=== PATIENT | female | born 1940 | race Caucasian/White ===

== ENCOUNTER 2016-11-21 11:43 | Observation (INO) | payer OTHER ==
[~2016-11-21] VITALS: Ht 157.5 cm; Wt 68.0 kg
[~2016-11-21 11:43] MED LIST: AMITRIPTYLINE H25 M2 PO; AMITRIPTYLINE100 M1 PO; AMITRIPTYLINE75 MG PO; AMLODIPINE BESYL5 M1 PO; AMLODIPINE5 MG PO; ASPIR 8181 MG PO; AUGMENTIN 875875 MG PO; BACLOFEN20 MG PO; CIPRO 500MG TA500 MG PO; COUMADIN5 M2 PO; COUMADIN7.5 M1 PO; DAILY VALUE1 EACH PO; FERROUS SULFAT325 M3 PO; LEVOTHYROXINE100 MC1 PO; LIORESAL 10MG T10 MG PO; LISINOPRIL10 M1 PO; LISINOPRIL10 MG PO; MACROBID100 MG PO; PRAVACHOL80 M1 PO; PRINIVIL10 MG PO; Senokot S PO; Theragran Vitamins PO; VITAMIN B1100 MG PO; VITAMIN C1000 M4 PO; WARFARIN SODIU7.5 MG PO
--- NOTE | 2016-11-21 11:58 | NUR ---
PT TO ED C/O "MY HEAD FEELS FUNNY" X A FEW DAYS. PT HAS VISITING NURSES WHO ADVISED PT TO COME TO ED FOR LETHARGY, ? UTI AND DEHYRDATION.
--- NOTE | 2016-11-21 12:02 | ED AMS/SEIZURE/WEAK/DIZZY ---
History of Present Illness General Chief Complaint: General Adult Stated Complaint: WEAKNESS Source: patient, old records Exam Limitations: no limitations Vital Signs & Intake/Output Vital Signs & Intake/Output Vital Signs Date Time Temp Pulse Resp B/P Pulse O2 O2 Flow FiO2 Ox Delivery Rate 11/21 1700 97.6 11/21 1648 95.1 88 18 154/78 96 Room Air 11/21 1642 96.0 75 20 158/74 11/21 1539 96.0 75 20 158/74 94 Room Air 11/21 1345 96.0 69 18 164/73 96 Room Air 11/21 1156 97.0 74 20 147/79 92 Room Air Allergies Coded Allergies: Sulfa (Sulfonamide Antibiotics) (INCOHERENT 11/21/16) oxycodone (SENSITIVITY TO IT 11/21/16) Reconcile Medications Amitriptyline HCl 25 MG TABLET 1 TAB PO QPM DEPRESSION (Reported) Amlodipine Besylate 5 MG TABLET 1 TAB PO DAILY BP (Reported) Ascorbic Acid (Vitamin C) 1,000 MG TABLET 1 TAB PO DAILY SUPPLEMENT (Reported ) Baclofen 20 MG TABLET 1 TAB PO 4 TIMES/DAY MUSCLE SPASMS (Reported) Calcium (Elemental-Fr Calcarb) (Calcium) 600 MG CALCIUM (1,500 MG) TABLET 2, 400 MG PO DAILY SUPPLEMENT (Reported) Cranberry Extract (Cranberry) (Unknown Strength) CAPSULE (Unknown Dose) PO DAILY SUPPLEMENT (Reported) Cyanocobalamin (Vitamin B-12) (Unknown Strength) TABLET (Unknown Dose) PO DAILY SUPPLEMENT (Reported) Ferrous Sulfate 325 MG (65 MG IRON) TABLET 1 TAB PO DAILY SUPPLEMENT ( Reported) Levothyroxine Sodium 100 MCG TABLET 1 TAB PO DAILY AC THYROID (Reported) Lisinopril 10 MG TABLET 1 TAB PO DAILY BP (Reported) Multivitamin (Daily Value) 1 EACH TABLET 1 TAB PO DAILY SUPPLEMENT (Reported) Pravastatin Sodium (Pravachol) 80 MG TABLET 1 TAB PO DAILY CHOLESTEROL ( Reported) Warfarin Sodium (Coumadin) 5 MG TABLET 1 TAB PO Q48 BLOOD THINNER (Reported) Warfarin Sodium (Coumadin) 7.5 MG TABLET 1 TAB PO Q48 BLOOD THINNER (Reported ) Triage Note: PT TO ED C/O "MY HEAD FEELS FUNNY" X A FEW DAYS. PT HAS VISITING NURSES WHO ADVISED PT TO COME TO ED FOR LETHARGY, ? UTI AND DEHYRDATION. Triage Nurses Notes Reviewed? yes Onset: Gradual Duration: day(s): (2-3), constant Timing: recent history Injury Environment: home Severity: moderate Severity Numbers: 6 No Modifying Factors: none Associated Symptoms: denies HPI: 76-year-old female with history of MS, chronic indwelling Warner which she's had for the past 3 weeks presents to the ER today complaining a "fuzziness"and lethargy which she's had for the past 2-3 days. Her was at bedside states she had similar symptoms 5 years ago which time she was diagnosed with a urine infection. The patient denies chest pain headache vision changes fevers chills no shortness of breath cough rhinorrhea congestion. She denies any abdominal pain. They deny noting any change in her urine output in the Warner catheter. per her pt has been at times confused, neurologist is dr trevino. sx worse at night (DAGO CHÁVEZ) Past History Travel History Traveled to [place] past 21 day No Medical History Any Pertinent Medical History? 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 No (DAGO CHÁVEZ) Review of Systems Review of Systems Constitutional: Reports: see HPI. All Other Systems: Reviewed and Negative Comments Review of systems: See HPI, All other systems negative. Constitutional, no chills no fever, no malaise no weight loss HEENT: No visual changes no sore throat no congestion, no ear pain Cardiovascular: No chest pain , no palpitation Skin, no jaundice no rashes, no change in skin Respiratory: No dyspnea no cough no sputum GI: No nausea no vomiting, no diarrhea, no bloating/constipation : No dysuria No hematuria, no frequency, no discharge Muscle skeletal: No joint pain, no joint swelling, no back pain, no neck pain, Neurologic: No numbness no confusion, no headache Psych: No stress Heme/endocrine: No bruising no bleeding Immunology: No lymphadenopathy (DAGO CHÁVEZ) Physical Exam Physical Exam General Appearance: well developed/nourished, no apparent distress, alert, awake Comments: Well-developed well-nourished person in no acute distress HEENT: Normal EENT exam; PERRL, EOMI, no nystagmus. HEAD is atraumatic. moist mucous membranes. Neck: Supple, no lymphadenopathy, normal range of motion Back: Nontender, Full range of motion Cardiovascular: Regular rate and rhythms no murmurs rubs Respiratory: Chest nontender.There were no bony deformities, no asymmetry. No respiratory distress. Patient speaking in full complete sentences. Breath sounds clear to auscultation bilaterally: NO W/R/R Abdomen: Soft, nontender nondistended, no appreciable organomegaly. Normal bowel sounds. No rebound/guarding Extremity: No edema, full range of motion of extremities, normal and equal pulses bilaterally, 5 out of 5 strength noted to bilateral upper and lower extremities Neuro: Alert oriented x3, motor sensory normal, cranial nerves II through XII grossly intact. There were no obvious focal neurologic abnormalities. Skin: No appreciable rash on exposed skin, skin is warm and dry. Psych: Mood and affect is normal, memory and judgment is normal. Core Measures ACS in differential dx? Yes CVA/TIA Diagnosis: No Severe Sepsis Present: No Septic Shock Present: No (DAGO CHÁVEZ) Progress Differential Diagnosis: arrythmia, anemia, benign positional vertigo, CVA/stroke , dehydration, electrolyte imbalance, GI bleed, hypoglycemia, hypoxia, multiple sclerosis, sepsis, subarachnoid Hem., UTI/pyelo, vertebrobasilar insuff Plan of Care: Orders Procedure Date/time Status Heart Healthy Diet 11/22 B Active PROTHROMBIN TIME 11/22 599 Active CBC WITHOUT DIFFERENTIAL 11/22 599 Active BASIC ELECTROLYTES PLUS BUN&CR 11/22 599 Active Regular Diet 11/21 D Complete Teach/Educate 11/22 1851 Active Pain Treatment and Response 11/22 1851 Active Nutritional Intake, Monitor 11/22 1851 Active Isolation 11/22 1851 Active Patient Care Conference 11/22 1851 Active Activity/Ambulation 11/22 1851 Active PT Evaluate & Treat 11/21 1609 Active Pathway - chart 11/21 1609 Active House Staff 11/21 1609 Active Patient Data 11/21 1609 Active Code Status 11/21 1609 Active Patient Data 11/[address] in observation 11/21 1510 Active ED Holding Orders 11/21 1510 Active Vital Signs 11/21 1510 Active Code Status 11/21 1510 Complete Intake & Output 11/21 1308 Active THYROID STIMULATING HORMONE 11/21 1300 Active VITAMIN B12 11/21 1300 Active PROTHROMBIN TIME 11/21 1235 Complete EKG 11/21 1234 Active CULTURE,URINE 11/21 1225 Active URINALYSIS 11/21 1225 Complete TROPONIN LEVEL 11/21 1225 Active COMPREHENSIVE METABOLIC PANEL 11/21 1225 Active CBC WITHOUT DIFFERENTIAL 11/21 1225 Complete Lab Add-on Test 11/21 UNK Active Occupational Tx Eval & Treat 11/21 UNK Active VTE Mechanical Prophylaxis 11/21 UNK Active Current Medications Sig/Laura Start time Last Medication Dose Stop Time Status Admin Pravastatin Sodium 80 MG 1700 11/22 1700 AC (Pravachol) Ascorbic Acid 1,000 MG DAILY 11/22 1000 AC (Vitamin C) Ferrous Sulfate 325 MG DAILY 11/22 1000 AC (Feosol) Multivitamins 1 TAB DAILY 11/22 1000 AC Therapeutic (Theragran-M Vitamins Tabs) Levothyroxine Sodium 0.1 MG DAILY AC 11/22 0700 AC (Synthroid) Amitriptyline HCl 25 MG QPM 11/21 2200 AC (Elavil 25 Mg. Tablet) Baclofen 20 MG Q6 11/21 1800 AC (Lioresal 10MG Tablet) Laboratory Tests 11/21/16 1300: Anion Gap 7, Estimated GFR 48 L, BUN/Creatinine Ratio 30.9 H, Glucose 107 H, Calcium 10.3 H, Total Bilirubin 0.4, AST 21, ALT 40, Alkaline Phosphatase 212 H, Troponin I < 0.01, Total Protein 7.4, Albumin 3.7, Globulin 3.7, Albumin/ Globulin Ratio 1.0 L, Vitamin B12 Pending, TSH Pending, PT 47.9 *H, INR 4.63 *H , CBC w Diff NO MAN DIFF REQ, RBC 4.58, MCV 84.2, MCH 27.8, RDW 16.4 H, MPV 8.5 , Gran % 56.7, Lymphocytes % 31.6, Monocytes % 7.7, Eosinophils % 3.4, Basophils % 0.6, Absolute Granulocytes 3.5, Absolute Lymphocytes 2.0, Absolute Monocytes 0.5, Absolute Eosinophils 0.2, Absolute Basophils 0, PUBS MCHC 33.0 11/21/16 1250: Urinalysis HEAVY H, Urine Color YEL, Urine Clarity CLDY H, Urine pH 8.0, Ur Specific [place] 1.015, Urine Protein 30 H, Urine Ketones NEG, Urine Nitrite NEG, Urine Bilirubin NEG, Urine Urobilinogen 0.2, Ur Leukocyte Esterase LARGE H , Ur Microscopic SEDIMENT EXAMINED, Urine RBC 25-50 H, Urine WBC 1-3 H, Ur Epithelial Cells RARE, Urine Crystals 3+ TRIP PHOS H, Urine Bacteria MANY H, Urine Hemoglobin LARGE H, Urine Glucose NEG Microbiology 11/21 1250 URINE ROUT: Urine Culture - RECD labs and ct ordered, pt appears in nad at this time case d/w cecil who agrees wtih plan Discussed the patient and her all of her lab results CT findings given change in mental status increased lethargy she is a fall risk premature discharge he be medically harmful they're in agreement with this plan patient medicated with Cipro 500 mg by mouth after reviewing urine culture results in the past E coli. Case was discussed with case management will place in the patient in observation (EVAN PARK,DAGO) Diagnostic Imaging: Viewed by Me: CT Scan. Discussed w/RAD: CT Scan. Radiology Impression: PATIENT: AL NUNEZ PRESENT AGE: 76 PATIENT ACCOUNT NO: [id number] : 40 LOCATION: [facility] ORDERING PHYSICIAN: DAGO PARK SERVICE DATE: 11/21/16 EXAM TYPE: CAT - CT HEAD WO IV CONTRAST EXAMINATION: CT HEAD WITHOUT CONTRAST CLINICAL INFORMATION: History of multiple sclerosis, headache and lethargy. COMPARISON: CT scan of the head 11/21. TECHNIQUE: Contiguous axial imaging was performed from the skull base to vertex without intravenous administration of contrast. DLP: 529.16 mGy-cm FINDINGS: There is no evidence of acute intracranial hemorrhage or territorial infarction. No abnormal mass effect or midline shift is seen. Garcia to white matter differentiation is well preserved. No extra-axial fluid collections are identified. There is mild commensurate prominence of the ventricles and sulci, consistent with diffuse volume loss which is similar compared to the prior study. The study redemonstrates low attenuation in the periventricular and subcortical white matter, most prominently in the left posterior centrum semiovale. Low-attenuation in the basal ganglia is consistent with lacunar infarcts. There are degenerative changes in the temporomandibular joints. There is soft tissue fullness of the left pterygopalatine fossa and cavernous sinus, stable compared to prior imaging. The soft tissues are unremarkable. The visualized mastoid air cells and paranasal sinuses are well-aerated. IMPRESSION: 1. There are no acute bleeds or infarcts. 2. 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 3. There is stable soft tissue fullness of the left pterygopalatine fossa and cavernous sinus. DICTATED BY: HAN TONY MD DATE/TIME DICTATED:11/21/161323 DIRECTOR CASE:ELTON DATE/TIME TRANSCRIBED:11/21/161323 CONFIDENTIAL, DO NOT COPY WITHOUT APPROPRIATE AUTHORIZATION. <Electronically signed in Other Vendor System> SIGNED BY: HAN TONY MD 11/21/16 1335 Initial ED EKG: normal intervals, normal p-waves, normal QRS complex, normal sinus rhythm, nsr at 70 Prior EKG: unchanged (07/2015) (DAGO CHÁVEZ) Departure Departure Time of Disposition: 1501 Disposition: STILL A PATIENT Condition: Stable Clinical Impression Primary Impression: UTI (urinary tract infection) Secondary Impressions: Altered mental status Referrals: NICKY DOMINIQUE MD (PCP/Family) Departure Forms: Customer Survey General Discharge Information Observation Note Spoke With: KATHY PICKETT MD Physician Advisor Notified: ILA FLORES DO Place Patient In: Non-ED OBS Care Area Rationale for Observation: My rational for observation is as follows premature discharge may be medically harmful trend labs antibiotics possible PT consult for possible rehabilitation she is a fall risk (DAGO CHÁVEZ) PA/ROUNDSMAN Co-Sign Statement Statement: ED Attending supervision documentation- [x] I saw and evaluated the patient. I have also reviewed all the pertinent lab results and diagnostic results. I agree with the findings and the plan of care as documented in the PA's/ROUNDSMAN's documentation. [] I have reviewed the ED Record and agree with the PA's/ROUNDSMAN's documentation. [] Additions or exceptions (if any) to the PAs/ROUNDSMAN's note and plan are summarized below: [] (ILA FLORES DO)
--- NOTE | 2016-11-21 12:10 | NUR ---
PT TO ROOM 9, SEEN BY PA STUDENT IMMEDIATLY UPON ARRIVAL TO ROOM.
--- NOTE | 2016-11-21 12:27 | NUR ---
PT CHANGED INTO GOWN, POSITIONED FOR COMFORT ON STRETCHER. PT DENIES ANY OPEN AREAS, REFUSING TO BE TURNED FOR SKIN CHECK AT THIS TIME. XAVIER GORDON AT BEDSIDE FOR EVAL.
[2016-11-21] MEDS ORDERED: BACLOFEN20 M1 PO (12:29)
[2016-11-21] MEDS ORDERED: CALCIUM600 M3 PO (12:35)
[2016-11-21] MEDS ORDERED: VITAMIN B-121000 MC3 PO (12:36)
[2016-11-21] MEDS ORDERED: CRANBERRY200 MG PO (12:36)
--- NOTE | 2016-11-21 12:56 | NUR ---
URINE DRAWN FROM CHRONIC WARNER WITH SYRINGE TO SEND TRIO. EKG AND BLOOD IN PROGRESS.
--- NOTE | 2016-11-21 13:05 | NUR ---
BLOOD DRAWN AND SENT TO THE LAB ([facility])
--- NOTE | 2016-11-21 13:08 | NUR ---
PT TO CT ON STRETCHER
[2016-11-21 13:10] LABS: ABSOLUTE BASOPHIL COUNT 0 /CUMM (0.0-0.2); ABSOLUTE EOSINOPHIL COUNT 0.2 /CUMM (0.0-0.7); ABSOLUTE GRANULOCYTE CT 3.5 /CUMM (1.4-6.5); ABSOLUTE MONOCYTE COUNT 0.5 /CUMM (0.10-0.60); BASOPHIL % 0.6 % (0.0-2.0); EOSINOPHIL % 3.4 % (0-5); GRANULOCYTE % 56.7 % (42.2-75.2); HEMATOCRIT 38.5 % (37-47); MEAN CORPUSCULAR HGB 27.8 PG (27.0-31.0); MEAN CORPUSCULAR VOLUME 84.2 FL (81.0-99.0); MEAN PLATELET VOLUME 8.5 FL (7.4-10.4); PLATELET COUNT 391 /CUMM (130-400); RBC DISTRIBUTION WIDTH 16.4 % (11.5-14.5); RED BLOOD CELL CT 4.58 /CUMM (4.20-5.40); WHITE BLOOD CELL COUNT 6.2 /CUMM (4.8-10.8)
[2016-11-21 13:21] LABS: PT 47.9 SEC (9.4-12.5)
--- NOTE | 2016-11-21 13:23 | NUR ---
CRITICAL TEST RESULTS [id number] AL NUNEZ F TESTS AND RESULTS: PT 47.9, INR 4.63 Results received and read back by: SADIE ADAM Results received date and time: 11/21/16 1323 The following provider was notified of the results, and read the results back: XAVIER GORDON Notified date and time: 11/21/16 at 1323
--- NOTE | 2016-11-21 13:35 | CT SCAN REPORT ---
EXAMINATION: CT HEAD WITHOUT CONTRAST CLINICAL INFORMATION: History of multiple sclerosis, headache and lethargy. COMPARISON: CT scan of the head 11/21/2014. TECHNIQUE: Contiguous axial imaging was performed from the skull base to vertex without intravenous administration of contrast. DLP: 529.16 mGy-cm FINDINGS: There is no evidence of acute intracranial hemorrhage or territorial infarction. No abnormal mass effect or midline shift is seen. Garcia to white matter differentiation is well preserved. No extra-axial fluid collections are identified. There is mild commensurate prominence of the ventricles and sulci, consistent with diffuse volume loss which is similar compared to the prior study. The study redemonstrates low attenuation in the periventricular and subcortical white matter, most prominently in the left posterior centrum semiovale. Low-attenuation in the basal ganglia is consistent with lacunar infarcts. There are degenerative changes in the temporomandibular joints. There is soft tissue fullness of the left pterygopalatine fossa and cavernous sinus, stable compared to prior imaging. The soft tissues are unremarkable. The visualized mastoid air cells and paranasal sinuses are well-aerated. IMPRESSION: 1. There are no acute bleeds or infarcts. 2. 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 3. There is stable soft tissue fullness of the left pterygopalatine fossa and cavernous sinus.
--- NOTE | 2016-11-21 13:49 | NUR ---
BACK FROM CT, AWAITING RESULTS/PLAN
--- NOTE | 2016-11-21 14:38 | NUR ---
SEEN BY PA TO DISCUSS RESULTS/PLAN, AWAITING DISPO
--- NOTE | 2016-11-21 15:40 | NUR ---
PT REPOSITIONED, DIAPER FROM HOME REMOVED, SKIN INTACT, LEG BAG CHANGED TO BEDSIDE BAG. LUNCH ORDERED. CIPRO GIVEN. HOUSE STAFF AT BEDSIDE.
--- NOTE | 2016-11-21 16:05 | History & Physical ---
MARI DANIELS,[facility] 11/21/16 1605: General Information and HPI MD Statement: I have seen and personally examined AL NUNEZ and documented this H&P. The patient is a 76 year old F who presented with a patient stated chief complaint of generalized weakness. Exam Limitations: no limitations History of Present Illness: This is a 76-year-old pleasant lady with a past medical history of multiple sclerosis with lower extremity weakness and wheelchair bound, chronic indwelling Warner catheter (changed 13 days ago) secondary to neurogenic bladder, previous history of recurrent UTIS, hyperlipidemia, PVD status post right leg stent placement, hypothyroidism, DVT and on Coumadin therapy, presents for evaluation of recent increased weakness and altered mental status. She was accompanied by her who contributes most of the history. Patient 's spouse reports that for the past 3-4 days patient has been noted to have progressively worsening weakness and altered mental status. Spouse also reports that the past few days he has noticed that the urine is more hazy than normal with some odor. Patient does deny any hematuria, increased frequency, fevers, chills, nausea /vomiting or abdominal/flank pain. Patient spouse reports that within a year ago patient had similar symptoms of generalized weakness and altered mental status and was found to have a UTI. Patient does deny any shortness of breath, chest pain, dizziness, vision changes or focal neurological deficits. Of note, patient is wheelchair-bound and is chronic indwelling Warner is changed by VNA service with the last reported change to be about 13 days ago. She has previously had UTI infections with different microorganism isolated including Escherichia coli, Pseudomonas, Citrobacter, enterococcus, Klebsiella, Morganella. Allergies/Medications Allergies: Coded Allergies: Sulfa (Sulfonamide Antibiotics) (INCOHERENT 11/21/16) oxycodone (SENSITIVITY TO IT 11/21/16) Home Med list Amitriptyline HCl 25 MG TABLET 1 TAB PO QPM DEPRESSION (Reported) Amlodipine Besylate 5 MG TABLET 1 TAB PO DAILY BP (Reported) Ascorbic Acid (Vitamin C) 1,000 MG TABLET 1 TAB PO DAILY SUPPLEMENT (Reported ) Baclofen 20 MG TABLET 1 TAB PO 4 TIMES/DAY MUSCLE SPASMS (Reported) Calcium (Elemental-Fr Calcarb) (Calcium) 600 MG CALCIUM (1,500 MG) TABLET 2, 400 MG PO DAILY SUPPLEMENT (Reported) Cranberry Extract (Cranberry) (Unknown Strength) CAPSULE (Unknown Dose) PO DAILY SUPPLEMENT (Reported) Cyanocobalamin (Vitamin B-12) (Unknown Strength) TABLET (Unknown Dose) PO DAILY SUPPLEMENT (Reported) Ferrous Sulfate 325 MG (65 MG IRON) TABLET 1 TAB PO DAILY SUPPLEMENT ( Reported) Levothyroxine Sodium 100 MCG TABLET 1 TAB PO DAILY AC THYROID (Reported) Lisinopril 10 MG TABLET 1 TAB PO DAILY BP (Reported) Multivitamin (Daily Value) 1 EACH TABLET 1 TAB PO DAILY SUPPLEMENT (Reported) Pravastatin Sodium (Pravachol) 80 MG TABLET 1 TAB PO DAILY CHOLESTEROL ( Reported) Warfarin Sodium (Coumadin) 5 MG TABLET 1 TAB PO Q48 BLOOD THINNER (Reported) Warfarin Sodium (Coumadin) 7.5 MG TABLET 1 TAB PO Q48 BLOOD THINNER (Reported ) Past History Travel History Traveled to [place] past 21 day No Medical History Neurological: 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 Cardiovascular: hypertension, hyperlipidemia, PVD (stent to R leg) Renal: 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 Exam & Diagnostic Data Last 24 Hrs of Vital Signs/I&O Vital Signs Date Time Temp Pulse Resp B/P Pulse O2 O2 Flow FiO2 Ox Delivery Rate 11/21 2151 97.7 64 20 158/70 94 11/21 1800 97.0 82 18 140/78 99 Room Air 11/21 1700 97.6 11/21 1648 95.1 88 18 154/78 96 Room Air 11/21 1642 96.0 75 20 158/74 11/21 1539 96.0 75 20 158/74 94 Room Air 11/21 1345 96.0 69 18 164/73 96 Room Air 11/21 1156 97.0 74 20 147/79 92 Room Air Intake & Output 11/22 0800 11/22 0000 11/21 1600 Intake Total 400 Output Total 100 60 Balance 300 -60 Intake, IV 300 Intake, Oral 100 Output, Urine 100 60 Patient 68.039 kg 68.039 kg Weight Physical Exam General Appearance Alert, Oriented X3, Cooperative Skin No Significant Lesion HEENT Atraumatic, Mucous Membr. moist/pink Neck Supple Lymphatic Cervical nl Cardiovascular Regular Rate, Normal S1, Normal S2 Lungs Clear to Auscultation, Normal Air Movement Abdomen Normal Bowel Sounds, Soft, No Tenderness Neurological Normal Speech, Sensation Intact, significant weakness with very minimal strength noted in lower extremities Extremities No Cyanosis, No Edema Assessment/Plan Assessment: This is a 76-year-old very pleasant lady with a chronic history of indwelling Warner catheter secondary to neurogenic bladder from multiple sclerosis and is wheelchair bound presents with parents of generalized weakness and altered mental status. #Generalized weakness Patient is reporting a 2 or 3 day onset of progressively worsening generalized weakness with altered mental status. In the setting of a chronic indwelling catheter and a prior history of repeated UTIs, in a patient that is presenting with also reported altered mental status, UTI as well as a concern. However, patient's UA obtained at the ED is not convincing a UTI, she is also afebrile with no leukocytosis. Patient is presumptively treated for UTI. Plan Will continue ceftriaxone for now and consider stopping if patient remains afebrile, with no leukocytosis and urine culture is unremarkable. #Elevated INR Patient has a history of DVT that warranted Coumadin therapy with INR goal 2-3. Patient INR today is 4.63 patient reporting taking her Coumadin dose as directed by her physician. Plan We'll hold off today's Coumadin dose Will trend INR PT tomorrow morning and those appropriately #History of MS Patient is not reporting any acute exacerbation. CT of head was obtained at the ED which did not show any new finding. Plan Continue to monitor for any neurological changes Will obtain neurology consult As Ranked By This Provider Problem List: 1. UTI (lower urinary tract infection) Core Measures/Miscellaneous Acute Coronary Syndrome ACS Diagnosis: No Cerebrovascular Accident CVA/TIA Diagnosis: No Congestive Heart Failure CHF Diagnosis: No Venous Thromboembolism VTE Risk Factors: Age > 40 [facility] d/t: No contraindications No VTE Pharm Prophylaxis d/t: No contraindications VTE Diagnosis: No VTE Type: NONE VTE Confirmed by (Test): NONE Severe Sepsis Severe Sepsis Present: No Septic Shock Septic Shock Present: No Miscellaneous Documentation Attending Case Discussed With: MD [facility] Primary Care Physician: TRIP [facility] Patient sees these Specialists NONE Level of Patient Care: General Medicine KATHY PICKETT MD 11/21/16 1658: Attending MD Review Statement Attending Statement Attending MD Statement: examined this patient, discuss w/resident/PA/CRIME SCENE ANALYST, agreed w/resident/PA/CRIME SCENE ANALYST, reviewed EMR data (avail) Attending Assessment/Plan: 76F PMH multiple sclerosis, wheelchair-bound with 2 days of generalized weakness and altered mental status, more confused than usual. Similar presentation a year ago and found to have UTI. Has chronic indwelling Warner catheter but no evidence of UTI on urinalysis, afebrile, normal WBC. No neurological changes from baseline. Plan - Observation in general medicine - Ceftriaxone given for UTI - Follow urine culture - Neurology consult - Check TSH, B12 - OT consult - Continue home medications - DVT PPx GARFIELDGONZÁLEZ EASON 11/21/16 2012: Resident Review Statement Resident Statement: discussed with epidemiology intern Other Findings: Detailed HPI as above Assessment and plan She 76-year-old woman with past medical history of multiple sclerosis (follows Dr. Brown as an outpatient), bilateral lower extremity paralysis, wheelchair bound, neurogenic bladder with chronic indwelling Warner's catheter (changed 13 days ago), history of hypertension, hyperlipidemia, peripheral vascular disease status post stent placement and right leg, hypothyroidism, history of recurrent UTIs (previous UTIs E coli, Citrobacter, enterococcus, Klebsiella, Morganella, Pseudomonas, Proteus), also history of right lower extremity DVT on Coumadin presented to ER with complaint of headache and lethargy. Problem list 1. ? Urinary tract infection (according to patient presented with same symptom during previous admission and she was found to have UTI) UA shows cloudy with positive leukocyte Estrace and many bacteria and RBCs. Patient has chronic indwelling catheter so it might be colonization only. Patient is afebrile and WBC count is normal. 2. Acute kidney injury. Creatinine 1.1 3. Supratherapeutic INR. INR is 4.63 4. History of multiple sclerosis. Head CT did not show any acute intracranial pathology Plan We will admit patient to general medicine floor. Monitor vitals closely. Patient was given ciprofloxacin 1. We will start patient on IV ceftriaxone. Follow urine cultures. Gentle hydration. Repeat kidney functions in a.m. Avoid nephrotoxins. We will hold lisinopril and Coumadin for now. Repeat INR in a.m. Goal INR between 2-3. OT consult. Neuro consult. Headache and lethargy could be because of her MS. Pain management pathway. DVT prophylaxis. Heart healthy diet. DNR/DNI.
--- NOTE | 2016-11-21 16:07 | NUR ---
IV EST. REPOSITIONED AND SETUP FOR LUNCH. AWAITING BED ASSIGNMENT
--- NOTE | 2016-11-21 16:08 | NUR ---
BED ASSIGNMENT [id number]
--- NOTE | 2016-11-21 17:24 | NUR ---
DISTRIBUTION CALLED [id number]
[2016-11-21 18:00] VITALS: BP 140/78
--- NOTE | 2016-11-21 18:49 | NUR ---
PT ARRIVED TO FLOOR AT 1757 VIA STRETCH FROM ER. REPORT TAKEN FROM ELPIDIO. VITAL SIGNS STABLE, ORIENTED TO ROOM. AT BEDSIDE. WILL MONITOR
[2016-11-21 21:51] VITALS: BP 158/70
[2016-11-22 06:38] VITALS: BP 120/64
[2016-11-22 08:06] LABS: ABSOLUTE BASOPHIL COUNT 0 /CUMM (0.0-0.2); ABSOLUTE EOSINOPHIL COUNT 0.2 /CUMM (0.0-0.7); ABSOLUTE GRANULOCYTE CT 3.1 /CUMM (1.4-6.5); ABSOLUTE LYMPH COUNT 1.9 /CUMM (1.2-3.4); ABSOLUTE MONOCYTE COUNT 0.5 /CUMM (0.10-0.60); BASOPHIL % 0.6 % (0.0-2.0); EOSINOPHIL % 3.5 % (0-5); GRANULOCYTE % 53.8 % (42.2-75.2); HEMATOCRIT 33.7 % (37-47); MEAN CORPUSCULAR HGB 28.4 PG (27.0-31.0); MEAN CORPUSCULAR HGB CONC 32.9 G/DL (33.0-37.0); MEAN CORPUSCULAR VOLUME 86.3 FL (81.0-99.0); MEAN PLATELET VOLUME 8.9 FL (7.4-10.4); PLATELET COUNT 334 /CUMM (130-400); RBC DISTRIBUTION WIDTH 16.1 % (11.5-14.5); WHITE BLOOD CELL COUNT 5.9 /CUMM (4.8-10.8)
[2016-11-22 08:44] LABS: PT 45.6 SEC (9.4-12.5)
--- NOTE | 2016-11-22 11:01 | NUR ---
OCCUPATIONAL THERAPY NOTE: OT CONSULT RECEIVED AND CHART REVIEWED. PT WITH ELEVATED INR 4.41 PT IS DEPENDENT WITH ADL AND W/C BOUND AT HER BASELINE. OT WILL F/U WHEN MEDICALLT APPROPRIATE AND ? PRIOR LEVEL OF ADL FOR APPROPRIATE INTERVENTION.
--- NOTE | 2016-11-22 11:05 | PN- Housestaff ---
Subjective Follow-up For: Generalized weakness UTI Subjective: Patient is seen and examined at bedside. He is alert and oriented to time place and person however she has intermittent episodes during conversation where she seems confused. Patient is complaining of low back pain. She does not endorse any other acute complaint including shortness of breath, chest pain, palpitation , fever, chills, nausea, vomiting, or abdominal pain. Acute overnight event reported by nursing staff Review of Systems Constitutional: Reports: see HPI. Objective Last 24 Hrs of Vital Signs/I&O Vital Signs Date Time Temp Pulse Resp B/P Pulse O2 O2 Flow FiO2 Ox Delivery Rate 11/22 0956 75 120/64 11/22 0638 98.1 75 20 120/64 94 Room Air 11/21 2151 97.7 64 20 158/70 94 11/21 1800 97.0 82 18 140/78 99 Room Air 11/21 1700 97.6 11/21 1648 95.1 88 18 154/78 96 Room Air 11/21 1642 96.0 75 20 158/74 11/21 1539 96.0 75 20 158/74 94 Room Air 11/21 1345 96.0 69 18 164/73 96 Room Air Intake & Output 11/22 1600 11/22 0800 11/22 0000 Intake Total 725 400 Output Total 1450 100 Balance -725 300 Intake, IV 525 300 Intake, Oral 200 100 Output, Urine 1450 100 Patient 68.039 kg Weight Physical Exam General Appearance: Alert, Oriented X3, Cooperative Skin: No Significant Lesion HEENT: Atraumatic, PERRLA, EOMI Neck: Supple, No JVD Lymphatic: Cervical nl Cardiovascular: Regular Rate, Normal S1, Normal S2 Lungs: Clear to Auscultation, Normal Air Movement Abdomen: Normal Bowel Sounds, Soft, No Tenderness, No Hepatospenomegaly Extremities: Normal Pulses, No Tenderness/Swelling Assessment/Plan Assessment: This is a 76-year-old pleasant gentleman with a history of multiple sclerosis wheelchair-bound and a chronic indwelling Claudio catheter secondary to neurogenic bladder is presented for evaluation of 4 days of generalized weakness with altered mental status. Patient is currently on observation and being treated for possible UTI in the setting of chronic Claudio catheter and a previous history of UTI that presented with similar symptoms. Assessment and plan UTI Urine culture results obtained today remarkable for gram-negative rods and enterococcus (which will possibly be secondary to colonization from the chronic indwelling Claudio). For now, we'll continue with ceftriaxone pending culture sensitivity. Patient is afebrile with no leukocytosis. Plan We'll continue to keep patient under observation We'll continue ceftriaxone Will await final culture sensitivity. #Generalized weakness Patient does have a history of chronic MS with lower extremity weakness. Patient is not currently endorsing any new acute focal neurological deficit. However will await neurology recommendation from Dr. Brown. Problem List: 1. UTI (lower urinary tract infection) Pain Ratin Pain Location: back pain Pain Goal: Remain pain free Pain Plan: per pain pathway Tomorrow's Labs & Rationales: CBC-trending leukocytosis
--- NOTE | 2016-11-22 12:02 | PN- Att Addend ---
Attending Addendum Attending Brief Note patient seen and examined, still feels tired and c/o back pain. She claims that she takes extra strength tylenol for pain. Vital Signs Date Time Temp Pulse Resp B/P Pulse O2 O2 Flow FiO2 Ox Delivery Rate 11/22 0956 75 120/64 11/22 0638 98.1 75 20 120/64 94 Room Air 11/21 2151 97.7 64 20 158/70 94 11/21 1800 97.0 82 18 140/78 99 Room Air 11/21 1700 97.6 11/21 1648 95.1 88 18 154/78 96 Room Air 11/21 1642 96.0 75 20 158/74 11/21 1539 96.0 75 20 158/74 94 Room Air 11/21 1345 96.0 69 18 164/73 96 Room Air 11/21 1156 97.0 74 20 147/79 92 Room Air on exam; awake, somewaht confused. cv; s1,s2, rrr, + systolic murmur. resp; clear b/l abd; soft, nt, bs+ ext; no edema. Laboratory Tests 11/22 11/21 0605 1300 Chemistry Sodium (137 - 145 mmol/L) 138 139 Potassium (3.5 - 5.1 mmol/L) 4.5 4.3 Chloride (98 - 107 mmol/L) 107 103 Carbon Dioxide (22 - 30 mmol/L) 27 28 Anion Gap (5 - 16) 4 L 7 BUN (7 - 17 mg/dL) 29 H 34 H Creatinine (0.5 - 1.0 mg/dL) 1.0 1.1 H Estimated GFR (>60 ml/min) 54 L 48 L BUN/Creatinine Ratio (7 - 25 %) 29.0 H 30.9 H Glucose (65 - 99 mg/dL) 107 H Calcium (8.4 - 10.2 mg/dL) 10.3 H Total Bilirubin (0.2 - 1.3 mg/dL) 0.4 AST (14 - 36 U/L) 21 ALT (9 - 52 U/L) 40 Alkaline Phosphatase (<127 U/L) 212 H Troponin I (< 0.11 ng/ml) < 0.01 Total Protein (6.3 - 8.2 g/dL) 7.4 Albumin (3.5 - 5.0 g/dL) 3.7 Globulin (1.9 - 4.2 gm/dL) 3.7 Albumin/Globulin Ratio (1.1 - 2.2 %) 1.0 L Vitamin B12 (239 - 931 pg/mL) > 1000 H TSH (0.270 - 4.200 uIU/mL) 4.620 H Coagulation PT (9.4 - 12.5 SEC) 45.6 *H 47.9 *H INR (0.90 - 1.19) 4.41 *H 4.63 *H Hematology CBC w Diff NO MAN DIFF REQ NO MAN DIFF REQ WBC (4.8 - 10.8 /CUMM) 5.9 6.2 RBC (4.20 - 5.40 /CUMM) 3.90 L 4.58 Hgb (12.0 - 16.0 G/DL) 11.1 L 12.7 Hct (37 - 47 %) 33.7 L 38.5 MCV (81.0 - 99.0 FL) 86.3 84.2 MCH (27.0 - 31.0 PG) 28.4 27.8 RDW (11.5 - 14.5 %) 16.1 H 16.4 H Plt Count (130 - 400 /CUMM) 334 391 MPV (7.4 - 10.4 FL) 8.9 8.5 Gran % (42.2 - 75.2 %) 53.8 56.7 Lymphocytes % (20.5 - 51.1 %) 33.0 31.6 Monocytes % (1.7 - 9.3 %) 9.1 7.7 Eosinophils % (0 - 5 %) 3.5 3.4 Basophils % (0.0 - 2.0 %) 0.6 0.6 Absolute Granulocytes (1.4 - 6.5 /CUMM) 3.1 3.5 Absolute Lymphocytes (1.2 - 3.4 /CUMM) 1.9 2.0 Absolute Monocytes (0.10 - 0.60 /CUMM) 0.5 0.5 Absolute Eosinophils (0.0 - 0.7 /CUMM) 0.2 0.2 Absolute Basophils (0.0 - 0.2 /CUMM) 0 0 PUBS MCHC (33.0 - 37.0 G/DL) 32.9 L 33.0 11/21 1250 Urines Urinalysis HEAVY H Urine Color (YEL,AMB,STR) YEL Urine Clarity (CLEAR) CLDY H Urine pH (5.0 - 8.0) 8.0 Ur Specific Hessel (1.001 - 1.035) 1.015 Urine Protein (NEG,<30 MG/DL) 30 H Urine Ketones (NEG) NEG Urine Nitrite (NEG) NEG Urine Bilirubin (NEG) NEG Urine Urobilinogen (0.1 - 1.0 EU/dl) 0.2 Ur Leukocyte Esterase (NEG) LARGE H Ur Microscopic SEDIMENT EXAMINED Urine RBC (0 - 5 /HPF) 25-50 H Urine WBC (0 - 2 /HPF) 1-3 H Ur Epithelial Cells (NONE,FEW) RARE Urine Crystals 3+ TRIP PHOS H Urine Bacteria (NEG/NONE) MANY H Urine Hemoglobin (NEG) LARGE H Urine Glucose (N MG/DL) NEG A/P: 76 y/o F with pmh sig for multiple sclerosis with lower extremity weakness and wheelchair bound, chronic indwelling Claudio catheter (changed 13 days ago) secondary to neurogenic bladder, previous history of recurrent UTIS, hyperlipidemia, PVD status post right leg stent placement, hypothyroidism, DVT and on Coumadin therapy is placed on the medicine observation with generalized weakness as well as possible UTI. Neurology consult is pending. Patient was started on ceftriaxone for uti. Can continue current antibiotics and follow-up on cultures. Adjust abx accordingly. If cultures remain negative, will consider stopping the antibiotics. Tylenol for pain management. Patient also has supratherapeutic INR, continue to hold Coumadin and check INR in the morning. Secondary to the fact that patient is still feeling weak, neurology relation pending and urine culture pending, we will extend her observation status.
[2016-11-22 15:13] VITALS: BP 140/70
--- NOTE | 2016-11-22 19:57 | Cons- Neurology ---
General Information and HPI Consulting Request Date of Consult: 11/22/16 Requested By: [place] MUSE MD Reason for Consult: General malaise Source of Information: patient, old records Exam Limitations: poor historian History of Present Illness: 76 year old woman with MS, a patient od Dr. Brown, presenting to the hospital due to general malaise. 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 She also has recurrent UTIs due to urinary retention and need for catheterization. She currently presented for generalized weakness and was found to have another UTI for which she is being treated. On further questioning she admits that over the last week she had also felt both hands have become weaker than usual and in turn tremulous. She feels that this is a new symptom she did not have before. She is not on any DMT likely because of her advanced age. She also reports having morem spastic pain since being admitted to the hospital. She believes that is because her Baclofen had been held. Allergies/Medications Allergies: Coded Allergies: Sulfa (Sulfonamide Antibiotics) (INCOHERENT 11/21/16) oxycodone (SENSITIVITY TO IT 11/21/16) Home Med List: Amitriptyline HCl 25 MG TABLET 1 TAB PO QPM DEPRESSION (Reported) Amlodipine Besylate 5 MG TABLET 1 TAB PO DAILY BP (Reported) Ascorbic Acid (Vitamin C) 1,000 MG TABLET 1 TAB PO DAILY SUPPLEMENT (Reported ) Baclofen 20 MG TABLET 1 TAB PO 4 TIMES/DAY MUSCLE SPASMS (Reported) Calcium (Elemental-Fr Calcarb) (Calcium) 600 MG CALCIUM (1,500 MG) TABLET 2, 400 MG PO DAILY SUPPLEMENT (Reported) Cranberry Extract (Cranberry) (Unknown Strength) CAPSULE (Unknown Dose) PO DAILY SUPPLEMENT (Reported) Cyanocobalamin (Vitamin B-12) (Unknown Strength) TABLET (Unknown Dose) PO DAILY SUPPLEMENT (Reported) Ferrous Sulfate 325 MG (65 MG IRON) TABLET 1 TAB PO DAILY SUPPLEMENT ( Reported) Levothyroxine Sodium 100 MCG TABLET 1 TAB PO DAILY AC THYROID (Reported) Lisinopril 10 MG TABLET 1 TAB PO DAILY BP (Reported) Multivitamin (Daily Value) 1 EACH TABLET 1 TAB PO DAILY SUPPLEMENT (Reported) Pravastatin Sodium (Pravachol) 80 MG TABLET 1 TAB PO DAILY CHOLESTEROL ( Reported) Warfarin Sodium (Coumadin) 5 MG TABLET 1 TAB PO Q48 BLOOD THINNER (Reported) Warfarin Sodium (Coumadin) 7.5 MG TABLET 1 TAB PO Q48 BLOOD THINNER (Reported ) Current Medications: Current Medications Sig/Laura Start time Last Medication Dose Route Stop Time Status Admin Acetaminophen 1,000 MG Q6P PRN 11/22 1145 AC 11/22 N/A 1 UNIT IV 1730 Acetaminophen 650 MG .STK-MED ONE 11/22 0953 DC PO 11/22 0954 Acetaminophen 650 MG Q6P PRN 11/21 1615 AC 11/22 PO 0957 Amitriptyline HCl 25 MG QPM 11/21 2200 AC 11/21 PO 2152 Amlodipine Besylate 5 MG DAILY 11/21 1611 AC 11/22 PO 0956 Ascorbic Acid 1,000 MG DAILY 11/22 1000 AC 11/22 PO 0956 Baclofen 20 MG Q6H 11/22 0500 AC 11/22 PO 1647 Baclofen 20 MG Q6 11/21 1800 DC 11/21 PO 2152 Bisacodyl 10 MG ONCE ONE 11/22 1415 DC 11/22 KS 11/22 1416 1700 Ceftriaxone Sodium 1,000 MG 1700 11/21 1700 AC 11/22 IV 1646 Ferrous Sulfate 325 MG DAILY 11/22 1000 AC 11/22 PO 0956 Levothyroxine Sodium 0.1 MG DAILY AC 11/22 0700 AC 11/22 PO 0549 Melatonin 5 MG AT BEDTIME 11/22 0115 AC 11/22 PO 0119 Multivitamins 1 TAB DAILY 11/22 1000 AC 11/22 Therapeutic PO 0956 Pravastatin Sodium 80 MG 1700 11/22 1700 AC 11/22 PO 1646 Ramelteon 8 MG AT BEDTIME ONE 11/22 2200 AC PO 11/22 2201 Sodium Chloride 1,000 ML Q13H 11/21 1630 DC 11/21 IV 11/22 0529 1642 Tramadol HCl 50 MG .STK-MED ONE 11/22 1128 DC PO 11/22 1129 Review of Systems Review of Systems: As per HPI. Otherwise negative. 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 OFFICER/Reproductive: HYSTERECTOMY Surgical History Surgical History: non-contributory Family History Relations & Conditions If Any: FATHER High cholesterol MOTHER FH: arthritis Relation not specified for: *No pertinent family history Psychosocial History Services at Home: Home Health Aide, Nursing Smoking Status: Never Smoked ETOH Use: denies use Illicit Drug Use: denies illicit drug use Exam & Diagnostic Data Vital Signs and I&O Vital Signs Date Time Temp Pulse Resp B/P Pulse O2 O2 Flow FiO2 Ox Delivery Rate 11/22 1513 98.0 81 20 140/70 93 11/22 0956 75 120/64 11/22 0638 98.1 75 20 120/64 94 Room Air 11/21 2151 97.7 64 20 158/70 94 Intake & Output 11/22 1600 11/22 0800 11/22 0000 Intake Total 980 725 400 Output Total 850 1450 100 Balance 130 -725 300 Intake, IV 525 300 Intake, Oral 980 200 100 Number 0 Bowel Movements Output, Urine 850 1450 100 Patient 150 lb Weight Physical Exam: Alert and orientedx3. Fluent and comprehends. Good attention and concentration. S1 and S2 are normal, RRR. EOMI, CRISTIN, no nystagmus, face is symmetric, V1-V3 sensation is normal, tongue midline, uvula raises in the midline, visual field full to confrontation, TPZ and SCM strong. Hearing normal. Strength in arms 4/5 proximally bit 3/5 distally in intrinsic hand muscles. Legs are 0/5 bilaterally. There is reduced sensation in the lower legs. High tone throughout. Hyperreflexive. Gait deferred due to paraplegia. Last 48 Hours of Lab Results: Laboratory Tests 11/22 11/21 0605 1300 Chemistry Sodium (137 - 145 mmol/L) 138 139 Potassium (3.5 - 5.1 mmol/L) 4.5 4.3 Chloride (98 - 107 mmol/L) 107 103 Carbon Dioxide (22 - 30 mmol/L) 27 28 Anion Gap (5 - 16) 4 L 7 BUN (7 - 17 mg/dL) 29 H 34 H Creatinine (0.5 - 1.0 mg/dL) 1.0 1.1 H Estimated GFR (>60 ml/min) 54 L 48 L BUN/Creatinine Ratio (7 - 25 %) 29.0 H 30.9 H Glucose (65 - 99 mg/dL) 107 H Calcium (8.4 - 10.2 mg/dL) 10.3 H Total Bilirubin (0.2 - 1.3 mg/dL) 0.4 AST (14 - 36 U/L) 21 ALT (9 - 52 U/L) 40 Alkaline Phosphatase (<127 U/L) 212 H Troponin I (< 0.11 ng/ml) < 0.01 Total Protein (6.3 - 8.2 g/dL) 7.4 Albumin (3.5 - 5.0 g/dL) 3.7 Globulin (1.9 - 4.2 gm/dL) 3.7 Albumin/Globulin Ratio (1.1 - 2.2 %) 1.0 L Vitamin B12 (239 - 931 pg/mL) > 1000 H TSH (0.270 - 4.200 uIU/mL) 4.620 H Coagulation PT (9.4 - 12.5 SEC) 45.6 *H 47.9 *H INR (0.90 - 1.19) 4.41 *H 4.63 *H Hematology CBC w Diff NO MAN DIFF REQ NO MAN DIFF REQ WBC (4.8 - 10.8 /CUMM) 5.9 6.2 RBC (4.20 - 5.40 /CUMM) 3.90 L 4.58 Hgb (12.0 - 16.0 G/DL) 11.1 L 12.7 Hct (37 - 47 %) 33.7 L 38.5 MCV (81.0 - 99.0 FL) 86.3 84.2 MCH (27.0 - 31.0 PG) 28.4 27.8 RDW (11.5 - 14.5 %) 16.1 H 16.4 H Plt Count (130 - 400 /CUMM) 334 391 MPV (7.4 - 10.4 FL) 8.9 8.5 Gran % (42.2 - 75.2 %) 53.8 56.7 Lymphocytes % (20.5 - 51.1 %) 33.0 31.6 Monocytes % (1.7 - 9.3 %) 9.1 7.7 Eosinophils % (0 - 5 %) 3.5 3.4 Basophils % (0.0 - 2.0 %) 0.6 0.6 Absolute Granulocytes (1.4 - 6.5 /CUMM) 3.1 3.5 Absolute Lymphocytes (1.2 - 3.4 /CUMM) 1.9 2.0 Absolute Monocytes (0.10 - 0.60 /CUMM) 0.5 0.5 Absolute Eosinophils (0.0 - 0.7 /CUMM) 0.2 0.2 Absolute Basophils (0.0 - 0.2 /CUMM) 0 0 PUBS MCHC (33.0 - 37.0 G/DL) 32.9 L 33.0 11/21 1250 Urines Urinalysis HEAVY H Urine Color (YEL,AMB,STR) YEL Urine Clarity (CLEAR) CLDY H Urine pH (5.0 - 8.0) 8.0 Ur Specific [place] (1.001 - 1.035) 1.015 Urine Protein (NEG,<30 MG/DL) 30 H Urine Ketones (NEG) NEG Urine Nitrite (NEG) NEG Urine Bilirubin (NEG) NEG Urine Urobilinogen (0.1 - 1.0 EU/dl) 0.2 Ur Leukocyte Esterase (NEG) LARGE H Ur Microscopic SEDIMENT EXAMINED Urine RBC (0 - 5 /HPF) 25-50 H Urine WBC (0 - 2 /HPF) 1-3 H Ur Epithelial Cells (NONE,FEW) RARE Urine Crystals 3+ TRIP PHOS H Urine Bacteria (NEG/NONE) MANY H Urine Hemoglobin (NEG) LARGE H Urine Glucose (N MG/DL) NEG Imaging/Other Studies: Findings: Multiplanar multisequential MRI of the brain without contrast is obtained. No gadolinium was given due to diminished GFR. MRI brain (2012): Moderate cerebral atrophy. No acute intracranial hemorrhage infarct there is no mass effect or midline shift extra-axial collection Multiple periventricular and subcortical white matter hyperintensities likely compatible with history of multiple sclerosis. There is right cerebellar multiple sclerosis plaque measuring 1.1 cm. Diffusion weighted images demonstrate no acute stroke. Intracerebral vasculature flow-voids are maintained. Impression: Stable multiple sclerosis plaques there is no significant interval change since prior study. Assessment/Plan Assessment: 76 year old woman with advanced MS, currently presenting with UTI and likely related malaise. She does report a new more focal symptom in new bilateral hand weakness. Since exacerbations are sometimes triggered by infections are recommend assessing this possibility. Recommendations: 1. MRI Cervical spine WITH contrast. 2. Continue to treat infection. 3. Check T3 and T4 levels since TSH is elevated and complains of weakness. 4. Patient takes Baclofen as 20mg in AM, 20mg at supper and 40mg before bedtime. Please adjust. 5. Check Vitamin D levels. If low will need supplementation. 6. Need to assess why her INR is so high (Liver disease??) Consult Acknowledgment - Thank you for your consult request.
--- NOTE | 2016-11-22 20:50 | NUR ---
PT HAS A NEW ORDER FOR ROZEREM FOR BEDTIME. PT ALREADY HAS MELATONIN ORDERED FOR BEDTIME. CALLED RES HABILITATION ASSISTANT SOHAN MERCEDES TO D/C MELATONIN. PT ALSO HAS CONCERNS ABOUT BACLOFEN ORDER. PER PT AND HER FAMILY, SHE TAKES BACLOFEN 5 TIMES DAILY. RES HABILITATION ASSISTANT SOHAN UPDATED WHO LOOKED INTO PT'S HOME MEDS AND VERIFIED THAT PT GETS IT 4 TIMES DAILY 20MG EACH TIME. PT AND HER FAMILY UPDATED.
[2016-11-22 22:37] VITALS: BP 160/70
[2016-11-23 07:28] VITALS: BP 130/40
[2016-11-23 07:50] LABS: ABSOLUTE BASOPHIL COUNT 0 /CUMM (0.0-0.2); ABSOLUTE EOSINOPHIL COUNT 0.2 /CUMM (0.0-0.7); ABSOLUTE GRANULOCYTE CT 3.2 /CUMM (1.4-6.5); ABSOLUTE LYMPH COUNT 2.5 /CUMM (1.2-3.4); ABSOLUTE MONOCYTE COUNT 0.6 /CUMM (0.10-0.60); BASOPHIL % 0.6 % (0.0-2.0); EOSINOPHIL % 3.6 % (0-5); GRANULOCYTE % 48.6 % (42.2-75.2); HEMATOCRIT 35.3 % (37-47); MEAN CORPUSCULAR HGB 28.2 PG (27.0-31.0); MEAN CORPUSCULAR HGB CONC 32.5 G/DL (33.0-37.0); MEAN CORPUSCULAR VOLUME 86.6 FL (81.0-99.0); MEAN PLATELET VOLUME 8.6 FL (7.4-10.4); PLATELET COUNT 375 /CUMM (130-400); RBC DISTRIBUTION WIDTH 16.5 % (11.5-14.5); RED BLOOD CELL CT 4.08 /CUMM (4.20-5.40); WHITE BLOOD CELL COUNT 6.6 /CUMM (4.8-10.8)
--- NOTE | 2016-11-23 08:09 | PN- Housestaff ---
MARI DANIELS,ALYSSA 11/23/16 0809: Subjective Follow-up For: UTI Subjective: Patient is seen and examined at bedside. She reports improvement on her back pain. Patient is noted to be warm to touch and morning temperature obtain was 100.0. She however denies any chest pain, shortness of breath, palpitation, nausea, vomiting, increased dizziness, abdominal pain or dysuria. No acute event reported by nursing staff. Review of Systems Constitutional: Reports: no symptoms. Objective Last 24 Hrs of Vital Signs/I&O Vital Signs Date Time Temp Pulse Resp B/P Pulse O2 O2 Flow FiO2 Ox Delivery Rate 11/23 09 85 128/60 11/23 0800 Room Air 11/23 0728 100.0 85 20 130/40 92 Room Air 11/22 2237 98.1 77 20 160/70 92 Room Air 11/22 1513 98.0 81 20 140/70 93 Intake & Output 11/23 1600 11/23 0800 11/23 0000 Intake Total 400 100 100 Output Total 400 1102 Balance 400 -300 -1002 Intake, Oral 400 100 100 Number 2 Bowel Movements Output, Stool 2 Output, Urine 400 1100 Physical Exam General Appearance: Alert, Oriented X3, Cooperative Other Physical Findings: Skin: No Significant Lesion HEENT: Atraumatic, PERRLA, EOMI Neck: Supple, No JVD Lymphatic: Cervical nl Cardiovascular: Regular Rate, Normal S1, Normal S2 Lungs: Clear to Auscultation, Normal Air Movement Abdomen: Normal Bowel Sounds, Soft, No Tenderness, No Hepatospenomegaly Extremities: Normal Pulses, No Tenderness/Swelling Current Medications: Current Medications Sig/Laura Start time Last Medication Dose Route Stop Time Status Admin Acetaminophen 1,000 MG Q6P PRN 11/22 1145 AC 11/22 N/A 1 UNIT IV 1730 Acetaminophen 650 MG Q6P PRN 11/21 1615 AC 11/23 PO 0920 Amitriptyline HCl 25 MG QPM 11/21 2200 AC 11/22 PO 2214 Amlodipine Besylate 5 MG DAILY 11/21 1611 AC 11/23 PO 0925 Ascorbic Acid 1,000 MG DAILY 11/22 1000 AC 11/23 PO 0916 Baclofen 40 MG 2200 11/23 2200 AC PO Baclofen 20 MG 0800,1700 11/23 0800 AC 11/23 PO 0917 Baclofen 20 MG Q6H 11/22 0500 DC 11/23 PO 0627 Bisacodyl 10 MG ONCE ONE 11/22 1415 DC 11/22 IL 11/22 1416 1700 Ceftriaxone Sodium 1,000 MG 1700 11/21 1700 AC 11/22 IV 1646 Ferrous Sulfate 325 MG DAILY 11/22 1000 AC 11/23 PO 0917 Levothyroxine Sodium 0.1 MG DAILY AC 11/22 0700 AC 11/23 PO 0627 Melatonin 5 MG AT BEDTIME 11/22 0115 DC 11/22 PO 0119 Multivitamins 1 TAB DAILY 11/22 1000 AC 11/23 Therapeutic PO 0916 Pravastatin Sodium 80 MG 1700 11/22 1700 AC 11/22 PO 1646 Ramelteon 8 MG DAILY PRN 11/22 2315 AC PO Ramelteon 8 MG AT BEDTIME ONE 11/22 2200 CAN PO 11/22 2201 Sodium Chloride 1,000 ML Q13H 11/23 1045 AC 11/23 IV 11/23 2344 1047 Last 24 Hrs of Lab/Albert Results Last 24 Hrs of Labs/Mics: Laboratory Tests 11/23/16 0620: Anion Gap 7, Estimated GFR 44 L, BUN/Creatinine Ratio 23.3, 25-OH Vitamin D Total 32.9, Free T4 1.09, Thyroxine Binding Indx 32.8, PT 27.1 H, INR 2.61 H, CBC w Diff NO MAN DIFF REQ, RBC 4.08 L, MCV 86.6, MCH 28.2, RDW 16.5 H, MPV 8.6, Gran % 48.6, Lymphocytes % 38.2, Monocytes % 9.0, Eosinophils % 3.6, Basophils % 0.6, Absolute Granulocytes 3.2, Absolute Lymphocytes 2.5, Absolute Monocytes 0.6, Absolute Eosinophils 0.2, Absolute Basophils 0, PUBS MCHC 32.5 L Assessment/Plan Assessment: This is a 76-year-old pleasant gentleman with a history of multiple sclerosis wheelchair-bound and a chronic indwelling Claudio catheter secondary to neurogenic bladder is presented for evaluation of 4 days of generalized weakness with altered mental status. Patient is currently on observation and being treated for possible UTI in the setting of chronic Claudio catheter and a previous history of UTI that presented with similar symptoms. Assessment and plan #CHEN Patient has a baseline of 0.8 on a creatinine, with today's level being 1.3. In the setting of rising creatinine will start patient on gentle hydration with normal saline. Patient was initially scheduled for discharge today, however with a new finding of increasing creatinine patient will require IV fluids and creatinine monitoring. UTI There is concerned the patient has increasing temperature, her baseline is normally around 97 but was noted to have 100.0 today early in the morning. She is also warm to touch. Possible causes of temperature increase include atelectasis. Urine cultures were remarkable for gram-negative rods and enterococcus (which will possibly be secondary to colonization from the chronic indwelling Claudio). For now, we'll continue with ceftriaxone pending culture sensitivity. Plan Will extend observation We'll continue ceftriaxone Will await final culture sensitivity. #Generalized weakness Patient does have a history of chronic MS with lower extremity weakness. Patient did endorse new upper extremity weakness last night when seen with neurology. We are waiting for MRI results. Problem List: 1. CHEN (acute kidney injury) 2. UTI Pain Ratin Pain Location: Low back Pain Goal: Remain pain free Pain Plan: Acetaminophen as needed Tomorrow's Labs & Rationales: BEP-chen CBC-UTI MICHA DANIELS,[place] 11/23/16 1129: Attending MD Review Statement Attending Statement Attending MD Statement: examined this patient, discuss w/resident/PA/SEWING DEMONSTRATOR, agreed w/resident/PA/SEWING DEMONSTRATOR, reviewed EMR data (avail), discussed with nursing, discussed with case mgmt, reviewed images, amended to note Attending Assessment/Plan: Patient seen and examined, claims that her back pain is slightly better after the mattress was changed. She denies any urinary symptoms but has a chronic indwelling Claudio catheter. She had a low-grade temp this morning. Her creatinine is slightly up. Vital Signs Date Time Temp Pulse Resp B/P Pulse O2 O2 Flow FiO2 Ox Delivery Rate 11/23 0925 85 128/60 11/23 0800 Room Air 11/23 0728 100.0 85 20 130/40 92 Room Air 11/22 2237 98.1 77 20 160/70 92 Room Air 11/22 1513 98.0 81 20 140/70 93 on exam; aox3, nad cv; s1,s2, rrr resp; clear abd; soft, nt, bs+ ext; no edema. Laboratory Tests 11/23 0620 Chemistry Sodium (137 - 145 mmol/L) 141 Potassium (3.5 - 5.1 mmol/L) 4.6 Chloride (98 - 107 mmol/L) 106 Carbon Dioxide (22 - 30 mmol/L) 28 Anion Gap (5 - 16) 7 BUN (7 - 17 mg/dL) 28 H Creatinine (0.5 - 1.0 mg/dL) 1.2 H Estimated GFR (>60 ml/min) 44 L BUN/Creatinine Ratio (7 - 25 %) 23.3 25-OH Vitamin D Total (30 - 100 ng/ml) 32.9 Free T4 (0.78 - 2.44 ng/dL) 1.09 Thyroxine Binding Indx (23.5 - 40.5 % UPTAKE) 32.8 Coagulation PT (9.4 - 12.5 SEC) 27.1 H INR (0.90 - 1.19) 2.61 H Hematology CBC w Diff NO MAN DIFF REQ WBC (4.8 - 10.8 /CUMM) 6.6 RBC (4.20 - 5.40 /CUMM) 4.08 L Hgb (12.0 - 16.0 G/DL) 11.5 L Hct (37 - 47 %) 35.3 L MCV (81.0 - 99.0 FL) 86.6 MCH (27.0 - 31.0 PG) 28.2 RDW (11.5 - 14.5 %) 16.5 H Plt Count (130 - 400 /CUMM) 375 MPV (7.4 - 10.4 FL) 8.6 Gran % (42.2 - 75.2 %) 48.6 Lymphocytes % (20.5 - 51.1 %) 38.2 Monocytes % (1.7 - 9.3 %) 9.0 Eosinophils % (0 - 5 %) 3.6 Basophils % (0.0 - 2.0 %) 0.6 Absolute Granulocytes (1.4 - 6.5 /CUMM) 3.2 Absolute Lymphocytes (1.2 - 3.4 /CUMM) 2.5 Absolute Monocytes (0.10 - 0.60 /CUMM) 0.6 Absolute Eosinophils (0.0 - 0.7 /CUMM) 0.2 Absolute Basophils (0.0 - 0.2 /CUMM) 0 PUBS MCHC (33.0 - 37.0 G/DL) 32.5 L A/P; 76 y/o F with pmh sig for multiple sclerosis with lower extremity weakness and wheelchair bound, chronic indwelling Claudio catheter (changed 13 days ago) secondary to neurogenic bladder, previous history of recurrent UTIS, hyperlipidemia, PVD status post right leg stent placement, hypothyroidism, DVT and on Coumadin therapy is placed on the medicine observation with generalized weakness as well as possible UTI. Currently patient on ceftriaxone. We need to follow-up on the final urine cultures and adjust antibiotics accordingly. If cultures remain negative then will stop antibiotics. Low-grade temp this morning, could be secondary to atelectasis/dehydration. Will give her some IV fluids and encourage incentive spirometry. MRI of the spine is ordered as recommended by neurology. Patient's baclofen dose has been adjusted. TSH was slightly high but the foot is normal. No need to make any adjustments to her thyroid medications. INR therapeutic today. Will give her dose of Coumadin. She does take cranberry tablets which could interact with Coumadin, will educate about interaction between Cranberry tablets as well as Coumadin. Observation status will be extended for another 24 hours. If remains stable will be able to go home tomorrow.
[2016-11-23 08:26] LABS: PT 27.1 SEC (9.4-12.5)
[2016-11-23 15:40] VITALS: BP 140/80
--- NOTE | 2016-11-23 18:04 | MRI REPORT ---
EXAMINATION: MR CERVICAL SPINE WITHOUT AND WITH CONTRAST CLINICAL INFORMATION: Advanced multiple sclerosis. Hand weakness. COMPARISON: There are no prior cervical spine studies for comparison. MRI scan of the brain 01/27/2013 was reviewed. Images are suboptimal due to patient motion artifact from confusion. TECHNIQUE: MRI of the cervical spine without and with contrast was obtained using routine sequences. Intravenous contrast: Gadavist 7 mL. FINDINGS: VERTEBRAL BODIES AND PARASPINAL SOFT TISSUES: There is a mild degenerative anterolisthesis of C4 on C5. There is multilevel narrowing of intervertebral disc height, throughout the cervical spine sparing C2-C3 and C4-C5. There are moderate edematous endplate signal changes toward the right at T1-T2. There are milder changes at C5-C6. Vertebral body heights are maintained. There are no acute compression fractures. Marrow signal is slightly heterogenous consistent with fatty changes. The paravertebral structures and visualized lung apices are unremarkable. CERVICOMEDULLARY JUNCTION AND VISUALIZED POSTERIOR FOSSA: The craniocervical and posterior fossa structures are normal. There is an area of increased T2 and STIR signal in the right cerebellar hemisphere, corresponding to abnormal signal on the prior brain MRI scan. No definite abnormal signal is seen in the cervical spinal cord, but as described above, images are suboptimal. There is no abnormal enhancement noted in the spinal cord, accounting for artifact. There is equivocal enhancement in the region of the abnormal signal in the right cerebellar hemisphere. SPINAL LEVELS: C2-C3: Disc contour is normal. There is no central stenosis or foraminal narrowing. C3-C4: There is mild bilateral facet arthropathy. There is a posterior disc osteophyte complex. There are bilateral uncovertebral osteophytes. There is moderate right foraminal narrowing. There is no central stenosis or spinal cord compression. C4-C5: There is moderate left and mild right facet arthropathy. There is a posterior disc osteophyte complex and there are uncovertebral osteophytes. There is no spinal cord compression or central stenosis and the neural foramina are patent. C5-C6: There is a prominent posterior disc osteophyte complex. There is mild bilateral facet arthropathy. There are uncovertebral osteophytes. There is effacement of CSF ventral to the spinal cord without spinal cord compression. There is no central stenosis. There is mild bilateral foraminal narrowing. C6-C7: There is a small posterior disc osteophyte complex and there are bilateral uncovertebral osteophytes. There is no central stenosis or spinal cord compression. There is mild bilateral foraminal narrowing. C7-T1: There is a broad-based posterior disc osteophyte complex and there are bilateral uncovertebral osteophytes. There is no spinal cord compression or central stenosis. There is mild bilateral foraminal narrowing. T1-T2: There is a posterior disc osteophyte complex, but there is no spinal cord compression or central stenosis. The neural foramina are patent bilaterally. IMPRESSION: 1. There is multilevel spondylosis, which appears most severe at C5-C6 and C7-T1. There is foraminal narrowing at multiple levels. There is no spinal cord compression or central stenosis. 2. There is no definite abnormal signal or enhancement within the spinal cord, but images are suboptimal due to extensive patient motion artifact on multiple sequences.
[2016-11-23 23:04] VITALS: BP 160/80
[2016-11-24 07:28] VITALS: BP 164/822
--- NOTE | 2016-11-24 07:40 | PN- Housestaff ---
MARI DANIELS,ALYSSA 11/24/16 0740: Subjective Follow-up For: Generalized weakness Subjective: Patient is seen and examined at bedside. She does not endorse any acute complaints including fevers, chills, nausea, vomiting, increased shortness of breath, dizziness, any new focal neurological deficit, abdominal pain, or dysuria. No acute overnight event reported by nursing. Review of Systems Constitutional: Reports: no symptoms. Objective Last 24 Hrs of Vital Signs/I&O Vital Signs Date Time Temp Pulse Resp B/P Pulse O2 O2 Flow FiO2 Ox Delivery Rate 11/24 0927 150/60 11/24 0812 150/60 11/24 0800 Room Air 11/24 0728 98.5 68 18 164/822 99 Room Air 11/23 2304 98.6 71 18 160/80 94 Room Air 11/23 1540 98.1 80 20 140/80 93 Intake & Output 11/24 1600 11/24 0800 11/24 0000 Intake Total 540 600 Output Total 1225 300 Balance -685 300 Intake, IV 300 300 Intake, Oral 240 300 Output, Urine 1225 300 Physical Exam General Appearance: Alert, Oriented X3, Cooperative Skin: No Significant Lesion HEENT: Atraumatic, Mucous Membr. moist/pink Lymphatic: Cervical nl Cardiovascular: Regular Rate, Normal S1, Normal S2 Lungs: Clear to Auscultation, Normal Air Movement Abdomen: Normal Bowel Sounds, No Tenderness, No Hepatospenomegaly, No Masses Neurological: Normal Speech, Sensation Intact Extremities: No Clubbing, No Cyanosis, No Edema Vascular: Pulses Symmetrical Assessment/Plan Assessment: This is a 76-year-old pleasant gentleman with a history of multiple sclerosis wheelchair-bound and a chronic indwelling Claudio catheter secondary to neurogenic bladder is presented for evaluation of 4 days of generalized weakness with altered mental status. Patient is currently on observation and being treated for possible UTI in the setting of chronic Claudio catheter and a previous history of UTI that presented with similar symptoms. Assessment and plan #CHEN Status post 1 L normal saline 75 mls per hour, with slightly improving creatinine. Continue to encourage oral fluid intake. UTI Ceftriaxone antibiotic. Yesterday due to urine culture suggesting contamination rather than infection. Patient remained afebrile with no obvious leukocytosis and symptoms after we stopped antibiotics. #Generalized weakness Patient does have a history of chronic MS with lower extremity weakness. Patient did endorse new upper extremity weakness last night when seen by neurology. MRI results do not suggest any new acute neurological changes other than the cervical spondylosis. No cord compression was noted either. Patient will benefit from outpatient continuous follow-up with Dr. Brown regarding MS. #Disposition: Patient is stable for discharge pending INR. Problem List: 1. Weakness Pain Ratin Pain Location: none Pain Goal: Remain pain free Pain Plan: none Tomorrow's Labs & Rationales: none-pending discharge [place] MUSE MD 11/24/16 1106: Attending MD Review Statement Attending Statement Attending MD Statement: examined this patient, discuss w/resident/PA/LOG SNAKER, agreed w/resident/PA/LOG SNAKER, reviewed EMR data (avail), discussed with nursing, discussed with case mgmt, reviewed images, amended to note Attending Assessment/Plan: Patient seen and examined, overall doing better. Urine culture came out negative therefore antibiotics were stopped. Patient remains afebrile. Cervical MRI is consistent with multilevel spondylosis but no cord compression or spinal stenosis. No enhancement or abnormal signal seen. Patient is medically stable for discharge home today. We talked to her about the cranberry tablets as this seems to have an interaction with Coumadin. Please repeat check her INR this morning. Otherwise she will be continued on the rest of her home medication.
[2016-11-24 08:12] VITALS: BP 150/60
--- NOTE | 2016-11-24 08:21 | Patient Discharge Instructions ---
Discharge Instructions General Discharge Information You were seen/treated for: Possible Urinary tract infection Special Instructions: Please call yor primary care physician if irizarry develop any chills or fevers Please follow up with your primary care physician within 1 week Please follow up with Dr. Brown regarding yur MS. Acute Coronary Syndrome Inclusion Criteria At DC or during hospital stay patient has or had the following: ACS DIAGNOSIS No Discharge Core Measures Meds if any: Prescribed or Continued at Discharge Meds if any: NOT Prescribed or Continued at Discharge Congestive Heart Failure Inclusion Criteria At DC or during hospital stay patient has or had the following: CHF DIAGNOSIS No Discharge Core Measures Meds if any: Prescribed or Continued at Discharge Meds if any: NOT Prescribed or Continued at Discharge Cerebrovascular accident Inclusion Criteria At DC or during hospital stay patient has or had the following: CVA/TIA Diagnosis No Discharge Core Measures Meds if any: Prescribed or Continued at Discharge Meds if any: NOT Prescribed or Continued at Discharge Venous thromboembolism Inclusion Criteria VTE Diagnosis No VTE Type NONE VTE Confirmed by (Test) NONE Discharge Core Measures - Per Current guidelines, there needs to be overlap - treatment for the first 5 days of Warfarin therapy. - If discharged on Warfarin prior to 5 days of - overlap therapy, the patient will need to be - assessed for post discharge needs including - *Post discharge parental anticoagulation - *Warfarin and/or parental anticoagulation education - *Follow up date to check INR post discharge At least 5 days overlap therapy as Inpatient No Meds if any: Prescribed or Continued at Discharge Note: Overlap Therapy is Warfarin and Anticoagulant Meds if any: NOT Prescribed or Continued at Discharge
[2016-11-24 09:28] LABS: ABSOLUTE BASOPHIL COUNT 0.1 /CUMM (0.0-0.2); ABSOLUTE EOSINOPHIL COUNT 0.3 /CUMM (0.0-0.7); ABSOLUTE GRANULOCYTE CT 3.4 /CUMM (1.4-6.5); ABSOLUTE LYMPH COUNT 2.7 /CUMM (1.2-3.4); ABSOLUTE MONOCYTE COUNT 0.6 /CUMM (0.10-0.60); BASOPHIL % 0.9 % (0.0-2.0); EOSINOPHIL % 4.1 % (0-5); GRANULOCYTE % 48.3 % (42.2-75.2); HEMATOCRIT 35.5 % (37-47); MEAN CORPUSCULAR HGB 28.1 PG (27.0-31.0); MEAN CORPUSCULAR HGB CONC 32.7 G/DL (33.0-37.0); MEAN CORPUSCULAR VOLUME 86.2 FL (81.0-99.0); MEAN PLATELET VOLUME 8.5 FL (7.4-10.4); PLATELET COUNT 343 /CUMM (130-400); RBC DISTRIBUTION WIDTH 16.6 % (11.5-14.5); RED BLOOD CELL CT 4.12 /CUMM (4.20-5.40); WHITE BLOOD CELL COUNT 7.1 /CUMM (4.8-10.8)
[2016-11-24 12:04] LABS: PT 17.7 SEC (9.4-12.5)
[2016-11-24 14:26] VITALS: BP 142/60
== END 2016-11-24 16:04 | disposition home health service (06) ==
LOC: ENRESERVDT → ENRESERVTM → ERH 11:43 → ERHI 15:10 → 2NA 15:10 → ENPENDDIS 15:10 → 2NA 17:46
PROVIDERS: Internal Medicine; Physician Assistant Medical; Student in an Organized Health Care Education/Training Program; ADMIT Hospitalist
DX: T83.511A Infection and inflammatory reaction due to indwelling urethral catheter, initial encounter (principal); G35 Multiple sclerosis; D68.9 Coagulation defect, unspecified; N17.9 Acute kidney failure, unspecified; I10 Essential (primary) hypertension; E78.5 Hyperlipidemia, unspecified; I73.9 Peripheral vascular disease, unspecified; E03.9 Hypothyroidism, unspecified; G82.20 Paraplegia, unspecified
CPT/HCPCS: 72142; 36415; 72156; 81001; 82436; 87086; 87147; 93005; 93010; 96374; 96375; 97110-GO; 97166-GO; A9579; G0378; J0131; J0696

== ENCOUNTER 2017-11-26 16:31 | Emergency (ER) | payer OTHER ==
[~2017-11-26] VITALS: Ht 157.5 cm; Wt 68.0 kg
[~2017-11-26 16:31] MED LIST changes: +BACLOFEN20 M1 PO; +CALCIUM600 M3 PO; +CRANBERRY200 MG PO; +VITAMIN B-121000 MC3 PO
--- NOTE | 2017-11-26 17:56 | ED GENERAL ADULT ---
History of Present Illness General Chief Complaint: Abdominal Pain/Flank Pain Stated Complaint: ADDOMINAL PAIN ON RT SIDE/LOWER BACK PAIN Source: patient Exam Limitations: no limitations Vital Signs & Intake/Output Vital Signs & Intake/Output Vital Signs Date Time Temp Pulse Resp B/P B/P Pulse O2 O2 Flow FiO2 Mean Ox Delivery Rate 11/26 1808 Room Air 11/26 180 98.4 64 18 136/75 99 Room Air 11/26 1652 97.3 69 18 175/80 96 Room Air Allergies Coded Allergies: Sulfa (Sulfonamide Antibiotics) (INCOHERENT 11/21/16) oxycodone (SENSITIVITY TO IT 11/21/16) Reconcile Medications Amitriptyline HCl 25 MG TABLET 1 TAB PO QPM DEPRESSION (Reported) Amlodipine Besylate 5 MG TABLET 1 TAB PO DAILY BP (Reported) Ascorbic Acid (Vitamin C) 1,000 MG TABLET 1 TAB PO DAILY SUPPLEMENT (Reported ) Baclofen 20 MG TABLET 1 TAB PO SEE ADMIN CRITERIA SPASM (Reported) TAKE 1 TABLET AT BREAKFAST, TAKE 1 TABLET AT SUPPER AND 2 TABLETS AT BEDTIME Calcium (Elemental-Fr Calcarb) (Calcium) 600 MG CALCIUM (1,500 MG) TABLET 2, 400 MG PO DAILY SUPPLEMENT (Reported) Cyanocobalamin (Vitamin B-12) (Unknown Strength) TABLET (Unknown Dose) PO DAILY SUPPLEMENT (Reported) Ferrous Sulfate 325 MG (65 MG IRON) TABLET 1 TAB PO DAILY SUPPLEMENT ( Reported) Levothyroxine Sodium 100 MCG TABLET 1 TAB PO DAILY AC THYROID (Reported) Lisinopril 10 MG TABLET 1 TAB PO DAILY BP (Reported) NOT GIVEN IN HOSPITAL Multivitamin (Daily Value) 1 EACH TABLET 1 TAB PO DAILY SUPPLEMENT (Reported) Pravastatin Sodium (Pravachol) 80 MG TABLET 1 TAB PO DAILY CHOLESTEROL ( Reported) Prednisone 50 MG TABLET 1 TAB PO DAILY SHINGLES Tramadol HCl 50 MG TABLET 1-2 TAB PO BIDP PRN PAIN Valacyclovir HCl (Valtrex) 1,000 MG TABLET 1 TAB PO TID SHINGLES Warfarin Sodium (Coumadin) 5 MG TABLET 1 TAB PO SEE ADMIN CRITERIA BLOOD THINNER (Reported) TAKE 1 TABLET (5MG) EVERYDAY EXCEPT SUNDAY AND SUNDAY Warfarin Sodium (Coumadin) 7.5 MG TABLET 1 TAB PO SEE ADMIN CRITERIA BLOOD THINNER (Reported) 1 TABLET (7.5MG) TAKEN ON AND SUNDAY Triage Note: PT TO ER C/C RIGHT FLANK PAIN SINCE 0500, DULL IN NATURE. DENIES N/V/D. PT WITH PARALYSIS SECONDARY TO MS. INDWELLING AWRNER IN PLACE. PATIENT STATES NO COLOR CHANGE TO URINE. AFEBRILE. Triage Nurses Notes Reviewed? yes Onset: Abrupt Duration: day(s): No Modifying Factors: none HPI: 77-year-old female comes into the emergency room with complaints of a rash that she noticed today. She's been experiencing pain in the left side of her chest wrapping around to her back. She has a history of MS and is wheelchair-bound. She denies any fever chills vomiting shortness of breath. Denies any other associated symptoms. Comes in for further evaluation. She was concerned that this may be a shingles rash. (Nabeel Warren) Past History Travel History Traveled to [place] past 21 day No Medical History Any Pertinent Medical History? 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 No (Nabeel Warren) Review of Systems Review of Systems Constitutional: Reports: no symptoms. EENTM: Reports: no symptoms. Respiratory: Reports: no symptoms. Cardiovascular: Reports: no symptoms. GI: Reports: no symptoms. Genitourinary: Reports: no symptoms. Musculoskeletal: Reports: see HPI. Skin: Reports: see HPI. Neurological/Psychological: Reports: no symptoms. Hematologic/Endocrine: Reports: no symptoms. Immunologic/Allergic: Reports: no symptoms. All Other Systems: Reviewed and Negative (Nabeel Warren) Physical Exam Physical Exam General Appearance: well developed/nourished, no apparent distress, alert Head: atraumatic Eyes: Bilateral: normal appearance. Ears, Nose, Throat: normal ENT inspection, hearing grossly normal Neck: normal inspection Respiratory: no respiratory distress Extremities: limited range of motion Neurologic/Psych: awake, alert, oriented x 3 Skin: intact, rash, erythematous maculopapular rash with vesicles located on the left anterior chest wall wrapping around mid back in dermatome distribution, the rash does not cross midline Core Measures ACS in differential dx? No No ASA d/t Allergy CVA/TIA Diagnosis: No Sepsis Present: No Sepsis Focused Exam Completed? No (Nabeel Warren) Progress Differential Diagnoses I considered the following diagnoses in my evaluation of the patient: Shingles, contact dermatitis, allergic reaction, cellulitis, Plan of Care: Orders Procedure Date/time Status EKG 11/26 1632 Active Initial ED EKG: normal sinus rhythm, rate (69), borderline t wave abnormalities (Nabeel Warren) Departure Departure Disposition: HOME OR SELF CARE Condition: Stable Clinical Impression Primary Impression: Shingles Referrals: Misty Zayas MD (PCP/Family) Additional Instructions: Take prednisone, tramadol, and Valtrex as prescribed. Follow-up with primary care doctor. Return if any concerns worsening symptoms. Please go over all results of today's visit with your primary care doctor. Contact your primary care doctor to let them know you were here in the emergency room. There may be nonspecific findings which may not be related to your visit today here in the emergency room but may require further evaluation and chronic monitoring by your primary care doctor. If you had a laceration today the chance of foreign body always remains. You should follow-up with your primary care doctor for recheck in 3-5 days for a wound check. If you had an x-ray done there is a chance that a fracture could have been missed on initial read and you should follow-up with your primary care doctor for repeat x-rays if symptoms persist. If your blood pressure was elevated here in the emergency room please have rechecked by [facility] primary care doctor within the next 48. If you were prescribed a narcotic here in the emergency room or any type of controlled substances you're not allowed to drive while taking this medication or operate any type of heavy machinery. Narcotics can make you feel lightheaded dizziness nausea and can cause constipation. You may need to worm picker a stool softener. Thank you for choosing [facility] emergency room. Please return to the emergency room immediately if you have any other concerns worsening of symptoms. Departure Forms: Customer Survey General Discharge Information Prescriptions: Current Visit Scripts Tramadol HCl 1-2 TAB PO BIDP PRN PAIN #20 TAB Prednisone 1 TAB PO DAILY #5 TAB Valacyclovir HCl (Valtrex) 1 TAB PO TID #21 TAB Comments 11/26/2017 6:17:36 PM Patient clinically looks well. Patient is in no apparent distress. Patient is nontoxic-appearing. Rash is consistent with shingles. The source of her pain. No need for blood work at this time. Follow-up with PCP. (Nabeel Warren) PA/MRI SPECIAL PROCEDURES TECHNOLOGIST Co-Sign Statement Statement: ED Attending supervision documentation- x I saw and evaluated the patient. I have also reviewed all the pertinent lab results and diagnostic results. I agree with the findings and the plan of care as documented in the PA's/MRI SPECIAL PROCEDURES TECHNOLOGIST's documentation. [] I have reviewed the ED Record and agree with the PA's/MRI SPECIAL PROCEDURES TECHNOLOGIST's documentation. [] Additions or exceptions (if any) to the PAs/MRI SPECIAL PROCEDURES TECHNOLOGIST's note and plan are summarized below: [] (Corinne DANIELS,Jeff) Critical Care Note Critical Care Note Critical Care Time: non-applicable (Nabeel Warren)
[2017-11-26] MEDS ORDERED: PREDNISONE50 M1 PO (17:58)
[2017-11-26] MEDS ORDERED: TRAMADOL HCL50 M1 PO (17:58)
[2017-11-26] MEDS ORDERED: VALTREX1000 MG PO (17:58)
[2017-11-26 18:03] VITALS: BP 136/75
== END 2017-11-26 18:09 ==
LOC: ERH 16:31
DX: B02.9 Zoster without complications (principal); R07.9 Chest pain, unspecified
CPT/HCPCS: 93005; 93010

== ENCOUNTER 2017-11-29 12:16 | Inpatient (IN) | payer OTHER ==
[~2017-11-29] VITALS: Ht 160 cm; Wt 69.0 kg
[~2017-11-29 12:16] MED LIST changes: +PREDNISONE50 M1 PO; +TRAMADOL HCL50 M1 PO; +VALTREX1000 MG PO
--- NOTE | 2017-11-29 13:11 | ED AMS/SEIZURE/WEAK/DIZZY ---
History of Present Illness General Chief Complaint: General Adult Stated Complaint: WEAKNESS Source: patient, family Exam Limitations: no limitations Vital Signs & Intake/Output Vital Signs & Intake/Output Vital Signs Date Time Temp Pulse Resp B/P B/P Pulse O2 O2 Flow FiO2 Mean Ox Delivery Rate 11/29 1424 96.9 88 20 142/78 97 Room Air 11/29 1301 95 Room Air 11/29 1234 95.9 87 22 150/92 91 Room Air Allergies Coded Allergies: Sulfa (Sulfonamide Antibiotics) (INCOHERENT 11/21/16) oxycodone (SENSITIVITY TO IT 11/21/16) Reconcile Medications Amitriptyline HCl 25 MG TABLET 1 TAB PO QPM DEPRESSION (Reported) Amlodipine Besylate 5 MG TABLET 1 TAB PO DAILY BP (Reported) Ascorbic Acid (Vitamin C) 1,000 MG TABLET 1 TAB PO DAILY SUPPLEMENT (Reported ) Baclofen 20 MG TABLET 1 TAB PO 4 TIMES/DAY SPASM (Reported) Calcium (Elemental-Fr Calcarb) (Calcium) 600 MG CALCIUM (1,500 MG) TABLET 2, 400 MG PO DAILY SUPPLEMENT (Reported) Cyanocobalamin (Vitamin B-12) 1,000 MCG TABLET 1 TAB PO DAILY SUPPLEMENT ( Reported) Ezetimibe (Zetia) 10 MG TABLET 1 TAB PO DAILY CHOLESTEROL (Reported) Ferrous Sulfate 325 MG (65 MG IRON) TABLET 1 TAB PO DAILY SUPPLEMENT ( Reported) Levothyroxine Sodium 100 MCG TABLET 1 TAB PO DAILY AC THYROID (Reported) Lisinopril 10 MG TABLET 1 TAB PO DAILY BP (Reported) NOT GIVEN IN HOSPITAL Multivitamin (Daily Value) 1 EACH TABLET 1 TAB PO DAILY SUPPLEMENT (Reported) Pravastatin Sodium (Pravachol) 80 MG TABLET 1 TAB PO DAILY CHOLESTEROL ( Reported) Prednisone 50 MG TABLET 1 TAB PO DAILY SHINGLES Tramadol HCl 50 MG TABLET 1-2 TAB PO BIDP PRN PAIN Valacyclovir HCl (Valtrex) 1,000 MG TABLET 1 TAB PO TID SHINGLES Warfarin Sodium (Coumadin) 5 MG TABLET 1 TAB PO MoTuWeThFr BLOOD THINNER ( Reported) Warfarin Sodium (Coumadin) 7.5 MG TABLET 1 TAB PO SuSa BLOOD THINNER ( Reported) Triage Note: PER [facility] PT DX WITH SHINGLES 11/26/17 SINCE INCREASED LETHARGY, WEAK FEVERS AND LOW SATS SAT IN TRIAGE 91 RA. Triage Nurses Notes Reviewed? yes Onset: Gradual Duration: day(s): Timing: recent history Injury Environment: home Severity: moderate HPI: 77YO female with hx of MS, DVT on coumadin, recent shingles dx this week BIBA for AMS, lethargy and hypoxia from home. Per patient's visiting nurse patient was found to be disoriented and lethargic, home O2 oxygen saturation in the low 90s. Patient was seen on 11/26/17 and discharged home with antiviral therapy for shingles. At that time patient had Warner catheter placed. Patient's reports pink urine from catheter last night which has resolved this morning. Patient currently has no complaints other than some confusion, patient states that she feels she may have a UTI based on her mental status as she says this has happened in the past. states patient has-been very disoriented in the past related to UTIs. also reports no bowel movement for 5 days. The patient denies dyspnea, cough, abdominal pain, nausea, vomiting, dysuria. (Soni Cueto) Past History Travel History Traveled to [place] past 21 day No Medical History Any Pertinent Medical History? 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 No (Soni Cueto) Review of Systems Review of Systems Constitutional: Reports: see HPI. EENTM: Reports: no symptoms. Respiratory: Reports: see HPI. Cardiovascular: Reports: no symptoms. GI: Reports: see HPI. Genitourinary: Reports: see HPI. Musculoskeletal: Reports: no symptoms. Skin: Reports: see HPI. Neurological/Psychological: Reports: see HPI. Hematologic/Endocrine: Reports: no symptoms. Immunologic/Allergic: Reports: no symptoms. All Other Systems: Reviewed and Negative (Stacie PARK,Soni Franco) Physical Exam Physical Exam General Appearance: well developed/nourished, no apparent distress, alert, awake Head: atraumatic, normal appearance Eyes: Bilateral: normal appearance, PERRL, EOMI. Ears, Nose, Throat: normal pharynx, hearing grossly normal Neck: normal inspection, supple, full range of motion Respiratory: normal breath sounds, no respiratory distress, lungs clear Cardiovascular: regular rate/rhythm, normal peripheral pulses Peripheral Pulses: 2+ radial (R), 2+ radial (L) Gastrointestinal: normal bowel sounds, soft, non-tender, no organomegaly Back: normal inspection, normal range of motion Extremities: normal range of motion Neurologic/Psych: awake, alert, oriented x 3, welcome desk agent II-XII nml as tested Skin: erythematous scaling rash under left breast Core Measures ACS in differential dx? No CVA/TIA Diagnosis No Sepsis Present: No Sepsis Focused Exam Completed? No (Stacie PARK,Soni Franco) Progress Differential Diagnosis: arrythmia, anemia, CVA/stroke, dehydration, drug intoxication, electrolyte imbalance, hypoxia, pneumonia, UTI/pyelo, shingles Plan of Care: Orders Procedure Date/time Status Heart Healthy Diet 11/30 B Active ED Holding Orders 11/29 1741 Active Admit to inpatient 11/29 1741 Active Vital Signs 11/29 1741 Active Code Status 11/29 1741 Active Patient Data 11/29 1715 Active LACTIC ACID 11/29 1539 Active Add-on Test (ER Only) 11/29 1527 Active PARTIAL THROMBOPLASTIN TIME 11/29 1346 Complete PROTHROMBIN TIME 11/29 1346 Complete URINE DRUG SCREEN FOR ER ONLY 11/29 1310 Complete RAPID VIRAL INFLUENZA A 11/29 1305 Complete CULTURE,URINE 11/29 1257 Active URINALYSIS 11/29 1257 Complete BLOOD CULTURE 11/29 1239 Active TROPONIN LEVEL 11/29 1239 Complete LACTIC ACID 11/29 1239 Complete COMPREHENSIVE METABOLIC PANEL 11/29 1239 Complete CBC WITHOUT DIFFERENTIAL 11/29 1239 Complete EKG 11/29 1239 Active Laboratory Tests 11/29/17 1350: Urine Opiates Screen < 100, Methadone Screen 58, Barbiturate Screen < 60, Ur Phencyclidine Scrn < 6.00, Amphetamines Screen < 100, U Benzodiazepines Scrn < 85, Urine Cocaine Screen < 50, Urine Cannabis Screen < 5.00, Urinalysis MOD H, Urine Color YEL, Urine Clarity CLDY H, Urine pH 6.5, Ur Specific Winston 1.020, Urine Protein 100 H, Urine Ketones NEG, Urine Nitrite POS H, Urine Bilirubin NEG, Urine Urobilinogen 0.2, Ur Leukocyte Esterase LARGE H, Ur Microscopic SEDIMENT EXAMINED, Urine RBC 5-10 H, Urine WBC 15-25 H, Ur Epithelial Cells FEW, Urine Bacteria MANY H, Urine Hemoglobin SMALL H, Urine Glucose NEG 11/29/17 1346: Anion Gap 12, Estimated GFR > 60, BUN/Creatinine Ratio 45.6 H, Glucose 105 H, Lactic Acid 0.8, Calcium 9.9, Total Bilirubin 0.6, AST 36, ALT 64 H, Alkaline Phosphatase 141 H, Troponin I < 0.01, Total Protein 7.4, Albumin 3.8, Globulin 3.6, Albumin/Globulin Ratio 1.1, PT 30.4 H, INR 2.76 H, APTT 49 H, CBC w Diff NO MAN DIFF REQ, RBC 4.93, MCV 84.7, MCH 27.7, MCHC 32.7 L, RDW 17.5 H, MPV 9.1, Gran % 60.8, Lymphocytes % 26.7, Monocytes % 11.7 H, Eosinophils % 0.6, Basophils % 0.2, Absolute Granulocytes 4.9, Absolute Lymphocytes 2.1, Absolute Monocytes 0.9 H, Absolute Eosinophils 0, Absolute Basophils 0 Microbiology 11/29 1405 BLOOD: Blood Culture - RECD 11/29 1350 URINE ROUT: Urine Culture - RECD 11/29 1348 NASOPHARYN: Influenza Virus A & B Rapid Smear - COMP 11/29 1346 BLOOD: Blood Culture - RECD Spoke with Dr. Gomez regarding this patient's ventricular trigeminy which is new on her EKG. He recommends telemetry admission for further cardiac monitoring. Spoke with Dr. Aranda regarding this patient - given patient is not currently septic no stent placement tonight. He agrees with current plan for admission and IV antibiotics. Spoke with hospitalist regarding this patient's admission for hydronephrosis with obstructing renal stone, pneumonia, UTI, shingles, ventricular trigemeny, confusion. This patient requires urology consult, cardiology consult, IV antibiotics, antiviral therapy for shingles, possible urologic procedure. Diagnostic Imaging: Viewed by Me: Radiology Read. Discussed w/RAD: Radiology Read. CXR Impression: PATIENT: AL NUNEZ PRESENT AGE: 77 PATIENT ACCOUNT NO: [id number] : 40 LOCATION: [facility] ORDERING PHYSICIAN: Soni PARK SERVICE DATE: 11/29/17 EXAM TYPE: RAD - XRY-CHEST XRAY, TWO VIEWS EXAMINATION: XR CHEST CLINICAL INFORMATION: Pneumonia. Hypoxia. COMPARISON: Chest x-ray most recent prior dated 08/20/2014 TECHNIQUE: 2 views of the chest were obtained. FINDINGS: Airspace disease noted in the left base suspicious for consolidation or pneumonia. Assessment is limited due to patient' s position. Streaky hazy opacities right base. Air underneath the right hemidiaphragm most in keeping with colonic interposition and distended hepatic flexure. Fecal material and air noted in the hepatic and splenic flexures. There is abdominal pain, further assessment with CT abdomen as recommended. IMPRESSION : Left lower lobe airspace opacity suspicious for pneumonia. Air underneath the right hemidiaphragm most in keeping with gaseous distention and colonic interposition hepatic flexure. This represents an interval change compared to the previous examination. Follow-up CT abdomen and pelvis is therefore recommended. DICTATED BY: Amara Monroy MD DATE/TIME DICTATED:11/29/171358 WALL AND FLOOR TILER:ELTON DATE/TIME TRANSCRIBED:11/29/171358 CONFIDENTIAL, DO NOT COPY WITHOUT APPROPRIATE AUTHORIZATION. <Electronically signed in Other Vendor System> SIGNED BY: Amara Monroy MD 11/29/17 1406 Initial ED EKG: sinus rhythm @94 bpm with ventricular bigemany Prior EKG: changed (11/26/17) (Stacie PARK,Soni Franco) Departure Departure Disposition: STILL A PATIENT Condition: Stable Clinical Impression Primary Impression: Hydronephrosis Qualifiers: Hydronephrosis type: with renal calculous obstruction Qualified Code: N13.2 - Hydronephrosis with renal and ureteral calculous obstruction Secondary Impressions: Confusion Nephrolithiasis Pneumonia Qualifiers: Pneumonia type: due to unspecified organism Laterality: left Lung location: lower lobe of lung Qualified Code: J18.1 - Lobar pneumonia, unspecified organism Shingles UTI (urinary tract infection) Qualifiers: Urinary tract infection type: acute cystitis Hematuria presence: without hematuria Qualified Code: N30.00 - Acute cystitis without hematuria Ventricular bigeminy Referrals: Misty Zayas MD (PCP/Family) Departure Forms: Customer Survey General Discharge Information Admission Note Spoke With: Georgi Noel MD Documentation of Exam: Documentation of any treatments & extenuating circumstances including Concerns Regarding Discharge (functional status, medication knowledge or non-compliance, living conditions, etc.) that warrant an admission rather than observation: [ Obstructing renal stone with hydronephrosis requiring urology consult, possible procedure, pneumonia requiring IV antibiotics, ventricular trigeminy requiring cardiology consult and telemetry monitoring premature discharge medically unsafe ] (Stacie PARK,Soni Franco) PA/GROUP HOME WORKER Co-Sign Statement Statement: ED Attending supervision documentation- [X] I saw and evaluated the patient. I have also reviewed all the pertinent lab results and diagnostic results. I agree with the findings and the plan of care as documented in the PA's/GROUP HOME WORKER's documentation. [X] I have reviewed the ED Record and agree with the PA's/GROUP HOME WORKER's documentation. [] Additions or exceptions (if any) to the PAs/GROUP HOME WORKER's note and plan are summarized below: [ADMIT FOR PNEUMONIA ANDKIDENY STONE WITH HYDRO. PT IS IN VENTRICULAR BIGEMITY ANDWILL REQUIRE TELE MONITORING] (Davina DANIELS,Mak Wheatley)
[2017-11-29] MEDS ORDERED: ZETIA10 M1 PO (13:18)
[2017-11-29 14:01] LABS: ABSOLUTE BASOPHIL COUNT 0 /CUMM (0.0-0.2); ABSOLUTE EOSINOPHIL COUNT 0 /CUMM (0.0-0.7); ABSOLUTE GRANULOCYTE CT 4.9 /CUMM (1.4-6.5); ABSOLUTE LYMPH COUNT 2.1 /CUMM (1.2-3.4); ABSOLUTE MONOCYTE COUNT 0.9 /CUMM (0.10-0.60); BASOPHIL % 0.2 % (0.0-2.0); EOSINOPHIL % 0.6 % (0-5); GRANULOCYTE % 60.8 % (42.2-75.2); HEMATOCRIT 41.7 % (37-47); MEAN CORPUSCULAR HGB 27.7 PG (27.0-31.0); MEAN CORPUSCULAR HGB CONC 32.7 G/DL (33.0-37.0); MEAN CORPUSCULAR VOLUME 84.7 FL (81.0-99.0); MEAN PLATELET VOLUME 9.1 FL (7.4-10.4); PLATELET COUNT 266 /CUMM (130-400); RBC DISTRIBUTION WIDTH 17.5 % (11.5-14.5); RED BLOOD CELL CT 4.93 /CUMM (4.20-5.40); WHITE BLOOD CELL COUNT 8.1 /CUMM (4.8-10.8)
--- NOTE | 2017-11-29 14:06 | RADIOLOGY REPORT ---
EXAMINATION: XR CHEST CLINICAL INFORMATION: Pneumonia. Hypoxia. COMPARISON: Chest x-ray most recent prior dated 08/20/2014 TECHNIQUE: 2 views of the chest were obtained. FINDINGS: Airspace disease noted in the left base suspicious for consolidation or pneumonia. Assessment is limited due to patient's position. Streaky hazy opacities right base. Air underneath the right hemidiaphragm most in keeping with colonic interposition and distended hepatic flexure. Fecal material and air noted in the hepatic and splenic flexures. There is abdominal pain, further assessment with CT abdomen as recommended. IMPRESSION: Left lower lobe airspace opacity suspicious for pneumonia. Air underneath the right hemidiaphragm most in keeping with gaseous distention and colonic interposition hepatic flexure. This represents an interval change compared to the previous examination. Follow-up CT abdomen and pelvis is therefore recommended.
[2017-11-29 15:40] LABS: PT 30.4 SEC (9.4-12.5); PTT 49 SEC (25-37)
--- NOTE | 2017-11-29 16:06 | CT SCAN REPORT ---
EXAMINATION: CT ABDOMEN AND PELVIS WITH CONTRAST CLINICAL INFORMATION: Constipation. Pain. COMPARISON: 08/02/2015. TECHNIQUE: Contiguous axial thin section helical images of the abdomen and pelvis were performed following the administration of 95 mL of intravenous Optiray 320. The data set was reformatted in the coronal and sagittal planes and reviewed on an independent workstation. DLP: 290 mGy-cm. FINDINGS: There is atelectasis at the left lung base. The visualized lung bases are otherwise clear. The visualized portions of the heart are unremarkable. The liver is of normal size and attenuation without focal lesions nor intrahepatic biliary ductal dilation. A calculus within the gallbladder lumen. There is no wall thickening or discernible pericholecystic fluid. The spleen, pancreas, adrenal glands are unremarkable. Both kidneys are of normal size and attenuation without nephrolithiasis. There is no left-sided hydronephrosis. There is right grade 3 hydroureteronephrosis with an obstructive distal right ureteral calculus present measuring 7 mm. There are bilateral renal cysts. Following the administration of IV contrast, prompt symmetric nephrograms are displayed. There is no abdominal free fluid. There is neither mesenteric nor retroperitoneal lymphadenopathy. There is a large amount of stool within the ascending colon; otherwise, unremarkable unopacified loops of small and large bowel are identified. There is no pelvic free fluid. The urinary bladder is partially filled with a Claudio catheter in place. There is neither pelvic nor inguinal lymphadenopathy. Bone windows: Neither sclerotic nor lytic bone lesions are identified. A right dynamic hip screw is in place. IMPRESSION: Right grade 3 hydroureteronephrosis secondary to a 7 mm obstructive distal right ureteral calculus. Large amount of stool within the ascending colon. Cholelithiasis without evidence of cholecystitis.
--- NOTE | 2017-11-29 17:29 | History & Physical ---
HayAmezquita 11/29/17 1724: General Information and HPI MD Statement: I have seen and personally examined AL SALINAS and documented this H&P. The patient is a 77 year old F who presented with a patient stated chief complaint of lethargic since this morning []. Source of Information: patient, family, old records Exam Limitations: no limitations History of Present Illness: 77 YO F with PMH of multiple sclerosis with functional paraplegia, wheelchair bound, chronic indwelling Warner catheter secondary to neurogenic bladder, recurrent UTIs, hyperlipidemia, PVD status post right leg stent placement, hypothyroidism, provoked DVT on Coumadin and recent shingles infection brought to ED by her daughter with chief complaint of lethargic since this morning. Patient reported that she was in her usual state of health until this morning when she noticed feeling lethargic and couldn't get his breakfast. Patient reported that appetite has decreased. Her daughter brought her to ED for further evaluation. Patient denied any chest pain, palpitation, nausea, vomiting, chills, fever, shortness of breath, cough, sputum, sick contacts, diarrhea, lightheadedness, abdominal pain and headache. Patient reported that last Sunday she was in ED because of left-sided bandlike red spot that was diagnosed as shingles. Patient was given valacyclovir and prednisone. Patient was discharged home. Patient was reporting burning sensation on her left flank. Patient is following Dr. Brown for her multiple sclerosis treatment. Last time patient's catheter was changed 2 weeks back by her clinical nursing professor. Also reported feeling constipated as she didn't have bowel movement for last 5 days. Last and patient was admitted in October 2016 with chief complaint of increased weakness. Patient was treated for UTI. ED course: Vitals: Temperature 94.9, pulse 87, respiratory rate 22, blood pressure 150/92, oxygen saturation 91% on room air. Labs: WBC count 8.1, hemoglobin 13.6, hematocrit 41.7, platelet count 266, sodium 137, potassium 3.8, BUN 41, creatinine 0.9, anion gap 12, BUNs/creatinine ratio 45.6, glucose 105, lactic acid 0.8, calcium 9.9, PT 30.4, INR 2.76, AST 36, ALT 64, alkaline phosphatase 141, troponin less than 0.01 Blood cultures were obtained in ED Allergies/Medications Allergies: Coded Allergies: Sulfa (Sulfonamide Antibiotics) (INCOHERENT 11/21/16) oxycodone (SENSITIVITY TO IT 11/21/16) Past History Travel History Traveled to [place] past 21 day No Medical History Neurological: 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 EENT: NONE Cardiovascular: hypertension, hyperlipidemia, PVD (stent to R leg) Respiratory: NONE Gastrointestinal: NONE Hepatic: NONE 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 EENTM: Reports: no symptoms. Cardiovascular: Denies: chest pain, orthopena, palpitations. Respiratory: Denies: cough, short of breath, sputum production. GI: Reports: constipation. Denies: abdominal pain, diarrhea, nausea. Genitourinary: Reports: see HPI. Musculoskeletal: Reports: no symptoms. Skin: Reports: no symptoms. Neurological/Psychological: Reports: no symptoms. Exam & Diagnostic Data Last 24 Hrs of Vital Signs/I&O Vital Signs Date Time Temp Pulse Resp B/P B/P Pulse O2 O2 Flow FiO2 Mean Ox Delivery Rate 11/29 1424 96.9 88 20 142/78 97 Room Air 11/29 1301 95 Room Air 11/29 1234 95.9 87 22 150/92 91 Room Air Intake & Output 11/29 1600 11/29 0800 04 0000 Intake Total 1000 Output Total 40 Balance 960 Intake, IV 1000 Output, Urine 40 Patient 140 lb Weight Physical Exam General Appearance Alert, Oriented X3, Cooperative Skin No Rashes Skin Temp/Moisture Exam: Warm/Dry Sepsis Skin Exam (color): Normal for Ethnicity HEENT Atraumatic, PERRLA, EOMI Neck Supple Cardiovascular Normal S1, Normal S2 Lungs Clear to Auscultation, Decreased breath sounds b/l Abdomen Soft, No Tenderness Neurological Normal Speech, paraplegic, upper extrimity 4/5 b/l Extremities No Edema Last 24 Hrs of Labs/Albert: Laboratory Tests 11/29/17 1350: Urine Opiates Screen < 100, Methadone Screen 58, Barbiturate Screen < 60, Ur Phencyclidine Scrn < 6.00, Amphetamines Screen < 100, U Benzodiazepines Scrn < 85, Urine Cocaine Screen < 50, Urine Cannabis Screen < 5.00, Urinalysis MOD H, Urine Color YEL, Urine Clarity CLDY H, Urine pH 6.5, Ur Specific Lane 1.020, Urine Protein 100 H, Urine Ketones NEG, Urine Nitrite POS H, Urine Bilirubin NEG, Urine Urobilinogen 0.2, Ur Leukocyte Esterase LARGE H, Ur Microscopic SEDIMENT EXAMINED, Urine RBC 5-10 H, Urine WBC 15-25 H, Ur Epithelial Cells FEW, Urine Bacteria MANY H, Urine Hemoglobin SMALL H, Urine Glucose NEG 11/29/17 1346: Anion Gap 12, Estimated GFR > 60, BUN/Creatinine Ratio 45.6 H, Glucose 105 H, Lactic Acid 0.8, Calcium 9.9, Total Bilirubin 0.6, AST 36, ALT 64 H, Alkaline Phosphatase 141 H, Troponin I < 0.01, Total Protein 7.4, Albumin 3.8, Globulin 3.6, Albumin/Globulin Ratio 1.1, PT 30.4 H, INR 2.76 H, APTT 49 H, CBC w Diff NO MAN DIFF REQ, RBC 4.93, MCV 84.7, MCH 27.7, MCHC 32.7 L, RDW 17.5 H, MPV 9.1, Gran % 60.8, Lymphocytes % 26.7, Monocytes % 11.7 H, Eosinophils % 0.6, Basophils % 0.2, Absolute Granulocytes 4.9, Absolute Lymphocytes 2.1, Absolute Monocytes 0.9 H, Absolute Eosinophils 0, Absolute Basophils 0 Microbiology 11/29 1405 BLOOD: Blood Culture - RECD 11/29 1350 URINE ROUT: Urine Culture - RECD 11/29 1348 NASOPHARYN: Influenza Virus A & B Rapid Smear - COMP 11/29 1345 BLOOD: Blood Culture - RECD Assessment/Plan Assessment: 77 YO F with PMH of multiple sclerosis with functional paraplegia, wheelchair bound, chronic indwelling Warner catheter secondary to neurogenic bladder, recurrent UTIs, hyperlipidemia, PVD status post right leg stent placement, hypothyroidism, provoked DVT on Coumadin and recent shingles infection brought to ED by her daughter with chief complaint of lethargic since this morning. Patient was admitted to general medicine floor but we're keeping the patient on telemetry floor for 24-hour observation due to her EKG changes. EKG changes: -Patient has bigeminy in EKG, we will keep the patient under observation on telemetry floor to rule out any arrhythmia or to monitor for any heart block. -Serial EKG and troponin to rule out any ischemic cardiac injury -Cardiac consult -Echocardiogram UTI: -Her lethargy could be due to her UTI. -Possibly catheter related. Patient has chronic indwelling catheter due to neurogenic bladder. -IV ceftriaxone -We will follow urine cultures -We will follow blood cultures Right hydroureteronephrosis; -Due to 7 mm ureteric stone -Pain management according to pain pathway -Urology consult -Nothing by mouth for procedure tomorrow -Hold Coumadin for now Constipation: -We will give her stool softners. -As patient most of the time stays in bed and low oral intake with history of MS. History of recent shingles infection: -Continue valacyclovir -Continue prednisone on tapering dose. History of DVT: -Patient is on Coumadin -We will follow INR and dose Coumadin accordingly. -Holding Coumadin for procedure tomorrow History of MS: -Continue her home medications History of hypertension and hyperlipidemia: -Continue home medications History of hypothyroidism: -Continue levothyroxine Chronic back pain: -Continue home medications DVT prophylaxis: Mechanical and patient is already on Coumadin CODE STATUS: DNR/DNI As Ranked By This Provider Problem List: 1. UTI (lower urinary tract infection) 2. Hydronephrosis 3. Ureteric stone 4. Constipation Core Measures/Misc (05/13) Acute Coronary Syndrome ACS Diagnosis: No Congestive Heart Failure Congestive Heart Failure Diagnosis No Cerebrovascular Accident CVA/TIA Diagnosis: No VTE (View Protocol) VTE Risk Factors Age>40 No Mechanical VTE Prophylaxis d/t N/A MechProphylax Ordered No VTE Pharm Prophylaxis d/t NA PharmProphylax ordered Sepsis (View protocol) Sepsis Present: No Georgi Noel MD 11/29/17 1806: Attending Review Statement Attending Statement Attending Statement: examined this patient, discuss w/resident/PA/SLIDE ATTENDANT, agreed w/resident/PA/SLIDE ATTENDANT, reviewed EMR data (avail), discussed with nursing, discussed with case mgmt, amended to note Attending Assessment/Plan: Patient seen and examined. Daughter is present at the bedside. She is a 89- year-old female with history of multiple sclerosis quadriparesis and is currently wheelchair bound. History is also significant for deep vein thrombosis on Coumadin therapy, peripheral versus clear disease status post right leg stent placement, neurogenic bladder with chronic indwelling Warner catheter, recurrent urinary tract infections. Recently in the emergency room with complaint of left flank rash. Diagnosed with shingles and started on valacyclovir and prednisone. She was brought to the emergency room today by family due to complaints of worsening lethargy. Emergency room she was found afebrile hemodynamically stable. Chest x-ray was done that showed questionable left lower lobe infiltrate. Patient however denies any respiratory symptoms. She denies cough or chest pain. Denies shortness of breath. Denies any sick contacts. Patient does admit to some difficulty swallowing liquids on occasion but this has not been assessed by family. She was started on IV Rocephin and azithromycin by the physician computer lab assistant at evaluated her in the emergency room. CT abdomen and pelvis showed an obstructing left-sided renal stone with hydroureteronephrosis. Her urinalysis is abnormal however she fortunately shows no clinical evidence of sepsis at present. On examination she is not in any acute distress. She is very lethargic. She is oriented 3. Heart sounds are regular. Lungs are clear to auscultation bilaterally. Abdomen is soft and nontender. She does have a dermatomal rash in the upper abdomen. No vesicular lesions noted. She has no peripheral edema. She has no calf tenderness. Initial EKG in the emergency room was read as atrial fibrillation. Repeat EKG was read as normal sinus rhythm. She has no obvious ischemic changes. First troponin is negative. Problems: 1. Generalized weakness. 2. Right hydroureteronephrosis secondary to several millimeter obstructing ureteral calculus. 3. Constipation 4. Multiple sclerosis 5. Abnormal EKG. Plan: -Admit to the inpatient general medical service. -On account of abnormal EKG recommend telemetry monitoring overnight. Cardiology consultation.. -She has no clinical evidence of pneumonia. Would recommend sought evaluation on account of her report of difficulty swallowing liquids. -Continue patient on IV Rocephin alone for presumed urinary tract infection given her abnormal urinalysis. Follow-up urine cultures. -Urology consultation. Recommend keeping patient nothing by mouth past midnight in anticipation of possible surgery tomorrow. Recommend holding her Coumadin as well. -Resume patient's lactulose which she takes for chronic constipation. Philip DANIELS,[facility] 11/29/172005: General Information and HPI Allergies/Medications Home Med list Amitriptyline HCl 25 MG TABLET 1 TAB PO QPM DEPRESSION (Reported) Amlodipine Besylate 5 MG TABLET 1 TAB PO DAILY BP (Reported) Ascorbic Acid (Vitamin C) 1,000 MG TABLET 1 TAB PO DAILY SUPPLEMENT (Reported ) Baclofen 20 MG TABLET 1 TAB PO 4 TIMES/DAY SPASM (Reported) Calcium (Elemental-Fr Calcarb) (Calcium) 600 MG CALCIUM (1,500 MG) TABLET 2, 400 MG PO DAILY SUPPLEMENT (Reported) Capsaicin (Zostrix) 0.033 % CREAM..G. 1 AYLIN TOP BID Shingles Cyanocobalamin (Vitamin B-12) 1,000 MCG TABLET 1 TAB PO DAILY SUPPLEMENT ( Reported) Ezetimibe (Zetia) 10 MG TABLET 1 TAB PO DAILY CHOLESTEROL (Reported) Ferrous Sulfate 325 MG (65 MG IRON) TABLET 1 TAB PO DAILY SUPPLEMENT ( Reported) Levothyroxine Sodium 100 MCG TABLET 1 TAB PO DAILY AC THYROID (Reported) Lisinopril 10 MG TABLET 1 TAB PO DAILY BP (Reported) NOT GIVEN IN HOSPITAL Multivitamin (Daily Value) 1 EACH TABLET 1 TAB PO DAILY SUPPLEMENT (Reported) Pravastatin Sodium (Pravachol) 80 MG TABLET 1 TAB PO DAILY CHOLESTEROL ( Reported) Valacyclovir HCl (Valtrex) 1,000 MG TABLET 1 TAB PO TID SHINGLES Warfarin Sodium (Coumadin) 5 MG TABLET 1 TAB PO MoTuWeThFr BLOOD THINNER ( Reported) Warfarin Sodium (Coumadin) 7.5 MG TABLET 1 TAB PO SuSa BLOOD THINNER ( Reported) Resident Review Statement Resident Statement: examined this patient, discussed with sports broadcasting internship, agreed with sports broadcasting internship, discussed with family Other Findings: Ms. Salinas is 77 year old female with past medical history significant for multiple sclerosis with functional paraplegia and chronic catheter, multiple E. coli UTI, provoked left lower extremity DVT on Coumadin, peripheral vascular disease status post stent placement left leg, recent diagnosis of shingles November 26, 2017 who presented to ED with chief complaint of lethargy and fatigability. Patient was brought in by her who is the primary caregiver, reported lethargy, confusion for 1 day. Patient denied any fever, chills, abdominal pain , blood in urine however daughter reported dark urine yesterday that cleared up today. Patient used to get confused every time she gets UTI. She has a aide who visits daily and and nurse for visit monthly. Patient denied any cough, shortness of breath, choking with food, chest pain, palpitation, dizziness or blurry vision. Problem list #UTI #Chronic constipation #Stage III hydronephrosis with obstructing 7 mm urinary stone obstructive distal right ureteral calculus. No previous history of obstructing kidney stone or cystoscopy #Multiple sclerosis with functional paraplegia and chronic catheter #Left lower extremity unprovoked DVT on Coumadin Plan -Patient will be admitted to telemetry floor for telemetry monitoring given new EKG bigeminy findings, initial troponin negative -Trend troponin and EKG -We will hold off azithromycin given that patient does not have any symptoms of pneumonia -Continue ceftriaxone IV for UTI -Follow-up urine culture and blood culture -Urology consultation for a.m. -Vitals q. shift -CBCs and BEP in a.m. -INR in a.m. -Will hold off warfarin today for possible procedure in a.m. -N.p.o. at midnight for possible urological procedure in a.m. -Code DNR/DNI -DVT prophylaxis warfarin on hold, INR therapeutic-
[2017-11-29 23:50] VITALS: BP 174/104
--- NOTE | 2017-11-30 06:42 | PN- Housestaff ---
[facility] Subjective Follow-up For: Trigeminy Right hydroureteronephrosis UTI Tele-Events Since Last Visit: Sinus rhythm with heart rate 7488 Subjective: No overnight events. Patient remained afebrile overnight. Seen and examined this morning. Patient denied any chest pain, short of breath, nausea, vomiting, chills, fever, abdominal pain dysuria. Patient was complaining of burning sensation on the left lower chest due to shingles. Review of Systems Constitutional: Reports: no symptoms. EENTM: Reports: no symptoms. Cardiovascular: Denies: chest pain, orthopena, palpitations. Respiratory: Denies: cough, short of breath, sputum production. Gastrointestinal: Denies: abdominal pain, diarrhea, nausea. Genitourinary: Reports: see HPI. Musculoskeletal: Reports: no symptoms. Neurological/Psychological: Reports: no symptoms. Objective Last 24 Hrs of Vital Signs/I&O Vital Signs Date Time Temp Pulse Resp B/P B/P Pulse O2 O2 Flow FiO2 Mean Ox Delivery Rate 11/30 0813 83 146/78 / 0813 83 146/78 04/06 0650 98.8 83 16 146/78 93 Room Air 04/05 2350 97.6 68 12 174/104 94 Room Air 04/05 2254 72 148/65 04/05 2254 72 148/65 04/05 1841 97.8 72 16 148/65 94 Room Air 04/05 1424 96.9 88 20 142/78 97 Room Air 04/05 1301 95 Room Air 04/05 1234 95.9 87 22 150/92 91 Room Air Intake & Output / 1600 11/30 0800 04/ 0000 Intake Total 120 200 Output Total 425 1000 Balance -305 -800 Intake, Oral 120 200 Output, Urine 425 1000 Patient 146 lb Weight Weight Reported by Patient Measurement Method Physical Exam General Appearance: Alert, Oriented X3, Cooperative Skin: No Rashes Skin Temp/Moisture Exam: Warm/Dry Sepsis Skin Exam (color): Normal for Ethnicity HEENT: Atraumatic, PERRLA, EOMI Neck: Supple Cardiovascular: Normal S1, Normal S2 Lungs: Clear to Auscultation Abdomen: Soft, No Tenderness Neurological: Normal Speech, Normal Tone, Patient is paraplegic Extremities: No Edema Assessment/Plan Assessment: 77 YO F with PMH of multiple sclerosis with functional paraplegia, wheelchair bound, chronic indwelling Claudio catheter secondary to neurogenic bladder, recurrent UTIs, hyperlipidemia, PVD status post right leg stent placement, hypothyroidism, provoked DVT on Coumadin and recent shingles infection brought to ED by her daughter with chief complaint of lethargic since this morning. Patient are following the patient on tele floor for following problems: EKG changes: -Patient has bigeminy in EKG, we will keep the patient under observation on telemetry floor to rule out any arrhythmia or to monitor for any heart block. -Serial EKG and troponin to rule out any ischemic cardiac injury -Cardiac consult -Echocardiogram UTI: -Her lethargy could be due to her UTI. -Possibly catheter related. Patient has chronic indwelling catheter due to neurogenic bladder. -IV ceftriaxone -Follow urine and blood cultures. Right hydroureteronephrosis; -Due to 7 mm ureteric stone -Pain management according to pain pathway -Urology will see the patient as outpatient and will do ESWL and stent placement. Patient is asymptomatic at this point. Constipation: -We will give her stool softners. -As patient most of the time stays in bed and low oral intake with history of MS. History of recent shingles infection: -Continue valacyclovir. -We will start capsaicin topical. History of DVT: -Patient is on Coumadin -We will follow INR and dose Coumadin accordingly. -INR 3.05 today. History of MS: -Continue her home medications History of hypertension and hyperlipidemia: -Continue home medications History of hypothyroidism: -Continue levothyroxine Chronic back pain: -Continue home medications DVT prophylaxis: Mechanical and patient is already on Coumadin CODE STATUS: DNR/DNI Problem List: 1. Constipation 2. Ureteric stone 3. UTI (urinary tract infection) 4. Hydronephrosis Pain Ratin Pain Location: none Pain Goal: Remain pain free Pain Plan: pain pathway Tomorrow's Labs & Rationales: cbc/bep Anastasiya West MD 11/30/17 1104: Attending MD Review Statement Attending Statement Attending MD Statement: examined this patient, discuss w/resident/PA/EMPLOYEE COMMUNICATIONS INTERN, agreed w/resident/PA/EMPLOYEE COMMUNICATIONS INTERN, reviewed EMR data (avail) Attending Assessment/Plan: 77F PMH sclerosis with functional paraplegia and chronic catheter, multiple E. coli UTI, provoked left lower extremity DVT on Coumadin, peripheral vascular disease status post stent placement left leg, recent diagnosis of shingles admitted with lethargy and weakness secondary to UTI with 7mm right ureteral obstructing stone with right hydronephrosis. EKG showed ventricular bigeminy yesterday, repeat was NSR, no ST/T changes. Patient feels generally well today and has no complaints. She has a shingles rash on her left abdomen and back with open ulcers. She reports discomfort at the rash site on her back. Afebrile, stable vitals, labs reviewed. 1. Right obstructing ureteral stone with obstructive uropathy and right hydronephrosis 2. Herpes zoster 3. Ventricular bigeminy 4. Multiple sclerosis 5. Chronic indwelling Claudio catheter Plan - Continue on telemetry - Continue Ceftriaxone - Follow cultures - Follow cardiology and urology recommendations - Outpatient cystoscopy next week - Continue Valtrex - Start Capsaicin cream for pain - Continue home medications - DVT PPx
[2017-11-30 06:50] VITALS: BP 146/78
--- NOTE | 2017-11-30 07:16 | Cons- Urology ---
General Information and HPI Consulting Request Date of Consult: 11/30/17 Requested By: Georgi Noel MD Reason for Consult: hydronephrosis with 7mm ureter stone Source of Information: patient, old records Allergies/Medications Allergies: Coded Allergies: Sulfa (Sulfonamide Antibiotics) (INCOHERENT 11/21/16) oxycodone (SENSITIVITY TO IT 11/21/16) Home Med List: Amitriptyline HCl 25 MG TABLET 1 TAB PO QPM DEPRESSION (Reported) Amlodipine Besylate 5 MG TABLET 1 TAB PO DAILY BP (Reported) Ascorbic Acid (Vitamin C) 1,000 MG TABLET 1 TAB PO DAILY SUPPLEMENT (Reported ) Baclofen 20 MG TABLET 1 TAB PO 4 TIMES/DAY SPASM (Reported) Calcium (Elemental-Fr Calcarb) (Calcium) 600 MG CALCIUM (1,500 MG) TABLET 2, 400 MG PO DAILY SUPPLEMENT (Reported) Cyanocobalamin (Vitamin B-12) 1,000 MCG TABLET 1 TAB PO DAILY SUPPLEMENT ( Reported) Ezetimibe (Zetia) 10 MG TABLET 1 TAB PO DAILY CHOLESTEROL (Reported) Ferrous Sulfate 325 MG (65 MG IRON) TABLET 1 TAB PO DAILY SUPPLEMENT ( Reported) Levothyroxine Sodium 100 MCG TABLET 1 TAB PO DAILY AC THYROID (Reported) Lisinopril 10 MG TABLET 1 TAB PO DAILY BP (Reported) NOT GIVEN IN HOSPITAL Multivitamin (Daily Value) 1 EACH TABLET 1 TAB PO DAILY SUPPLEMENT (Reported) Pravastatin Sodium (Pravachol) 80 MG TABLET 1 TAB PO DAILY CHOLESTEROL ( Reported) Valacyclovir HCl (Valtrex) 1,000 MG TABLET 1 TAB PO TID SHINGLES Warfarin Sodium (Coumadin) 5 MG TABLET 1 TAB PO MoTuWeThFr BLOOD THINNER ( Reported) Warfarin Sodium (Coumadin) 7.5 MG TABLET 1 TAB PO SuSa BLOOD THINNER ( Reported) Current Medications: Current Medications Sig/Laura Start time Last Medication Dose Route Stop Time Status Admin Acetaminophen 650 MG Q6P PRN 11/29 1915 AC PO Amitriptyline HCl 25 MG QPM 11/29 2200 AC 11/29 PO 225 Amlodipine Besylate 5 MG DAILY 11/29 2000 AC 11/29 PO 225 Azithromycin 500 MG ONCE ONE 11/29 1445 DC 11/29 Dextrose/Water 250 ML IV 11/29 1544 1616 Baclofen 20 MG Q6 11/29 2359 AC 11/30 PO 0620 Ceftriaxone Sodium 1,000 MG DAILY 11/30 1000 AC IV Ceftriaxone Sodium 0 .STK-MED ONE 11/29 1551 DC .ROUTE Ceftriaxone Sodium 1,000 MG ONCE ONE 11/29 1445 DC 11/29 IV 11/29 1446 1616 Cyanocobalamin 1,000 MCG DAILY 11/30 1000 AC PO Ezetimibe 10 MG DAILY 11/30 1000 AC PO Ferrous Sulfate 325 MG DAILY 11/30 1000 AC PO Lactulose 20 GM DAILY 11/30 1000 AC PO Lactulose 1 BOT ONCE ONE 11/29 1945 DC 11/30 ND 11/29 1946 0025 Levothyroxine Sodium 0.1 MG DAILY AC 11/30 0700 AC 11/30 PO 0620 Lisinopril 10 MG DAILY 11/29 2003 AC 11/29 PO 2254 Pravastatin Sodium 20 MG 1700 11/30 1700 AC PO Sodium Chloride 1,000 ML BOLUS ONE 11/29 1300 DC 11/29 IV 11/29 1359 1259 Valacyclovir HCl 1,000 MG TID 11/29 2200 AC 11/29 PO 2254 Past History Medical History Blood Transfusion Hx: Yes Neurological: 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 unknown Exam & Diagnostic Data Vital Signs and I&O Vital Signs Date Time Temp Pulse Resp B/P B/P Pulse O2 O2 Flow FiO2 Mean Ox Delivery Rate 11/30 0650 98.8 83 16 146/78 93 Room Air 11/29 2350 97.6 68 12 174/104 94 Room Air 11/29 2254 72 148/65 11/29 2254 72 148/65 11/29 1841 97.8 72 16 148/65 94 Room Air 11/29 1424 96.9 88 20 142/78 97 Room Air 11/29 1301 95 Room Air 11/29 1234 95.9 87 22 150/92 91 Room Air Intake & Output 11/30 0800 11/30 0000 11/29 1600 11/29 0800 11/29 0000 11/28 1600 Intake Total 200 1000 Output Total 1000 40 Balance -800 960 Intake, IV 1000 Intake, Oral 200 Output, Urine 1000 40 Patient 146 lb 140 lb Weight Weight Reported by Patient Measurement Method Last 24 Hours of Labs: Laboratory Tests 11/29 1539 1350 Chemistry Lactic Acid Cancelled Troponin I (< 0.11 ng/ml) < 0.01 Toxicology Urine Opiates Screen (>2000 NG/ML) < 100 Methadone Screen (>300 NG/ML) 58 Barbiturate Screen (>200 NG/ML) < 60 Ur Phencyclidine Scrn (>25 NG/ML) < 6.00 Amphetamines Screen (>1000 NG/ML) < 100 U Benzodiazepines Scrn (>200 NG/ML) < 85 Urine Cocaine Screen (>300 NG/ML) < 50 Urine Cannabis Screen (>50 NG/ML) < 5.00 Urines Urinalysis MOD H Urine Color (YEL,AMB,STR) YEL Urine Clarity (CLEAR) CLDY H Urine pH (5.0 - 8.0) 6.5 Ur Specific [place] (1.001 - 1.035) 1.020 Urine Protein (NEG,<30 MG/DL) 100 H Urine Ketones (NEG) NEG Urine Nitrite (NEG) POS H Urine Bilirubin (NEG) NEG Urine Urobilinogen (0.1 - 1.0 EU/dl) 0.2 Ur Leukocyte Esterase (NEG) LARGE H Ur Microscopic SEDIMENT EXAMINED Urine RBC (0 - 5 /HPF) 5-10 H Urine WBC (0 - 2 /HPF) 15-25 H Ur Epithelial Cells (NONE,FEW) FEW Urine Bacteria (NEG/NONE) MANY H Urine Hemoglobin (NEG) SMALL H Urine Glucose (N MG/DL) NEG 11/29 1346 Chemistry Sodium (137 - 145 mmol/L) 137 Potassium (3.5 - 5.1 mmol/L) 3.8 Chloride (98 - 107 mmol/L) 98 Carbon Dioxide (22 - 30 mmol/L) 27 Anion Gap (5 - 16) 12 BUN (7 - 17 mg/dL) 41 H Creatinine (0.5 - 1.0 mg/dL) 0.9 Estimated GFR (>60 ml/min) > 60 BUN/Creatinine Ratio (7 - 25 %) 45.6 H Glucose (65 - 99 mg/dL) 105 H Lactic Acid (0.7 - 2.1 mmol/L) 0.8 Calcium (8.4 - 10.2 mg/dL) 9.9 Total Bilirubin (0.2 - 1.3 mg/dL) 0.6 AST (14 - 36 U/L) 36 ALT (9 - 52 U/L) 64 H Alkaline Phosphatase (<127 U/L) 141 H Troponin I (< 0.11 ng/ml) < 0.01 Total Protein (6.3 - 8.2 g/dL) 7.4 Albumin (3.5 - 5.0 g/dL) 3.8 Globulin (1.9 - 4.2 gm/dL) 3.6 Albumin/Globulin Ratio (1.1 - 2.2 %) 1.1 Coagulation PT (9.4 - 12.5 SEC) 30.4 H INR (0.90 - 1.19) 2.76 H APTT (25 - 37 SEC) 49 H Hematology CBC w Diff NO MAN DIFF REQ WBC (4.8 - 10.8 /CUMM) 8.1 RBC (4.20 - 5.40 /CUMM) 4.93 Hgb (12.0 - 16.0 G/DL) 13.6 Hct (37 - 47 %) 41.7 MCV (81.0 - 99.0 FL) 84.7 MCH (27.0 - 31.0 PG) 27.7 MCHC (33.0 - 37.0 G/DL) 32.7 L RDW (11.5 - 14.5 %) 17.5 H Plt Count (130 - 400 /CUMM) 266 MPV (7.4 - 10.4 FL) 9.1 Gran % (42.2 - 75.2 %) 60.8 Lymphocytes % (20.5 - 51.1 %) 26.7 Monocytes % (1.7 - 9.3 %) 11.7 H Eosinophils % (0 - 5 %) 0.6 Basophils % (0.0 - 2.0 %) 0.2 Absolute Granulocytes (1.4 - 6.5 /CUMM) 4.9 Absolute Lymphocytes (1.2 - 3.4 /CUMM) 2.1 Absolute Monocytes (0.10 - 0.60 /CUMM) 0.9 H Absolute Eosinophils (0.0 - 0.7 /CUMM) 0 Absolute Basophils (0.0 - 0.2 /CUMM) 0 Imaging Results: PATIENT: AL NUNEZ PRESENT AGE: 77 PATIENT ACCOUNT NO: [id number] : 40 LOCATION: [facility] ORDERING PHYSICIAN: Soni PARK SERVICE DATE: 11/29/17 EXAM TYPE: CAT - CT ABD & PELVIS W IV CONTRAST EXAMINATION: CT ABDOMEN AND PELVIS WITH CONTRAST CLINICAL INFORMATION: Constipation. Pain. COMPARISON: 08/02/2015. TECHNIQUE: Contiguous axial thin section helical images of the abdomen and pelvis were performed following the administration of 95 mL of intravenous Optiray 320. The data set was reformatted in the coronal and sagittal planes and reviewed on an independent workstation. DLP: 290 mGy-cm. FINDINGS: There is atelectasis at the left lung base. The visualized lung bases are otherwise clear. The visualized portions of the heart are unremarkable. The liver is of normal size and attenuation without focal lesions nor intrahepatic biliary ductal dilation. A calculus within the gallbladder lumen. There is no wall thickening or discernible pericholecystic fluid. The spleen, pancreas, adrenal glands are unremarkable. Both kidneys are of normal size and attenuation without nephrolithiasis. There is no left-sided hydronephrosis. There is right grade 3 hydroureteronephrosis with an obstructive distal right ureteral calculus present measuring 7 mm. There are bilateral renal cysts. Following the administration of IV contrast, prompt symmetric nephrograms are displayed. There is no abdominal free fluid. There is neither mesenteric nor retroperitoneal lymphadenopathy. There is a large amount of stool within the ascending colon; otherwise, unremarkable unopacified loops of small and large bowel are identified. There is no pelvic free fluid. The urinary bladder is partially filled with a Warner catheter in place. There is neither pelvic nor inguinal lymphadenopathy. Bone windows: Neither sclerotic nor lytic bone lesions are identified. A right dynamic hip screw is in place. IMPRESSION: Right grade 3 hydroureteronephrosis secondary to a 7 mm obstructive distal right ureteral calculus. Large amount of stool within the ascending colon. Cholelithiasis without evidence of cholecystitis. Assessment/Plan Assessment/Plan pt. with asymptomatic right hydro. due to 7mm stone.: Copies To: Medardo Aranda MD Consult Acknowledgment - Thank you for your consult request. Attending MD Review Statement Attending Statement Attending MD Statement: examined this patient, discuss w/resident/PA/SKULL CHOPPER Attending Assessment/Plan: asymptomatic hydro due to stone: plan is ESWL possible stent next sunday.
[2017-11-30 08:06] LABS: ABSOLUTE BASOPHIL COUNT 0.1 /CUMM (0.0-0.2); ABSOLUTE EOSINOPHIL COUNT 0.1 /CUMM (0.0-0.7); ABSOLUTE GRANULOCYTE CT 3.5 /CUMM (1.4-6.5); ABSOLUTE LYMPH COUNT 2.4 /CUMM (1.2-3.4); BASOPHIL % 0.8 % (0.0-2.0); GRANULOCYTE % 49.6 % (42.2-75.2); HEMATOCRIT 38.6 % (37-47); MEAN CORPUSCULAR HGB 28.4 PG (27.0-31.0); MEAN CORPUSCULAR HGB CONC 32.9 G/DL (33.0-37.0); MEAN CORPUSCULAR VOLUME 86.2 FL (81.0-99.0); MEAN PLATELET VOLUME 9.7 FL (7.4-10.4); PLATELET COUNT 248 /CUMM (130-400); RBC DISTRIBUTION WIDTH 17.2 % (11.5-14.5); RED BLOOD CELL CT 4.48 /CUMM (4.20-5.40); WHITE BLOOD CELL COUNT 7.1 /CUMM (4.8-10.8)
[2017-11-30 08:29] LABS: PT 33.6 SEC (9.4-12.5)
--- NOTE | 2017-11-30 09:06 | PN- Student ---
Subjective Subjective: 77 y/o F with Multiple sclerosis with neurogenic bladder and recurrent UTI and chronic catheterizations, HLD, hypothyroidism, DVT on coumidin. patient was brought to the ED with a cc of angel. patient was in her usual state of health until one day [employer] the patient started feeling lethatrgic and couldn't eat breakfast. At that time the patient denied chest pain, palpitation, nausea/ vomiting, chills, SOB. One week ago the patient was in the ED for shingles and was treated with acyclovir and prednisone. During that time the patient reported left flank pain. because of the chonic catheterization, the patient have a nurse that come to her home to monitor the means. The last time the means was changed was about 2 weeks ago. During this ED admission the patient reported feeling constipated and have not had any bowel movement since 5 days. Denied fever, chills, nausea/vomiting, chest pain, SOB. Objective Objective: Vitals: T= 96.9 HR= 88 RR= 20 BP= 142/78 O2Sat= 97 RA PE: General= alert, oriented x3, lethergic without any distress Lungs= Clear bilateral, symetric lung expansion, no retractions noted, no crackles CVS= regular, rate, rythms, no mumurs S3 or S4 Abdomen= no scar, bowel sounds present, non-tender, non-distended Genitourinary= no suprapubic distention or tenderness. Skin= band like vesiculo puslucar rash on the left side of the chest bellow the left breast Results Results: Laboratory Tests 11/30/17 0625: Anion Gap 11, Estimated GFR 54 L, BUN/Creatinine Ratio 41.0 H, PT 33.6 H, INR 3.05 H, CBC w Diff NO MAN DIFF REQ, RBC 4.48, MCV 86.2, MCH 28.4, MCHC 32.9 L, RDW 17.2 H, MPV 9.7, Gran % 49.6, Lymphocytes % 34.0, Monocytes % 13.6 H, Eosinophils % 2.0, Basophils % 0.8, Absolute Granulocytes 3.5, Absolute Lymphocytes 2.4, Absolute Monocytes 1.0 H, Absolute Eosinophils 0.1, Absolute Basophils 0.1 11/29/17 2004: Troponin I < 0.01 11/29/17 1539: Lactic Acid Cancelled 11/29/17 1350: Urine Opiates Screen < 100, Methadone Screen 58, Barbiturate Screen < 60, Ur Phencyclidine Scrn < 6.00, Amphetamines Screen < 100, U Benzodiazepines Scrn < 85, Urine Cocaine Screen < 50, Urine Cannabis Screen < 5.00, Urinalysis MOD H, Urine Color YEL, Urine Clarity CLDY H, Urine pH 6.5, Ur Specific [place] 1.020, Urine Protein 100 H, Urine Ketones NEG, Urine Nitrite POS H, Urine Bilirubin NEG, Urine Urobilinogen 0.2, Ur Leukocyte Esterase LARGE H, Ur Microscopic SEDIMENT EXAMINED, Urine RBC 5-10 H, Urine WBC 15-25 H, Ur Epithelial Cells FEW, Urine Bacteria MANY H, Urine Hemoglobin SMALL H, Urine Glucose NEG 11/29/17 1346: Anion Gap 12, Estimated GFR > 60, BUN/Creatinine Ratio 45.6 H, Glucose 105 H, Lactic Acid 0.8, Calcium 9.9, Total Bilirubin 0.6, AST 36, ALT 64 H, Alkaline Phosphatase 141 H, Troponin I < 0.01, Total Protein 7.4, Albumin 3.8, Globulin 3.6, Albumin/Globulin Ratio 1.1, PT 30.4 H, INR 2.76 H, APTT 49 H, CBC w Diff NO MAN DIFF REQ, RBC 4.93, MCV 84.7, MCH 27.7, MCHC 32.7 L, RDW 17.5 H, MPV 9.1, Gran % 60.8, Lymphocytes % 26.7, Monocytes % 11.7 H, Eosinophils % 0.6, Basophils % 0.2, Absolute Granulocytes 4.9, Absolute Lymphocytes 2.1, Absolute Monocytes 0.9 H, Absolute Eosinophils 0, Absolute Basophils 0 Microbiology 11/29 1405 BLOOD: Blood Culture - RECD 11/29 1350 URINE ROUT: Urine Culture - RECD 11/29 1348 NASOPHARYN: Influenza Virus A & B Rapid Smear - COMP 11/29 1345 BLOOD: Blood Culture - RES Assessment/Plan Assessment: 77 y/om F with MS and neurogenic bladder. Patient admitted to the cardiology unit foe EKG showing Bigeminy. CXR showed lung opacities, but based on the vitals and labs (no leukocytosis, and no fever) pneumonia is unlikely. CT-abd showed a 7mm calculus causing hydrouretonephrosis. A UA came back with pyuria ( 15-25), nitrates and many bacterias. An UTI is suspected. Plan: UTI: -Ceftriaxone -F/U urine cx and proceed to treat accordingly -F/U blood cx Right hydronephrosis: -Nephrology consult Constipation: -Stool softeness -hydration accordingly Shingles: -Cont. vancyclovir DVT: -Cont. coumidin -SCD HTN: -Cont. home meds -HLD: Cont. home meds Hypothyroidism: -Cont. home meds
[2017-11-30] MEDS ORDERED: VALTREX1000 MG PO (14:14)
--- NOTE | 2017-11-30 14:19 | Discharge Summary ---
Visit Information Visit Dates Admission Date: 11/29/17 Discharge Date: 12/06/17 Hospital Course Course Attending Physician: Anastasiya West MD Primary Care Physician: Chana DANIELS,[facility] Course: 77 YO F with PMH of multiple sclerosis with functional paraplegia, wheelchair bound, chronic indwelling Claudio catheter secondary to neurogenic bladder, recurrent UTIs, hyperlipidemia, PVD status post right leg stent placement, hypothyroidism, provoked DVT on Coumadin and recent shingles infection brought to ED by her daughter with chief complaint of lethargic since this morning. ED course: Vitals: Temperature 94.9, pulse 87, respiratory rate 22, blood pressure 150/92, oxygen saturation 91% on room air. Labs: WBC count 8.1, hemoglobin 13.6, hematocrit 41.7, platelet count 266, sodium 137, potassium 3.8, BUN 41, creatinine 0.9, anion gap 12, BUNs/creatinine ratio 45.6, glucose 105, lactic acid 0.8, calcium 9.9, PT 30.4, INR 2.76, AST 36, ALT 64, alkaline phosphatase 141, troponin less than 0.01 Ventricular bigeminy: Patient was admitted to telemetry floor due to ventricular bigeminy. Serial EKGs and troponins were done that remained negative. Cardiology consult was obtained and recommendations were followed. Metoprolol 12.5 mg twice a day was started to control ventricle bigeminy and heart rate. Her ventilator bigeminy resolved by its own. Echocardiogram was done that showed ejection fraction 70% with impaired left ventricle relaxation. Catheter related UTI: Patient was treated for UTI related to urinary catheter. Patient was growing Klebsiella in her urine. She was given IV ceftriaxone that was converted to Augmentin by mouth to complete 14 days course. Right hydroureteronephrosis s/p right ureterocopy and stent placement: Patient had 7 mm ureteric stone that was causing the right ureterohydronephrosis. All the patient was asymptomatic. Right ureteroscopy and right ureteric stent placement was done to release the obstruction. Patient will follow her urologist as outpatient within 1 week. Constipation: Patient was complaining of constipation considering her paraplegia and pelvis. She was given stool softeners to relieve her constipation. Modification of her diet considering her aspiration: Modified barium swallow test was done that showed aspiration. Patient's diet was modified to prevent aspiration. She was given mechanical soft and nectar thick liquids. History of recent shingles infection: Patient had recent history of shingles under left breast. She completed the course of valacyclovir for 10 days that was discontinued. Patient was given capsaicin craem to apply topically. History of DVT: Her INR was checked everyday and she was dosed with Coumadin accordingly. Her Coumadin was stopped before her ureteroscopy and stent placement. Later on INR was checked and her Coumadin was continued. History of MS: Continued baclofen and rest of MS medications. History of hypertension and hyperlipidemia: Continued home medications. Metoprolol 12.5 mg twice a day was added to control her heart rate and ventricle bigeminy. History of hypothyroidism: Continued levothyroxine. Chronic back pain: Continue home medications. DVT prophylaxis: Mechanical and patient was on Coumadin. CODE STATUS: DNR/DNI Allergies: Coded Allergies: Sulfa (Sulfonamide Antibiotics) (INCOHERENT 11/21/16) oxycodone (SENSITIVITY TO IT 11/21/16) Pertinent Lab Results: Chest x-ray on 11/29/2017: IMPRESSION: Left lower lobe airspace opacity suspicious for pneumonia. Air underneath the right hemidiaphragm most in keeping with gaseous distention and colonic interposition hepatic flexure. This represents an interval change compared to the previous examination. Follow-up CT abdomen and pelvis is therefore recommended. Abdominal/pelvic CT scan on 11/29/2017: IMPRESSION: Right grade 3 hydroureteronephrosis secondary to a 7 mm obstructive distal right ureteral calculus. Large amount of stool within the ascending colon. Cholelithiasis without evidence of cholecystitis. Modified barium swallow test on 11/30/2017: FINDINGS: With all consistencies, the oropharyngeal phase of swallowing is abnormal with spillage of contrast in the vallecula and penetration of contrast seen without sensation. With thin consistency, aspiration without sensation is also seen. IMPRESSION: 1. Silent penetration seen with all consistencies. 2. Silent aspiration noted with thin consistency. 3. Speech pathologist assessment issued separately. Echocardiogram on 12/01/2017: CONCLUSIONS 1. Normal EF of 70% with impaired LV relaxation. 2. Mild left ventricular hypertrophy. 3. Trace mitral regurgitation. 4. Trace tricuspid regurgitation. 5. Mild aortic stenosis. 6. Trace pericardial effusion. Abdominal x-ray on 12/06/2017; FINDINGS/IMPRESSION: These intraoperative fluoroscopic images demonstrate right-sided ureteroscopy and right double-J ureteral stent placement with the proximal aspect of the stent projecting over the right renal pelvis and the distal aspect of the stent projecting over the bladder on the final submitted images. Initial images demonstrate retrograde contrast opacification of the dilated right renal pelvis and right ureter which appear decompressed following stent placement. The calculus seen within the distal right ureter on 11/29/[address] study is not definitively seen on the final submitted images. WBC count 8.7, hemoglobin 10.9, hematocrit 33.1, platelet count 185, sodium 142, potassium 4.9, BUN 32, creatinine 0.9, INR 1.84 Disposition Summary Disposition Principal Diagnosis: Ventricle bigeminy Catheter related UTI Right hydroureteronephrosis due to right ureteric stone. Constipation Additional Diagnosis: History of recent shingles History of DVT History of MS History of hypothyroidism History of back pain Discharge Disposition: home health services Discharge Instructions General Discharge Information Code Status: Do Not Resucitate/Intubat Patient's Diet: Regular diet with mechanical soft and nectar thick Patient's Activity: Self-limited Follow-Up Instructions/Appts: -Follow-up with your primary care physician in one week. -Follow up with urologist in 1 week. -Follow up with cardiology in 1 week to discuss about outpatient cardiac stress test in the future. Medications at Discharge Discharge Medications: Continue taking these medications: Pravastatin Sodium (Pravachol) 80 MG TABLET 1 Tablet ORAL DAILY Comments: Last Taken: 12/04/17 Time: 4PM Levothyroxine Sodium (Levothyroxine Sodium) 100 MCG TABLET 1 Tablet ORAL DAILY BEFORE BREAKFAST Comments: Last Taken: 12/06/17 Time: 6AM Multivitamin (Daily Value) 1 EACH TABLET 1 Tablet ORAL DAILY Comments: NOT GIVEN IN HOSPITAL Ferrous Sulfate (Ferrous Sulfate) 325 MG (65 MG IRON) TABLET 1 Tablet ORAL DAILY Comments: Last Taken: 12/06/17 Time: 9AM Ascorbic Acid (Vitamin C) 1,000 MG TABLET 1 Tablet ORAL DAILY Comments: NOT GIVEN IN HOSPITAL Warfarin Sodium (Coumadin) 5 MG TABLET 1 Tablet ORAL MoTuWeThFr Comments: NOT GIVEN IN HOSPITAL Amitriptyline HCl (Amitriptyline HCl) 25 MG TABLET 1 Tablet ORAL Every night Comments: Last Taken: 12/05/17 Time: 9AM Amlodipine Besylate (Amlodipine Besylate) 5 MG TABLET 1 Tablet ORAL DAILY Comments: Last Taken: 12/06/17 Time: 9AM Lisinopril (Lisinopril) 10 MG TABLET 1 Tablet ORAL DAILY Comments: Last Taken: 12/06/17 Time: 9AM Warfarin Sodium (Coumadin) 7.5 MG TABLET 1 Tablet ORAL SuSa Comments: Last Taken: 12/03/17 Time: 5PM Baclofen (Baclofen) 20 MG TABLET 1 Tablet ORAL 4 TIMES A DAY Qty = 120 Comments: Last Taken: 12/06/17 Time: 12PM Calcium (Elemental-Fr Calcarb) (Calcium) 600 MG CALCIUM (1,500 MG) TABLET 2,400 Milligram ORAL DAILY Comments: NOT GIVEN IN HOSPITAL Cyanocobalamin (Vitamin B-12) 1,000 MCG TABLET 1 Tablet ORAL DAILY Comments: Last Taken: 12/06/17 Time: 9AM Ezetimibe (Zetia) 10 MG TABLET 1 Tablet ORAL DAILY Qty = 90 Comments: Last Taken: 12/06/17 Time: 9AM Start taking the following new medications: Capsaicin (Zostrix) 0.033 % CREAM..G. 1 Application On the skin TWICE DAILY Qty = 2 No Refills Instructions: . Comments: Last Taken: 12/06/17 Time: 9AM Metoprolol Tartrate (Metoprolol Tartrate) 25 MG TABLET 0.5 Tablet ORAL TWICE DAILY Qty = 30 No Refills Instructions: . Comments: Last Taken: 12/06/17 Time: 9AM Augmentin (Augmentin 500-125 Tablet) 500 MG-125 MG TABLET 1 Tablet ORAL TWICE DAILY Qty = 14 No Refills Instructions: . Comments: Last Taken: 12/06/17 Time: 9AM Copies To: Duane DANIELS,Candido Arce; Chana DANIELS,[facility] Ahmadi MD PHD,Kimo Osorio
--- NOTE | 2017-11-30 14:19 | Patient Discharge Instructions ---
Discharge Instructions General Discharge Information You were seen/treated for: Ventricular bigeminy UTI Right hydroureteronephrosis due to right ureteric stone s/p right ureteroscopy and stent placement. Watch for these problems: Chest pain, shortness of breath, lightheadedness, fever, chills, flank pain, blood in urine and dysuria. If you experiences any of these symptoms please come to ED or call your primary care physician. Special Instructions: -Follow-up with your primary care physician in one week. -Follow up with urologist in 1 week. -Follow up with cardiology in one week and discuss about outpatient cardiac stress testn in future. -Check INR and dose coumadin accordingly. Diet Recommended Diet: Regular Additional DIET Information: Mechanical soft and nectar thick Activity Activity Self Limited: Yes Acute Coronary Syndrome Inclusion Criteria At DC or during hospital stay patient has or had the following: ACS DIAGNOSIS No Discharge Core Measures Meds if any: Prescribed or Continued at Discharge Meds if any: NOT Prescribed or Continued at Discharge Congestive Heart Failure Inclusion Criteria At DC or during hospital stay patient has or had the following: CHF DIAGNOSIS No Discharge Core Measures Meds if any: Prescribed or Continued at Discharge Meds if any: NOT Prescribed or Continued at Discharge Cerebrovascular accident Inclusion Criteria At DC or during hospital stay patient has or had the following: CVA/TIA Diagnosis No Discharge Core Measures Meds if any: Prescribed or Continued at Discharge Meds if any: NOT Prescribed or Continued at Discharge Venous thromboembolism Inclusion Criteria VTE Diagnosis No VTE Type NONE VTE Confirmed by (Test) NONE Discharge Core Measures - Per Current guidelines, there needs to be overlap - treatment for the first 5 days of Warfarin therapy. - If discharged on Warfarin prior to 5 days of - overlap therapy, the patient will need to be - assessed for post discharge needs including - *Post discharge parental anticoagulation - *Warfarin and/or parental anticoagulation education - *Follow up date to check INR post discharge At least 5 days overlap therapy as Inpatient No Meds if any: Prescribed or Continued at Discharge Note: Overlap Therapy is Warfarin and Anticoagulant Meds if any: NOT Prescribed or Continued at Discharge
[2017-11-30] MEDS ORDERED: ZOSTRIX56.6 G1 TOP (14:28)
[2017-11-30 15:00] VITALS: BP 140/60
--- NOTE | 2017-11-30 16:18 | RADIOLOGY REPORT ---
EXAMINATION: XR MODIFIED BARIUM SWALLOW CLINICAL INFORMATION: Swallowing evaluation. COMPARISON: None. TECHNIQUE: A modified barium swallow was performed with speech pathologist in attendance. Pur?e, honey thick, nectar thick, thin, bread, and cracker consistencies were given to the patient and the swallowing mechanism was observed fluoroscopically with several spot films taken using the last image hold feature. FLUOROSCOPY TIME: 2 minutes 33 seconds. FINDINGS: With all consistencies, the oropharyngeal phase of swallowing is abnormal with spillage of contrast in the vallecula and penetration of contrast seen without sensation. With thin consistency, aspiration without sensation is also seen. IMPRESSION: 1. Silent penetration seen with all consistencies. 2. Silent aspiration noted with thin consistency. 3. Speech pathologist assessment issued separately.
--- NOTE | 2017-11-30 19:30 | Cons- Cardiology ---
General Information and HPI Consulting Request Date of Consult: 11/30/17 Requested By: Anastasiya West MD History of Present Illness: This patient is a 77 year old female with history of multiple sclerosis with paraplegia, chronic urinary catheter for a neurogenic bladder, hyperlipidemia and peripheral vascular disease status post right leg stent. She also carries a history of DVT. Over the past few days this patient has noted a profound weakness and lethargy with anorexia. She also has a non-productive cough. The patient otherwise denies chest discomfort, shortness of breath, lightheadedness or palpitations. She also denies any bladder discomfort/dysuria, fever, chills, nausea/vomiting, headache or visual deficits. She does have some mild discomfort in her back and side in the setting of a recently diagnosed H. zoster infection. The patient was noted to be in ventricular bigeminy which the patient herself is completely unaware of. Her chest X-ray is suggestive of a pneumonia and she has a purulent urine consistent with a UTI. It is also noted that she has a hydronephrosis. Allergies/Medications Allergies: Coded Allergies: Sulfa (Sulfonamide Antibiotics) (INCOHERENT 11/21/16) oxycodone (SENSITIVITY TO IT 11/21/16) Home Med List: Amitriptyline HCl 25 MG TABLET 1 TAB PO QPM DEPRESSION (Reported) Amlodipine Besylate 5 MG TABLET 1 TAB PO DAILY BP (Reported) Ascorbic Acid (Vitamin C) 1,000 MG TABLET 1 TAB PO DAILY SUPPLEMENT (Reported ) Baclofen 20 MG TABLET 1 TAB PO 4 TIMES/DAY SPASM (Reported) Calcium (Elemental-Fr Calcarb) (Calcium) 600 MG CALCIUM (1,500 MG) TABLET 2, 400 MG PO DAILY SUPPLEMENT (Reported) Capsaicin (Zostrix) 0.033 % CREAM..G. 1 AYLIN TOP BID Shingles Cyanocobalamin (Vitamin B-12) 1,000 MCG TABLET 1 TAB PO DAILY SUPPLEMENT ( Reported) Ezetimibe (Zetia) 10 MG TABLET 1 TAB PO DAILY CHOLESTEROL (Reported) Ferrous Sulfate 325 MG (65 MG IRON) TABLET 1 TAB PO DAILY SUPPLEMENT ( Reported) Levothyroxine Sodium 100 MCG TABLET 1 TAB PO DAILY AC THYROID (Reported) Lisinopril 10 MG TABLET 1 TAB PO DAILY BP (Reported) NOT GIVEN IN HOSPITAL Multivitamin (Daily Value) 1 EACH TABLET 1 TAB PO DAILY SUPPLEMENT (Reported) Pravastatin Sodium (Pravachol) 80 MG TABLET 1 TAB PO DAILY CHOLESTEROL ( Reported) Valacyclovir HCl (Valtrex) 1,000 MG TABLET 1 TAB PO TID SHINGLES Warfarin Sodium (Coumadin) 5 MG TABLET 1 TAB PO MoTuWeThFr BLOOD THINNER ( Reported) Warfarin Sodium (Coumadin) 7.5 MG TABLET 1 TAB PO SuSa BLOOD THINNER ( Reported) Review of Systems Review of Systems: At baseline this patient speaks very quietly. 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 Smoking Status: Never Smoked Exam & Diagnostic Data Vital Signs and I&O Vital Signs Date Time Temp Pulse Resp B/P B/P Pulse O2 O2 Flow FiO2 Mean Ox Delivery Rate 11/30 1500 97.9 69 20 140/60 96 / 0813 83 146/78 04/ 0813 83 146/78 / 0650 98.8 83 16 146/78 93 Room Air / 2350 97.6 68 12 174/104 94 Room Air 11/29 2254 72 148/65 11/29 2254 72 148/65 Intake & Output 11/30 1600 11/30 0800 / 0000 11/29 1600 11/29 0800 11/29 0000 Intake Total 423 215 4226 Output Total 425 1000 40 Balance -305 -800 960 Intake, IV 1000 Intake, Oral 120 200 Output, Urine 425 1000 40 Patient 146 lb 140 lb Weight Weight Reported by Patient Measurement Method Physical Exam: General: WD/WN female in NAD; alert and oriented x 3 HEENT: NC/AT, PERRL, EOMI Neck: no JVD, no carotid bruit Heart: RRR with 2/6 systolic murmur at the apex Lungs: crackles noted at the left base Back: lower left back with rash Abdomen: soft, NT, +ve bowel sounds Extremities: no edema Assessment/Plan Assessment/Plan * This patient has lethargy that is likely related to an infectious process such as pneumonia, a UTI or both. Although completely asymptomatic, this patient has also demonstrated ventricular ectopy in the form of bigeminy. She is now in a sinus rhythm. There is the possibility that this patient has myocardial ischemia since she has had peripheral vascular disease in the past which is a marker (not risk factor) for cardiac atherosclerosis. My highest suspicion, however, is that her ventricular ectopy is related to subendocardial ischemia from severe hypertension. I recommend obtaining an echocardiogram and beginning Labetolol 200mg BID for control of her blood pressure and ectopy. Since the patient is very inactive we should pursue a pharmacologic stress test at some point in time. This can be done as an outpatient when she is improved. Continue her statin and aspirin. She needs a low sodium diet. Consult Acknowledgment - Thank you for your consult request.
[2017-11-30 22:42] VITALS: BP 138/84
[2017-12-01 07:35] VITALS: BP 130/78
--- NOTE | 2017-12-01 08:44 | PN- Housestaff ---
BeboMarie 12/01/17 0844: Subjective Follow-up For: As problem list per AP Tele-Events Since Last Visit: NSR 80-90s Subjective: no overnight event. Patient was awake and orient to herself only. No specifc complaint. Review of Systems Constitutional: Reports: see HPI. Objective Last 24 Hrs of Vital Signs/I&O Vital Signs Date Time Temp Pulse Resp B/P B/P Pulse O2 O2 Flow FiO2 Mean Ox Delivery Rate 12/01 734 98.7 84 20 130/78 93 Room Air / 0033 80 138/84 04/ 2242 98.5 80 21 138/84 95 04/ 2242 98.5 80 21 138/84 95 / 1600 Room Air / 1500 97.9 69 20 140/60 96 Intake & Output 12/01 1600 12/01 0800 / 0000 Intake Total 110 475 Output Total 150 850 Balance -40 -375 Intake, IV 10 Intake, Oral 100 475 Output, Urine 150 850 Patient 66.763 kg 67.585 kg Weight Physical Exam General Appearance: Alert, No Acute Distress, Oriented to herself only. Cardiovascular: Regular Rate Lungs: Clear to Auscultation, Normal Air Movement Abdomen: Soft, No Tenderness Extremities: No Edema Current Medications: Current Medications Sig/Laura Start time Last Medication Dose Route Stop Time Status Admin Acetaminophen 650 MG Q6P PRN 11/29 1915 AC PO Amitriptyline HCl 25 MG QPM / 2200 AC 11/30 PO 2221 Amlodipine Besylate 5 MG DAILY 11/29 2000 AC 11/30 PO 0813 Baclofen 20 MG Q6 11/29 2359 AC 12/01 PO 0704 Capsaicin 1 AYLIN BID 11/30 1001 DC TOP Ceftriaxone Sodium 1,000 MG DAILY 11/30 1000 AC / IV 0812 Cyanocobalamin 1,000 MCG DAILY 11/30 1000 AC PO Ezetimibe 10 MG DAILY 11/30 1000 AC 11/30 PO 0813 Ferrous Sulfate 325 MG DAILY 11/30 1000 AC 11/30 PO 0813 Labetalol HCl 200 MG BID 11/30 2200 AC 12/01 PO 0033 Lactulose 20 GM DAILY 11/30 1000 AC PO Levothyroxine Sodium 0.1 MG DAILY AC 11/30 0700 AC 12/01 PO 0704 Lidocaine 1 AYLIN BID 11/30 1445 AC 11/30 TOP 2225 Lisinopril 10 MG DAILY 11/29 2002 AC 11/30 PO 0813 Melatonin 3 MG AT BEDTIME 11/30 2199 AC 11/30 PO 2221 Pravastatin Sodium 20 MG 1700 11/30 1700 AC 11/30 PO 1803 Valacyclovir HCl 1,000 MG TID 11/29 2199 AC 11/30 PO 2221 Warfarin Sodium 2.5 MG COUMADIN 1700 ONE 11/30 1700 DC 11/30 PO 11/30 1701 1803 Last 24 Hrs of Lab/Albert Results Last 24 Hrs of Labs/Mics: Laboratory Tests 12/01/17 0641: PT 23.3 H, INR 2.12 H Assessment/Plan Assessment: 77 YO F with PMH of multiple sclerosis with functional paraplegia, wheelchair bound, chronic indwelling Claudio catheter secondary to neurogenic bladder, recurrent UTIs, hyperlipidemia, PVD status post right leg stent placement, hypothyroidism, provoked DVT on Coumadin and recent shingles infection brought to ED by her daughter with chief complaint of lethargic since this morning. Patient are following the patient on tele floor for following problems: EKG changes: -Patient has bigeminy in EKG, we will keep the patient under observation on telemetry floor to rule out any arrhythmia or to monitor for any heart block. -Serial EKG and troponin to rule out any ischemic cardiac injury -Cardiac consult appreciated, will obtain echo and start labetalol 200 bid. - May need outpatient stress test as well -Echocardiogram pending UTI: -Her lethargy could be due to her UTI. -Possibly catheter related. Patient has chronic indwelling catheter due to neurogenic bladder. -IV ceftriaxone -Follow urine and blood cultures. Right hydroureteronephrosis; -Due to 7 mm ureteric stone -Pain management according to pain pathway -Urology will see the patient as outpatient and will do ESWL and stent placement. Patient is asymptomatic at this point. Constipation: -We will give her stool softners. -As patient most of the time stays in bed and low oral intake with history of MS. History of recent shingles infection: -Continue valacyclovir. -We will start capsaicin topical. History of DVT: -Patient is on Coumadin -We will follow INR and dose Coumadin accordingly. -INR 2.12 today, will dose warfarin. History of MS: -Continue her home medications History of hypertension and hyperlipidemia: -Continue home medications History of hypothyroidism: -Continue levothyroxine Chronic back pain: -Continue home medications DVT prophylaxis: Mechanical and patient is already on Coumadin CODE STATUS: DNR/DNI Problem List: 1. Nephrolithiasis Pain Ratin Pain Location: NA Pain Goal: Remain pain free Pain Plan: see AP Tomorrow's Labs & Rationales: CBC/.BEP/INR Lisa DANIELS,Lakisha 12/01/17 1337: Attending MD Review Statement Attending Statement Attending MD Statement: examined this patient, discuss w/resident/PA/VEGETABLE COOK, agreed w/resident/PA/VEGETABLE COOK, reviewed EMR data (avail) Attending Assessment/Plan: Patient is a slightly confused and disoriented this morning. She is remains lethargic. Her vital signs stable and she is currently afebrile. Room air saturation is 93%. Abdomen soft nontender chest exam is clear. Patient paraplegic. No new labs were done today. Modified barium study November 30 1. Silent penetration seen with all consistencies. 2. Silent aspiration noted with thin consistency. 3. Speech pathologist assessment issued separately. Urine cultures growing Klebsiella sensitive to cefazolin. Assessment plan UTI due to Klebsiella Right high to Right ureteric stone Plan Plan is for ESWL and stent placement next Sunday as per urology note Will continue IV antibiotics today and with plan to switch to oral Keflex tomorrow Please clarify with urology with the patient's Coumadin will need to be held for stent placement and ESWL
[2017-12-01 08:51] LABS: PT 23.3 SEC (9.4-12.5)
[2017-12-01 13:30] VITALS: BP 60/00
[2017-12-01 14:02] VITALS: BP 82/40
[2017-12-01 14:20] VITALS: BP 80/40
[2017-12-01 15:52] VITALS: BP 98/48
--- NOTE | 2017-12-01 16:11 | PN- Cardiology ---
Subjective Subjective: The patient was started on labetalol, and she was noted to become hypotensive with systolic blood pressure of 60 after the first dose of labetalol. A bolus of IV fluid was given, and blood pressure has now improved to 90/48. No chest pain. No palpitations. No diaphoresis. No nausea or vomiting. Monitoring monitoring reveals sinus rhythm with occasional premature ventricular contractions Objective Vital Signs and I&Os Vital Signs Date Time Temp Pulse Resp B/P B/P Pulse O2 O2 Flow FiO2 Mean Ox Delivery Rate 12/01 1552 77 98/48 12/01 1523 98.8 61 15 93 12/01 1420 75 80/40 / 1402 76 82/40 12/01 1330 97.5 75 18 60/00 93 Room Air 12/01 1038 84 130/78 12/01 1038 84 130/78 12/01 1038 84 130/78 12/01 0800 93 Room Air 12/01 0735 98.7 84 20 130/78 93 Room Air 12/01 0033 80 138/84 04/ 2242 98.5 80 21 138/84 95 / 2242 98.5 80 21 138/84 95 Intake & Output 12/01 1600 12/01 0800 04/ 0000 04/06 1600 11/30 0800 04/ 0000 Intake Total 120 110 475 120 200 Output Total 60 150 053 434 9529 Balance 60 -40 -375 -305 -800 Intake, IV 10 Intake, Oral 120 100 475 120 200 Output, Urine 60 150 238 152 2167 Patient 147 lb 149 lb 146 lb Weight Weight Reported by Patient Measurement Method Physical Exam: Gen: NAD HEENT: normal Lungs: Rales noted in the left base, normal resp. effort Heart: RRR, S1, S2, 2/6 systolic Abdomen: Soft, nontender, no masses Extremities: No clubbing, cyanosis, or edema. Neuro: Alert and oriented x 3, cranial nerves intact Assessment/Plan Assessment/Plan Assessment: 1. Pneumonia 2. Possible urinary tract infection 3. Premature ventricular contractions 4. History of hypertension with hypotension after treatment with labetalol 5. Occasional premature ventricular contractions with brief episode of bigeminy , result Plan: * Given the profound hypotension after giving labetalol, with discontinue labetalol * Restart other hypertension medications once blood pressure normalized Continue telemetry? Yes
[2017-12-01 22:19] VITALS: BP 98/52
--- NOTE | 2017-12-02 06:55 | PN- Housestaff ---
HayManning 12/02/17 0655: Subjective Follow-up For: Trigeminy Right hydroureteronephrosis UTI Tele-Events Since Last Visit: Sinus rhythm with heart rate of between 6477 Subjective: No overnight events. Patient remained afebrile. Seen and examined this morning. She denied any chest pain, short of breath, nausea, vomiting, chills, fever, abdominal pain dysuria. Patient is close to her baseline. Her blood pressure dropped yesterday that's why labetalol was discontinued. Review of Systems Constitutional: Reports: see HPI. Objective Last 24 Hrs of Vital Signs/I&O Vital Signs Date Time Temp Pulse Resp B/P B/P Pulse O2 O2 Flow FiO2 Mean Ox Delivery Rate 12/02 0711 97.6 61 18 94/62 92 Room Air 12/01 2219 98.1 79 16 98/52 92 Room Air 12/01 2027 Room Air 12/01 1600 93 Room Air 12/01 1552 77 98/48 12/01 1523 98.8 61 15 93 12/01 1420 75 80/40 12/01 1402 76 82/40 12/01 1330 97.5 75 18 60/00 93 Room Air 12/01 1038 84 130/78 12/01 1038 84 130/78 12/01 1038 84 130/78 12/01 0800 93 Room Air Intake & Output 12/02 0800 / 0000 12/01 1600 Intake Total 240 360 120 Output Total 350 60 Balance -110 360 60 Intake, Oral 240 360 120 Output, Urine 350 60 Patient 153 lb Weight Weight Bed scale Measurement Method Physical Exam General Appearance: Alert, Oriented X3, Cooperative Skin: No Rashes Skin Temp/Moisture Exam: Warm/Dry Sepsis Skin Exam (color): Normal for Ethnicity HEENT: Atraumatic, PERRLA, EOMI Neck: Supple Cardiovascular: Normal S1, Normal S2 Lungs: Clear to Auscultation Abdomen: Soft, No Tenderness Neurological: Normal Speech, Paraplegic Extremities: No Edema Assessment/Plan Assessment: 77 YO F with PMH of multiple sclerosis with paraplegia, wheelchair bound, chronic indwelling Claudio catheter secondary to neurogenic bladder, recurrent UTIs, hyperlipidemia, PVD status post right leg stent placement, hypothyroidism, provoked DVT on Coumadin and recent shingles infection brought to ED by her daughter with chief complaint of lethargic since this morning. Patient are following the patient on tele floor for following problems: EKG changes: -Patient has bigeminy in EKG, we will keep the patient under observation on telemetry floor to rule out any arrhythmia or to monitor for any heart block. -Serial EKG and troponin to rule out any ischemic cardiac injury -May need outpatient stress test as well -Echocardiogram pending UTI: -Her lethargy could be due to her UTI. -Possibly catheter related. Patient has chronic indwelling catheter due to neurogenic bladder. -IV ceftriaxone -Follow urine and blood cultures. Right hydroureteronephrosis; -Due to 7 mm ureteric stone -Pain management according to pain pathway -Urology will see the patient as outpatient and will do ESWL and stent placement. Patient is asymptomatic at this point. Constipation: -We will give her stool softners. -As patient most of the time stays in bed and low oral intake with history of MS. History of recent shingles infection: -Continue valacyclovir. -We will start capsaicin topical. History of DVT: -Patient is on Coumadin -We will follow INR and dose Coumadin accordingly. -INR 2.12 today, will dose warfarin. History of MS: -Continue her home medications History of hypertension and hyperlipidemia: -Continue Lipitor -We will hold her amlodipine and lisinopril today if low blood pressure. -Labetalol was discontinued History of hypothyroidism: -Continue levothyroxine Chronic back pain: -Continue home medications DVT prophylaxis: Mechanical and patient is already on Coumadin CODE STATUS: DNR/DNI Problem List: 1. UTI Pain Ratin Pain Location: none Pain Goal: Remain pain free Pain Plan: pain pathway Tomorrow's Labs & Rationales: abimael Gonzalez MD,Lakisha 12/02/17 1208: Attending MD Review Statement Attending Statement Attending Assessment/Plan: Attending MD Statement: examined this patient, discuss w/resident/PA/SALES AND SERVICE SPECIALIST, agreed w/resident/PA/SALES AND SERVICE SPECIALIST, reviewed EMR data (avail) Attending Assessment/Plan: Patient is a slightly more awake and oriented this morning. She appears less confused today. However she is remains lethargic. Her vital signs stable and she is currently afebrile. Room air saturation is 92%. Abdomen soft nontender chest exam is clear. Patient paraplegic. Labs were reviewed today. Her creatinine has increased to 1.3 and BUN has increased to 50. INR is 1.68. Her CBC is within normal limits although there is slight drop in hematocrit from 38.6-33.1. Modified barium study November 30 1. Silent penetration seen with all consistencies. 2. Silent aspiration noted with thin consistency. 3. Speech pathologist assessment issued separately. Urine cultures growing Klebsiella sensitive to cefazolin. Assessment plan UTI due to Klebsiella Right high to Right ureteric stone Acute renal failure dehydration with poor by mouth intake Plan Start IV normal saline at 75 mL per hour Encourage oral liquids Recheck BP tomorrow Agree with 7.5 mg Coumadin today; recheck INR tomorrow Plan is for ESWL and stent placement next Sunday as per urology note Will continue IV antibiotics today and with plan to switch to oral Keflex tomorrow Please clarify with urology with the patient's Coumadin will need to be held for stent placement and ESWL
[2017-12-02 07:11] VITALS: BP 94/62
[2017-12-02 07:43] LABS: ABSOLUTE BASOPHIL COUNT 0.1 /CUMM (0.0-0.2); ABSOLUTE EOSINOPHIL COUNT 0.3 /CUMM (0.0-0.7); ABSOLUTE GRANULOCYTE CT 4.2 /CUMM (1.4-6.5); ABSOLUTE LYMPH COUNT 3.3 /CUMM (1.2-3.4); ABSOLUTE MONOCYTE COUNT 0.9 /CUMM (0.10-0.60); BASOPHIL % 0.6 % (0.0-2.0); EOSINOPHIL % 2.9 % (0-5); GRANULOCYTE % 48.8 % (42.2-75.2); MEAN CORPUSCULAR HGB 28.3 PG (27.0-31.0); MEAN CORPUSCULAR HGB CONC 32.8 G/DL (33.0-37.0); MEAN CORPUSCULAR VOLUME 86.2 FL (81.0-99.0); MEAN PLATELET VOLUME 9.9 FL (7.4-10.4); PLATELET COUNT 185 /CUMM (130-400); PT 18.4 SEC (9.4-12.5); RBC DISTRIBUTION WIDTH 17.4 % (11.5-14.5); RED BLOOD CELL CT 3.84 /CUMM (4.20-5.40); WHITE BLOOD CELL COUNT 8.7 /CUMM (4.8-10.8)
[2017-12-02 08:06] LABS: HEMATOCRIT 33.1 % (37-47)
--- NOTE | 2017-12-02 08:58 | PN- Student ---
Subjective Subjective: Her blood pressure dropped yesterday, labetalol was discontinued. Patient seen and examined this morning. Remained afebrile. Denied any chest pain, short of breath, nausea, vomiting, abdominal pain, dysuria. Objective Objective: Vitals: T= 97.6 HR= 61 RR= 18 BP= 94/62 O2Sat= 92 RA I&O (12/01/17): I= 590 O= 210 PE: General=alert and oriented Lungs=bilateral clear breath sounds CVS= regular rate and rythm, no mumur S3 or S4 Abd= soft, non-distended, non-tender Results Results: Laboratory Tests 12/02/17 0645: Anion Gap 10, Estimated GFR 40 L, BUN/Creatinine Ratio 38.5 H, PT 18.4 H, INR 1.68 H, CBC w Diff NO MAN DIFF REQ, RBC 3.84 L, MCV 86.2, MCH 28.3, MCHC 32.8 L, RDW 17.4 H, MPV 9.9, Gran % 48.8, Lymphocytes % 37.6, Monocytes % 10.1 H, Eosinophils % 2.9, Basophils % 0.6, Absolute Granulocytes 4.2, Absolute Lymphocytes 3.3, Absolute Monocytes 0.9 H, Absolute Eosinophils 0.3, Absolute Basophils 0.1 12/01/17 0641: PT 23.3 H, INR 2.12 H 11/30/17 0625: Anion Gap 11, Estimated GFR 54 L, BUN/Creatinine Ratio 41.0 H, PT 33.6 H, INR 3.05 H, CBC w Diff NO MAN DIFF REQ, RBC 4.48, MCV 86.2, MCH 28.4, MCHC 32.9 L, RDW 17.2 H, MPV 9.7, Gran % 49.6, Lymphocytes % 34.0, Monocytes % 13.6 H, Eosinophils % 2.0, Basophils % 0.8, Absolute Granulocytes 3.5, Absolute Lymphocytes 2.4, Absolute Monocytes 1.0 H, Absolute Eosinophils 0.1, Absolute Basophils 0.1 11/29/17 2004: Troponin I < 0.01 11/29/17 1539: Lactic Acid Cancelled 11/29/17 1350: Urine Opiates Screen < 100, Methadone Screen 58, Barbiturate Screen < 60, Ur Phencyclidine Scrn < 6.00, Amphetamines Screen < 100, U Benzodiazepines Scrn < 85, Urine Cocaine Screen < 50, Urine Cannabis Screen < 5.00, Urinalysis MOD H, Urine Color YEL, Urine Clarity CLDY H, Urine pH 6.5, Ur Specific [place] 1.020, Urine Protein 100 H, Urine Ketones NEG, Urine Nitrite POS H, Urine Bilirubin NEG, Urine Urobilinogen 0.2, Ur Leukocyte Esterase LARGE H, Ur Microscopic SEDIMENT EXAMINED, Urine RBC 5-10 H, Urine WBC 15-25 H, Ur Epithelial Cells FEW, Urine Bacteria MANY H, Urine Hemoglobin SMALL H, Urine Glucose NEG 11/29/17 1346: Anion Gap 12, Estimated GFR > 60, BUN/Creatinine Ratio 45.6 H, Glucose 105 H, Lactic Acid 0.8, Calcium 9.9, Total Bilirubin 0.6, AST 36, ALT 64 H, Alkaline Phosphatase 141 H, Troponin I < 0.01, Total Protein 7.4, Albumin 3.8, Globulin 3.6, Albumin/Globulin Ratio 1.1, PT 30.4 H, INR 2.76 H, APTT 49 H, CBC w Diff NO MAN DIFF REQ, RBC 4.93, MCV 84.7, MCH 27.7, MCHC 32.7 L, RDW 17.5 H, MPV 9.1, Gran % 60.8, Lymphocytes % 26.7, Monocytes % 11.7 H, Eosinophils % 0.6, Basophils % 0.2, Absolute Granulocytes 4.9, Absolute Lymphocytes 2.1, Absolute Monocytes 0.9 H, Absolute Eosinophils 0, Absolute Basophils 0 Microbiology 11/29 1405 BLOOD: Blood Culture - RES 11/29 1350 URINE ROUT: Urine Culture - COMP KLEBSIELLA OXYTOCA 11/29 1348 NASOPHARYN: Influenza Virus A & B Rapid Smear - COMP 11/29 1346 BLOOD: Blood Culture - RES Assessment/Plan Assessment: 77 y/o F with MS and neurogenic bladder. Patient admitted to the cardiology unit for EKG showing PVC with Bigeminy. Urine cx came back positive for Klebsiella Oxytoca. Plan: EKG: -Bigeminy -Cont. monitor UTI: -Catheter related UTI positive for k. Oxytoca -Cont. IV ceftriaxone (day#3) -Will switch to po Keflex tomorrow Right hydroureteronephrosis: -Asymtomatic at this point -F/U with urologist for ESWL Constipation: -cont. stool softeners -encourage hydration Shingles: -Patient on droplet protection -cont. vancyclovir and capsaicin DVT: -cont. current regiment MS: -cont. home meds HTN: -Patient was hypotensive yesterday after labetalol was given -Monitor BP -add another BP medication accordingly HLD: -Cont. home meds
[2017-12-02 09:43] VITALS: BP 130/76
[2017-12-02 14:55] VITALS: BP 116/60
--- NOTE | 2017-12-02 15:40 | PN- Cardiology ---
Subjective Subjective: Feeling well. Hypotension has resolved with discontinuation of labetalol. No chest pain. No palpitations. No shortness of breath Objective Vital Signs and I&Os Vital Signs Date Time Temp Pulse Resp B/P B/P Pulse O2 O2 Flow FiO2 Mean Ox Delivery Rate 12/02 1455 98.2 947 18 116/60 94 12/02 0947 77 130/76 12/02 0947 77 130/76 12/02 0943 77 130/76 12/02 0800 Room Air 12/02 0711 97.6 61 18 94/62 92 Room Air 12/01 2219 98.1 79 16 98/52 92 Room Air 12/01 2026 Room Air 12/01 1600 93 Room Air 12/01 1552 77 98/48 Intake & Output 12/02 1600 12/02 0000 12/01 1600 12/01 0812/01 0000 Intake Total 465 240 360 120 110 475 Output Total 600 350 60 150 850 Balance -135 -110 360 60 -40 -375 Intake, IV 105 10 Intake, Oral 360 240 360 120 100 475 Output, Urine 600 350 60 150 850 Patient 153 lb 147 lb 149 lb Weight Weight Bed scale Measurement Method Physical Exam: Gen: NAD HEENT: normal Lungs: Rales noted in the left base, normal resp. effort Heart: RRR, S1, S2, 2/6 systolic Abdomen: Soft, nontender, no masses Extremities: No clubbing, cyanosis, or edema. Neuro: Alert and oriented x 3, cranial nerves intact Current Medications: Current Medications Sig/Laura Start time Last Medication Dose Route Stop Time Status Admin Acetaminophen 650 MG Q6P PRN 11/29 1914 AC PO Amitriptyline HCl 25 MG QPM 11/29 2199 AC 12/01 PO 2230 Amlodipine Besylate 5 MG DAILY 11/29 2000 AC 12/02 PO 0947 Baclofen 20 MG Q6 11/29 2359 AC 12/02 PO 1136 Ceftriaxone Sodium 1,000 MG DAILY 11/30 999 AC 12/02 IV 0947 Cyanocobalamin 1,000 MCG DAILY 11/30 999 AC 12/02 PO 0947 Ezetimibe 10 MG DAILY 11/30 999 AC 12/02 PO 0947 Ferrous Sulfate 325 MG DAILY 11/30 999 AC 12/02 PO 0947 Labetalol HCl 200 MG BID 11/30 2199 DC 12/01 PO 1038 Lactulose 20 GM DAILY 11/30 1000 AC 12/02 PO 0947 Levothyroxine Sodium 0.1 MG DAILY AC 11/30 0700 AC 12/02 PO 0648 Lidocaine 1 AYLIN BID 11/30 1445 AC 12/01 TOP 2230 Lisinopril 10 MG DAILY 11/29 2002 AC 12/02 PO 0947 Melatonin 3 MG AT BEDTIME 11/30 2200 AC 12/01 PO 2230 Pravastatin Sodium 20 MG 1700 11/30 1700 AC 12/01 PO 1712 Sodium Chloride 1,000 ML Q13H 12/02 1315 AC 12/02 IV 12/03 0214 1358 Sodium Chloride 500 ML BOLUS ONE 12/01 1345 DC 12/01 IV 12/01 2344 1345 Valacyclovir HCl 1,000 MG TID 11/29 220 AC 12/02 PO 0947 Warfarin Sodium 7.5 MG COUMADIN 1700 ONE 12/02 1700 AC PO 12/02 1701 Warfarin Sodium 2.5 MG COUMADIN 1700 ONE 12/01 1700 DC 12/01 PO 12/01 1701 1712 Results Last 48 Hrs of Labs/Mics: Laboratory Tests 12/02/17 0645: Anion Gap 10, Estimated GFR 40 L, BUN/Creatinine Ratio 38.5 H, PT 18.4 H, INR 1.68 H, CBC w Diff NO MAN DIFF REQ, RBC 3.84 L, MCV 86.2, MCH 28.3, MCHC 32.8 L, RDW 17.4 H, MPV 9.9, Gran % 48.8, Lymphocytes % 37.6, Monocytes % 10.1 H, Eosinophils % 2.9, Basophils % 0.6, Absolute Granulocytes 4.2, Absolute Lymphocytes 3.3, Absolute Monocytes 0.9 H, Absolute Eosinophils 0.3, Absolute Basophils 0.1 12/01/17 0641: PT 23.3 H, INR 2.12 H Assessment/Plan Assessment/Plan Assessment: 1. Pneumonia 2. Possible urinary tract infection 3. Premature ventricular contractions 4. History of hypertension with hypotension after treatment with labetalol 5. Occasional premature ventricular contractions with brief episode of bigeminy , result Plan: * Keep off labetalol given hypotensive episode after receiving labetalol * Continue current meds Continue telemetry? Yes
[2017-12-02 22:28] VITALS: BP 144/60
[2017-12-03 06:55] VITALS: BP 132/64
--- NOTE | 2017-12-03 07:00 | PN- Housestaff ---
[facility] 12[facility] 0659: Subjective Follow-up For: Right hydroureteronephrosis UTI Trigeminy Tele-Events Since Last Visit: Patient remained in sinus rhythm with heart rate between 7783 with couple of PVCs. Subjective: Patient remained afebrile overnight. Seen and examined this morning. She denied any chest pain, short of breath, nausea, vomiting, chills, fever, abdominal pain dysuria. Patient reported having throat pain and she was asking for water. Her diet was modified to neck to take because she feels so well over and modified barium swallow test showed aspiration. Patient went to see her own urologist Dr. Lock. Patient also reported that she has nausea due to Keflex will change it to Augmentin. Her daughter was also on the bedside and she also insisted to see Dr. Lock for her mother's ureteric stone. Review of Systems Constitutional: Reports: see HPI. EENTM: Reports: throat pain. Cardiovascular: Denies: chest pain, orthopena, palpitations. Respiratory: Denies: cough, short of breath, sputum production. Gastrointestinal: Reports: no symptoms. Genitourinary: Reports: no symptoms. Musculoskeletal: Reports: no symptoms. Neurological/Psychological: Reports: no symptoms. Objective Last 24 Hrs of Vital Signs/I&O Vital Signs Date Time Temp Pulse Resp B/P B/P Pulse O2 O2 Flow FiO2 Mean Ox Delivery Rate 12/03 0655 98.4 83 18 132/64 94 Room Air 12/02 2228 98.1 80 18 144/60 94 Room Air 12/02 1455 98.2 947 18 116/60 94 12/02 0947 77 130/76 12/02 0947 77 130/76 12/02 0943 77 130/76 Intake & Output 12/03 1600 12/03 0800 12/03 0000 Intake Total 840 Output Total 850 Balance -10 Intake, IV 600 Intake, Oral 240 Output, Urine 850 Patient 157 lb Weight Physical Exam General Appearance: Alert, Oriented X3, Cooperative Skin Temp/Moisture Exam: Warm/Dry Sepsis Skin Exam (color): Normal for Ethnicity HEENT: Atraumatic, PERRLA, EOMI Neck: Supple Cardiovascular: Normal S1, Normal S2 Lungs: Clear to Auscultation Abdomen: Soft, No Tenderness Neurological: Normal Speech Extremities: No Edema, paraplegia Assessment/Plan Assessment: 77 YO F with PMH of multiple sclerosis with paraplegia, wheelchair bound, chronic indwelling Claudio catheter secondary to neurogenic bladder, recurrent UTIs, hyperlipidemia, PVD status post right leg stent placement, hypothyroidism, provoked DVT on Coumadin and recent shingles infection brought to ED by her daughter with chief complaint of lethargic since this morning. Patient are following the patient on tele floor for following problems: EKG changes: -Patient has bigeminy in EKG, we will keep the patient under observation on telemetry floor to rule out any arrhythmia or to monitor for any heart block. -Serial EKG and troponin to rule out any ischemic cardiac injury -May need outpatient stress test as well -Echocardiogram pending Catheter related UTI: -Her lethargy could be due to her UTI. -Possibly catheter related. Patient has chronic indwelling catheter due to neurogenic bladder. -IV ceftriaxone, changed to Augmentin -Urine culture showed Klebsiella. Right hydroureteronephrosis; -Due to 7 mm ureteric stone -Pain management according to pain pathway Constipation: -We will give her stool softners. -As patient most of the time stays in bed and low oral intake with history of MS. History of recent shingles infection: -Continue valacyclovir. -We will start capsaicin topical. -Neurontin was started for her neopathic pain from shingles. -Contact precaution History of DVT: -Patient is on Coumadin -We will follow INR and dose Coumadin accordingly. History of MS: -Continue her home medications History of hypertension and hyperlipidemia: -Continue Lipitor -We will hold her amlodipine and lisinopril today if low blood pressure. -Labetalol was discontinued History of hypothyroidism: -Continue levothyroxine Chronic back pain: -Continue home medications DVT prophylaxis: Mechanical and patient is already on Coumadin CODE STATUS: DNR/DNI Problem List: 1. UTI 2. Ureteric stone 3. Hydronephrosis Pain Ratin Pain Location: NONE Pain Goal: Remain pain free Pain Plan: PAIN PATHWAY Tomorrow's Labs & Rationales: BEP/INR Lisa DANIELS,Lakisha 12/03/17 1145: Attending Review Statement Attending Statement Attending Assessment/Plan: Attending MD Statement: examined this patient, discuss w/resident/PA/SAWMILL MOULDER OPERATOR, agreed w/resident/PA/SAWMILL MOULDER OPERATOR, reviewed EMR data (avail) Attending Assessment/Plan: Patient is a awake and oriented but appears lethargic this morning. She appears less confused today. Her vital signs stable and she is currently afebrile. Patient was given IV fluid yesterday. Room air saturation is 94%. Abdomen soft nontender chest exam is clear. Patient paraplegic. Labs were reviewed today. Her creatinine has decreased to increased to 0.9 after IV fluids. BUN has also decreased to 31. INR is 1.52 Urine cultures growing Klebsiella sensitive to cefazolin. Assessment plan UTI due to Klebsiella Right high to Right ureteric stone Acute renal failure dehydration with poor by mouth intake Plan Encourage oral liquids Recheck BEP tomorrow Agree with 7.5 mg Coumadin today; recheck INR tomorrow Plan is for ESWL and stent placement this week. Please check with Dr. Aranda whether this procedure can be done while patient is here. switch to oral Keflex 500 4 times a day to complete 5-7 days Please clarify with urology with the patient's Coumadin will need to be held for stent placement and ESWL My worry is that patient will not be able to keep up with the fluid intake. Her by mouth intake remains poor. She had difficulty swallowing and her recent Barium swallow study showed aspiration. I discussed with the patient possibility of PEG tube insertion however she refused to proceed with PEG tube. We'll ask speech pathology to reassess patient. Patient may benefit from artificial saliva. We will manage her discuss these issues well is in the room. I feel the patient does not fully comprehend the gravity of her situation.
[2017-12-03 08:17] LABS: PT 16.6 SEC (9.4-12.5)
--- NOTE | 2017-12-03 08:22 | PN- Student ---
Subjective Subjective: Patient resting in bed. Complains of pain during swallowing and dry lips. Complaint of "back pain" in the area were the rash is. Denied fever, chills, SOB , chest pain. Objective Objective: Vitals: T= 98.4 HR= 83 RR= 18 BP= 132/64 O2Sat= 94 RA I= 1545 & O= 1800 PE: General= alert, oriented Lungs= clear bilateral CVS= regular rate/rythm, systolic murmur Skin= left under the breast rash Results Results: Laboratory Tests 12/03/17 0730: Sodium Pending, Potassium Pending, Chloride Pending, Carbon Dioxide Pending, Anion Gap Pending, BUN Pending, Creatinine Pending, BUN/Creatinine Ratio Pending , PT Pending, INR Pending 12/02/17 0645: Anion Gap 10, Estimated GFR 40 L, BUN/Creatinine Ratio 38.5 H, PT 18.4 H, INR 1.68 H, CBC w Diff NO MAN DIFF REQ, RBC 3.84 L, MCV 86.2, MCH 28.3, MCHC 32.8 L, RDW 17.4 H, MPV 9.9, Gran % 48.8, Lymphocytes % 37.6, Monocytes % 10.1 H, Eosinophils % 2.9, Basophils % 0.6, Absolute Granulocytes 4.2, Absolute Lymphocytes 3.3, Absolute Monocytes 0.9 H, Absolute Eosinophils 0.3, Absolute Basophils 0.1 12/01/17 0641: PT 23.3 H, INR 2.12 H Assessment/Plan Assessment: 77 y/o F with MS and neurogenic bladder. Patient admitted to the cardiology unit for EKG showing PVC with Bigeminy. Urine cx came back positive for Klebsiella Oxytoca. Plan: EKG changes: -Patient under observation Catheter related UTI: -Possibly catheter related due to chronic indwelling catheter -IV ceftriaxone, changed to Augmentin (500mg BID PO) -Urine culture showed K. Oxytoca Right hydroureteronephrosis; -Due to 7 mm ureteric stone -Outpatient ESWL and stent placement -Patient is asymptomatic at this point Constipation: -Cont. stool softners History of recent shingles infection: -Continue valacyclovir -Neurontin, IV Tylenol and percoset for shingles pain -Contact precaution -Doplets order precaution was d/c after review of literature History of DVT: -Patient is on Coumadin -We will follow INR and dose Coumadin accordingly. History of MS: -Continue her home medications History of hypertension and hyperlipidemia: -Cont. home meds -Labetalol was discontinued History of hypothyroidism: -Cont. levothyroxine Chronic back pain: -Cont. home medications DVT prophylaxis: -Cont. coumidin
[2017-12-03 14:53] VITALS: BP 124/54
[2017-12-03 14:54] VITALS: BP 124/54
--- NOTE | 2017-12-03 20:28 | PN- Cardiology ---
Subjective Subjective: * Patient feels that he voice is becoming weaker. No worsening of her breathing and no chest pain. * decreasing H/H Objective Vital Signs and I&Os Vital Signs Date Time Temp Pulse Resp B/P B/P Pulse O2 O2 Flow FiO2 Mean Ox Delivery Rate 12/03 1454 99.0 72 18 124/54 94 12/03 1453 99.0 72 18 124/54 94 12/03 1022 98.4 83 18 132/64 12/03 1022 98.4 83 18 132/64 12/03 0655 98.4 83 18 132/64 94 Room Air 12/02 2228 98.1 80 18 144/60 94 Room Air Intake & Output 12/03 1600 12/03 0800 12/03 0000 12/02 1600 12/02 0000 Intake Total 480 750 840 465 240 360 Output Total 500 700 850 600 350 Balance -20 50 -10 -135 -110 360 Intake, IV 250 600 105 Intake, Oral 480 500 240 360 240 360 Output, Urine 500 700 850 600 350 Patient 157 lb 153 lb Weight Weight Bed scale Measurement Method Physical Exam: General: WD/WN female in NAD; alert and oriented x 3 Neck: no JVD, no carotid bruit Heart: RRR with 2/6 systolic murmur at the apex Lungs: clear bilaterally Abdomen: soft, NT, +ve bowel sounds Extremities: no edema Assessment/Plan Assessment/Plan * This patient had lethargy that was likely related to an infectious process such as pneumonia, a UTI or both. Although completely asymptomatic, this patient has also demonstrated ventricular ectopy in the form of bigeminy. She is now in a sinus rhythm. There is the possibility that this patient has myocardial ischemia since she has had peripheral vascular disease in the past which is a marker (not risk factor) for cardiac atherosclerosis. My highest suspicion, however, is that her ventricular ectopy is related to subendocardial ischemia from severe hypertension. * Obtain echocardiogram. * The patient continues to have some PVC's. She was not tolerant of Labetolol. Begin metoprolol 12.5mg BID. Since the patient is very inactive we should pursue a pharmacologic stress test at some point in time. This can be done as an outpatient when she is improved. Continue her statin and aspirin. She needs a low sodium diet. Continue telemetry? Yes
[2017-12-03 22:34] VITALS: BP 150/90
[2017-12-04 06:56] VITALS: BP 110/74
--- NOTE | 2017-12-04 07:40 | Cons- Urology ---
General Information and HPI Consulting Request Date of Consult: 12/04/17 Requested By: Anastasiya West MD Reason for Consult: R ureteral stone with hydro and uti Source of Information: patient, old records Exam Limitations: no limitations History of Present Illness: 77 year old female with neurogenic bladder admitted with lethargy and found to have R distal ureteral stone with R hydronephrosis. Also ? L renal pelvic stone. Patient is on abx and is afebrile without leukocytosis. Allergies/Medications Allergies: Coded Allergies: Sulfa (Sulfonamide Antibiotics) (INCOHERENT 11/21/16) oxycodone (SENSITIVITY TO IT 11/21/16) Home Med List: Amitriptyline HCl 25 MG TABLET 1 TAB PO QPM DEPRESSION (Reported) Amlodipine Besylate 5 MG TABLET 1 TAB PO DAILY BP (Reported) Ascorbic Acid (Vitamin C) 1,000 MG TABLET 1 TAB PO DAILY SUPPLEMENT (Reported ) Baclofen 20 MG TABLET 1 TAB PO 4 TIMES/DAY SPASM (Reported) Calcium (Elemental-Fr Calcarb) (Calcium) 600 MG CALCIUM (1,500 MG) TABLET 2, 400 MG PO DAILY SUPPLEMENT (Reported) Capsaicin (Zostrix) 0.033 % CREAM..G. 1 AYLIN TOP BID Shingles Cyanocobalamin (Vitamin B-12) 1,000 MCG TABLET 1 TAB PO DAILY SUPPLEMENT ( Reported) Ezetimibe (Zetia) 10 MG TABLET 1 TAB PO DAILY CHOLESTEROL (Reported) Ferrous Sulfate 325 MG (65 MG IRON) TABLET 1 TAB PO DAILY SUPPLEMENT ( Reported) Levothyroxine Sodium 100 MCG TABLET 1 TAB PO DAILY AC THYROID (Reported) Lisinopril 10 MG TABLET 1 TAB PO DAILY BP (Reported) NOT GIVEN IN HOSPITAL Multivitamin (Daily Value) 1 EACH TABLET 1 TAB PO DAILY SUPPLEMENT (Reported) Pravastatin Sodium (Pravachol) 80 MG TABLET 1 TAB PO DAILY CHOLESTEROL ( Reported) Valacyclovir HCl (Valtrex) 1,000 MG TABLET 1 TAB PO TID SHINGLES Warfarin Sodium (Coumadin) 5 MG TABLET 1 TAB PO MoTuWeThFr BLOOD THINNER ( Reported) Warfarin Sodium (Coumadin) 7.5 MG TABLET 1 TAB PO SuSa BLOOD THINNER ( Reported) Current Medications: Current Medications Sig/Laura Start time Last Medication Dose Route Stop Time Status Admin Acetaminophen 1,000 MG Q6P PRN 12/03 1015 AC 04/09 N/A 1 UNIT IV 1112 Acetaminophen 650 MG Q6P PRN 11/29 1915 AC PO Amitriptyline HCl 25 MG QPM 11/29 2200 AC 12/03 PO 2216 Amlodipine Besylate 5 MG DAILY 11/29 2000 AC 12/03 PO 1022 Amoxicillin/ 500 MG BID 12/03 2200 AC 12/03 Clavulanate Potassium PO 2216 Baclofen 20 MG Q6 11/29 2359 AC 12/04 PO 0524 Bisacodyl 10 MG ONCE ONE 12/03 2100 DC 12/03 WI 12/03 2101 1828 Bisacodyl 10 MG ONCE ONE 12/03 1615 CAN WI 12/03 1616 Bisacodyl 5 MG DAILY 12/03 1402 AC 12/03 PO 1555 Ceftriaxone Sodium 1,000 MG DAILY 11/30 1000 DC 12/02 IV 0947 Cephalexin 500 MG BID 12/03 1000 DC 12/03 PO 1117 Cyanocobalamin 1,000 MCG DAILY 11/30 1000 AC 12/03 PO 1022 Ezetimibe 10 MG DAILY 11/30 1000 AC 12/03 PO 1022 Ferrous Sulfate 325 MG DAILY 11/30 1000 AC 12/03 PO 1022 Gabapentin 100 MG Q8 12/03 1400 AC 12/04 PO 0524 Lactulose 20 GM DAILY 11/30 1000 AC 12/03 PO 1022 Levothyroxine Sodium 0.1 MG DAILY AC 11/30 0700 AC 12/04 PO 0524 Lidocaine 1 AYLIN BID 11/30 1445 AC 12/03 TOP 2222 Lisinopril 10 MG DAILY 11/29 2002 AC 12/03 PO 1022 Melatonin 3 MG AT BEDTIME 11/30 2200 AC 12/03 PO 2216 Metoprolol Tartrate 12.5 MG BID 12/04 1000 AC PO Metoprolol Tartrate 12.5 MG BID 12/04 0048 DC PO Oxycodone/ 1 TAB Q6P PRN 12/03 1015 AC 12/03 Acetaminophen PO 2215 Polyethylene Glycol 17 GM DAILY 12/03 1402 AC 12/03 PO 1555 Pravastatin Sodium 20 MG 1700 11/30 1700 AC 12/03 PO 1731 Valacyclovir HCl 1,000 MG TID 11/29 2200 AC 12/03 PO 2215 Warfarin Sodium 7.5 MG COUMADIN 1700 ONE 12/03 1700 DC 12/03 PO 04/09 1701 1731 Past History Medical History Blood Transfusion Hx: Yes Neurological: 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 EENT: NONE Cardiovascular: hypertension, hyperlipidemia, PVD (stent to R leg) Respiratory: NONE Gastrointestinal: NONE Hepatic: NONE Renal: INDWELLING MEANS Musculoskeletal: chronic back pain Psychiatric: NONE Endocrine: hypothyroidism Blood Disorders: NONE Cancer(s): NONE DOPSTER/Reproductive: HYSTERECTOMY Surgical History Pertinent Surgical History: non-contributory Family History Relations & Conditions If Any: FATHER High cholesterol MOTHER FH: arthritis Relation not specified for: *No pertinent family history Psychosocial History Where Do You Live? 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 unknown Exam & Diagnostic Data Vital Signs and I&O Vital Signs Date Time Temp Pulse Resp B/P B/P Pulse O2 O2 Flow FiO2 Mean Ox Delivery Rate 12/04 0656 98.2 89 18 110/74 90 12/03 2234 98.1 88 20 150/90 92 12/03 1454 99.0 72 18 124/54 94 12/03 1453 99.0 72 18 124/54 94 12/03 1022 98.4 83 18 132/64 12/03 1022 98.4 83 18 132/64 Intake & Output 12/04 0800 12/04 0000 12/03 1600 12/03 0800 12/03 0000 12/02 1600 Intake Total 200 175 480 750 840 465 Output Total 150 1000 500 700 850 600 Balance 50 -825 -20 50 -10 -135 Intake, IV 250 600 105 Intake, Oral 200 175 480 500 240 360 Number 1 1 Bowel Movements Output, Urine 150 1000 500 700 850 600 Patient 158 lb 157 lb Weight No acute distess Back: No CVA tenderness Abd: soft and non tender Laboratory Tests 12/04 616 Chemistry Sodium Pending Potassium Pending Chloride Pending Carbon Dioxide Pending Anion Gap Pending BUN Pending Creatinine Pending BUN/Creatinine Ratio Pending Coagulation PT Pending INR Pending Assessment/Plan Assessment/Plan Imp: 1. R distal ureteral stone with R hydronephrosis 2. UTI with indwelling means a contributing factor 3. Neurogenic bladder due to MS, managed by indwelling means 4. ? L renal pelvic stone, no L hydronephrosis Plan: 1. Continue abx 2. I think best tx for R ureteral stone would be R stent insertion, continued abx and when urine sterile and obstruction relieved by stent, R ureteroscopy and laser lithotripsy 3. Will attempt to schedule for R ureteroscopy and stent placement tomorrow assuming other treating physicians agree. 4. NPO after midnight tonight except po meds with sip 5. Hold coumadin today 6. Continue abx Consult Acknowledgment - Thank you for your consult request.
[2017-12-04 08:17] LABS: PT 24.7 SEC (9.4-12.5)
--- NOTE | 2017-12-04 08:22 | PN- Housestaff ---
HayAmezquita 12/04/17 0813: Subjective Follow-up For: Right hydroureteronephrosis UTI CHEN Tele-Events Since Last Visit: Patient remained in sinus rhythm with heart rate between 7781 Subjective: No overnight events. Patient remained afebrile overnight. Seen and examined this morning. Patient is more somnolent but she is oriented. Patient denied any chest pain, short of breath, nausea, vomiting, chills, fever, abdominal pain dysuria. Percocet and neuratoin were discontinued because of somnolence. Review of Systems Constitutional: Reports: weakness. EENTM: Reports: no symptoms. Cardiovascular: Denies: chest pain, orthopena, palpitations. Respiratory: Denies: cough, short of breath. Gastrointestinal: Denies: abdominal pain, diarrhea. Genitourinary: Reports: see HPI. Musculoskeletal: Reports: no symptoms. Neurological/Psychological: Reports: see HPI. Objective Last 24 Hrs of Vital Signs/I&O Vital Signs Date Time Temp Pulse Resp B/P B/P Pulse O2 O2 Flow FiO2 Mean Ox Delivery Rate 12/04 0656 98.2 89 18 110/74 90 12/03 2234 98.1 88 20 150/90 92 12/03 1454 99.0 72 18 124/54 94 12/03 1453 99.0 72 18 124/54 94 12/03 1022 98.4 83 18 132/64 12/03 1022 98.4 83 18 132/64 Intake & Output 12/04 1600 12/04 0800 12/04 0000 Intake Total 200 175 Output Total 150 1000 Balance 50 -825 Intake, Oral 200 175 Number 1 1 Bowel Movements Output, Urine 150 1000 Patient 158 lb Weight Physical Exam General Appearance: Alert, Cooperative Skin Temp/Moisture Exam: Warm/Dry Sepsis Skin Exam (color): Normal for Ethnicity HEENT: Atraumatic, PERRLA, EOMI Neck: Supple Cardiovascular: Normal S1, Normal S2 Lungs: Decreased breath sounds b/l Abdomen: Soft, No Tenderness Neurological: Normal Speech Extremities: No Edema, paraplegia Assessment/Plan Assessment: 77 YO F with PMH of multiple sclerosis with paraplegia, wheelchair bound, chronic indwelling Claudio catheter secondary to neurogenic bladder, recurrent UTIs, hyperlipidemia, PVD status post right leg stent placement, hypothyroidism, provoked DVT on Coumadin and recent shingles infection brought to ED by her daughter with chief complaint of lethargic since this morning. Patient are following the patient on tele floor for following problems: EKG changes:(resolved) -Patient has bigeminy in EKG, we will keep the patient under observation on telemetry floor to rule out any arrhythmia or to monitor for any heart block. -Serial EKG and troponin to rule out any ischemic cardiac injury -May need outpatient stress test as well -Echocardiogram pending Catheter related UTI: -Her lethargy could be due to her UTI. -Possibly catheter related. Patient has chronic indwelling catheter due to neurogenic bladder. -IV ceftriaxone, changed to Augmentin day 2 total ABx days 5th -Urine culture showed Klebsiella. CHEN: -Possibly due to dehydration as patient's LIQUIDS were modified to nectar thick to prevent the risk of aspiration. -We will check BEP -Gentle IV hydration -Monitor input and output Right hydroureteronephrosis; -Due to 7 mm ureteric stone -Pain management according to pain pathway -NPO mid night for ureteroscopy and stent placement tomorrow Constipation: -We will give her stool softners. -As patient most of the time stays in bed and low oral intake with history of MS. History of recent shingles infection: -Continue valacyclovir.Will discontinue it tomorrow. tosay is day 10 -Continue lidocaine 4% cream. -Neurontin was disctinued because of somnolence. -Contact precaution History of DVT: -Patient is on Coumadin -We will follow INR and dose Coumadin accordingly. History of MS: -Continue her home medications History of hypertension and hyperlipidemia: -Continue Lipitor -We will hold her amlodipine and lisinopril today if low blood pressure. -Metoprolol 12.5mg bid was started. History of hypothyroidism: -Continue levothyroxine Chronic back pain: -Continue home medications DVT prophylaxis: Mechanical and patient is already on Coumadin CODE STATUS: DNR/DNI Problem List: 1. Ureteric stone 2. UTI (urinary tract infection) 3. Hydronephrosis Pain Ratin Pain Location: none Pain Goal: Remain pain free Pain Plan: pain pathway Tomorrow's Labs & Rationales: bep/inr Anastasiya West MD 12/04/17 1120: Attending MD Review Statement Attending Statement Attending Statement: examined this patient, discuss w/resident/PA/WRITING MANAGER, agreed w/resident/PA/WRITING MANAGER, reviewed EMR data (avail) Attending Assessment/Plan: 77F PMH sclerosis with functional paraplegia and chronic catheter, multiple E. coli UTI, provoked left lower extremity DVT on Coumadin, peripheral vascular disease status post stent placement left leg, recent diagnosis of shingles admitted with lethargy and weakness secondary to UTI with 7mm right ureteral obstructing stone with right hydronephrosis. EKG showed ventricular bigeminy yesterday, repeat was NSR, no ST/T changes. Had been started on Gapapentin for zoster pain and was given Percocet this morning. She is confused today and delirious. She did not know why she was in the hospital and thought she had a heart attack. This is a deviation from her baseline. She reports no complaints and has been afebrile. 1. Right obstructing ureteral stone with obstructive uropathy and right hydronephrosis 2. Herpes zoster 3. Ventricular bigeminy 4. Multiple sclerosis 5. Chronic indwelling Claudio catheter Plan - Continue on telemetry - Augmentin to complete 14 day course - Will go for cystoscopy and stent placement tomorrow - Discontinue Percocet and Gabapentin, monitor mental status - Urine culture growing Klebsiella - Follow cardiology and urology recommendations - Continue Valtrex - Lidocaine cream for Zoster pain - Continue home medications - DVT PPx
--- NOTE | 2017-12-04 08:50 | ECHOCARDIOGRAM REPORT ---
AL NUNEZ Age: 77 : 1940 Gender: F Exam Date: 12/03/2017 16:32 Exam Location: 1 [address] Ht (in): 63 Wt (lb): 146 BSA: 1.73 BP: 94 / 62 Ordering Physician: Johanne Cho MD Referring Physician: Kimo Ahmadi MD, PhD Technologist: Payton Sinhg [facility] Room Number: 182 Indications: STRUCTURAL HEART DISEASE Rhythm: Sinus Technical Quality: good FINDINGS Left Ventricle Normal left ventricular size with mild left ventricular hypertrophy. Normal systolic function with no obvious regional wall motion abnormalities. Diastolic filling pattern is consistent with impaired LV relaxation. The ejection fraction is visually estimated at 70%. Right Ventricle The right ventricle is normal in size and function. Right Atrium The right atrium is normal in size. Left Atrium The left atrium is normal in size. The interatrial septum is intact. Mitral Valve The mitral valve demonstrates mild posterior annular calcification with normal function. There is trace mitral regurgitation. Aortic Valve Mildly thickened and sclerotic aortic valve with mild stenosis. There is no aortic regurgitation. Tricuspid Valve The tricuspid valve is normal in structure and function. There is trace tricuspid regurgitation. Pulmonary artery systolic pressure is normal. Pulmonic Valve Structurally normal pulmonic valve. There is no pulmonic regurgitation. Pericardium Normal pericardium with trace effusion. No pleural effusion. Great Vessels Normal aortic root dimension. The aortic arch and great vessels are well seen and are normal. CONCLUSIONS 1. Normal EF of 70% with impaired LV relaxation. 2. Mild left ventricular hypertrophy. 3. Trace mitral regurgitation. 4. Trace tricuspid regurgitation. 5. Mild aortic stenosis. 6. Trace pericardial effusion. Kimo Ahmadi M.D. (Electronically Signed) Final Date: 04 December 2017 08:50 MEASUREMENTS (Male / Female) Normal Values 2D ECHO LV Diastolic Diameter PLAX 3.1 cm 4.2 - 5.9 / 3.9 - 5.3 cm LV Systolic Diameter PLAX 2.0 cm 2.1 - 4.0 cm LV Fractional Shortening PLAX 35.5 % 25 - 46 % LV Ejection Fraction 2D Teich 66.4 % IVS Diastolic Thickness 1.4 cm LVPW Diastolic Thickness 1.4 cm LV Relative Wall Thickness 0.9 RV Internal Dim ED PLAX 3.0 cm 1.9 - 3.8 cm LVOT Diameter 2.0 cm Aortic Root Diameter 2.7 cm LA Systolic Diameter LX 3.7 cm 3.0 - 4.0 / 2.7 - 3.8 cm LA Volume 37.0 cm 18 - 58 / 22 - 52 cm Ascending Aorta Diameter 4.1 cm DOPPLER AV Peak Velocity 262.0 cm/s AV Peak Gradient 27.5 mmHg AV Mean Velocity 161.0 cm/s AV Mean Gradient 13.0 mmHg AV Velocity Time Integral 53.9 cm LVOT Peak Velocity 86.5 cm/s LVOT Peak Gradient 3.0 mmHg LVOT Mean Velocity 59.9 cm/s LVOT Mean Gradient 2.0 mmHg LVOT Velocity Time Integral 20.1 cm LVOT Stroke Volume 63.1 cm AV Area Cont Eq vti 1.2 cm AV Area Cont Eq pk 1.0 cm MV Peak Velocity 124.0 cm/s MV Peak Gradient 6.2 mmHg MV Mean Velocity 70.7 cm/s MV Mean Gradient 2.0 mmHg Mitral E Point Velocity 65.6 cm/s Mitral A Point Velocity 80.9 cm/s Mitral E to A Ratio 0.8 MV PHT Velocity 128.0 cm/s MV Deceleration Swain 601.0 cm/s MV Pressure Half Time 63.9 ms MV Area PHT 3.4 cm MV Deceleration Time 268.0 ms TR Peak Velocity 247.0 cm/s TR Peak Gradient 24.4 mmHg Right Atrial Pressure 5.0 mmHg Pulmonary Artery Systolic Pressu 29.4 mmHg Right Ventricular Systolic Press 29.4 mmHg PV Peak Velocity 147.0 cm/s PV Peak Gradient 8.6 mmHg PV Mean Velocity 91.7 cm/s PV Mean Gradient 4.0 mmHg PV Velocity Time Integral 27.1 cm LV E' Lateral Velocity 6.6 cm/s Mitral E to LV E' Lateral Ratio 9.9 LV E' Septal Velocity 6.6 cm/s Mitral E to LV E' Septal Ratio 9.9
[2017-12-04 10:14] VITALS: BP 128/54
--- NOTE | 2017-12-04 13:29 | PN- Student ---
Subjective Subjective: No acute event overnight. Patient resting in bed. Seen and examined this morning. Some somnolance noted today. Denied chest pain. Objective Objective: Vitals: T= 98.2 HR= 89 RR= 18 BP= 110/74 O2Sat= 90 PE: General= somnolance noted Lungs=Clear dilteral CVS= Results Results: Laboratory Tests 12/04/17 0617: Anion Gap 7, Estimated GFR 44 L, BUN/Creatinine Ratio 23.3, PT 24.7 H, INR 2.25 H 12/03/17 0730: Anion Gap 9, Estimated GFR > 60, BUN/Creatinine Ratio 34.4 H, PT 16.6 H, INR 1.52 H 12/02/17 0645: Anion Gap 10, Estimated GFR 40 L, BUN/Creatinine Ratio 38.5 H, PT 18.4 H, INR 1.68 H, CBC w Diff NO MAN DIFF REQ, RBC 3.84 L, MCV 86.2, MCH 28.3, MCHC 32.8 L, RDW 17.4 H, MPV 9.9, Gran % 48.8, Lymphocytes % 37.6, Monocytes % 10.1 H, Eosinophils % 2.9, Basophils % 0.6, Absolute Granulocytes 4.2, Absolute Lymphocytes 3.3, Absolute Monocytes 0.9 H, Absolute Eosinophils 0.3, Absolute Basophils 0.1 Assessment/Plan Assessment: 77 y/o F with MS and neurogenic bladder. Patient admitted to the cardiology unit for EKG showing PVC with Bigeminy. Urine cx came back positive for Klebsiella Oxytoca. Plan: EKG changes: -Patient under observation -Cardio suspect that ventricular ectopy is related to subendocardial ischemia due to HTN -Cardio recommendations: ECHO and pharmacologic stress test at some point in timeSince the patient Catheter related UTI: -Possibly catheter related due to chronic indwelling catheter -Urine culture showed K. Oxytoca -Cont. Augmentin (500mg BID PO) (Keflex was discontinue due to nausea) Right hydroureteronephrosis; -Due to 7 mm ureteric stone -Patient is asymptomatic at this point -Right ureteroscopy and stent placement tomorrow -NPO after midnight tonight except PO meds with sip -Hold coumadin today Constipation: -Cont. stool softners History of recent shingles infection: -Continue valacyclovir -Neurontin and percoset discontinue due to somnolance -Contact precaution History of DVT: -Patient is on Coumadin (Hold for procedure tomorrow) -We will follow INR and dose Coumadin accordingly History of MS: -Continue her home medications History of hypertension and hyperlipidemia: -Cont. home meds -Cont. metoprolol 12.5mg BID History of hypothyroidism: -Cont. levothyroxine Chronic back pain: -Cont. home medications DVT prophylaxis: -Cont. coumidin (hold for procedure)
[2017-12-04 14:35] VITALS: BP 128/60
[2017-12-04 21:30] VITALS: BP 110/58
--- NOTE | 2017-12-05 07:18 | PN- Housestaff ---
[facility] Subjective Follow-up For: Right hydroureteronephrosis UTI CHEN Tele-Events Since Last Visit: Patient remained in sinus rhythm with heart rate between 6881 Subjective: No overnight events. Patient remained afebrile overnight. Seen and examined this morning. She denied any chest pain, short of breath, nausea, vomiting, abdominal pain and dysuria. She had her bowel movements yesterday. She reported having dryness of the mouth. Patient is nothing by mouth and going for ureteroscopy today. Review of Systems Constitutional: Denies: chills, fever. EENTM: Reports: no symptoms. Cardiovascular: Denies: chest pain, palpitations. Respiratory: Denies: cough, short of breath. Gastrointestinal: Denies: abdominal pain, constipation, diarrhea. Genitourinary: Reports: no symptoms. Musculoskeletal: Reports: no symptoms. Neurological/Psychological: Reports: no symptoms. Objective Last 24 Hrs of Vital Signs/I&O Vital Signs Date Time Temp Pulse Resp B/P B/P Pulse O2 O2 Flow FiO2 Mean Ox Delivery Rate 12/05 0628 97.9 72 20 102/62 92 Room Air 12/04 2252 87 12/04 2130 99.3 88 22 110/58 92 Room Air 12/04 1435 99.4 85 20 128/60 91 Room Air 12/04 1016 86 128/54 12/04 1016 86 128/54 12/04 1016 86 128/54 12/04 1014 86 128/54 Intake & Output 12/05 1600 12/05 0800 12/05 0000 Intake Total 450 675 Output Total 275 200 Balance 175 475 Intake, IV 400 285 Intake, Oral 50 390 Number 1 Bowel Movements Output, Urine 275 200 Patient 154 lb Weight Physical Exam General Appearance: Alert, Oriented X3, Cooperative Skin Temp/Moisture Exam: Warm/Dry Sepsis Skin Exam (color): Normal for Ethnicity HEENT: Atraumatic, PERRLA, EOMI Neck: Supple Cardiovascular: Normal S1, Normal S2 Lungs: Clear to Auscultation Neurological: Normal Speech, paraplegic Extremities: No Edema Assessment/Plan Assessment: 77 YO F with PMH of multiple sclerosis with paraplegia, wheelchair bound, chronic indwelling Claudio catheter secondary to neurogenic bladder, recurrent UTIs, hyperlipidemia, PVD status post right leg stent placement, hypothyroidism, provoked DVT on Coumadin and recent shingles infection brought to ED by her daughter with chief complaint of lethargic since this morning. Patient are following the patient on tele floor for following problems: EKG changes:(resolved) -Serial EKG and troponin remained negative. -May need outpatient stress test as well -Echocardiogram showed EF 70%. Catheter related UTI: -Her lethargy could be due to her UTI. -Possibly catheter related. Patient has chronic indwelling catheter due to neurogenic bladder. -IV ceftriaxone, changed to Augmentin day 3 total ABx days 6th -Urine culture showed Klebsiella. CHEN:(resolved) -Possibly due to dehydration as patient's LIQUIDS were modified to nectar thick to prevent the risk of aspiration. -Gentle IV hydration -Monitor input and output Right hydroureteronephrosis: -Due to 7 mm ureteric stone -Pain management according to pain pathway -NPO mid night for ureteroscopy and stent placement today. Constipation: -Continue laxatives. -As patient most of the time stays in bed and low oral intake with history of MS. History of recent shingles infection: -Completed valacyclovir course for 10 days. -Continue lidocaine 4% cream. -Neurontin was disctinued because of somnolence. -Contact precaution History of DVT: -Patient is on Coumadin -We will follow INR and dose Coumadin accordingly. History of MS: -Continue her home medications History of hypertension and hyperlipidemia: -Continue Lipitor -Continue amlodipine and lisinopril -Metoprolol 12.5mg bid was started. History of hypothyroidism: -Continue levothyroxine Chronic back pain: -Continue home medications DVT prophylaxis: Mechanical and patient is already on Coumadin CODE STATUS: DNR/DNI Problem List: 1. UTI (lower urinary tract infection) 2. Hydronephrosis 3. Ureteric stone Pain Ratin Pain Location: none Pain Goal: Remain pain free Pain Plan: pain pathway Tomorrow's Labs & Rationales: bep/inr Anastasiya West MD 12/05/17 1023: Attending MD Review Statement Attending Statement Attending MD Statement: examined this patient, discuss w/resident/PA/SENIOR ENVIRONMENTAL ENGINEER, agreed w/resident/PA/SENIOR ENVIRONMENTAL ENGINEER, reviewed EMR data (avail) Attending Assessment/Plan: 77F PMH sclerosis with functional paraplegia and chronic catheter, multiple E. coli UTI, provoked left lower extremity DVT on Coumadin, peripheral vascular disease status post stent placement left leg, recent diagnosis of shingles admitted with lethargy and weakness secondary to UTI with 7mm right ureteral obstructing stone with right hydronephrosis. EKG showed ventricular bigeminy yesterday, repeat was NSR, no ST/T changes. Mental status is back to baseline today. Patient has no complaints. She wants to go home. 1. Right obstructing ureteral stone with obstructive uropathy and right hydronephrosis 2. Herpes zoster 3. Ventricular bigeminy 4. Multiple sclerosis 5. Chronic indwelling Claudio catheter Plan - Continue on telemetry - Augmentin to complete 14 day course - Will go for cystoscopy and stent placement today - Discontinue Percocet and Gabapentin - Urine culture growing Klebsiella - Follow cardiology and urology recommendations - Continue Valtrex - Lidocaine cream for Zoster pain - Continue home medications - DVT PPx - Can be discharged today after cystoscopy if feeling well, otherwise tomorrow morning
[2017-12-05 07:28] VITALS: BP 102/62
--- NOTE | 2017-12-05 07:49 | PN- Urology ---
Surgical Brief Attending Note Brief Attending Note: Patient is scheduled for cysto and R ureteral stent placement at 3 PM today
--- NOTE | 2017-12-05 07:54 | PN- Student ---
Arsalan Jarquin 12/05/17 0751: Subjective Subjective: No acute events overnight. Patient was seen and evaluated this mornig. Patient resting in bed. Feeling ok. Have some questions about the procedure. Denied SOB, chest pain, nausea/vomiting, dysuria. Objective Objective: Vitals: T=97.9 HR=72 RR= 20 O2Sat= 92 LZ=271/62 I&O: I= 1005 O=450 B=555 1 BM PE: General= alert and oriented. Lungs= clear bilateral CVS= regular rate and rythm, systolic murmur Skin= Abd= soft, non-tender, non-distended Assessment/Plan Assessment: 77 y/o F with MS and neurogenic bladder. Patient admitted to the cardiology unit for EKG showing PVC with Bigeminy. Urine cx came back positive for Klebsiella Oxytoca. Patient going for cystoscopy and stent placement today at 3 PM. Sinus rythm on monitor (68-81). Plan: EKG changes: -Patient under observation -Cardio suspect that ventricular ectopy is related to subendocardial ischemia due to HTN -Cardio recommendations: ECHO and pharmacologic stress test at some point in time Catheter related UTI: -Possibly catheter related due to chronic indwelling catheter -Urine culture showed K. Oxytoca -Cont. Augmentin (500mg BID PO) day #3 (Keflex was discontinue due to nausea) Right hydroureteronephrosis; -Due to 7 mm ureteric stone -Patient is asymptomatic at this point -Right ureteroscopy and stent placement today at 3pm -NPO since midnight -Hold coumadin today Constipation: -Cont. stool softners History of recent shingles infection: -Continue valacyclovir -Neurontin and percoset discontinue due to somnolance -Contact precaution History of DVT: -Patient is on Coumadin (Hold for procedure tomorrow) -We will follow INR and dose Coumadin accordingly History of MS: -Continue her home medications History of hypertension and hyperlipidemia: -Cont. home meds -Cont. metoprolol 12.5mg BID History of hypothyroidism: -Cont. levothyroxine Chronic back pain: -Cont. home medications DVT prophylaxis: -Cont. coumidin (hold for procedure) History of MS: -Continue her home medications History of hypertension and hyperlipidemia: -Cont. home meds -Cont. metoprolol 12.5mg BID History of hypothyroidism: -Cont. levothyroxine Chronic back pain: -Cont. home medications DVT prophylaxis: -Cont. coumidin (hold for procedure)
[2017-12-05] MEDS ORDERED: METOPROLOL TART25 M1 PO (09:40)
[2017-12-05] MEDS ORDERED: AUGMENTIN 500-1 EACH PO (10:10)
[2017-12-05 15:33] VITALS: BP 104/62
--- NOTE | 2017-12-05 17:17 | Operative Report ---
Operative/Inv Procedure Report Surgery Date: 12/05/17 Name of Procedure: Cystoscopy and insertion of right double-J ureteral stent Pre-Operative Diagnosis: Right ureteral calculus with hydronephrosis and UTI Post-Operative Diagnosis: Same Estimated Blood Loss: scant Surgeon/Event Promoter: Candido Zepeda MD Anesthesia: local monitored anesthesi Drains: 22 cm 6 Lao right double-J ureteral stent and 18 Lao Claudio catheter Specimens: Right kidney urine for culture Complications: None Condition: Stable Operative Indication: This patient was admitted with lethargy. CT scan of the abdomen and pelvis showed a right distal ureteral calculus with right hydronephrosis. Lab data indicated urinalysis consistent with urinary tract infection. Urine culture was positive. She does have MS and a neurogenic bladder and is managed with an indwelling Claudio. Due to the obstruction and infection was felt that a right ureteral stent be placed to drain the right kidney with definitive management of her right distal ureteral calculus to be done later Operative/Procedure Note Note: The patient was taken to the cystoscopy room and identified. She was placed in the supine position on the operating table. Timeout was executed appropriately with the patient awake. Intravenous sedation was given. The patient was then placed in dorsal lithotomy position and prepped and draped in usual fashion for cystoscopy. A surgical pause was executed appropriately. Fluoroscopy images taken with a marker on the right side of the abdomen to confirm the correct side of the surgery as well as a correct orientation of the fluoroscopy image. A 22 Lao cystoscope sheath was placed into the bladder. There were a few small stone fragments in the bladder. There was evidence of cystitis. There was no evidence of bladder tumor or eyes bladder calculus. A guidewire was placed through the cystoscope into the right ureter and advanced up the level of the right kidney. An open-ended catheter was placed over the wire which was removed. A hydronephrotic drip was noted. Some urine from the right kidney was collected for culture. Small amount of contrast was injected through the open- ended catheter into the right kidney to outline the right renal collecting system. A guidewire was placed back through the open-ended catheter and the catheter removed. Under visual fluoroscopic control a 22 cm 6 Lao right double-J ureteral stent was placed with a short suture attached the distal end. Fluoroscopy confirmed the proximal end coiled in the kidney and the distal end of the stent coiled in the bladder. An 18 Lao Claudio was then replaced. The patient tolerated the procedure well and as completion was taken to recovery in stable condition.
[2017-12-05 22:34] VITALS: BP 110/66
[2017-12-06 06:59] VITALS: BP 124/56
--- NOTE | 2017-12-06 07:27 | PN- Urology ---
Subjective Subjective: Comfortable Objective Vital Signs and I&Os Vital Signs Date Time Temp Pulse Resp B/P B/P Pulse O2 O2 Flow FiO2 Mean Ox Delivery Rate 12/06 0659 98.0 73 20 124/56 92 Room Air 12/05 2234 98.1 76 20 110/66 91 Room Air 12/05 1533 98.9 67 22 104/62 92 Room Air 12/05 1045 /12/05 1044 /12/05 1044 97.9 72 20 10262 12/05 0728 97.9 72 20 10262 92 Room Air Intake & Output 12/06 0812/06 0000 12/05 1600 12/05 0800 12/05 0000 12/04 1600 Intake Total 250 200 500 450 675 130 Output Total 076 440 7752 275 200 100 Balance -500 -100 -550 175 475 30 Intake, IV 300 400 285 10 Intake, Oral 250 200 200 50 390 120 Number 1 Bowel Movements Output, Urine 358 670 1364 275 200 100 Patient 152 lb 154 lb Weight Back: No CVA tenderness Abd: soft and non tender Genitalia: means in place draining clear urine Laboratory Tests 12/06 0630 Chemistry Sodium Pending Potassium Pending Chloride Pending Carbon Dioxide Pending Anion Gap Pending BUN Pending Creatinine Pending BUN/Creatinine Ratio Pending Coagulation PT Pending INR Pending Assessment/Plan Assessment/Plan Imp: 1. S/p R ureteral stent placement for obstructing stone in R distal ureter 2. Neurogenic bladder Plan: 1. OK to give coumadin today 2. From my point of view OK for discharge today 3. f/u in my office in near future for scheduling of R ureteroscopy and removal of R ureteral stone
--- NOTE | 2017-12-06 07:33 | PN- Housestaff ---
[facility] 12/06/17 0732: Subjective Follow-up For: Right hydroureteronephrosis s/p stent placement UTI Tele-Events Since Last Visit: Sinus rhythm with heart rate between 64-77 Subjective: No overnight events. Patient remained afebrile. Seen and examined this morning. Patient reported that she couldn't sleep last night. Patient denied any chest pain, short of breath, nausea, vomiting and cooperative, abdominal pain and dysuria. Review of Systems Constitutional: Denies: chills, fever. EENTM: Reports: no symptoms. Cardiovascular: Denies: chest pain, palpitations. Respiratory: Denies: cough, short of breath, sputum production. Gastrointestinal: Reports: no symptoms. Genitourinary: Reports: no symptoms. Neurological/Psychological: Reports: no symptoms. Objective Last 24 Hrs of Vital Signs/I&O Vital Signs Date Time Temp Pulse Resp B/P B/P Pulse O2 O2 Flow FiO2 Mean Ox Delivery Rate 12/06 0659 98.0 73 20 124/56 92 Room Air 12/05 2234 98.1 76 20 110/66 91 Room Air 12/05 1533 98.9 67 22 104/62 92 Room Air 12/05 1045 102/62 12/05 1044 102/62 12/05 1044 97.9 72 20 102/62 Intake & Output 12/06 0800 12/06 0000 12/05 1600 Intake Total 250 200 500 Output Total 410 719 8572 Balance -500 -100 -550 Intake, IV 300 Intake, Oral 250 200 200 Output, Urine [phone] Patient 152 lb Weight Physical Exam General Appearance: Alert, Oriented X3, Cooperative Skin: No Rashes Skin Temp/Moisture Exam: Warm/Dry Sepsis Skin Exam (color): Normal for Ethnicity HEENT: Atraumatic, PERRLA, EOMI Neck: Supple Cardiovascular: Normal S1, Normal S2 Lungs: Clear to Auscultation Abdomen: Soft, No Tenderness Neurological: Normal Speech, paraplegic Extremities: No Edema Assessment/Plan Assessment: 77 YO F with PMH of multiple sclerosis with paraplegia, wheelchair bound, chronic indwelling Claudio catheter secondary to neurogenic bladder, recurrent UTIs, hyperlipidemia, PVD status post right leg stent placement, hypothyroidism, provoked DVT on Coumadin and recent shingles infection brought to ED by her daughter with chief complaint of lethargic since this morning. Patient are following the patient on tele floor for following problems: EKG changes:(resolved) -Serial EKG and troponin remained negative. -May need outpatient stress test as well -Echocardiogram showed EF 70%. Catheter related UTI: -Her lethargy could be due to her UTI. -Possibly catheter related. Patient has chronic indwelling catheter due to neurogenic bladder. -IV ceftriaxone, changed to Augmentin day 3 total ABx days 6th -Urine culture showed Klebsiella. CHEN:(resolved) -Possibly due to dehydration as patient's LIQUIDS were modified to nectar thick to prevent the risk of aspiration. -Gentle IV hydration -Monitor input and output Right hydroureteronephrosis s/p stent placement: -Due to 7 mm ureteric stone -Pain management according to pain pathway -Ureteroscopy was done yester and stent was placed in right ureter. Constipation: -Continue laxatives. -As patient most of the time stays in bed and low oral intake with history of MS. History of recent shingles infection: -Completed valacyclovir course for 10 days. -Continue lidocaine 4% cream. -Neurontin was disctinued because of somnolence. -Contact precaution History of DVT: -Patient is on Coumadin -We will follow INR and dose Coumadin accordingly. History of MS: -Continue her home medications History of hypertension and hyperlipidemia: -Continue Lipitor -Continue amlodipine and lisinopril -Metoprolol 12.5mg bid was started. History of hypothyroidism: -Continue levothyroxine Chronic back pain: -Continue home medications DVT prophylaxis: Mechanical and patient is already on Coumadin CODE STATUS: DNR/DNI Problem List: 1. UTI (urinary tract infection) 2. Ureteric stone Pain Ratin Pain Location: none Pain Goal: Remain pain free Pain Plan: pain pathway Tomorrow's Labs & Rationales: inr Anastasiya West MD 12/06/17 1103: Attending MD Review Statement Attending Statement Attending MD Statement: examined this patient, discuss w/resident/PA/[employer], agreed w/resident/PA/[employer], reviewed EMR data (avail) Attending Assessment/Plan: 77F PMH sclerosis with functional paraplegia and chronic catheter, multiple E. coli UTI, provoked left lower extremity DVT on Coumadin, peripheral vascular disease status post stent placement left leg, recent diagnosis of shingles admitted with lethargy and weakness secondary to UTI with 7mm right ureteral obstructing stone with right hydronephrosis. EKG showed ventricular bigeminy yesterday, repeat was NSR, no ST/T changes. Mental status is back to baseline today. Patient has no complaints. Successful ureteral stent placement on 12/05. Urine culture growing Klebsiella. 1. Right obstructing ureteral stone with obstructive uropathy and right hydronephrosis 2. Herpes zoster 3. Ventricular bigeminy 4. Multiple sclerosis 5. Chronic indwelling Claudio catheter Plan - Stable for discharge home - Augmentin to complete 14 day course - Outpatient urology follow up - Continue Valtrex - Lidocaine cream for Zoster pain - Continue home medications
--- NOTE | 2017-12-06 07:39 | PN- Student ---
Subjective Subjective: No acute events overnight. Patient resting in bed confortable. Patient seen and examined at bedside this morning. Complains of not sleeping well. Denied chest pain, SOB, abd. pain, dysuria. Objective Objective: Vitals: T= 98.0 HR= 73 RR=20 BP= 124/56 O2Sat= 92 RA PE: General= alert and oriented without any acute distress HEENT= pupils equally round and reactive to light and accommodation. Nose is atraumatic. Moist oral mucosa Neck: Supple, no lymphadenopathy Lungs= clear bilateral, no added sounds CVS= regular rate and rythm, systolic murmur Abd= presented bowel sound, soft, no rebound or guarding, non-tender, non- distended, no appreciable organomegaly Results Results: Laboratory Tests 12/06/17 0630: Anion Gap 10, Estimated GFR > 60, BUN/Creatinine Ratio 35.6 H, PT 20.2 H, INR 1.84 H 12/05/17 0620: Anion Gap 7, Estimated GFR 54 L, BUN/Creatinine Ratio 39.0 H, PT 25.0 H, INR 2.27 H 12/04/17 0617: Anion Gap 7, Estimated GFR 44 L, BUN/Creatinine Ratio 23.3, PT 24.7 H, INR 2.25 H Microbiology 12/05 1700 URINE ROUT: Urine Culture - RES INR= 1.84 PT= 20.2 Assessment/Plan Assessment: 77 y/o F with MS and neurogenic bladder. Patient admitted to the cardiology unit for EKG showing PVC with Bigeminy. Urine cx came back positive for Klebsiella Oxytoca. Patient s/p cystoscopy and stent placement. Plan: Plan to be discharge today EKG changes: -Patient under observation -Cardio suspect that ventricular ectopy is related to subendocardial ischemia due to HTN Catheter related UTI: -Possibly catheter related due to chronic indwelling catheter -Urine culture showed K. Oxytoca -Cont. Augmentin (500mg BID PO) (Total abx of ) to be completed as outpatient Right hydroureteronephrosis; -Due to 7 mm ureteric stone -Patient is asymptomatic at this point -S/p Right ureteroscopy and stent placement -Ok to start coumadin today Constipation: -Cont. stool softners History of recent shingles infection: -Continue valacyclovir -Neurontin and percoset discontinue due to somnolance -Contact precaution History of DVT: -Patient on Coumadin -follow INR History of MS: -Cont. her home medications History of hypertension and hyperlipidemia: -Cont. home meds -Cont. metoprolol 12.5mg BID History of hypothyroidism: -Cont. levothyroxine Chronic back pain: -Cont. home medications DVT prophylaxis: -Cont. coumidin
--- NOTE | 2017-12-06 08:14 | RADIOLOGY REPORT ---
EXAMINATION: XR ABDOMEN CLINICAL INDICATION: Ureteroscopy with right-sided stent placement. COMPARISON: CT abdomen pelvis dated 11/29/2017. TECHNIQUE/IMAGE#: 13 intraoperative fluoroscopic spot images were obtained for Dr. Zepeda in the OR. FLUORO TIME: 0.3 minutes FINDINGS/IMPRESSION: These intraoperative fluoroscopic images demonstrate right-sided ureteroscopy and right double-J ureteral stent placement with the proximal aspect of the stent projecting over the right renal pelvis and the distal aspect of the stent projecting over the bladder on the final submitted images. Initial images demonstrate retrograde contrast opacification of the dilated right renal pelvis and right ureter which appear decompressed following stent placement. The calculus seen within the distal right ureter on 11/29/[address] study is not definitively seen on the final submitted images.
[2017-12-06 08:25] LABS: PT 20.2 SEC (9.4-12.5)
[2017-12-06 09:28] VITALS: BP 104/60
[2017-12-06 09:32] VITALS: BP 104/60
[2017-12-06] MEDS ORDERED: AUGMENTIN 500-1 EACH PO (12:49)
[2017-12-06] MEDS ORDERED: METOPROLOL TART25 M1 PO (12:49)
[2017-12-06] MEDS ORDERED: ZOSTRIX56.6 G1 TOP (12:49)
== END 2017-12-06 13:40 | disposition home health service (06) | DRG 699 ==
LOC: ERH 12:16 → 1NO 17:41 → ERHI 17:41 → ENRESERV 18:29 → ENTRNSPT 20:06 → EDTRNSPTSTS 20:12 → 1NO 20:25 → CMPTRNSPT 20:31 → 1NO 20:37 → ENPENDDIS 12-06 11:59 → ENTRNSPT 12-06 13:21 → EDTRNSPT 12-06 13:26 → EDTRNSPTSTS 12-06 13:26 → 1NO 12-06 13:40 → CMPTRNSPT 12-06 13:46
PROVIDERS: Physician Assistant; Student in an Organized Health Care Education/Training Program
PROC: 0T768DZ Dilation of Right Ureter with Intraluminal Device, Via Natural or Artificial Opening Endoscopic (ICD-10-PCS; principal; 2017-12-05)
DX: T83.511A Infection and inflammatory reaction due to indwelling urethral catheter, initial encounter (principal); G82.20 Paraplegia, unspecified; N17.9 Acute kidney failure, unspecified; N13.2 Hydronephrosis with renal and ureteral calculous obstruction; G35 Multiple sclerosis; B02.9 Zoster without complications; N31.9 Neuromuscular dysfunction of bladder, unspecified; N39.0 Urinary tract infection, site not specified; E86.0 Dehydration; B96.89 Other specified bacterial agents as the cause of diseases classified elsewhere; Z99.3 Dependence on wheelchair; E03.9 Hypothyroidism, unspecified; I73.9 Peripheral vascular disease, unspecified; Y84.6 Urinary catheterization as the cause of abnormal reaction of the patient, or of later complication, without mention of misadventure at the time of the procedure; I10 Essential (primary) hypertension; I49.3 Ventricular premature depolarization; E78.5 Hyperlipidemia, unspecified; G89.29 Other chronic pain; M54.9 Dorsalgia, unspecified; Z66 Do not resuscitate; Z86.718 Personal history of other venous thrombosis and embolism; K59.09 Other constipation; R00.8 Other abnormalities of heart beat; Z90.710 Acquired absence of both cervix and uterus; Z88.5 Allergy status to narcotic agent; Z88.2 Allergy status to sulfonamides
CPT/HCPCS: 1NP; 36415; 36592; 71046; 74018; 74177; 74230; 80307; 81001; 82436; 87040; 87086; 87804; 87804-59; 93005; 93010; 93306; 96374; 96375; C2617; J0131; J0456; J0696; J3490; J7040; J7042; J7060

== ENCOUNTER 2018-02-10 09:56 | Inpatient (IN) | payer OTHER ==
[~2018-02-10] VITALS: Ht 157.5 cm; Wt 62.1 kg
[~2018-02-10 09:56] MED LIST changes: +AMLODIPINE BESY10 M1 PO; -AMLODIPINE BESYL5 M1 PO; +AUGMENTIN 500-1 EACH PO; +METOPROLOL TART25 M1 PO; +ZETIA10 M1 PO; +ZOSTRIX56.6 G1 TOP
--- NOTE | 2018-02-10 10:12 | ED AMS/SEIZURE/WEAK/DIZZY ---
History of Present Illness General Chief Complaint: Altered Mental Status Stated Complaint: BIBA, AMS Source: patient, family, old records Exam Limitations: clinical condition Vital Signs & Intake/Output Vital Signs & Intake/Output Vital Signs Date Time Temp Pulse Resp B/P B/P Pulse O2 O2 Flow FiO2 Mean Ox Delivery Rate 02/12 1454 97.9 98 14 98/60 97 Room Air 02/12 0959 87 164/78 02/12 0800 Room Air 02/12 0649 98.2 88 20 185/90 94 Room Air 02/12 0647 88 185/90 02/12 0647 88 185/90 02/11 2237 98.2 92 17 170/68 91 Room Air ED Intake and Output 02/12 0000 02/11 1200 Intake Total 900 600 Output Total 1950 500 Balance -1050 100 Intake, IV 600 600 Intake, Oral 300 Number 0 Bowel Movements Output, Urine 1950 500 Allergies Coded Allergies: Sulfa (Sulfonamide Antibiotics) (INCOHERENT 11/21/16) oxycodone (SENSITIVITY TO IT 11/21/16) Reconcile Medications Amitriptyline HCl 25 MG TABLET 1 TAB PO QPM DEPRESSION (Reported) Amlodipine Besylate 5 MG TABLET 1 TAB PO DAILY BP (Reported) Ascorbic Acid (Vitamin C) 1,000 MG TABLET 1 TAB PO DAILY SUPPLEMENT (Reported ) Baclofen 20 MG TABLET 1 TAB PO 4 TIMES/DAY SPASM (Reported) Calcium (Elemental-Fr Calcarb) (Calcium) 600 MG CALCIUM (1,500 MG) TABLET 2, 400 MG PO DAILY SUPPLEMENT (Reported) Capsaicin (Zostrix) 0.033 % CREAM..G. 1 AYLIN TOP BID Shingles . Cyanocobalamin (Vitamin B-12) 1,000 MCG TABLET 1 TAB PO DAILY SUPPLEMENT ( Reported) Ezetimibe (Zetia) 10 MG TABLET 1 TAB PO DAILY CHOLESTEROL (Reported) Ferrous Sulfate 325 MG (65 MG IRON) TABLET 1 TAB PO DAILY SUPPLEMENT ( Reported) Lactulose 10 GRAM/15 ML SOLUTION 30 ML PO DAILY GI (Reported) Levothyroxine Sodium 100 MCG TABLET 1 TAB PO DAILY AC THYROID (Reported) Lisinopril 10 MG TABLET 1 TAB PO DAILY BP (Reported) Metoprolol Tartrate 25 MG TABLET 0.5 TAB PO BID Heart health . Multivitamin (Daily Value) 1 EACH TABLET 1 TAB PO DAILY SUPPLEMENT (Reported) Nitrofurantoin Monohyd/M-Cryst (Nitrofurantoin Lake-Mcr 100 MG) 100 MG CAPSULE 1 CAP PO BID ABX (Reported) Pravastatin Sodium (Pravachol) 80 MG TABLET 1 TAB PO DAILY CHOLESTEROL ( Reported) Warfarin Sodium (Coumadin) 5 MG TABLET 1 TAB PO MoTuWeThFr BLOOD THINNER ( Reported) Warfarin Sodium (Coumadin) 7.5 MG TABLET 1 TAB PO SuSa BLOOD THINNER ( Reported) Triage Nurses Notes Reviewed? yes Onset: Abrupt Duration: hour(s):, constant Timing: recent history Injury Environment: home HPI: 77-year-old female brought into the emergency room by ambulance for increased weakness and lethargy and confusion starting this morning. History of multiple sclerosis and urinary tract infections. She denies any pain. Denies any fever chills vomiting. She is alert and oriented 3 and answers questions appropriately but is lethargic and a poor historian. Denies any chest pain shortness of breath abdominal pain. (Nabeel Warren) Past History Travel History Traveled to [place] past 21 day No Medical History Any Pertinent Medical History? 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 No (Nabeel Warren) Review of Systems Review of Systems Constitutional: Reports: see HPI. EENTM: Reports: no symptoms. Respiratory: Reports: no symptoms. Cardiovascular: Reports: no symptoms. GI: Reports: no symptoms. Genitourinary: Reports: no symptoms. Musculoskeletal: Reports: no symptoms. Skin: Reports: no symptoms. Neurological/Psychological: Reports: see HPI. Hematologic/Endocrine: Reports: no symptoms. Immunologic/Allergic: Reports: no symptoms. All Other Systems: Reviewed and Negative (Nabeel Warren) Physical Exam Physical Exam General Appearance: lethargic Head: atraumatic Eyes: Bilateral: normal appearance. Ears, Nose, Throat: dry mucous membranes Neck: normal inspection Respiratory: normal breath sounds, no respiratory distress Cardiovascular: regular rate/rhythm Peripheral Pulses: 1+ radial (L) Gastrointestinal: soft, non-tender, no RUQ tenderness Back: decreased range of motion Extremities: no edema appreciated Neurologic/Psych: oriented x 3 Skin: intact Core Measures ACS in differential dx? No CVA/TIA Diagnosis No Sepsis Present: No Sepsis Focused Exam Completed? No (Nabeel Warren) Progress Differential Diagnosis: anemia, dehydration, drug intoxication, electrolyte imbalance, hypoglycemia, pneumonia, sepsis, UTI/pyelo Plan of Care: Orders Procedure Date/time Status Nothing by Mouth 02/13 B Active PROTHROMBIN TIME 02/13 600 Active HEPATIC FUNCTION PANEL 02/13 600 Active Nothing by Mouth 02/12 L Complete Regular Diet 02/12 D Complete Skin/Pressure Ulcer Assess ( 02/12 1244 Active Nursing Misc 02/12 UNK Active Warner, Insertion/Removal/Asses 02/12 UNK Active OXYGEN 02/11 UNK Complete OXYGEN DAILY CHARGE 02/11 UNK Complete Current Medications Sig/Laura Start time Last Medication Dose Stop Time Status Admin Dextrose/Sodium 1,000 ML Q13H 02/13 06 AC Chloride (D5W-1/2 Normal Saline 1000ML) Amlodipine Besylate 10 MG DAILY 02/12 0900 AC 02/12 (Norvasc) 0959 Senna 187 MG AT BEDTIME 02/11 2100 AC (Senokot) Ampicillin Sodium/ 3,000 MG Q6H 02/11 1436 AC 02/12 Sulbactam Sodium 1352 (Unasyn) Sodium Chloride 100 ML (Normal Saline 0.9%) Cyanocobalamin 1,000 MCG DAILY 02/11 0900 AC 02/12 (Vitamin B12) 0958 Docusate Sodium 100 MG DAILY 02/11 0900 AC 02/12 (Colace) 0959 Ezetimibe 10 MG DAILY 02/11 0900 AC 02/12 (Zetia) 1000 Ferrous Sulfate 325 MG DAILY 02/11 0900 AC 02/12 (Feosol) 0958 Lisinopril 10 MG DAILY 02/11 0900 AC 02/12 (Prinivil) 0647 Polyethylene Glycol 17 GM DAILY 02/11 0900 AC 02/12 (Miralax) 1000 Levothyroxine Sodium 0.1 MG DAILY AC 02/11 0700 AC 02/12 (Synthroid) 0603 Nystatin 5 ML 4 TIMES/DAY 02/11 2116 AC 02/12 (Mycostatin Susp) 1648 Amitriptyline HCl 25 MG QPM 02/10 2100 AC 02/11 (Elavil 25 Mg. 2220 Tablet) Melatonin 5 MG AT BEDTIME 02/10 2100 AC 02/11 (Melatonin) 2220 Baclofen 20 MG Q6 PRN 02/10 1915 AC 02/12 (Lioresal 10MG 0401 Tablet) Laboratory Tests 02/12/18 0715: Anion Gap 12, Estimated GFR > 60, BUN/Creatinine Ratio 18.3, Total Bilirubin 2.8 H, Direct Bilirubin 2.3 H, AST 135 H, ALT 294 H, Alkaline Phosphatase 873 H , Total Protein 6.4, Albumin 3.0 L, PT 40.5 H, INR 3.67 H, CBC w Diff NO MAN DIFF REQ, RBC 4.31, MCV 84.2, MCH 27.9, MCHC 33.1, RDW 17.4 H, MPV 9.4, Gran % 64.2, Lymphocytes % 23.7, Monocytes % 8.6, Eosinophils % 2.9, Basophils % 0.6, Absolute Granulocytes 4.0, Absolute Lymphocytes 1.5, Absolute Monocytes 0.5, Absolute Eosinophils 0.2, Absolute Basophils 0 Diagnostic Imaging: Viewed by Me: Radiology Read. Discussed w/RAD: Radiology Read. Radiology Impression: PATIENT: AL NUNEZ PRESENT AGE: 77 PATIENT ACCOUNT NO: [id number] : 40 LOCATION: [facility] ORDERING PHYSICIAN: Nabeel PARK SERVICE DATE: 02/10/18-1006 EXAM TYPE: RAD - XRY-PORTABLE CHEST XRAY EXAMINATION: XR PORTABLE CHEST CLINICAL INFORMATION: Altered mental status COMPARISON: Prior chest July 2014 TECHNIQUE: Portable frontal view of the chest was obtained. FINDINGS: Low lung volumes likely due to suboptimal inspiration. Minimal bibasilar opacities likely atelectasis. Cardiac silhouette mediastinum pulmonary vascularity are normal. IMPRESSION: Low lung volumes and bibasilar atelectasis. DICTATED BY: Gaston Seymour MD DATE/TIME DICTATED:1058 ORGANIZATIONAL DEVELOPMENT DIRECTOR:ELTON DATE/TIME TRANSCRIBED:02/10/181058 CONFIDENTIAL, DO NOT COPY WITHOUT APPROPRIATE AUTHORIZATION. <Electronically signed in Other Vendor System> SIGNED BY: Gaston Seymour MD 02/10/18 1104, PATIENT: AL NUNEZ PRESENT AGE: 77 PATIENT ACCOUNT NO: [id number] : 40 LOCATION: [facility] ORDERING PHYSICIAN: Nabeel PARK SERVICE DATE: 02/10/18 EXAM TYPE: US - US-LIMITED ABDOMEN EXAMINATION: US ABDOMEN LIMITED CLINICAL INFORMATION: Elevated LFTs. Acute mental status change. COMPARISON: CT scan of the abdomen and pelvis dated 2017. TECHNIQUE: Real-time imaging of the right upper quadrant abdominal viscera. FINDINGS: Evaluation is limited by patient body habitus, difficulty patient positioning and respiratory cessation and overlying bowel gas. PANCREAS: The pancreatic body and portions of the tail are visualized and appear unremarkable. Remainder of pancreas is obscured by bowel and bowel gas. LIVER: Poorly visualized due to high intrathoracic location. The liver demonstrates normal size, contour and echogenicity. No focal lesion or intrahepatic biliary duct dilatation. GALLBLADDER AND COMMON BILE DUCT: Not seen due to shadowing bowel gas. RIGHT KIDNEY: There is moderate right-sided hydronephrosis, similar to the CT scan. There is a 1.3 x 0.5 x 0.9 cm echogenic calcification seen in the upper pole of the right kidney. The right ureter cannot be followed. The kidney measures 10.1 cm in maximum dimension. There is a exophytic 1.2 x 1.4 x 1.2 cm simple cyst in the upper pole of the right kidney. Previously demonstrated right renal cyst is not visualized today. FREE FLUID: None. IMPRESSION: 1. Significantly limited exam due to patient's body habitus, high intrathoracic location of intra-abdominal organs, large amounts of bowel gas, and difficulties with patient mobility/respiratory cessation. 2. Gallbladder, common bile duct, pancreatic head and portions of the tail are not visualized, despite bringing the patient back to the radiology department for real-time assessment by the reading radiologist. 3. Moderate right-sided hydronephrosis, similar to prior exam. This was shown previously to be due to an obstructing ureteral calculus, which is not appreciated by this ultrasound. 4. Right renal cyst and nonobstructing upper pole right renal calcification are unchanged. DICTATED BY: Deanna White MD DATE/TIME DICTATED:02/10/181340 ORGANIZATIONAL DEVELOPMENT DIRECTOR:ELTON DATE/TIME TRANSCRIBED:02/10/181340 CONFIDENTIAL, DO NOT COPY WITHOUT APPROPRIATE AUTHORIZATION. <Electronically signed in Other Vendor System> SIGNED BY: Deanna White MD 02/10/18 1436, PATIENT: AL NUNEZ PRESENT AGE: 77 PATIENT ACCOUNT NO: [id number] : 40 LOCATION: [facility] ORDERING PHYSICIAN: Nabeel PARK SERVICE DATE: 02/10/18 EXAM TYPE: CAT - CT ABD & PELVIS W IV CONTRAST EXAMINATION: CT ABDOMEN AND PELVIS WITH CONTRAST CLINICAL INFORMATION: Elevated LFTs, altered mental status, inconclusive ultrasound. COMPARISON: CT abdomen and pelvis dated 11/29/2017, CT abdomen dated 08/02/2015. CT abdomen dated 01/27/2013. TECHNIQUE: Multidetector volumetric imaging was performed of the abdomen and pelvis following IV administration of 95 mL of Optiray 320 intravenous contrast. Sagittal and coronal reformatted images were obtained on the technologist's workstation. DLP: 361 mGy-cm FINDINGS: LUNG BASES: There is a trace left pleural effusion with streaky dependent bibasilar consolidation/atelectasis. Aortic annular calcifications are noted. LIVER, GALLBLADDER, AND BILIARY TREE: The liver is normal in size, shape, and attenuation. No focal hepatic lesion or biliary ductal dilatation is present. The gallbladder is decompressed. Cholelithiasis is again noted. No gallbladder wall thickening or pericholecystic fluid. PANCREAS: Unremarkable. SPLEEN: There is a redemonstrated 1.6 cm enhancing lesion along the posterior margin of the spleen on image 19 of series 2. The spleen is normal in size. ADRENAL GLANDS: Unremarkable. KIDNEYS AND URETERS: There is a left superior renal pole collecting system calculus measuring 1.4 x 1.0 cm and conforming to the shape of the calyx. Medial superior left renal parenchymal scarring is noted. A minimally complex inferior left renal pole exophytic cyst is noted with thin calcified septations which are visible on the 01/27/2013 exam. There is no left hydronephrosis. The right renal collecting system has a ureteral stent in place but remains prominent in caliber , more dilated than on the 11/29/2017 exam at which time no stent was in place. The stent appears appropriately positioned with the proximal and in the dilated renal pelvis and the distal end within the decompressed bladder. An exophytic septated cyst off the lower right renal pole is stable from 2012 as is an exophytic superior pole cyst. No perinephric stranding. BLADDER: The bladder is decompressed with a Warner catheter. GASTROINTESTINAL TRACT: There is a moderate stool burden within the colon. No small bowel dilatation. The hepatic flexure of the transverse colon extends far superiorly anterior to the liver and overlying the gallbladder, likely explaining the difficulty with the patient's attempted ultrasound examination. ABDOMINAL WALL: No significant hernia is appreciated. LYMPH NODES: Normal. VASCULAR: There is diffuse atherosclerotic vascular calcification without abdominal aortic aneurysm. A left superficial femoral artery stent graft is noted. PELVIC VISCERA: The uterus is not well-visualized and is likely surgically absent. No adnexal masses. OSSEOUS STRUCTURES: Right hip ORIF is noted which produces streak artifact across the pelvis. Transitional lumbosacral anatomy is noted with a partially lumbarized S1. L3 superior endplate and T9 superior endplate compression deformities are stable dating back to at least 08/02/2015. 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 IMPRESSION: 1. Cholelithiasis without evidence of acute cholecystitis. 2. Enhancing lesion in the posterior spleen which is stable from 11/29/2017. This may be amenable to further evaluation with left upper quadrant ultrasound. 3. Dilated right renal collecting system in the setting of ureteral stent placement which appears appropriately positioned. 4. Multiple mildly complicated renal cysts which are stable dating back to 2012. 5. Moderate stool burden within the colon, with the hepatic flexure extending far superiorly, anterior to the liver and overlying the gallbladder, explaining the difficulty with the patient's right upper quadrant ultrasound examination. 6. Diffuse atherosclerotic vascular calcification without abdominal aortic aneurysm. 7. Trace left pleural effusion, similar to multiple prior exams, appearing chronic. DICTATED BY: Jose Ramon Woodson MD DATE/TIME DICTATED:02/10/181557 ORGANIZATIONAL DEVELOPMENT DIRECTOR:ELTON DATE/TIME TRANSCRIBED:02/10/181557 CONFIDENTIAL, DO NOT COPY WITHOUT APPROPRIATE AUTHORIZATION. <Electronically signed in Other Vendor System> SIGNED BY: Jose Ramon Woodson MD 02/10/18 1620 Initial ED EKG: normal sinus rhythm, rate (70), nonspecific ST T wave chg (Nabeel Warren) Departure Departure Disposition: STILL A PATIENT Condition: Stable Clinical Impression Primary Impression: Cholangitis Secondary Impressions: UTI (urinary tract infection) Referrals: Misty Zayas MD (PCP/Family) Departure Forms: Customer Survey General Discharge Information Admission Note Spoke With: Barbara Shay MD Documentation of Exam: Documentation of any treatments & extenuating circumstances including Concerns Regarding Discharge (functional status, medication knowledge or non-compliance, living conditions, etc.) that warrant an admission rather than observation: IV antibiotics. Serial labs. GI consultation. Patient may require ERCP she becomes febrile or unstable at all. Medically not safe for discharge. IV hydration. (Nabeel Warren) PA/[employer] Co-Sign Statement Statement: ED Attending supervision documentation- [X] I saw and evaluated the patient. I have also reviewed all the pertinent lab results and diagnostic results. I agree with the findings and the plan of care as documented in the PA's/[employer]'s documentation. Patient presents for evaluation of altered mental status and lethargy. Physical examination reveals a lethargic patient with no focal neurologic deficit. [] I have reviewed the ED Record and agree with the PA's/[employer]'s documentation. [] Additions or exceptions (if any) to the PAs/[employer]'s note and plan are summarized below: [] (Francia DANIELS,Thaddeus Wood) Critical Care Note Critical Care Note Critical Care Time: 30-74 min (40) (Nabeel Warren)
[2018-02-10 10:39] LABS: HEMATOCRIT 36.3 % (37-47); RBC DISTRIBUTION WIDTH 16.9 % (11.5-14.5)
[2018-02-10 10:42] LABS: ABSOLUTE BASOPHIL COUNT 0 /CUMM (0.0-0.2); ABSOLUTE EOSINOPHIL COUNT 0.3 /CUMM (0.0-0.7); ABSOLUTE GRANULOCYTE CT 8.7 /CUMM (1.4-6.5); ABSOLUTE LYMPH COUNT 0.9 /CUMM (1.2-3.4); ABSOLUTE MONOCYTE COUNT 0.6 /CUMM (0.10-0.60); BASOPHIL % 0.2 % (0.0-2.0); EOSINOPHIL % 2.9 % (0-5); MEAN CORPUSCULAR HGB 28.3 PG (27.0-31.0); MEAN CORPUSCULAR HGB CONC 33.6 G/DL (33.0-37.0); MEAN CORPUSCULAR VOLUME 84.3 FL (81.0-99.0); PLATELET COUNT 233 /CUMM (130-400); RED BLOOD CELL CT 4.31 /CUMM (4.20-5.40); WHITE BLOOD CELL COUNT 10.5 /CUMM (4.8-10.8)
--- NOTE | 2018-02-10 11:04 | RADIOLOGY REPORT ---
EXAMINATION: XR PORTABLE CHEST CLINICAL INFORMATION: Altered mental status COMPARISON: Prior chest July 2014 TECHNIQUE: Portable frontal view of the chest was obtained. FINDINGS: Low lung volumes likely due to suboptimal inspiration. Minimal bibasilar opacities likely atelectasis. Cardiac silhouette mediastinum pulmonary vascularity are normal. IMPRESSION: Low lung volumes and bibasilar atelectasis.
[2018-02-10 11:25] LABS: GRANULOCYTE % 82.9 % (42.2-75.2)
--- NOTE | 2018-02-10 14:36 | ULTRASOUND REPORT ---
EXAMINATION: US ABDOMEN LIMITED CLINICAL INFORMATION: Elevated LFTs. Acute mental status change. COMPARISON: CT scan of the abdomen and pelvis dated 11/29/2017. TECHNIQUE: Real-time imaging of the right upper quadrant abdominal viscera. FINDINGS: Evaluation is limited by patient body habitus, difficulty patient positioning and respiratory cessation and overlying bowel gas. PANCREAS: The pancreatic body and portions of the tail are visualized and appear unremarkable. Remainder of pancreas is obscured by bowel and bowel gas. LIVER: Poorly visualized due to high intrathoracic location. The liver demonstrates normal size, contour and echogenicity. No focal lesion or intrahepatic biliary duct dilatation. GALLBLADDER AND COMMON BILE DUCT: Not seen due to shadowing bowel gas. RIGHT KIDNEY: There is moderate right-sided hydronephrosis, similar to the CT scan. There is a 1.3 x 0.5 x 0.9 cm echogenic calcification seen in the upper pole of the right kidney. The right ureter cannot be followed. The kidney measures 10.1 cm in maximum dimension. There is a exophytic 1.2 x 1.4 x 1.2 cm simple cyst in the upper pole of the right kidney. Previously demonstrated right renal cyst is not visualized today. FREE FLUID: None. IMPRESSION: 1. Significantly limited exam due to patient's body habitus, high intrathoracic location of intra-abdominal organs, large amounts of bowel gas, and difficulties with patient mobility/respiratory cessation. 2. Gallbladder, common bile duct, pancreatic head and portions of the tail are not visualized, despite bringing the patient back to the radiology department for real-time assessment by the reading radiologist. 3. Moderate right-sided hydronephrosis, similar to prior exam. This was shown previously to be due to an obstructing ureteral calculus, which is not appreciated by this ultrasound. 4. Right renal cyst and nonobstructing upper pole right renal calcification are unchanged.
[2018-02-10] MEDS ORDERED: LACTULOSE10 GM/153 PO (15:45)
[2018-02-10] MEDS ORDERED: NITROFURANTOIN100 M6 PO (15:46)
--- NOTE | 2018-02-10 15:57 | History & Physical ---
Jordan DANIELS,[facility] 02/10/18 1557: General Information and HPI MD Statement: I have seen and personally examined AL NUNEZ and documented this H&P. The patient is a 77 year old F who presented with a patient stated chief complaint of weakness. Source of Information: patient Exam Limitations: no limitations History of Present Illness: 77 yo pleasent lady with PMH of multiple sclerosis with functional paraplegia, wheelchair bound, chronic indwelling Warner catheter secondary to neurogenic bladder, recurrent UTIs, hyperlipidemia, PVD status post right leg stent placement, hypothyroidism, provoked DVT on Coumadin presents with 1 day hx of generalized malaise. 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 She does deny confusion or any focal neurological deficit, however she states that she feels that her alertness was below her baseline since morning. Denies any fever, chills, significant infection, sick contacts, URI, abdominal pain, vomiting, dysuria, or diarrhea. She also denies any bradycardia, or cold intolerance, or any recent changes on her levothyroxine dose. At baseline patient is wheelchair-bound due to her multiple sclerosis is a chronic indwelling Warner catheter. Social hx is negative for any etoh use, IVDA, or history hepatitis. Allergies/Medications Allergies: Coded Allergies: Sulfa (Sulfonamide Antibiotics) (INCOHERENT 11/21/16) oxycodone (SENSITIVITY TO IT 11/21/16) Home Med list Amitriptyline HCl 25 MG TABLET 1 TAB PO QPM DEPRESSION (Reported) Amlodipine Besylate 5 MG TABLET 1 TAB PO DAILY BP (Reported) Ascorbic Acid (Vitamin C) 1,000 MG TABLET 1 TAB PO DAILY SUPPLEMENT (Reported ) Baclofen 20 MG TABLET 1 TAB PO 4 TIMES/DAY SPASM (Reported) Calcium (Elemental-Fr Calcarb) (Calcium) 600 MG CALCIUM (1,500 MG) TABLET 2, 400 MG PO DAILY SUPPLEMENT (Reported) Capsaicin (Zostrix) 0.033 % CREAM..G. 1 YALIN TOP BID Shingles . Cyanocobalamin (Vitamin B-12) 1,000 MCG TABLET 1 TAB PO DAILY SUPPLEMENT ( Reported) Ezetimibe (Zetia) 10 MG TABLET 1 TAB PO DAILY CHOLESTEROL (Reported) Ferrous Sulfate 325 MG (65 MG IRON) TABLET 1 TAB PO DAILY SUPPLEMENT ( Reported) Lactulose 10 GRAM/15 ML SOLUTION 30 ML PO DAILY GI (Reported) Levothyroxine Sodium 100 MCG TABLET 1 TAB PO DAILY AC THYROID (Reported) Lisinopril 10 MG TABLET 1 TAB PO DAILY BP (Reported) Metoprolol Tartrate 25 MG TABLET 0.5 TAB PO BID itBit . Multivitamin (Daily Value) 1 EACH TABLET 1 TAB PO DAILY SUPPLEMENT (Reported) Nitrofurantoin Monohyd/M-Cryst (Nitrofurantoin [place]-Mcr 100 MG) 100 MG CAPSULE 1 CAP PO BID ABX (Reported) Pravastatin Sodium (Pravachol) 80 MG TABLET 1 TAB PO DAILY CHOLESTEROL ( Reported) Warfarin Sodium (Coumadin) 5 MG TABLET 1 TAB PO MoTuWeThFr BLOOD THINNER ( Reported) Warfarin Sodium (Coumadin) 7.5 MG TABLET 1 TAB PO SuSa BLOOD THINNER ( Reported) Past History Travel History Traveled to [place] past 21 day No Medical History Neurological: 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 EENT: NONE Cardiovascular: hypertension, hyperlipidemia, PVD (stent to R leg) Respiratory: NONE Gastrointestinal: NONE Hepatic: NONE 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 EENTM: Reports: no symptoms. Cardiovascular: Reports: no symptoms. Respiratory: Reports: no symptoms. GI: Reports: constipation. Genitourinary: Reports: no symptoms. Musculoskeletal: Reports: no symptoms. Skin: Reports: no symptoms. Neurological/Psychological: Reports: no symptoms. Hematologic/Endocrine: Reports: no symptoms. Immunologic/Allergic: Reports: no symptoms. All Other Systems: Reviewed and Negative Exam & Diagnostic Data Last 24 Hrs of Vital Signs/I&O Vital Signs Date Time Temp Pulse Resp B/P B/P Pulse O2 O2 Flow FiO2 Mean Ox Delivery Rate 02/10 1627 97.4 71 15 150/65 96 Nasal 2.0L Cannula 02/10 1322 98.2 93 15 144/65 96 Room Air 02/10 1036 95 Room Air 02/10 1001 97.7 74 15 125/78 97 Room Air Room Air Intake & Output 02/10 1600 02/10 0800 02/10 0000 Intake Total 1000 Output Total 100 Balance 900 Intake, IV 1000 Output, Urine 100 Physical Exam General Appearance Alert, Oriented X3, Cooperative Skin No Rashes, No Significant Lesion, no jaundice Skin Temp/Moisture Exam: Warm/Dry Sepsis Skin Exam (color): Normal for Ethnicity HEENT Atraumatic, DRY ORAL MUCOSA Neck Supple, No JVD Lymphatic Cervical nl Cardiovascular Regular Rate, Normal S1, Normal S2 Lungs Clear to Auscultation, Normal Air Movement Abdomen Normal Bowel Sounds, Soft, No Tenderness, Distended, with few scattered brittney angiomas. Neurological Normal Speech, Strength 5/5 X2 on upper extremities with intact sensation, LE intact sensation but wuth paraplegia Extremities No Clubbing, No Cyanosis, No Edema, Normal Pulses, No Tenderness/ Swelling Assessment/Plan Assessment: 77-year-old lady with a past medical history of multiple sclerosis complicated by paraplegia, presents with one-day history of generalized malaise. No Clinical or laboratory findings suggestive of infection (afebrile, no leukocytosis, no URI/abdominal or genitourinary symptoms). Biochemical tests revealed elevated bilirubin (conjugated predominant), elevated ALK phos, transaminitis with CT findings of cholelithiasis but no obvious ductal obstruction. Impression * Cholethiasis * Cholestasis as evident by elevated conjugated hyperbilirubin * Transaminits * Elevated ALK Phos with no evidence of obstruction on CT findings * Prerenal azotemia * UA suggestive of infection, cannot rule out contamination versus colonization given the patient has chronic indwelling warner and is also asymptomatic. * Chronic diseases; multiple sclerosis paraplegia and neurogenic bladder, history of unprovoked DVT on Coumadin, hypertension, chronic hydronephrosis on the Right Side with Stent Placement. Plan Admit to general medicine floor Keep nothing by mouth overnight, in anticipation of possible ERCP if patient develops fever, or altered mental status Unasyn 3 g every 8 Continue IV hydration Continue to trend ALK phosp and LFTs, if trending up will consider MRCP tomorrow morning, as this is most sensitive to assess for possible extrahepatic obstruction compared to a CT. We will obtain a hepatitis panel Obtain GGT level GI was consulted by ED staff, will place formal consult Hold of Coumadin today, INR is 3.2 Code status: Full code DVT: Addressed by supratheraputic INR and coumadin use As Ranked By This Provider Problem List: 1. Cholelithiasis 2. Elevated alkaline phosphatase level 3. Elevated transaminase level Core Measures/Misc (05/13) Acute Coronary Syndrome ACS Diagnosis: No Congestive Heart Failure Congestive Heart Failure Diagnosis No Cerebrovascular Accident CVA/TIA Diagnosis: No VTE (View Protocol) VTE Risk Factors Acute Medical Illness No Mechanical VTE Prophylaxis d/t N/A MechProphylax Ordered No VTE Pharm Prophylaxis d/t Other (on coumadin) Sepsis (View protocol) Sepsis Present: No If YES complete Sepsis Event Note If YES complete Sepsis Event Note Barbara Shay 02/10/18 1558: Core Measures/Misc (05/13) Sepsis (View protocol) If YES complete Sepsis Event Note If YES complete Sepsis Event Note Attending MD Review Statement Attending Statement Attending MD Statement: examined this patient, discuss w/resident/PA/REGULATORY AFFAIRS INTERN, agreed w/resident/PA/REGULATORY AFFAIRS INTERN, discussed with family, reviewed EMR data (avail), discussed with nursing, discussed with case mgmt, reviewed images, amended to note Attending Assessment/Plan: 77 o/f with pmh as above comes with increased lethargy and abdominal pain found to have elevated LFTs, hyperbilirubinemia, elevated alkaline phospahtase. USG abdomen non conclusive. Urinalysis abnormal. Patient vitals remains stable. Gastroenetrology contacted in ER Dr Joshi. Patient is being admitted to inpatient medical serivces for possible cholangitis rule out pancreatitis and possible UTI with lethargy. Keep her NPO, iv antibiotics, CT abd/pelvis with contrast, IVF, blood cultures, urine culture. monitor hemodynamics, pain control. Gi consult. Continue home meds. gi/dvt prophylaxis.
[2018-02-10 16:03] LABS: PT 35.5 SEC (9.4-12.5); PTT 53 SEC (25-37)
--- NOTE | 2018-02-10 16:20 | CT SCAN REPORT ---
EXAMINATION: CT ABDOMEN AND PELVIS WITH CONTRAST CLINICAL INFORMATION: Elevated LFTs, altered mental status, inconclusive ultrasound. COMPARISON: CT abdomen and pelvis dated 11/29/2017, CT abdomen dated 08/02/2015. CT abdomen dated 01/27/2013. TECHNIQUE: Multidetector volumetric imaging was performed of the abdomen and pelvis following IV administration of 95 mL of Optiray 320 intravenous contrast. Sagittal and coronal reformatted images were obtained on the technologist's workstation. DLP: 361 mGy-cm FINDINGS: LUNG BASES: There is a trace left pleural effusion with streaky dependent bibasilar consolidation/atelectasis. Aortic annular calcifications are noted. LIVER, GALLBLADDER, AND BILIARY TREE: The liver is normal in size, shape, and attenuation. No focal hepatic lesion or biliary ductal dilatation is present. The gallbladder is decompressed. Cholelithiasis is again noted. No gallbladder wall thickening or pericholecystic fluid. PANCREAS: Unremarkable. SPLEEN: There is a redemonstrated 1.6 cm enhancing lesion along the posterior margin of the spleen on image 19 of series 2. The spleen is normal in size. ADRENAL GLANDS: Unremarkable. KIDNEYS AND URETERS: There is a left superior renal pole collecting system calculus measuring 1.4 x 1.0 cm and conforming to the shape of the calyx. Medial superior left renal parenchymal scarring is noted. A minimally complex inferior left renal pole exophytic cyst is noted with thin calcified septations which are visible on the 01/27/2013 exam. There is no left hydronephrosis. The right renal collecting system has a ureteral stent in place but remains prominent in caliber, more dilated than on the 11/29/2017 exam at which time no stent was in place. The stent appears appropriately positioned with the proximal and in the dilated renal pelvis and the distal end within the decompressed bladder. An exophytic septated cyst off the lower right renal pole is stable from 2012 as is an exophytic superior pole cyst. No perinephric stranding. BLADDER: The bladder is decompressed with a Claudio catheter. GASTROINTESTINAL TRACT: There is a moderate stool burden within the colon. No small bowel dilatation. The hepatic flexure of the transverse colon extends far superiorly anterior to the liver and overlying the gallbladder, likely explaining the difficulty with the patient's attempted ultrasound examination. ABDOMINAL WALL: No significant hernia is appreciated. LYMPH NODES: Normal. VASCULAR: There is diffuse atherosclerotic vascular calcification without abdominal aortic aneurysm. A left superficial femoral artery stent graft is noted. PELVIC VISCERA: The uterus is not well-visualized and is likely surgically absent. No adnexal masses. OSSEOUS STRUCTURES: Right hip ORIF is noted which produces streak artifact across the pelvis. Transitional lumbosacral anatomy is noted with a partially lumbarized S1. L3 superior endplate and T9 superior endplate compression deformities are stable dating back to at least 08/02/2015. 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 IMPRESSION: 1. Cholelithiasis without evidence of acute cholecystitis. 2. Enhancing lesion in the posterior spleen which is stable from 11/29/2017. This may be amenable to further evaluation with left upper quadrant ultrasound. 3. Dilated right renal collecting system in the setting of ureteral stent placement which appears appropriately positioned. 4. Multiple mildly complicated renal cysts which are stable dating back to 2012. 5. Moderate stool burden within the colon, with the hepatic flexure extending far superiorly, anterior to the liver and overlying the gallbladder, explaining the difficulty with the patient's right upper quadrant ultrasound examination. 6. Diffuse atherosclerotic vascular calcification without abdominal aortic aneurysm. 7. Trace left pleural effusion, similar to multiple prior exams, appearing chronic.
[2018-02-10 18:30] VITALS: BP 122/70
[2018-02-10 22:09] VITALS: BP 120/70
[2018-02-11 05:59] VITALS: BP 162/76
--- NOTE | 2018-02-11 07:16 | PN- Housestaff ---
Subjective Follow-up For: Weakness Transaminits Subjective: patient seen and examined. Resting comfortably. Offers no complaints. Review of Systems Constitutional: Reports: no symptoms. Objective Last 24 Hrs of Vital Signs/I&O Vital Signs Date Time Temp Pulse Resp B/P B/P Pulse O2 O2 Flow FiO2 Mean Ox Delivery Rate 02/11 1356 98.6 81 18 180/76 92 Room Air 02/11 0857 178/76 02/11 0856 178/76 02/11 0800 Room Air 02/11 0559 98.0 79 20 162/76 94 02/10 2209 98.7 68 20 120/70 98 Nasal Cannula 02/10 1830 97.6 62 20 122/70 94 Nasal Cannula 02/10 1820 Nasal 2.0L Cannula 02/10 1627 97.4 71 15 150/65 96 Nasal 2.0L Cannula Intake & Output 02/11 1600 02/11 0800 02/11 0000 Intake Total 600 200 Output Total 0764 133 5789 Balance -1200 100 -1100 Intake, IV 600 Intake, Oral 200 Output, Urine 1191 406 4345 Patient 137 lb Weight Physical Exam General Appearance: Alert, Oriented X3, Cooperative, Mild Distress Skin: No Rashes, No Breakdown Skin Temp/Moisture Exam: Warm/Dry Sepsis Skin Exam (color): Normal for Ethnicity HEENT: Atraumatic Cardiovascular: Normal S1, Normal S2, No Murmurs Lungs: Normal Air Movement Abdomen: Soft, No Tenderness Neurological: Normal Speech Extremities: No Edema Last 24 Hrs of Lab/Albert Results Last 24 Hrs of Labs/Mics: Laboratory Tests 02/11/18 0650: Anion Gap 13, Estimated GFR > 60, BUN/Creatinine Ratio 28.6 H, Total Bilirubin 3.0 H, Direct Bilirubin 2.6 H, AST 163 H, ALT 323 H, Alkaline Phosphatase 524 H, Total Protein 6.1 L, Albumin 2.9 L, PT 44.8 *H, INR 4.05 *H, CBC w Diff NO MAN DIFF REQ, RBC 3.92 L, MCV 84.8, MCH 28.7, MCHC 33.9, RDW 17.1 H, MPV 9.5, Gran % 65.5, Lymphocytes % 18.6 L, Monocytes % 6.4, Eosinophils % 8.8 H, Basophils % 0.7, Absolute Granulocytes 4.0, Absolute Lymphocytes 1.1 L, Absolute Monocytes 0.4, Absolute Eosinophils 0.5, Absolute Basophils 0 02/10/181919: Lactic Acid 0.7 Assessment/Plan Assessment: 77 yo F with PMH of multiple sclerosis with functional paraplegia, wheelchair bound, chronic indwelling Claudio catheter secondary to neurogenic bladder, recurrent UTIs, hyperlipidemia, PVD status post right leg stent placement, hypothyroidism, provoked DVT on Coumadin presented to ED with 1 day hx of generalized malaise. Assessment: 1. Cholelithiasis 2. Transaminitis 3. Weakness 4. Diffuse atherosclerotic vascular calcification 5. History of MS Plan: * Continue IV Unasyn 3g q6 * CT scan showed cholelithiasis without evidence of acute cholecystitis. * She does not have any evidence of cholangitis currently. * Follow Blood cultures * Her LFTs are elevated which could be due to her cholelithiasis. They've trended down since yesterday. Will continue to monitor for now. * Will need further evaluation with MRCP * GI to be notified if patient develops signs of cholangitis; RUQ pain, fevers, hypotension. * Her INR is supratherapeutic. Will keep her Coumadin on hold * Diet: Regular * DVT Prophylaxis: On Coumadin * Code: DNR/DNI Problem List: 1. Cholelithiasis Pain Ratin Pain Location: none Pain Goal: Remain pain free Pain Plan: none Tomorrow's Labs & Rationales: CBC, BEP, LFTs, INR
--- NOTE | 2018-02-11 07:31 | Cons- Gastroenterology ---
General Information and HPI Consulting Request Date of Consult: 02/11/18 Requested By: Barbara Shay MD Reason for Consult: Increased LFTs, rule out cholangitis. Source of Information: patient Exam Limitations: no limitations History of Present Illness: Ms. Salinas is a 77 year old female with MS and PVD on chronic coumadin who presented to yesterday with complaints of worsening lethargy. She has in indwelling warner and she has had numerous UTIs in the past which she notes are also associated with lethargy, but she feels this is a bit more severe. She has chronic back pain that hasn't changed recently and she denies any pain with eating or vomiting. She denies any agustin colored stool or dark urine, but she notes that she can't really see her stool. On that note she also denies rectal bleeding or melena. She denies any noticable jaundice and she has not had any high fevers at home. In the ER she was hemodynamically stable and afebrile. Her LFTs were noted to be marked elevated with a total bili of 3.2 an alk phos of 415 and a transaminitis in the 3-400 range which was new, but imaging didn't reveal any obvious biliary ductal dilation, albeit the studies were limited. On admission she was started on abx for a positive UA and she has been pancultured. She has been afebrile and hemodynamically stable since admission and she hasn't had any signifiacnt abdominal pain. Allergies/Medications Allergies: Coded Allergies: Sulfa (Sulfonamide Antibiotics) (INCOHERENT 11/21/16) oxycodone (SENSITIVITY TO IT 11/21/16) Home Med List: Amitriptyline HCl 25 MG TABLET 1 TAB PO QPM DEPRESSION (Reported) Amlodipine Besylate 10 MG TABLET 1 TAB PO DAILY Blood Pressure (Reported) Ascorbic Acid (Vitamin C) 1,000 MG TABLET 1 TAB PO DAILY SUPPLEMENT (Reported ) Baclofen 20 MG TABLET 1 TAB PO 4 TIMES/DAY SPASM (Reported) Calcium (Elemental-Fr Calcarb) (Calcium) 600 MG CALCIUM (1,500 MG) TABLET 2, 400 MG PO DAILY SUPPLEMENT (Reported) Cyanocobalamin (Vitamin B-12) 1,000 MCG TABLET 1 TAB PO DAILY SUPPLEMENT ( Reported) Ezetimibe (Zetia) 10 MG TABLET 1 TAB PO DAILY CHOLESTEROL (Reported) Ferrous Sulfate 325 MG (65 MG IRON) TABLET 1 TAB PO DAILY SUPPLEMENT ( Reported) Lactulose 10 GRAM/15 ML SOLUTION 30 ML PO DAILY GI (Reported) Levothyroxine Sodium 100 MCG TABLET 1 TAB PO DAILY AC THYROID (Reported) Lisinopril 10 MG TABLET 1 TAB PO DAILY BP (Reported) Metoprolol Tartrate 25 MG TABLET 0.5 TAB PO BID eTelemetry . Multivitamin (Daily Value) 1 EACH TABLET 1 TAB PO DAILY SUPPLEMENT (Reported) Nitrofurantoin Monohyd/M-Cryst (Nitrofurantoin Huron-Mcr 100 MG) 100 MG CAPSULE 1 CAP PO BID ABX (Reported) Pravastatin Sodium (Pravachol) 80 MG TABLET 1 TAB PO DAILY CHOLESTEROL ( Reported) Vancomycin HCl 1 GRAM VIAL 1,000 MG IV DAILY UTI Warfarin Sodium (Coumadin) 5 MG TABLET 1 TAB PO MoTuWeThFr BLOOD THINNER ( Reported) Warfarin Sodium (Coumadin) 7.5 MG TABLET 1 TAB PO SuSa BLOOD THINNER ( Reported) Current Medications: Current Medications Sig/Laura Start time Last Medication Dose Route Stop Time Status Admin Amitriptyline HCl 25 MG QPM 02/10 2100 AC 02/10 PO 2247 Amlodipine Besylate 5 MG DAILY 02/11 0900 AC PO Ampicillin Sodium/ 3,000 MG Q6H 02/10 2245 CAN Sulbactam Sodium IV Sodium Chloride 100 ML Ampicillin Sodium/ 3,000 MG Q6H 02/10 2145 AC 02/11 Sulbactam Sodium IV 0313 Sodium Chloride 100 ML Ampicillin Sodium/ 0 .STK-MED ONE 02/10 1531 DC Sulbactam Sodium .ROUTE Ampicillin Sodium/ 3,000 MG ONCE ONE 02/10 1530 DC 02/10 Sulbactam Sodium IV 02/10 1559 1546 Sodium Chloride 100 ML Baclofen 20 MG Q6 PRN 02/10 1915 AC PO Cyanocobalamin 1,000 MCG DAILY 02/11 0900 AC PO Enoxaparin Sodium 40 MG DAILY 02/11 0900 CAN SC Ezetimibe 10 MG DAILY 02/11 0900 AC PO Ferrous Sulfate 325 MG DAILY 02/11 0900 AC PO Levothyroxine Sodium 0.1 MG DAILY AC 02/11 0700 AC 02/11 PO 0525 Lisinopril 10 MG DAILY 02/11 0900 AC PO Melatonin 5 MG AT BEDTIME 02/10 2100 AC 02/10 PO 2248 Nystatin 5 ML 4 TIMES/DAY 02/10 2116 AC PO Pravastatin Sodium 80 MG DAILY 02/11 0900 DC PO Sodium Chloride 1,000 ML ONCE ONE 02/10 1900 AC 02/11 IV 02/11 0819 0244 Sodium Chloride 1,000 ML ONCE ONE 02/10 1330 DC 02/10 IV 02/10 2009 1334 Sodium Chloride 1,000 ML BOLUS ONE 02/10 1015 DC 02/10 IV 02/10 1114 1032 Past History Travel History Traveled to [place] past 21 day No Medical History Neurological: 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 EENT: NONE Cardiovascular: hypertension, hyperlipidemia, PVD (stent to R leg) Respiratory: NONE Gastrointestinal: NONE Hepatic: NONE 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 Denies: fever. EENTM: Denies: no symptoms. Cardiovascular: Denies: no symptoms. Respiratory: Denies: no symptoms. GI: Reports: see HPI. Genitourinary: Reports: see HPI (indwelling warner). Musculoskeletal: Reports: back pain, joint pain, muscle pain, muscle stiffness. Denies: gout, joint swelling. Skin: Denies: no symptoms. Neurological/Psychological: Reports: numbness, weakness. Hematologic/Endocrine: Denies: no symptoms. Immunologic/Allergic: Denies: no symptoms. All Other Systems: Reviewed and Negative Exam & Diagnostic Data Vital Signs and I&O Vital Signs Date Time Temp Pulse Resp B/P B/P Pulse O2 O2 Flow FiO2 Mean Ox Delivery Rate 02/11 0559 98.0 79 20 162/76 94 02/10 2209 98.7 68 20 120/70 98 Nasal Cannula 02/10 1830 97.6 62 20 122/70 94 Nasal Cannula 02/10 1820 Nasal 2.0L Cannula 02/10 1627 97.4 71 15 150/65 96 Nasal 2.0L Cannula 02/10 1322 98.2 93 15 144/65 96 Room Air 02/10 1036 95 Room Air 02/10 1001 97.7 74 15 125/78 97 Room Air Room Air Intake & Output 02/11 1600 02/11 0400 02/10 1600 02/10 0400 02/09 1600 02/09 0400 Intake Total 604 968 2678 Output Total 500 1300 100 Balance 100 -1100 900 Intake, IV 600 1000 Intake, Oral 200 Output, Urine 500 1300 100 Patient 137 lb Weight Physical Exam General Appearance: well developed/nourished, no apparent distress, alert, awake , comfortable Head: atraumatic, normal appearance Eyes: Bilateral: normal appearance. Ears, Nose, Throat: normal pharynx, normal ENT inspection, hearing grossly normal Neck: normal inspection, supple, full range of motion Respiratory: normal breath sounds, chest non-tender, no respiratory distress Cardiovascular: regular rate/rhythm Gastrointestinal: normal bowel sounds, soft, non-tender, no organomegaly Rectal: deferred Back: normal inspection Extremities: pedal edema Neurologic/Psych: no motor/sensory deficits, awake, alert, oriented x 3 Skin: intact, normal color, warm/dry Results Pertinent Lab Results: Laboratory Tests 02/11 02/10 02/10 0650 1920 1015 Chemistry Sodium (137 - 145 mmol/L) Pending 139 Potassium (3.5 - 5.1 mmol/L) Pending 3.9 Chloride (98 - 107 mmol/L) Pending 102 Carbon Dioxide (22 - 30 mmol/L) Pending 26 Anion Gap (5 - 16) Pending 11 BUN (7 - 17 mg/dL) Pending 29 H Creatinine (0.5 - 1.0 mg/dL) Pending 1.0 Estimated GFR (>60 ml/min) 54 L BUN/Creatinine Ratio (7 - 25 %) Pending 29.0 H Glucose (65 - 99 mg/dL) 122 H Lactic Acid (0.7 - 2.1 mmol/L) 0.7 0.8 Calcium (8.4 - 10.2 mg/dL) 9.4 Total Bilirubin (0.2 - 1.3 mg/dL) Pending 3.2 H Direct Bilirubin (< 0.4 mg/dL) Pending 2.6 H GGT (12 - 43 U/L) 415 H AST (14 - 36 U/L) Pending 363 H ALT (9 - 52 U/L) Pending 465 H Alkaline Phosphatase (<127 U/L) Pending 427 H Troponin I (< 0.11 ng/ml) < 0.01 Total Protein (6.3 - 8.2 g/dL) Pending 6.4 Albumin (3.5 - 5.0 g/dL) Pending 3.2 L Globulin (1.9 - 4.2 gm/dL) 3.2 Albumin/Globulin Ratio (1.1 - 2.2 %) 1.0 L Amylase (30 - 110 U/L) 118 H Lipase (23 - 300 U/L) 302 H TSH (0.270 - 4.200 uIU/mL) 0.439 Coagulation PT (9.4 - 12.5 SEC) Pending 35.5 H INR (0.90 - 1.19) Pending 3.22 H APTT (25 - 37 SEC) 53 H Hematology CBC w Diff Pending NO MAN DIFF REQ WBC (4.8 - 10.8 /CUMM) Pending 10.5 RBC (4.20 - 5.40 /CUMM) Pending 4.31 Hgb (12.0 - 16.0 G/DL) Pending 12.2 Hct (37 - 47 %) Pending 36.3 L MCV (81.0 - 99.0 FL) Pending 84.3 MCH (27.0 - 31.0 PG) Pending 28.3 MCHC (33.0 - 37.0 G/DL) Pending 33.6 RDW (11.5 - 14.5 %) Pending 16.9 H Plt Count (130 - 400 /CUMM) Pending 233 MPV (7.4 - 10.4 FL) Pending 9.0 Gran % (42.2 - 75.2 %) 82.9 H Lymphocytes % (20.5 - 51.1 %) 8.6 L Monocytes % (1.7 - 9.3 %) 5.4 Eosinophils % (0 - 5 %) 2.9 Basophils % (0.0 - 2.0 %) 0.2 Absolute Granulocytes (1.4 - 6.5 /CUMM) 8.7 H Absolute Lymphocytes (1.2 - 3.4 /CUMM) 0.9 L Absolute Monocytes (0.10 - 0.60 /CUMM) 0.6 Absolute Eosinophils (0.0 - 0.7 /CUMM) 0.3 Absolute Basophils (0.0 - 0.2 /CUMM) 0 Serology Hepatitis A IgM Ab (NONREACTIVE) Pending Hep Bs Antigen (NONREACTIVE) Pending Hep B Core IgM Ab Conf (NONREACTIVE) Pending Hepatitis C Antibody (NONREACTIVE) Pending Toxicology Acetaminophen (10.0 - 30.0 ug/mL) < 10.0 L Serum Alcohol (<10 MG/DL) < 10.0 Urines Urine Color (YEL,AMB,STR) YEL Urine Clarity (CLEAR) HAZY H Urine pH (5.0 - 8.0) 7.0 Ur Specific Mayo (1.001 - 1.035) 1.015 Urine Protein (NEG,<30 MG/DL) 30 H Urine Ketones (NEG) NEG Urine Nitrite (NEG) NEG Urine Bilirubin (NEG) NEG@ICTO Urine Urobilinogen (0.1 - 1.0 EU/dl) 1.0 Ur Leukocyte Esterase (NEG) LARGE H Ur Microscopic SEDIMENT EXAMINED Urine RBC (0 - 5 /HPF) 1-3 Urine WBC (0 - 2 /HPF) 5-10 H Ur Epithelial Cells (NONE,FEW) MOD H Urine Bacteria (NEG/NONE) MANY H Urine Hemoglobin (NEG) SMALL H Urine Glucose (N MG/DL) NEG Imaging/Other Studies: SERVICE DATE: 02/10/18 EXAM TYPE: US - US-LIMITED ABDOMEN EXAMINATION: US ABDOMEN LIMITED CLINICAL INFORMATION: Elevated LFTs. Acute mental status change. COMPARISON: CT scan of the abdomen and pelvis dated 11/29/2017. TECHNIQUE: Real-time imaging of the right upper quadrant abdominal viscera. FINDINGS: Evaluation is limited by patient body habitus, difficulty patient positioning and respiratory cessation and overlying bowel gas. PANCREAS: The pancreatic body and portions of the tail are visualized and appear unremarkable. Remainder of pancreas is obscured by bowel and bowel gas. LIVER: Poorly visualized due to high intrathoracic location. The liver demonstrates normal size, contour and echogenicity. No focal lesion or intrahepatic biliary duct dilatation. GALLBLADDER AND COMMON BILE DUCT: Not seen due to shadowing bowel gas. RIGHT KIDNEY: There is moderate right-sided hydronephrosis, similar to the CT scan. There is a 1.3 x 0.5 x 0.9 cm echogenic calcification seen in the upper pole of the right kidney. The right ureter cannot be followed. The kidney measures 10.1 cm in maximum dimension. There is a exophytic 1.2 x 1.4 x 1.2 cm simple cyst in the upper pole of the right kidney. Previously demonstrated right renal cyst is not visualized today. FREE FLUID: None. IMPRESSION: 1. Significantly limited exam due to patient's body habitus, high intrathoracic location of intra-abdominal organs, large amounts of bowel gas, and difficulties with patient mobility/respiratory cessation. 2. Gallbladder, common bile duct, pancreatic head and portions of the tail are not visualized, despite bringing the patient back to the radiology department for real-time assessment by the reading radiologist. 3. Moderate right-sided hydronephrosis, similar to prior exam. This was shown previously to be due to an obstructing ureteral calculus, which is not appreciated by this ultrasound. 4. Right renal cyst and nonobstructing upper pole right renal calcification are unchanged. SERVICE DATE: 02/10/18 EXAM TYPE: CAT - CT ABD & PELVIS W IV CONTRAST EXAMINATION: CT ABDOMEN AND PELVIS WITH CONTRAST CLINICAL INFORMATION: Elevated LFTs, altered mental status, inconclusive ultrasound. COMPARISON: CT abdomen and pelvis dated 11/29/2017, CT abdomen dated 08/02/2015. CT abdomen dated 01/27/2013. TECHNIQUE: Multidetector volumetric imaging was performed of the abdomen and pelvis following IV administration of 95 mL of Optiray 320 intravenous contrast. Sagittal and coronal reformatted images were obtained on the technologist's workstation. DLP: 361 mGy-cm FINDINGS: LUNG BASES: There is a trace left pleural effusion with streaky dependent bibasilar consolidation/atelectasis. Aortic annular calcifications are noted. LIVER, GALLBLADDER, AND BILIARY TREE: The liver is normal in size, shape, and attenuation. No focal hepatic lesion or biliary ductal dilatation is present. The gallbladder is decompressed. Cholelithiasis is again noted. No gallbladder wall thickening or pericholecystic fluid. PANCREAS: Unremarkable. SPLEEN: There is a redemonstrated 1.6 cm enhancing lesion along the posterior margin of the spleen on image 19 of series 2. The spleen is normal in size. ADRENAL GLANDS: Unremarkable. KIDNEYS AND URETERS: There is a left superior renal pole collecting system calculus measuring 1.4 x 1.0 cm and conforming to the shape of the calyx. Medial superior left renal parenchymal scarring is noted. A minimally complex inferior left renal pole exophytic cyst is noted with thin calcified septations which are visible on the 01/27/2013 exam. There is no left hydronephrosis. The right renal collecting system has a ureteral stent in place but remains prominent in caliber, more dilated than on the 11/29/2017 exam at which time no stent was in place. The stent appears appropriately positioned with the proximal and in the dilated renal pelvis and the distal end within the decompressed bladder. An exophytic septated cyst off the lower right renal pole is stable from 2012 as is an exophytic superior pole cyst. No perinephric stranding. BLADDER: The bladder is decompressed with a Warner catheter. GASTROINTESTINAL TRACT: There is a moderate stool burden within the colon. No small bowel dilatation. The hepatic flexure of the transverse colon extends far superiorly anterior to the liver and overlying the gallbladder, likely explaining the difficulty with the patient's attempted ultrasound examination. ABDOMINAL WALL: No significant hernia is appreciated. LYMPH NODES: Normal. VASCULAR: There is diffuse atherosclerotic vascular calcification without abdominal aortic aneurysm. A left superficial femoral artery stent graft is noted. PELVIC VISCERA: The uterus is not well-visualized and is likely surgically absent. No adnexal masses. OSSEOUS STRUCTURES: Right hip ORIF is noted which produces streak artifact across the pelvis. Transitional lumbosacral anatomy is noted with a partially lumbarized S1. L3 superior endplate and T9 superior endplate compression deformities are stable dating back to at least 08/02/2015. 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 IMPRESSION: 1. Cholelithiasis without evidence of acute cholecystitis. 2. Enhancing lesion in the posterior spleen which is stable from 11/29/2017. This may be amenable to further evaluation with left upper quadrant ultrasound. 3. Dilated right renal collecting system in the setting of ureteral stent placement which appears appropriately positioned. 4. Multiple mildly complicated renal cysts which are stable dating back to 2012. 5. Moderate stool burden within the colon, with the hepatic flexure extending far superiorly, anterior to the liver and overlying the gallbladder, explaining the difficulty with the patient's right upper quadrant ultrasound examination. 6. Diffuse atherosclerotic vascular calcification without abdominal aortic aneurysm. 7. Trace left pleural effusion, similar to multiple prior exams, appearing chronic. Assessment/Plan Assessment/Recommendations: Assessment: Ms. Salinas is a 77 year old female with MS and PVD on coumadin who presents with lethargy and in her work up she was found to have elevated transaminases of uncertain etiology or significance, but it certainly suggests that some of her symptoms may be biliary in etiology. While it is possible the increased LFTs may be reactive from urosepsis as she has had mildly elevated alk phos and transaminases in the past, but she currently only has 5-10 WBCs on her UA and her urine culture is negative to date. Also, while her LFTs have been elevated in the past her bilirubin is always normal and her other LFTs have not been elevated to this level. She did have gallstones on a ct scan, but she is without biliary dilatation and the US was limited secondary to body habitus. She also doesn't give a good history of biliary colic which would raise the possibility of an occult malignacny, but a contrast enhanced ct scan didn't show any obvious masses in her pancreas or jayce hepatis. While she could have cholangitis and while an ERCP may ultimately be necessary as she is afebrile and normotensive I don't feel that an ERCP is urgent and will therefore recommend additional imaging prior to pursuing this. Recommendations: 1. Continue IV antibiotics for now 2. Follow daily LFTs and daily INR 3. Check an MRCP of the abd 4. Hold coumadin for now in case an ERCP is necessary, but would not reverse INR just yet 5. Notify GI if she develops signs of cholangitis (ie RUQ pain, fevers, hypotension etc). 6. Follow up cultures 7. Consideration will be given for an ERCP if definitive choledocolithiasis seen on MRCP or if she develops a clinical picture more consistent with cholangitis vs an outpatient EUS based on her clinical course and results of repeat bood work. I will continue to follow this patient and make further recommendations based on her clinical course and results of repeat blood work and additional imaging. Problem List: 1. Multiple sclerosis 2. UTI 3. Elevated alkaline phosphatase level 4. Cholelithiases 5. Hyperbilirubinemia Copies To: Chana DANIELS,Misty Consult Acknowledgment - Thank you for your consult request.
--- NOTE | 2018-02-11 07:45 | PN- Student ---
Subjective Subjective: No acute events overnight. Patient seen and examined this morning. Patient complains of abdominal pain. Objective Objective: Vital Signs Date Time Temp Pulse Resp B/P B/P Pulse O2 O2 Flow FiO2 Mean Ox Delivery Rate 02/11 0857 178/76 02/11 0856 178/76 02/11 0559 98.0 79 20 162/76 94 02/10 2209 98.7 68 20 120/70 98 Nasal Cannula 02/10 1830 97.6 62 20 122/70 94 Nasal Cannula 02/10 1820 Nasal 2.0L Cannula 02/10 1627 97.4 71 15 150/65 96 Nasal 2.0L Cannula 02/10 1322 98.2 93 15 144/65 96 Room Air Intake & Output 02/11 1600 02/11 0800 02/11 0000 Intake Total 600 200 Output Total 500 1300 Balance 100 -1100 Intake, IV 600 Intake, Oral 200 Output, Urine 500 1300 Patient 137 lb Weight PE: General= aler and oriented HEENTL= NCAT, anicteric sclera, moist oral mucosa CVS= regular rate and rythm, normal S1 and S2 Lungs= clear lungs bilateral Abdomen= soft, mildly distended, mildly tender over RUQ and epigastrum Results Results: Laboratory Tests 02/11/18 0650: Anion Gap 13, Estimated GFR > 60, BUN/Creatinine Ratio 28.6 H, Total Bilirubin 3.0 H, Direct Bilirubin 2.6 H, AST 163 H, ALT 323 H, Alkaline Phosphatase 524 H, Total Protein 6.1 L, Albumin 2.9 L, PT 44.8 *H, INR 4.05 *H, CBC w Diff NO MAN DIFF REQ, RBC 3.92 L, MCV 84.8, MCH 28.7, MCHC 33.9, RDW 17.1 H, MPV 9.5, Gran % 65.5, Lymphocytes % 18.6 L, Monocytes % 6.4, Eosinophils % 8.8 H, Basophils % 0.7, Absolute Granulocytes 4.0, Absolute Lymphocytes 1.1 L, Absolute Monocytes 0.4, Absolute Eosinophils 0.5, Absolute Basophils 0 02/10/18 1920: Lactic Acid 0.7 Assessment/Plan Assessment: 77 y/o F with PMH of MS with functional paraplegia, wheelchair bound, chronic indwelling means catheter 2/2 to neurogenic bladder, recurrent UTIs, HLD, PVD status post right leg stent placement, hypothyroidism, provoked DVT on Coumadin and recent shingles infection, recent right hydroureteronephrosis due to 7mm ureteric stone s/p stent brought to ED for one day hx of generalized malaise. Found to have elevated bilirubin (primary direct), elevated ALK phos, transaminitis and lipase amylase elvated with CT findings of cholelithiasis but no obvious ductal obstruction or pancreatitis. Found to have moderate stool burden within the colon and dilated right renal collecting system in the setting of ureteral stent. No Clinical or laboratory findings suggestive of infection ( afebrile, no leukocytosis, no URI/abdominal or genitourinary symptoms). Patient kept NPO in the anticipation of possible ERCP if deterioration. GI was consulted and waiting for todays recomendation. Patient been treated with NS and Unasyn. Plan: -Cont. IV Unasyn -F/U Blood cultures -keep her Coumadin on hold Diet: Regular DVT ppx: Coumadin Code: full code
[2018-02-11 08:32] LABS: ABSOLUTE BASOPHIL COUNT 0 /CUMM (0.0-0.2); ABSOLUTE EOSINOPHIL COUNT 0.5 /CUMM (0.0-0.7); ABSOLUTE LYMPH COUNT 1.1 /CUMM (1.2-3.4); ABSOLUTE MONOCYTE COUNT 0.4 /CUMM (0.10-0.60); BASOPHIL % 0.7 % (0.0-2.0); EOSINOPHIL % 8.8 % (0-5); GRANULOCYTE % 65.5 % (42.2-75.2); HEMATOCRIT 33.2 % (37-47); MEAN CORPUSCULAR HGB 28.7 PG (27.0-31.0); MEAN CORPUSCULAR HGB CONC 33.9 G/DL (33.0-37.0); MEAN CORPUSCULAR VOLUME 84.8 FL (81.0-99.0); MEAN PLATELET VOLUME 9.5 FL (7.4-10.4); PLATELET COUNT 214 /CUMM (130-400); RBC DISTRIBUTION WIDTH 17.1 % (11.5-14.5); RED BLOOD CELL CT 3.92 /CUMM (4.20-5.40); WHITE BLOOD CELL COUNT 6.2 /CUMM (4.8-10.8)
[2018-02-11 08:42] LABS: PT 44.8 SEC (9.4-12.5)
[2018-02-11 13:56] VITALS: BP 180/76
--- NOTE | 2018-02-11 14:38 | PN- Att Addend ---
Attending Addendum Attending Brief Note Patient seen and examined, Feels ok. Lfts are coming down. Vital Signs Date Time Temp Pulse Resp B/P B/P Pulse O2 O2 Flow FiO2 Mean Ox Delivery Rate 02/11 1356 98.6 81 18 180/76 92 Room Air 02/11 0857 178/76 02/11 0856 178/76 02/11 0800 Room Air 02/11 0559 98.0 79 20 162/76 94 02/10 2209 98.7 68 20 120/70 98 Nasal Cannula 02/10 1830 97.6 62 20 122/70 94 Nasal Cannula 02/10 1820 Nasal 2.0L Cannula 02/10 1627 97.4 71 15 150/65 96 Nasal 2.0L Cannula on exam; aox,3, nad. cv; s1,s2, rrr resp; clear abd; soft, nt, bs+ ext; no edema Laboratory Tests 02/11 02/10 0650 1920 Chemistry Sodium (137 - 145 mmol/L) 144 Potassium (3.5 - 5.1 mmol/L) 3.9 Chloride (98 - 107 mmol/L) 109 H Carbon Dioxide (22 - 30 mmol/L) 22 Anion Gap (5 - 16) 13 BUN (7 - 17 mg/dL) 20 H Creatinine (0.5 - 1.0 mg/dL) 0.7 Estimated GFR (>60 ml/min) > 60 BUN/Creatinine Ratio (7 - 25 %) 28.6 H Lactic Acid (0.7 - 2.1 mmol/L) 0.7 Total Bilirubin (0.2 - 1.3 mg/dL) 3.0 H Direct Bilirubin (< 0.4 mg/dL) 2.6 H AST (14 - 36 U/L) 163 H ALT (9 - 52 U/L) 323 H Alkaline Phosphatase (<127 U/L) 524 H Total Protein (6.3 - 8.2 g/dL) 6.1 L Albumin (3.5 - 5.0 g/dL) 2.9 L Coagulation PT (9.4 - 12.5 SEC) 44.8 *H INR (0.90 - 1.19) 4.05 *H Hematology CBC w Diff NO MAN DIFF REQ WBC (4.8 - 10.8 /CUMM) 6.2 RBC (4.20 - 5.40 /CUMM) 3.92 L Hgb (12.0 - 16.0 G/DL) 11.3 L Hct (37 - 47 %) 33.2 L MCV (81.0 - 99.0 FL) 84.8 MCH (27.0 - 31.0 PG) 28.7 MCHC (33.0 - 37.0 G/DL) 33.9 RDW (11.5 - 14.5 %) 17.1 H Plt Count (130 - 400 /CUMM) 214 MPV (7.4 - 10.4 FL) 9.5 Gran % (42.2 - 75.2 %) 65.5 Lymphocytes % (20.5 - 51.1 %) 18.6 L Monocytes % (1.7 - 9.3 %) 6.4 Eosinophils % (0 - 5 %) 8.8 H Basophils % (0.0 - 2.0 %) 0.7 Absolute Granulocytes (1.4 - 6.5 /CUMM) 4.0 Absolute Lymphocytes (1.2 - 3.4 /CUMM) 1.1 L Absolute Monocytes (0.10 - 0.60 /CUMM) 0.4 Absolute Eosinophils (0.0 - 0.7 /CUMM) 0.5 Absolute Basophils (0.0 - 0.2 /CUMM) 0 on exam; awake,. nad. cv; s1,s2, rrr resp; clear abd; soft, nt, bs+ ext; no edema Laboratory Tests 02/11 02/10 0650 1920 Chemistry Sodium (137 - 145 mmol/L) 144 Potassium (3.5 - 5.1 mmol/L) 3.9 Chloride (98 - 107 mmol/L) 109 H Carbon Dioxide (22 - 30 mmol/L) 22 Anion Gap (5 - 16) 13 BUN (7 - 17 mg/dL) 20 H Creatinine (0.5 - 1.0 mg/dL) 0.7 Estimated GFR (>60 ml/min) > 60 BUN/Creatinine Ratio (7 - 25 %) 28.6 H Lactic Acid (0.7 - 2.1 mmol/L) 0.7 Total Bilirubin (0.2 - 1.3 mg/dL) 3.0 H Direct Bilirubin (< 0.4 mg/dL) 2.6 H AST (14 - 36 U/L) 163 H ALT (9 - 52 U/L) 323 H Alkaline Phosphatase (<127 U/L) 524 H Total Protein (6.3 - 8.2 g/dL) 6.1 L Albumin (3.5 - 5.0 g/dL) 2.9 L Coagulation PT (9.4 - 12.5 SEC) 44.8 *H INR (0.90 - 1.19) 4.05 *H Hematology CBC w Diff NO MAN DIFF REQ WBC (4.8 - 10.8 /CUMM) 6.2 RBC (4.20 - 5.40 /CUMM) 3.92 L Hgb (12.0 - 16.0 G/DL) 11.3 L Hct (37 - 47 %) 33.2 L MCV (81.0 - 99.0 FL) 84.8 MCH (27.0 - 31.0 PG) 28.7 MCHC (33.0 - 37.0 G/DL) 33.9 RDW (11.5 - 14.5 %) 17.1 H Plt Count (130 - 400 /CUMM) 214 MPV (7.4 - 10.4 FL) 9.5 Gran % (42.2 - 75.2 %) 65.5 Lymphocytes % (20.5 - 51.1 %) 18.6 L Monocytes % (1.7 - 9.3 %) 6.4 Eosinophils % (0 - 5 %) 8.8 H Basophils % (0.0 - 2.0 %) 0.7 Absolute Granulocytes (1.4 - 6.5 /CUMM) 4.0 Absolute Lymphocytes (1.2 - 3.4 /CUMM) 1.1 L Absolute Monocytes (0.10 - 0.60 /CUMM) 0.4 Absolute Eosinophils (0.0 - 0.7 /CUMM) 0.5 Absolute Basophils (0.0 - 0.2 /CUMM) 0 A/p; 77 y/o f with pmh sig for multiple sclerosis with functional paraplegia, wheelchair bound, chronic indwelling Claudio catheter secondary to neurogenic bladder, recurrent UTIs, hyperlipidemia, PVD status post right leg stent placement, hypothyroidism, provoked DVT on Coumadin admitted with generalized malaise and found to have transaminitis and evidence of gallstones on CT abdomen and pelvis. Appreciate GI input. GI recommends to continue antibiotics for now. The also recommend to get an MRCP. No urgent need for ERCP per GI. Coumadin on hold. Will recheck INR in the morning. Continue the rest of the medications. DVT prophylaxis: INR supratherapeutic.
[2018-02-11 22:37] VITALS: BP 170/68
[2018-02-12 06:49] VITALS: BP 185/90
--- NOTE | 2018-02-12 07:27 | PN- Housestaff ---
Millicent DANIELS,[facility] 02/12/18 0727: Subjective Follow-up For: Weakness Transaminitis Subjective: Patient seen and examined. Does not offer any complaints. Review of Systems Constitutional: Reports: no symptoms. Objective Last 24 Hrs of Vital Signs/I&O Vital Signs Date Time Temp Pulse Resp B/P B/P Pulse O2 O2 Flow FiO2 Mean Ox Delivery Rate 02/12 0649 98.2 88 20 185/90 94 Room Air 02/12 0647 88 185/90 02/12 0647 88 185/90 02/11 2237 98.2 92 17 170/68 91 Room Air 02/11 1624 180/76 02/11 1356 98.6 81 18 180/76 92 Room Air 02/11 0857 178/76 02/11 0856 178/76 02/11 0800 Room Air Intake & Output 02/12 0800 02/12 0000 02/11 1600 Intake Total 700 840 60 Output Total 6304 603 5433 Balance -900 90 -1140 Intake, IV 600 600 Intake, Oral 100 240 60 Number 0 Bowel Movements Output, Urine 6888 607 5524 Physical Exam General Appearance: Alert, Oriented X3, Cooperative, Mild Distress Skin: No Rashes, No Breakdown, small healed lesion around buttock with no skin breakdown Skin Temp/Moisture Exam: Warm/Dry Sepsis Skin Exam (color): Normal for Ethnicity HEENT: Atraumatic Cardiovascular: Normal S1, Normal S2, MARCELO Lungs: Normal Air Movement Abdomen: Soft, No Tenderness Neurological: Normal Speech Extremities: No Edema Last 24 Hrs of Lab/Albert Results Last 24 Hrs of Labs/Mics: Laboratory Tests 02/12/18 0715: Anion Gap 12, Estimated GFR > 60, BUN/Creatinine Ratio 18.3, Total Bilirubin 2.8 H, Direct Bilirubin 2.3 H, AST 135 H, ALT 294 H, Alkaline Phosphatase 873 H , Total Protein 6.4, Albumin 3.0 L, PT 40.5 H, INR 3.67 H, CBC w Diff NO MAN DIFF REQ, RBC 4.31, MCV 84.2, MCH 27.9, MCHC 33.1, RDW 17.4 H, MPV 9.4, Gran % 64.2, Lymphocytes % 23.7, Monocytes % 8.6, Eosinophils % 2.9, Basophils % 0.6, Absolute Granulocytes 4.0, Absolute Lymphocytes 1.5, Absolute Monocytes 0.5, Absolute Eosinophils 0.2, Absolute Basophils 0 Assessment/Plan Assessment: 77 yo F with PMH of multiple sclerosis with functional paraplegia, wheelchair bound, chronic indwelling Claudio catheter secondary to neurogenic bladder, recurrent UTIs, hyperlipidemia, PVD status post right leg stent placement, hypothyroidism, provoked DVT on Coumadin presented to ED with 1 day hx of generalized malaise. Assessment: 1. Cholelithiasis 2. Transaminitis 3. Weakness 4. Diffuse atherosclerotic vascular calcification 5. History of MS Plan: * Continue IV Unasyn 3g q6 * CT scan showed cholelithiasis without evidence of acute cholecystitis. * She does not have any evidence of cholangitis currently. * Follow Blood cultures. Negative so far * Her LFTs are elevated which could be due to her cholelithiasis. They've trended down since yesterday except for ALP which can lag behind. * Repeat U/S abdomen today. If negative then outpatient EUS. If shows biliary dilatation then will need ERCP tomorrow. * GI to be notified if patient develops signs of cholangitis; RUQ pain, fevers, hypotension. * Her INR is supratherapeutic. Will keep her Coumadin on hold in case intervention is needed. * Diet: Regular * DVT Prophylaxis: On Coumadin * Code: DNR/DNI Problem List: 1. Cholelithiasis Pain Ratin Pain Location: none Pain Goal: Remain pain free Pain Plan: none Tomorrow's Labs & Rationales: LFTs Heather Byrd MD 02/12/18 1214: Attending MD Review Statement Attending Statement Attending MD Statement: examined this patient, discuss w/resident/PA/FUNERAL LIMOUSINE DRIVER, agreed w/resident/PA/FUNERAL LIMOUSINE DRIVER, reviewed EMR data (avail), discussed with nursing, discussed with case mgmt, reviewed images, amended to note Attending Assessment/Plan: Patient seen and examined, claims that she is feeling better today overall. She denies any abdominal pain or nausea. She does have a good appetite. All of her LFTs are improving except for alkaline phosphatase which is worse today. Patient could not undergo MRCP yesterday secondary to not following commands. Vital Signs Date Time Temp Pulse Resp B/P B/P Pulse O2 O2 Flow FiO2 Mean Ox Delivery Rate 02/12 0959 87 164/78 02/12 0649 98.2 88 20 185/90 94 Room Air 02/12 0647 88 185/02/12 0647 88 18502/11 2237 98.2 92 17 170/68 91 Room Air 02/11 1624 18002/11 1356 98.6 81 18 92 Room Air on exam; aox3 nad. cv; s1,s2, rrr resp; clear abd: soft, nt, bs+ ext; no edema Laboratory Tests 02/12 0715 Chemistry Sodium (137 - 145 mmol/L) 142 Potassium (3.5 - 5.1 mmol/L) 3.6 Chloride (98 - 107 mmol/L) 104 Carbon Dioxide (22 - 30 mmol/L) 26 Anion Gap (5 - 16) 12 BUN (7 - 17 mg/dL) 11 Creatinine (0.5 - 1.0 mg/dL) 0.6 Estimated GFR (>60 ml/min) > 60 BUN/Creatinine Ratio (7 - 25 %) 18.3 Total Bilirubin (0.2 - 1.3 mg/dL) 2.8 H Direct Bilirubin (< 0.4 mg/dL) 2.3 H AST (14 - 36 U/L) 135 H ALT (9 - 52 U/L) 294 H Alkaline Phosphatase (<127 U/L) 873 H Total Protein (6.3 - 8.2 g/dL) 6.4 Albumin (3.5 - 5.0 g/dL) 3.0 L Coagulation PT (9.4 - 12.5 SEC) 40.5 H INR (0.90 - 1.19) 3.67 H Hematology CBC w Diff NO MAN DIFF REQ WBC (4.8 - 10.8 /CUMM) 6.3 RBC (4.20 - 5.40 /CUMM) 4.31 Hgb (12.0 - 16.0 G/DL) 12.0 Hct (37 - 47 %) 36.3 L MCV (81.0 - 99.0 FL) 84.2 MCH (27.0 - 31.0 PG) 27.9 MCHC (33.0 - 37.0 G/DL) 33.1 RDW (11.5 - 14.5 %) 17.4 H Plt Count (130 - 400 /CUMM) 276 MPV (7.4 - 10.4 FL) 9.4 Gran % (42.2 - 75.2 %) 64.2 Lymphocytes % (20.5 - 51.1 %) 23.7 Monocytes % (1.7 - 9.3 %) 8.6 Eosinophils % (0 - 5 %) 2.9 Basophils % (0.0 - 2.0 %) 0.6 Absolute Granulocytes (1.4 - 6.5 /CUMM) 4.0 Absolute Lymphocytes (1.2 - 3.4 /CUMM) 1.5 Absolute Monocytes (0.10 - 0.60 /CUMM) 0.5 Absolute Eosinophils (0.0 - 0.7 /CUMM) 0.2 Absolute Basophils (0.0 - 0.2 /CUMM) 0 A/P: 77 y/o f with pmh sig for multiple sclerosis with functional paraplegia, wheelchair bound, chronic indwelling Claudio catheter secondary to neurogenic bladder, recurrent UTIs, hyperlipidemia, PVD status post right leg stent placement, hypothyroidism, provoked DVT on Coumadin admitted with generalized malaise and found to have transaminitis and evidence of gallstones on CT abdomen and pelvis. As mentioned above, MRI could not be done. Alkaline phosphatase is worse today. Will notify GI. Patient did eat regular breakfast this morning which he tolerated without any issues. Clinically she is improving. She is afebrile. She is continued on antibiotics. Her INR although improved than yesterday but still remains in this upper therapeutic range. Please give a more aggressive bowel regimen as CT abdomen showed moderate stool. Continue the rest of the management.
--- NOTE | 2018-02-12 07:29 | PN- Student ---
Subjective Subjective: No acute events overnight. Patient seen and examined this morning. Patient did not reported any problems overnight and is not complaining of any pain. Objective Objective: Vital Signs Date Time Temp Pulse Resp B/P B/P Pulse O2 O2 Flow FiO2 Mean Ox Delivery Rate 02/12 0959 87 164/78 02/12 0800 Room Air 02/12 0649 98.2 88 20 185/90 94 Room Air 02/12 0647 88 185/90 02/12 0647 88 185/90 02/11 2237 98.2 92 17 170/68 91 Room Air 02/11 1624 180/76 02/11 1356 98.6 81 18 180/76 92 Room Air Intake & Output 02/12 1600 02/12 0800 02/12 0000 Intake Total 700 840 Output Total 1600 750 Balance -900 90 Intake, IV 600 600 Intake, Oral 100 240 Number 0 Bowel Movements Output, Urine 1600 750 PE: General= aler and oriented HEENTL= NCAT, anicteric sclera, moist oral mucosa CVS= regular rate and rythm, normal S1 and S2, 2/3 systolic murmur Lungs= clear lungs bilateral Abdomen= soft, mildly distended, mildly tender over RUQ and epigastrum Results Results: Laboratory Tests 02/12/18 0715: Anion Gap 12, Estimated GFR > 60, BUN/Creatinine Ratio 18.3, Total Bilirubin 2.8 H, Direct Bilirubin 2.3 H, AST 135 H, ALT 294 H, Alkaline Phosphatase 873 H , Total Protein 6.4, Albumin 3.0 L, PT 40.5 H, INR 3.67 H, CBC w Diff NO MAN DIFF REQ, RBC 4.31, MCV 84.2, MCH 27.9, MCHC 33.1, RDW 17.4 H, MPV 9.4, Gran % 64.2, Lymphocytes % 23.7, Monocytes % 8.6, Eosinophils % 2.9, Basophils % 0.6, Absolute Granulocytes 4.0, Absolute Lymphocytes 1.5, Absolute Monocytes 0.5, Absolute Eosinophils 0.2, Absolute Basophils 0 02/11/18 0650: Anion Gap 13, Estimated GFR > 60, BUN/Creatinine Ratio 28.6 H, Total Bilirubin 3.0 H, Direct Bilirubin 2.6 H, AST 163 H, ALT 323 H, Alkaline Phosphatase 524 H, Total Protein 6.1 L, Albumin 2.9 L, PT 44.8 *H, INR 4.05 *H, CBC w Diff NO MAN DIFF REQ, RBC 3.92 L, MCV 84.8, MCH 28.7, MCHC 33.9, RDW 17.1 H, MPV 9.5, Gran % 65.5, Lymphocytes % 18.6 L, Monocytes % 6.4, Eosinophils % 8.8 H, Basophils % 0.7, Absolute Granulocytes 4.0, Absolute Lymphocytes 1.1 L, Absolute Monocytes 0.4, Absolute Eosinophils 0.5, Absolute Basophils 0 02/10/18 1920: Lactic Acid 0.7 02/10/18 1015: Anion Gap 11, Estimated GFR 54 L, BUN/Creatinine Ratio 29.0 H, Glucose 122 H, Lactic Acid 0.8, Calcium 9.4, Total Bilirubin 3.2 H, Direct Bilirubin 2.6 H, GGT 415 H, AST 363 H, ALT 465 H, Alkaline Phosphatase 427 H, Troponin I < 0.01, Total Protein 6.4, Albumin 3.2 L, Globulin 3.2, Albumin/Globulin Ratio 1.0 L, Amylase 118 H, Lipase 302 H, TSH 0.439, PT 35.5 H, INR 3.22 H, APTT 53 H, CBC w Diff NO MAN DIFF REQ, RBC 4.31, MCV 84.3, MCH 28.3, MCHC 33.6, RDW 16.9 H, MPV 9.0, Gran % 82.9 H, Lymphocytes % 8.6 L, Monocytes % 5.4, Eosinophils % 2.9, Basophils % 0.2, Absolute Granulocytes 8.7 H, Absolute Lymphocytes 0.9 L, Absolute Monocytes 0.6, Absolute Eosinophils 0.3, Absolute Basophils 0, Hepatitis A IgM Ab NONREACTIVE, Hep Bs Antigen NONREACTIVE, Hep B Core IgM Ab Conf NONREACTIVE, Hepatitis C Antibody NONREACTIVE, Acetaminophen < 10.0 L, Serum Alcohol < 10.0, Urine Color YEL, Urine Clarity HAZY H, Urine pH 7.0, Ur Specific [place] 1.015, Urine Protein 30 H, Urine Ketones NEG, Urine Nitrite NEG, Urine Bilirubin NEG@ICTO, Urine Urobilinogen 1.0, Ur Leukocyte Esterase LARGE H, Ur Microscopic SEDIMENT EXAMINED, Urine RBC 1-3, Urine WBC 5- 10 H, Ur Epithelial Cells MOD H, Urine Bacteria MANY H, Urine Hemoglobin SMALL H, Urine Glucose NEG Microbiology 02/10 1016 BLOOD: Blood Culture - RES 02/10 1015 URINE ROUT: Urine Culture - COMP 02/10 1015 BLOOD: Blood Culture - RES Assessment/Plan Assessment: 77 y/o F with PMH of MS with functional paraplegia, wheelchair bound, chronic indwelling means catheter 2/2 to neurogenic bladder, recurrent UTIs, HLD, PVD status post right leg stent placement, hypothyroidism, provoked DVT on Coumadin, recent shingles infection, recent right hydroureteronephrosis due to 7mm ureteric stone s/p stent. Patient was brought to ED for one day hx of generalized malaise. Found to have elevated bilirubin (primarily direct), elevated ALK phos, transaminitis and lipase/amylase elevated. CT findings of cholelithiasis, but no obvious ductal obstruction or pancreatitis. Found to have moderate stool burden within the colon and dilated right renal collecting system in the setting of ureteral stent. No clinical or laboratory findings suggestive of infection (afebrile, no leukocytosis, no URI/abdominal or genitourinary symptoms). Patient cont afebrile and no leukocytosis. Patient could not followed comands for a MRCP yesterday. LFT's are trending down except for ALK which is in the 800 's. COmplete ultrasound is recommended and will follow up on results for any ductal dilatation. If patient develop fever or leukocytosis ERCP is recommended. If US report any sign of ductal dilatation make the patient NPO for ERCP. Cont. to hold coumadin.
[2018-02-12 08:31] LABS: PT 40.5 SEC (9.4-12.5)
[2018-02-12 08:33] LABS: ABSOLUTE BASOPHIL COUNT 0 /CUMM (0.0-0.2); ABSOLUTE EOSINOPHIL COUNT 0.2 /CUMM (0.0-0.7); ABSOLUTE LYMPH COUNT 1.5 /CUMM (1.2-3.4); ABSOLUTE MONOCYTE COUNT 0.5 /CUMM (0.10-0.60); BASOPHIL % 0.6 % (0.0-2.0); EOSINOPHIL % 2.9 % (0-5); GRANULOCYTE % 64.2 % (42.2-75.2); HEMATOCRIT 36.3 % (37-47); MEAN CORPUSCULAR HGB 27.9 PG (27.0-31.0); MEAN CORPUSCULAR HGB CONC 33.1 G/DL (33.0-37.0); MEAN CORPUSCULAR VOLUME 84.2 FL (81.0-99.0); MEAN PLATELET VOLUME 9.4 FL (7.4-10.4); PLATELET COUNT 276 /CUMM (130-400); RBC DISTRIBUTION WIDTH 17.4 % (11.5-14.5); RED BLOOD CELL CT 4.31 /CUMM (4.20-5.40); WHITE BLOOD CELL COUNT 6.3 /CUMM (4.8-10.8)
--- NOTE | 2018-02-12 13:53 | PN- Gastroenterology ---
Assessment/Plan GI Assessment/Recommendations: Assessment: Ms. Salinas is a 77 year old female with MS admitted with lethargy and increased LFTs of uncertain etiology, but she has been afebrile on antibiotics and she is without any other evidence of cholangitis as she is also without any RUQ pain. Her bilirubin and transaminases have mildly improved, but her alk phos remains elevated. Unfortunately, she wasn't able to tolerate the MRI yesterday so it is still not clear if her increased LFTs are secondary to the gallstones she was noted to have on her admission ct scan. While I would of expected some pain if the increased LFTs are from gallstones it is still possible and should be ruled out so would recommend repeating her US at this time and if there is evidence of dilated ducts will then proceed wtih an ERCP when her INR is in an acceptable range. If the US is negative for dilated ducts and she remains without evidence of cholangitis may then consider an outpatient EUS. Recommendations: 1. Continue IV antibiotics for now 2. Follow up cultures (all negative so far) 3. Re-check a RUQ US to assess for any biliary ductal dilatation 4. Diet as tolerated 5. Would continue to hold coumadin and follow daily INR in case biliary intervention is necessary, but would not reverse it at this time. 6. Notify GI for signs of cholangitis 7. If brigette dil on US would then proceed with an ERCP and if no brigette dil consideration will be given for an outpatient EUS. I will continue to follow this patient and make further recommendations based on her clinical course and results of repeat blood work and imaging. Subjective Subjective: she is without complaints. no abdominal pain, vomiting or chills and she is tolerating a diet. She was not able to tolerate the MRCP yesterday. Objective Vital Signs and I&Os Vital Signs Date Time Temp Pulse Resp B/P B/P Pulse O2 O2 Flow FiO2 Mean Ox Delivery Rate 02/12 0959 87 164/78 02/12 0800 Room Air 02/12 0649 98.2 88 20 185/90 94 Room Air 02/12 0647 88 185/90 02/12 0647 88 185/90 02/11 2237 98.2 92 17 170/68 91 Room Air 02/11 1624 180/76 02/11 1356 98.6 81 18 180/76 92 Room Air Intake & Output 02/12 1600 02/12 0400 06/18 1600 02/11 0400 02/10 1600 02/10 0400 Intake Total 700 840 436 914 9966 Output Total 0998 483 6390 1300 100 Balance -900 90 -1040 -1100 900 Intake, IV 600 535 432 5633 Intake, Oral 100 240 60 200 Number 0 Bowel Movements Output, Urine 5491 082 7227 1300 100 Patient 137 lb Weight Physical Exam General Appearance: well developed/nourished, no apparent distress, comfortable Head: atraumatic Ears, Nose, Throat: normal pharynx Respiratory: normal breath sounds, chest non-tender, no respiratory distress Cardiovascular: regular rate/rhythm Abdomen: normal bowel sounds, soft, non-tender, no organomegaly Rectal: deferred Skin: intact, normal color, warm/dry Current Medications: Current Medications Sig/Laura Start time Last Medication Dose Route Stop Time Status Admin Amitriptyline HCl 25 MG QPM 02/10 2100 AC 02/11 PO 2220 Amlodipine Besylate 10 MG DAILY 02/12 0900 02/12 PO 0959 Amlodipine Besylate 5 MG ONCE ONE 02/11 1500 DC 02/11 PO 02/11 1501 1624 Amlodipine Besylate 5 MG DAILY 02/11 09 W[place] 02/12 PO 0647 Ampicillin Sodium/ 3,000 MG Q6H 02/11 1436 AC 02/12 Sulbactam Sodium IV 1000 Sodium Chloride 100 ML Baclofen 20 MG Q6 PRN 02/10 1915 02/12 PO 0401 Bisacodyl 10 MG ONCE ONE 02/12 1015 DC 02/12 WV 02/12 1016 1109 Cyanocobalamin 1,000 MCG DAILY 02/11 0900 02/12 PO 0958 Dextrose/Sodium 1,000 ML Q13H 02/11 1545 02/12 Chloride IV 02/12 1744 1013 Docusate Sodium 100 MG DAILY 02/11 09 02/12 PO 0959 Ezetimibe 10 MG DAILY 02/11 0900 AC 02/12 PO 1000 Ferrous Sulfate 325 MG DAILY 02/11 0900 02/12 PO 0958 Levothyroxine Sodium 0.1 MG DAILY AC 02/11 0700 AC 02/12 PO 0603 Lisinopril 10 MG DAILY 02/11 0900 AC 02/12 PO 0647 Melatonin 5 MG AT BEDTIME 02/10 2100 AC 02/11 PO 2220 Nystatin 5 ML 4 TIMES/DAY 02/106 AC 02/12 PO 1012 Polyethylene Glycol 17 GM DAILY 02/11 0900 AC 02/12 PO 1000 Senna 187 MG AT BEDTIME 02/11 2100 AC PO Results Pertinent Lab Results: Laboratory Tests 02/12 02/11 0715 0650 Chemistry Sodium (137 - 145 mmol/L) 142 144 Potassium (3.5 - 5.1 mmol/L) 3.6 3.9 Chloride (98 - 107 mmol/L) 104 109 H Carbon Dioxide (22 - 30 mmol/L) 26 22 Anion Gap (5 - 16) 12 13 BUN (7 - 17 mg/dL) 11 20 H Creatinine (0.5 - 1.0 mg/dL) 0.6 0.7 Estimated GFR (>60 ml/min) > 60 > 60 BUN/Creatinine Ratio (7 - 25 %) 18.3 28.6 H Total Bilirubin (0.2 - 1.3 mg/dL) 2.8 H 3.0 H Direct Bilirubin (< 0.4 mg/dL) 2.3 H 2.6 H AST (14 - 36 U/L) 135 H 163 H ALT (9 - 52 U/L) 294 H 323 H Alkaline Phosphatase (<127 U/L) 873 H 524 H Total Protein (6.3 - 8.2 g/dL) 6.4 6.1 L Albumin (3.5 - 5.0 g/dL) 3.0 L 2.9 L Coagulation PT (9.4 - 12.5 SEC) 40.5 H 44.8 *H INR (0.90 - 1.19) 3.67 H 4.05 *H Hematology CBC w Diff NO MAN DIFF REQ NO MAN DIFF REQ WBC (4.8 - 10.8 /CUMM) 6.3 6.2 RBC (4.20 - 5.40 /CUMM) 4.31 3.92 L Hgb (12.0 - 16.0 G/DL) 12.0 11.3 L Hct (37 - 47 %) 36.3 L 33.2 L MCV (81.0 - 99.0 FL) 84.2 84.8 MCH (27.0 - 31.0 PG) 27.9 28.7 MCHC (33.0 - 37.0 G/DL) 33.1 33.9 RDW (11.5 - 14.5 %) 17.4 H 17.1 H Plt Count (130 - 400 /CUMM) 276 214 MPV (7.4 - 10.4 FL) 9.4 9.5 Gran % (42.2 - 75.2 %) 64.2 65.5 Lymphocytes % (20.5 - 51.1 %) 23.7 18.6 L Monocytes % (1.7 - 9.3 %) 8.6 6.4 Eosinophils % (0 - 5 %) 2.9 8.8 H Basophils % (0.0 - 2.0 %) 0.6 0.7 Absolute Granulocytes (1.4 - 6.5 /CUMM) 4.0 4.0 Absolute Lymphocytes (1.2 - 3.4 /CUMM) 1.5 1.1 L Absolute Monocytes (0.10 - 0.60 /CUMM) 0.5 0.4 Absolute Eosinophils (0.0 - 0.7 /CUMM) 0.2 0.5 Absolute Basophils (0.0 - 0.2 /CUMM) 0 0 02/10 02/10 1920 1015 Chemistry Sodium (137 - 145 mmol/L) 139 Potassium (3.5 - 5.1 mmol/L) 3.9 Chloride (98 - 107 mmol/L) 102 Carbon Dioxide (22 - 30 mmol/L) 26 Anion Gap (5 - 16) 11 BUN (7 - 17 mg/dL) 29 H Creatinine (0.5 - 1.0 mg/dL) 1.0 Estimated GFR (>60 ml/min) 54 L BUN/Creatinine Ratio (7 - 25 %) 29.0 H Glucose (65 - 99 mg/dL) 122 H Lactic Acid (0.7 - 2.1 mmol/L) 0.7 0.8 Calcium (8.4 - 10.2 mg/dL) 9.4 Total Bilirubin (0.2 - 1.3 mg/dL) 3.2 H Direct Bilirubin (< 0.4 mg/dL) 2.6 H GGT (12 - 43 U/L) 415 H AST (14 - 36 U/L) 363 H ALT (9 - 52 U/L) 465 H Alkaline Phosphatase (<127 U/L) 427 H Troponin I (< 0.11 ng/ml) < 0.01 Total Protein (6.3 - 8.2 g/dL) 6.4 Albumin (3.5 - 5.0 g/dL) 3.2 L Globulin (1.9 - 4.2 gm/dL) 3.2 Albumin/Globulin Ratio (1.1 - 2.2 %) 1.0 L Amylase (30 - 110 U/L) 118 H Lipase (23 - 300 U/L) 302 H TSH (0.270 - 4.200 uIU/mL) 0.439 Coagulation PT (9.4 - 12.5 SEC) 35.5 H INR (0.90 - 1.19) 3.22 H APTT (25 - 37 SEC) 53 H Hematology CBC w Diff NO MAN DIFF REQ WBC (4.8 - 10.8 /CUMM) 10.5 RBC (4.20 - 5.40 /CUMM) 4.31 Hgb (12.0 - 16.0 G/DL) 12.2 Hct (37 - 47 %) 36.3 L MCV (81.0 - 99.0 FL) 84.3 MCH (27.0 - 31.0 PG) 28.3 MCHC (33.0 - 37.0 G/DL) 33.6 RDW (11.5 - 14.5 %) 16.9 H Plt Count (130 - 400 /CUMM) 233 MPV (7.4 - 10.4 FL) 9.0 Gran % (42.2 - 75.2 %) 82.9 H Lymphocytes % (20.5 - 51.1 %) 8.6 L Monocytes % (1.7 - 9.3 %) 5.4 Eosinophils % (0 - 5 %) 2.9 Basophils % (0.0 - 2.0 %) 0.2 Absolute Granulocytes (1.4 - 6.5 /CUMM) 8.7 H Absolute Lymphocytes (1.2 - 3.4 /CUMM) 0.9 L Absolute Monocytes (0.10 - 0.60 /CUMM) 0.6 Absolute Eosinophils (0.0 - 0.7 /CUMM) 0.3 Absolute Basophils (0.0 - 0.2 /CUMM) 0 Serology Hepatitis A IgM Ab (NONREACTIVE) NONREACTIVE Hep Bs Antigen (NONREACTIVE) NONREACTIVE Hep B Core IgM Ab Conf (NONREACTIVE) NONREACTIVE Hepatitis C Antibody (NONREACTIVE) NONREACTIVE Toxicology Acetaminophen (10.0 - 30.0 ug/mL) < 10.0 L Serum Alcohol (<10 MG/DL) < 10.0 Urines Urine Color (YEL,AMB,STR) YEL Urine Clarity (CLEAR) HAZY H Urine pH (5.0 - 8.0) 7.0 Ur Specific [place] (1.001 - 1.035) 1.015 Urine Protein (NEG,<30 MG/DL) 30 H Urine Ketones (NEG) NEG Urine Nitrite (NEG) NEG Urine Bilirubin (NEG) NEG@ICTO Urine Urobilinogen (0.1 - 1.0 EU/dl) 1.0 Ur Leukocyte Esterase (NEG) LARGE H Ur Microscopic SEDIMENT EXAMINED Urine RBC (0 - 5 /HPF) 1-3 Urine WBC (0 - 2 /HPF) 5-10 H Ur Epithelial Cells (NONE,FEW) MOD H Urine Bacteria (NEG/NONE) MANY H Urine Hemoglobin (NEG) SMALL H Urine Glucose (N MG/DL) NEG
[2018-02-12 14:54] VITALS: BP 98/60
--- NOTE | 2018-02-12 16:30 | ULTRASOUND REPORT ---
EXAMINATION: US ABDOMEN COMPLETE CLINICAL INFORMATION: Elevated LFTs, malaise, weakness. Limited resolution of previous ultrasound. Assessment for biliary obstruction. COMPARISON: Right upper quadrant ultrasound dated 02/10/2018. CT scan of the abdomen and pelvis dated 11/29/2017. TECHNIQUE: Real-time imaging of the abdominal viscera. FINDINGS: Evaluation is limited due to patient's body habitus and difficulties with patient mobility and bowel gas. PANCREAS: The pancreatic body and tail are partially imaged and appear atrophic. Remainder of pancreas is obscured by bowel gas. ABDOMINAL AORTA: The proximal segment is normal in caliber. INFERIOR VENA CAVA: Visualized portions are normal. LIVER: Normal. The liver demonstrates normal size, contour and echogenicity. No focal lesion or intrahepatic biliary duct dilatation. GALLBLADDER: There is a 1.2 x 0.8 x 1.9 cm echogenic shadowing focus seen within the gallbladder, consistent with a gallstone. Slight gallbladder wall thickening is seen, measuring up to 0.3 cm. The gallbladder is physiologically distended without evidence of sludge, polyps, wall thickening or pericholecystic fluid. COMMON BILE DUCT: Normal in caliber measuring 0.3 cm in diameter. RIGHT KIDNEY: There is an exophytic benign-appearing simple cyst in the upper pole of the right kidney, measuring 1.3 x 1.3 x 1.4 cm versus 1.2 x 1.4 x 1.2 cm (02/10/2018) and in the lower pole, measuring 1.1 x 1.3 x 1.1 cm (not definitely seen on prior exam). In the upper pole of the right kidney, an echogenic linear shadowing focus is seen, measuring 0.9 x 0.3 x 0.6 cm versus 1.3 x 0.5 x 0.9 cm (02/10/2018). This likely represents the proximal pigtail of the indwelling right double-J stent. No hydronephrosis. No suspicious focal parenchymal lesions. The kidney is mildly atrophic and measures 8.3 cm in maximum dimension. LEFT KIDNEY: Diffusely atrophic. Lower pole partially shadowed out by overlying bowel gas. There is a 2.8 x 2.8 x 2.7 cm cyst in the mid left kidney. This demonstrates internal septations with punctate calcification, corresponding to the mildly complicated cystic mass seen in the lower pole of the left kidney on CT scan from 02/10/2018, unchanged dating back to at least 08/02/2015. No hydronephrosis. No renal calculi. The kidney measures 9.8 cm in maximum dimension. SPLEEN: Normal. The spleen measures 11.8 cm in maximum dimension. FREE FLUID: None. IMPRESSION: 1. Liver and biliary tree are normal. No evidence of biliary obstruction. 2. Cholelithiasis is again noted with borderline gallbladder wall thickening, perhaps related to chronic inflammation. No acute sonographic Warner sign or pericholecystic fluid. 3. Atrophic pancreas with partial obscuration of the pancreatic head and tail. 4. Bilateral benign cysts, including a complex septated cyst with calcification within the septation in the lower pole of the left kidney. 5. Proximal portion of the right double-J ureteral stent is imaged. No hydronephrosis. 6. Atrophic kidneys.
--- NOTE | 2018-02-12 17:10 | Discharge Summary ---
Visit Information Visit Dates Admission Date: 02/10/18 Discharge Date: 02/21/2018 Hospital Course Course Attending Physician: Carson DANIELS,Heather Primary Care Physician: Chana DANIELS,[facility] Course: Ms Salinas is a 77 yo F with PMH of multiple sclerosis with functional paraplegia, wheelchair bound, chronic indwelling Means catheter secondary to neurogenic bladder, recurrent UTIs, hyperlipidemia, PVD status post right leg stent placement, hypothyroidism, provoked DVT on Coumadin presented to ED with 1 day history of generalized malaise and weakness. Initially there was concern for cholangitis as pt had elevated LFT and bilirubin. Subsequently she was placed on IV Unasyn. Her LFT and bili was stable and a few days later started to come down but her Alkaline phosphatase continued to trend upward. Initially pt did not tolerate MRCP. When she was switched from Unasyn to Augmentin her Alk Phos continued to trend upward with a peak of almost 1400. GI was re-consulted and pt was able to obtain second MRCP which was negative for choledocholithiasis, CBD dilation or c/o for cholangitis. Decision was made to stop abx as her cholestatic injury pattern with no sig findings on MRCP could be a result of Drug Induced Liver Injury (DILI). After d.c abx her LFTs and Alk Phos remarkably improved. While in hospital she continued to spike fever (tmax 102.4) and Ucx grew enterococcus in context of chronic indwelling means catheter. The UCX showed that it was sensitive to Amp, Macrobid and Vanco. Given that she had DILI and her age we treated with Vancomycin. She also went to OR with Dr. Aranda for lithotripsy and a new stent was placed. Stent was removed on 02/21 prior to discharge. Other ancillary work up showed: stable MRI, no new MS plaques, nml EEG,MRCP with evidence of stones, but no ductal dilation or obstruction. * VNA to change means monthly at home * F/U in Dr. Zepeda's office PRN * Will note pt PENICILLING ALLERGIC! It would be unwise to rechallenge her with penicillins as in cases of DILI it could result in life-threatening consequences * Continue Coumadin * Continue IV Vancomycin 1000mg daily for a total ten day duration of therapy( see special instructions below). There is no PICC line access placed, plan is for abx to be given IV in STR. * Continue Amitriptaline, Zetia, Synthroid, Amlodipine, Metoprolol Allergies: Coded Allergies: Penicillins (Severe, Drug induced liver injury. Don't rechallenge 02/21/18) Sulfa (Sulfonamide Antibiotics) (INCOHERENT 02/21/18) oxycodone (SENSITIVITY TO IT 02/21/18) Significant Procedures: SERVICE DATE: 02/14/18- EXAM TYPE: RAD - XRY-PORTABLE CHEST XRAY FINDINGS: The lungs are well-expanded and clear of acute process. The heart size and pulmonary vascularity is normal. No gross bony abnormality seen. IMPRESSION: Unremarkable chest exam. SERVICE DATE: 02/12/18-134 EXAM TYPE: US - US-COMPLETE ABDOMEN FINDINGS: Evaluation is limited due to patient's body habitus and difficulties with patient mobility and bowel gas. PANCREAS: The pancreatic body and tail are partially imaged and appear atrophic. Remainder of pancreas is obscured by bowel gas. ABDOMINAL AORTA: The proximal segment is normal in caliber. INFERIOR VENA CAVA: Visualized portions are normal. LIVER: Normal. The liver demonstrates normal size, contour and echogenicity. No focal lesion or intrahepatic biliary duct dilatation. GALLBLADDER: There is a 1.2 x 0.8 x 1.9 cm echogenic shadowing focus seen within the gallbladder, consistent with a gallstone. Slight gallbladder wall thickening is seen, measuring up to 0.3 cm. The gallbladder is physiologically distended without evidence of sludge, polyps, wall thickening or pericholecystic fluid. COMMON BILE DUCT: Normal in caliber measuring 0.3 cm in diameter. RIGHT KIDNEY: There is an exophytic benign-appearing simple cyst in the upper pole of the right kidney, measuring 1.3 x 1.3 x 1.4 cm versus 1.2 x 1.4 x 1.2 cm (02/10/2018) and in the lower pole, measuring 1.1 x 1.3 x 1.1 cm (not definitely seen on prior exam). In the upper pole of the right kidney, an echogenic linear shadowing focus is seen, measuring 0.9 x 0.3 x 0.6 cm versus 1.3 x 0.5 x 0.9 cm (02/10/2018). This likely represents the proximal pigtail of the indwelling right double-J stent. No hydronephrosis. No suspicious focal parenchymal lesions. The kidney is mildly atrophic and measures 8.3 cm in maximum dimension. LEFT KIDNEY: Diffusely atrophic. Lower pole partially shadowed out by overlying bowel gas. There is a 2.8 x 2.8 x 2.7 cm cyst in the mid left kidney. This demonstrates internal septations with punctate calcification, corresponding to the mildly complicated cystic mass seen in the lower pole of the left kidney on CT scan from 02/10/2018, unchanged dating back to at least 08/02/2015. No hydronephrosis. No renal calculi. The kidney measures 9.8 cm in maximum dimension. SPLEEN: Normal. The spleen measures 11.8 cm in maximum dimension. FREE FLUID: None. IMPRESSION: 1. Liver and biliary tree are normal. No evidence of biliary obstruction. 2. Cholelithiasis is again noted with borderline gallbladder wall thickening, perhaps related to chronic inflammation. No acute sonographic Warner sign or pericholecystic fluid. 3. Atrophic pancreas with partial obscuration of the pancreatic head and tail. 4. Bilateral benign cysts, including a complex septated cyst with calcification within the septation in the lower pole of the left kidney. 5. Proximal portion of the right double-J ureteral stent is imaged. No hydronephrosis. 6. Atrophic kidneys. SERVICE DATE: 02/10/18 EXAM TYPE: CAT - CT ABD & PELVIS W IV CONTRAST FINDINGS: LUNG BASES: There is a trace left pleural effusion with streaky dependent bibasilar consolidation/atelectasis. Aortic annular calcifications are noted. LIVER, GALLBLADDER, AND BILIARY TREE: The liver is normal in size, shape, and attenuation. No focal hepatic lesion or biliary ductal dilatation is present. The gallbladder is decompressed. Cholelithiasis is again noted. No gallbladder wall thickening or pericholecystic fluid. PANCREAS: Unremarkable. SPLEEN: There is a redemonstrated 1.6 cm enhancing lesion along the posterior margin of the spleen on image 19 of series 2. The spleen is normal in size. ADRENAL GLANDS: Unremarkable. KIDNEYS AND URETERS: There is a left superior renal pole collecting system calculus measuring 1.4 x 1.0 cm and conforming to the shape of the calyx. Medial superior left renal parenchymal scarring is noted. A minimally complex inferior left renal pole exophytic cyst is noted with thin calcified septations which are visible on the 01/27/2013 exam. There is no left hydronephrosis. The right renal collecting system has a ureteral stent in place but remains prominent in caliber, more dilated than on the 11/29/2017 exam at which time no stent was in place. The stent appears appropriately positioned with the proximal and in the dilated renal pelvis and the distal end within the decompressed bladder. An exophytic septated cyst off the lower right renal pole is stable from 2012 as is an exophytic superior pole cyst. No perinephric stranding. BLADDER: The bladder is decompressed with a Means catheter. GASTROINTESTINAL TRACT: There is a moderate stool burden within the colon. No small bowel dilatation. The hepatic flexure of the transverse colon extends far superiorly anterior to the liver and overlying the gallbladder, likely explaining the difficulty with the patient's attempted ultrasound examination. ABDOMINAL WALL: No significant hernia is appreciated. LYMPH NODES: Normal. VASCULAR: There is diffuse atherosclerotic vascular calcification without abdominal aortic aneurysm. A left superficial femoral artery stent graft is noted. PELVIC VISCERA: The uterus is not well-visualized and is likely surgically absent. No adnexal masses. OSSEOUS STRUCTURES: Right hip ORIF is noted which produces streak artifact across the pelvis. Transitional lumbosacral anatomy is noted with a partially lumbarized S1. L3 superior endplate and T9 superior endplate compression deformities are stable dating back to at least 08/02/2015. 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 IMPRESSION: 1. Cholelithiasis without evidence of acute cholecystitis. 2. Enhancing lesion in the posterior spleen which is stable from 11/29/2017. This may be amenable to further evaluation with left upper quadrant ultrasound. 3. Dilated right renal collecting system in the setting of ureteral stent placement which appears appropriately positioned. 4. Multiple mildly complicated renal cysts which are stable dating back to 2012. 5. Moderate stool burden within the colon, with the hepatic flexure extending far superiorly, anterior to the liver and overlying the gallbladder, explaining the difficulty with the patient's right upper quadrant ultrasound examination. 6. Diffuse atherosclerotic vascular calcification without abdominal aortic aneurysm. 7. Trace left pleural effusion, similar to multiple prior exams, appearing chronic. SERVICE DATE: 02/10/18653 EXAM TYPE: US - US-LIMITED ABDOMEN FINDINGS: Evaluation is limited by patient body habitus, difficulty patient positioning and respiratory cessation and overlying bowel gas. PANCREAS: The pancreatic body and portions of the tail are visualized and appear unremarkable. Remainder of pancreas is obscured by bowel and bowel gas. LIVER: Poorly visualized due to high intrathoracic location. The liver demonstrates normal size, contour and echogenicity. No focal lesion or intrahepatic biliary duct dilatation. GALLBLADDER AND COMMON BILE DUCT: Not seen due to shadowing bowel gas. RIGHT KIDNEY: There is moderate right-sided hydronephrosis, similar to the CT scan. There is a 1.3 x 0.5 x 0.9 cm echogenic calcification seen in the upper pole of the right kidney. The right ureter cannot be followed. The kidney measures 10.1 cm in maximum dimension. There is a exophytic 1.2 x 1.4 x 1.2 cm simple cyst in the upper pole of the right kidney. Previously demonstrated right renal cyst is not visualized today. FREE FLUID: None. IMPRESSION: 1. Significantly limited exam due to patient's body habitus, high intrathoracic location of intra-abdominal organs, large amounts of bowel gas, and difficulties with patient mobility/respiratory cessation. 2. Gallbladder, common bile duct, pancreatic head and portions of the tail are not visualized, despite bringing the patient back to the radiology department for real-time assessment by the reading radiologist. 3. Moderate right-sided hydronephrosis, similar to prior exam. This was shown previously to be due to an obstructing ureteral calculus, which is not appreciated by this ultrasound. 4. Right renal cyst and nonobstructing upper pole right renal calcification are unchanged. SERVICE DATE: 02/10/18 EXAM TYPE: RAD - XRY-PORTABLE CHEST XRAY FINDINGS: Low lung volumes likely due to suboptimal inspiration. Minimal bibasilar opacities likely atelectasis. Cardiac silhouette mediastinum pulmonary vascularity are normal. IMPRESSION: Low lung volumes and bibasilar atelectasis. Disposition Summary Disposition Principal Diagnosis: Drug induced liver injury Additional Diagnosis: UTI Discharge Disposition: SNF Discharge Instructions General Discharge Information Code Status: Do Not Resucitate/Intubat Patient's Diet: Regular with 2g Na Patient's Activity: As tolerated Follow-Up Instructions/Appts: Please follow up with your PCP within one week of discharge. Please follow up with your Urologist in 2 weeks of discharge. Please have your INR checked on 02/22/18 and 02/24/18 The Means is to be changed monthly by VNA Please draw a Vancomycin trough level at 8.30 am on 02/22/18. If trough level is <15, please dose IV Vancomycin at 1g. Medications at Discharge Discharge Medications: Stop taking the following medications: Nitrofurantoin Monohyd/M-Cryst (Nitrofurantoin [place]-Mcr 100 MG) 100 MG CAPSULE ORAL TWICE DAILY Qty = 14 Continue taking these medications: Pravastatin Sodium (Pravachol) 80 MG TABLET 1 Tablet ORAL DAILY Comments: NOT GIVEN IN HOSPITAL,. ZETIA GIVEN 02/21/18 @1000AM Levothyroxine Sodium (Levothyroxine Sodium) 100 MCG TABLET 1 Tablet ORAL DAILY BEFORE BREAKFAST Comments: Last Taken: 02/21/18 Time: 6AM Multivitamin (Daily Value) 1 EACH TABLET 1 Tablet ORAL DAILY Comments: NOT GIVEN IN HOSPITAL Ferrous Sulfate (Ferrous Sulfate) 325 MG (65 MG IRON) TABLET 1 Tablet ORAL DAILY Comments: Last Taken: 02/21/18 Time: 1000AM Ascorbic Acid (Vitamin C) 1,000 MG TABLET 1 Tablet ORAL DAILY Comments: NOT GIVEN IN HOSPITAL Warfarin Sodium (Coumadin) 5 MG TABLET 1 Tablet ORAL MoTuWeThFr Comments: NOT GIVEN IN HOSPITAL Amitriptyline HCl (Amitriptyline HCl) 25 MG TABLET 1 Tablet ORAL Every night Comments: Last Taken: 02/20/18 Time: 2100PM Amlodipine Besylate (Amlodipine Besylate) 10 MG TABLET 1 Tablet ORAL DAILY Qty = 30 Comments: Last Taken: 02/21/18 Time: 1000AM Lisinopril (Lisinopril) 10 MG TABLET 1 Tablet ORAL DAILY Comments: NOT GIVEN IN HOSPITAL Warfarin Sodium (Coumadin) 7.5 MG TABLET 1 Tablet ORAL SuSa Comments: Last Taken: 02/20/18 Time: 5PM Baclofen (Baclofen) 20 MG TABLET 1 Tablet ORAL 4 TIMES A DAY Qty = 120 Comments: Last Taken: 02/21/18 Time: 1000AM Calcium (Elemental-Fr Calcarb) (Calcium) 600 MG CALCIUM (1,500 MG) TABLET 2,400 Milligram ORAL DAILY Comments: NOT GIVEN IN HOSPITAL Cyanocobalamin (Vitamin B-12) 1,000 MCG TABLET 1 Tablet ORAL DAILY Comments: NOT GIVEN IN HOSPITAL Ezetimibe (Zetia) 10 MG TABLET 1 Tablet ORAL DAILY Qty = 90 Comments: Last Taken: 02/21/18 Time: 1000AM Metoprolol Tartrate (Metoprolol Tartrate) 25 MG TABLET 0.5 Tablet ORAL TWICE DAILY Qty = 30 Instructions: . Comments: Last Taken: 02/21/18 Time:1000AM Lactulose (Lactulose) 10 GRAM/15 ML SOLUTION 30 Milliliters ORAL DAILY Comments: Last Taken: 02/21/18 Time: 1000AM Start taking the following new medications: Vancomycin HCl (Vancomycin HCl) 1 GRAM VIAL 1,000 Milligram INTRAVEN DAILY Qty = 3 No Refills Comments: Last Taken: 02/20/18 Time: 2100PM Copies To: Chana DANIELS,Misty
[2018-02-12 21:51] VITALS: BP 140/74
[2018-02-13 07:08] VITALS: BP 148/78
--- NOTE | 2018-02-13 07:15 | PN- Housestaff ---
Millicent DANIELS,[facility] 02/13/18 0714: Subjective Follow-up For: Cholelithiasis Transaminitis Weakness Subjective: Patient seen and examined. She is partially confused. While she knows she is at [facility] she constantly requests for something to be fetched from her kitchen and bedroom. Does not offer any complaints. Review of Systems Constitutional: Reports: no symptoms. Objective Last 24 Hrs of Vital Signs/I&O Vital Signs Date Time Temp Pulse Resp B/P B/P Pulse O2 O2 Flow FiO2 Mean Ox Delivery Rate 02/13 0708 98.7 101 18 148/78 92 02/13 0000 95 Nasal 1.0L Cannula 02/12 2151 98.2 82 18 140/74 94 Nasal 1.0L Cannula 02/12 1454 97.9 98 14 98/60 97 Room Air 02/12 0959 87 164/78 02/12 0800 Room Air Intake & Output 02/13 0800 02/13 0000 02/12 1600 Intake Total 600 1025 Output Total 1250 900 900 Balance -650 125 -900 Intake, IV 600 525 Intake, Oral 0 500 Number 1 Bowel Movements Output, Urine 1250 900 900 Physical Exam General Appearance: Alert, Cooperative, Mild Distress, oriented x2 Skin: No Rashes, No Breakdown Skin Temp/Moisture Exam: Warm/Dry Sepsis Skin Exam (color): Normal for Ethnicity HEENT: Atraumatic Cardiovascular: Normal S1, Normal S2, MARCELO Lungs: Normal Air Movement Abdomen: Soft, No Tenderness Neurological: Normal Speech Extremities: No Edema Last 24 Hrs of Lab/Albert Results Last 24 Hrs of Labs/Mics: Laboratory Tests 02/13/18 0750: Ammonia < 9 L 02/13/18 0700: Anion Gap 14, Estimated GFR > 60, BUN/Creatinine Ratio 15.7, Total Bilirubin 2.8 H, Direct Bilirubin 2.1 H, AST 136 H, ALT 253 H, Alkaline Phosphatase 1061 H, Total Protein 6.2 L, Albumin 3.0 L, PT 29.1 H, INR 2.64 H Assessment/Plan Assessment: 77 yo F with PMH of multiple sclerosis with functional paraplegia, wheelchair bound, chronic indwelling Claudio catheter secondary to neurogenic bladder, recurrent UTIs, hyperlipidemia, PVD status post right leg stent placement, hypothyroidism, provoked DVT on Coumadin presented to ED with 1 day hx of generalized malaise. Assessment: 1. Cholelithiasis 2. Transaminitis 3. Weakness 4. Diffuse atherosclerotic vascular calcification 5. History of MS Plan: * Discontinue IV Unasyn. * CT scan showed cholelithiasis without evidence of acute cholecystitis. * She does not have any evidence of cholangitis currently. * Follow Blood cultures. Negative so far * Her LFTs are elevated which could be due to her cholelithiasis. They've trended down since yesterday except for ALP and GGT. * Repeat U/S abdomen was negative for any intrabiliary dilatation * If afebrile and stable over the next 24 hours can be discharged. * GI to be notified if patient develops signs of cholangitis; RUQ pain, fevers, hypotension. * Her INR is therapeutic today. Will dose Coumadin 5mg. * Diet: Regular * DVT Prophylaxis: On Coumadin * Code: DNR/DNI Problem List: 1. Cholelithiasis Pain Ratin Pain Location: none Pain Goal: Remain pain free Pain Plan: none Tomorrow's Labs & Rationales: BEP, LFTs Heather Byrd MD 02/13/18 1152: Attending MD Review Statement Attending Statement Attending MD Statement: examined this patient, discuss w/resident/PA/TRAVEL PTA, agreed w/resident/PA/TRAVEL PTA, reviewed EMR data (avail), discussed with nursing, discussed with case mgmt, reviewed images, amended to note Attending Assessment/Plan: Patient seen and examined, denies any abdominal pain. Denies any nausea or vomiting. Patient is hungry and wants to eat. She has worsening alkaline phosphatase. The rest of the LFTs are stable. Vital Signs Date Time Temp Pulse Resp B/P B/P Pulse O2 O2 Flow FiO2 Mean Ox Delivery Rate 02/13 1000 89 155/78 02/13 1000 89 155/78 02/13 0800 96 Nasal 1.0L Cannula 02/13 0708 98.7 101 18 148/78 92 02/13 0000 95 Nasal 1.0L Cannula 02/12 2151 98.2 82 18 140/74 94 Nasal 1.0L Cannula 02/12 1454 97.9 98 14 98/60 97 Room Air on exam; aox3, nad. cv; s1,s2, rrr resp; clear abd; soft, nt, bs+ ext; no edema Laboratory Tests 02/13 02/13 0750 0700 Chemistry Sodium (137 - 145 mmol/L) 142 Potassium (3.5 - 5.1 mmol/L) 3.4 L Chloride (98 - 107 mmol/L) 105 Carbon Dioxide (22 - 30 mmol/L) 23 Anion Gap (5 - 16) 14 BUN (7 - 17 mg/dL) 11 Creatinine (0.5 - 1.0 mg/dL) 0.7 Estimated GFR (>60 ml/min) > 60 BUN/Creatinine Ratio (7 - 25 %) 15.7 Total Bilirubin (0.2 - 1.3 mg/dL) 2.8 H Direct Bilirubin (< 0.4 mg/dL) 2.1 H GGT (12 - 43 U/L) 885 H AST (14 - 36 U/L) 136 H ALT (9 - 52 U/L) 253 H Alkaline Phosphatase (<127 U/L) 1061 H Ammonia (9 - 30 umol/L) < 9 L Total Protein (6.3 - 8.2 g/dL) 6.2 L Albumin (3.5 - 5.0 g/dL) 3.0 L Coagulation PT (9.4 - 12.5 SEC) 29.1 H INR (0.90 - 1.19) 2.64 H A/P; 77 y/o f with pmh sig for multiple sclerosis with functional paraplegia, wheelchair bound, chronic indwelling Claudio catheter secondary to neurogenic bladder, recurrent UTIs, hyperlipidemia, PVD status post right leg stent placement, hypothyroidism, provoked DVT on Coumadin admitted with generalized malaise and found to have transaminitis and evidence of gallstones on CT abdomen and pelvis. No evidence of choledocholithiasis or acute cholecystitis. Alkaline phosphatase keep on rising. Discussed with Dr. Joshi. He agrees that there is some cholestatic picture but there is no emergency to do ERCP at this time. Patient will need an outpatient EUS and then ERCP if indicated. As discussed with Dr. Joshi, will stop antibiotics and monitor for 24 hours and make sure there is no fever or leukocytosis or worsening of her condition. We' ll advance her diet. If clinically patient improves and lab data looks good then patient can likely be discharged home with outpatient follow-up of LFTs as well as GI follow-up as an outpatient. We will dose Coumadin today as no procedures planned an INR is in therapeutic range. We'll recheck INR in the morning.
[2018-02-13 08:19] LABS: PT 29.1 SEC (9.4-12.5)
--- NOTE | 2018-02-13 13:11 | PN- Gastroenterology ---
Assessment/Plan GI Assessment/Recommendations: Assessment: Ms. Salinas is a 77-year-old female with MS admitted with lethargy and inceased LFTs of uncertain etiology. She continues to have a worsening alkaline phosphatase and a moderate transminitis and while her bili is also elevated at 2.8 it is not worsening. She is also without any abdominal pain or fevers and her cultures have remained negative so she doesn't have cholangitis. As her repeat US didn't show any biliary dilation, which I would of expected her to have by now if she has an obstructive lesion leading to the increased LFTs so I suspect she is having some type of cholestatic reaction to something (meds, viral syndrome) or it is also possilble she passed a gallstone albeit I would of expected some abdominal pain if this was the case. While further investigation to work up the etiology of her increased LFTs is warranted I don't feel she needs an urgent ERCP and it is likely that further managment can be pursued as an outpatient (ie. EUS) Recommendations: 1. Diet as tolerated 2. Would observe off of antibiotics 3. Follow daily LFTs 4. Notify GI for signs of cholangitis 5. If she remains afebrile off of antibiotics consideration should be given to discharge her home for further work up of her increased LFTs as an outpatient. 6. As no endoscopic interventions are planned would continue anticoagulation if medically indicated. I will continue to follow this patient and make further recommendations based on her clinical course and results of repeat blood work. Problem List: 1. Multiple sclerosis 2. Cholelithiasis 3. Hyperbilirubinemia Subjective Subjective: pt is without complaints today. She had a repeat ultrasound yesterday. Objective Vital Signs and I&Os Vital Signs Date Time Temp Pulse Resp B/P B/P Pulse O2 O2 Flow FiO2 Mean Ox Delivery Rate 02/13 1000 89 155/78 02/13 1000 89 155/78 02/13 0800 96 Nasal 1.0L Cannula 02/13 0708 98.7 101 18 148/78 92 02/13 0000 95 Nasal 1.0L Cannula 02/12 2151 98.2 82 18 140/74 94 Nasal 1.0L Cannula 02/12 1454 97.9 98 14 98/60 97 Room Air Intake & Output 02/13 1600 02/13 0400 02/12 1600 02/12 0400 06/18 1600 02/11 0400 Intake Total 600 1025 700 840 660 200 Output Total 4785 267 0411 750 1700 1300 Balance -650 125 -1800 90 -1040 -1100 Intake, IV 600 525 600 600 600 Intake, Oral 0 500 100 240 60 200 Number 1 0 Bowel Movements Output, Urine 3845 612 8300 750 1700 1300 Patient 137 lb Weight Physical Exam General Appearance: well developed/nourished, no apparent distress, comfortable Head: atraumatic Neck: supple Respiratory: normal breath sounds, chest non-tender Cardiovascular: regular rate/rhythm Abdomen: normal bowel sounds, soft, non-tender, no organomegaly Extremities: pedal edema Skin: intact, normal color Current Medications: Current Medications Sig/Laura Start time Last Medication Dose Route Stop Time Status Admin Amitriptyline HCl 25 MG QPM 02/10 2100 02/12 PO 2004 Amlodipine Besylate 10 MG DAILY 02/12 09 02/13 PO 1000 Ampicillin Sodium/ 3,000 MG Q6H 02/11 1436 [place] 02/13 Sulbactam Sodium IV 1001 Sodium Chloride 100 ML Baclofen 20 MG Q6 PRN 02/10 1915 02/12 PO 0401 Cyanocobalamin 1,000 MCG DAILY 02/11 0900 02/13 PO 1000 Dextrose/Sodium 1,000 ML Q13H 02/13 0600 [place] 02/13 Chloride IV 0421 Dextrose/Sodium 1,000 ML Q13H 02/11 1545 [place] 02/12 Chloride IV 02/12 1744 1013 Docusate Sodium 100 MG DAILY 02/11 09 02/13 PO 0959 Ezetimibe 10 MG DAILY 02/11 0900 02/13 PO 0959 Ferrous Sulfate 325 MG DAILY 02/11 0900 02/13 PO 0959 Levothyroxine Sodium 0.1 MG DAILY AC 02/11 0700 02/13 PO 0535 Lisinopril 10 MG DAILY 02/11 09 02/13 PO 1000 Melatonin 5 MG AT BEDTIME 02/10 2100 02/12 PO 2004 Nystatin 5 ML 4 TIMES/DAY 02/10 2116 02/13 PO 1009 Patient Medication 1 ED ONE ONE 02/13 1230 [place] Teaching ED 02/13 1231 Patient Medication 1 ED ONE ONE 02/12 1630 DC 02/12 Teaching ED 02/12 1631 1648 Polyethylene Glycol 17 GM DAILY 02/11 0900 AC 02/13 PO 1030 Potassium Chloride 40 MEQ ONCE ONE 02/13 0830 DC 02/13 PO 02/13 0831 1000 Senna 187 MG AT BEDTIME 02/11 2100 AC 02/12 PO 2003 Warfarin Sodium 5 MG COUMADIN 1700 ONE 02/13 1700 AC PO 02/13 1701 Results Pertinent Lab Results: Laboratory Tests 02/13 02/13 02/12 0750 0700 0715 Chemistry Sodium (137 - 145 mmol/L) 142 142 Potassium (3.5 - 5.1 mmol/L) 3.4 L 3.6 Chloride (98 - 107 mmol/L) 105 104 Carbon Dioxide (22 - 30 mmol/L) 23 26 Anion Gap (5 - 16) 14 12 BUN (7 - 17 mg/dL) 11 11 Creatinine (0.5 - 1.0 mg/dL) 0.7 0.6 Estimated GFR (>60 ml/min) > 60 > 60 BUN/Creatinine Ratio (7 - 25 %) 15.7 18.3 Total Bilirubin (0.2 - 1.3 mg/dL) 2.8 H 2.8 H Direct Bilirubin (< 0.4 mg/dL) 2.1 H 2.3 H GGT (12 - 43 U/L) 885 H AST (14 - 36 U/L) 136 H 135 H ALT (9 - 52 U/L) 253 H 294 H Alkaline Phosphatase (<127 U/L) 1061 H 873 H Ammonia (9 - 30 umol/L) < 9 L Total Protein (6.3 - 8.2 g/dL) 6.2 L 6.4 Albumin (3.5 - 5.0 g/dL) 3.0 L 3.0 L Coagulation PT (9.4 - 12.5 SEC) 29.1 H 40.5 H INR (0.90 - 1.19) 2.64 H 3.67 H Hematology CBC w Diff NO MAN DIFF REQ WBC (4.8 - 10.8 /CUMM) 6.3 RBC (4.20 - 5.40 /CUMM) 4.31 Hgb (12.0 - 16.0 G/DL) 12.0 Hct (37 - 47 %) 36.3 L MCV (81.0 - 99.0 FL) 84.2 MCH (27.0 - 31.0 PG) 27.9 MCHC (33.0 - 37.0 G/DL) 33.1 RDW (11.5 - 14.5 %) 17.4 H Plt Count (130 - 400 /CUMM) 276 MPV (7.4 - 10.4 FL) 9.4 Gran % (42.2 - 75.2 %) 64.2 Lymphocytes % (20.5 - 51.1 %) 23.7 Monocytes % (1.7 - 9.3 %) 8.6 Eosinophils % (0 - 5 %) 2.9 Basophils % (0.0 - 2.0 %) 0.6 Absolute Granulocytes (1.4 - 6.5 /CUMM) 4.0 Absolute Lymphocytes (1.2 - 3.4 /CUMM) 1.5 Absolute Monocytes (0.10 - 0.60 /CUMM) 0.5 Absolute Eosinophils (0.0 - 0.7 /CUMM) 0.2 Absolute Basophils (0.0 - 0.2 /CUMM) 0 02/11 02/10 0650 1920 Chemistry Sodium (137 - 145 mmol/L) 144 Potassium (3.5 - 5.1 mmol/L) 3.9 Chloride (98 - 107 mmol/L) 109 H Carbon Dioxide (22 - 30 mmol/L) 22 Anion Gap (5 - 16) 13 BUN (7 - 17 mg/dL) 20 H Creatinine (0.5 - 1.0 mg/dL) 0.7 Estimated GFR (>60 ml/min) > 60 BUN/Creatinine Ratio (7 - 25 %) 28.6 H Lactic Acid (0.7 - 2.1 mmol/L) 0.7 Total Bilirubin (0.2 - 1.3 mg/dL) 3.0 H Direct Bilirubin (< 0.4 mg/dL) 2.6 H AST (14 - 36 U/L) 163 H ALT (9 - 52 U/L) 323 H Alkaline Phosphatase (<127 U/L) 524 H Total Protein (6.3 - 8.2 g/dL) 6.1 L Albumin (3.5 - 5.0 g/dL) 2.9 L Coagulation PT (9.4 - 12.5 SEC) 44.8 *H INR (0.90 - 1.19) 4.05 *H Hematology CBC w Diff NO MAN DIFF REQ WBC (4.8 - 10.8 /CUMM) 6.2 RBC (4.20 - 5.40 /CUMM) 3.92 L Hgb (12.0 - 16.0 G/DL) 11.3 L Hct (37 - 47 %) 33.2 L MCV (81.0 - 99.0 FL) 84.8 MCH (27.0 - 31.0 PG) 28.7 MCHC (33.0 - 37.0 G/DL) 33.9 RDW (11.5 - 14.5 %) 17.1 H Plt Count (130 - 400 /CUMM) 214 MPV (7.4 - 10.4 FL) 9.5 Gran % (42.2 - 75.2 %) 65.5 Lymphocytes % (20.5 - 51.1 %) 18.6 L Monocytes % (1.7 - 9.3 %) 6.4 Eosinophils % (0 - 5 %) 8.8 H Basophils % (0.0 - 2.0 %) 0.7 Absolute Granulocytes (1.4 - 6.5 /CUMM) 4.0 Absolute Lymphocytes (1.2 - 3.4 /CUMM) 1.1 L Absolute Monocytes (0.10 - 0.60 /CUMM) 0.4 Absolute Eosinophils (0.0 - 0.7 /CUMM) 0.5 Absolute Basophils (0.0 - 0.2 /CUMM) 0 Imaging/Other Studies: SERVICE DATE: 02/12/18 EXAM TYPE: US - US-COMPLETE ABDOMEN EXAMINATION: US ABDOMEN COMPLETE CLINICAL INFORMATION: Elevated LFTs, malaise, weakness. Limited resolution of previous ultrasound. Assessment for biliary obstruction. COMPARISON: Right upper quadrant ultrasound dated 02/10/2018. CT scan of the abdomen and pelvis dated 11/29/2017. TECHNIQUE: Real-time imaging of the abdominal viscera. FINDINGS: Evaluation is limited due to patient's body habitus and difficulties with patient mobility and bowel gas. PANCREAS: The pancreatic body and tail are partially imaged and appear atrophic. Remainder of pancreas is obscured by bowel gas. ABDOMINAL AORTA: The proximal segment is normal in caliber. INFERIOR VENA CAVA: Visualized portions are normal. LIVER: Normal. The liver demonstrates normal size, contour and echogenicity. No focal lesion or intrahepatic biliary duct dilatation. GALLBLADDER: There is a 1.2 x 0.8 x 1.9 cm echogenic shadowing focus seen within the gallbladder, consistent with a gallstone. Slight gallbladder wall thickening is seen, measuring up to 0.3 cm. The gallbladder is physiologically distended without evidence of sludge, polyps, wall thickening or pericholecystic fluid. COMMON BILE DUCT: Normal in caliber measuring 0.3 cm in diameter. RIGHT KIDNEY: There is an exophytic benign-appearing simple cyst in the upper pole of the right kidney, measuring 1.3 x 1.3 x 1.4 cm versus 1.2 x 1.4 x 1.2 cm (02/10/2018) and in the lower pole, measuring 1.1 x 1.3 x 1.1 cm (not definitely seen on prior exam). In the upper pole of the right kidney, an echogenic linear shadowing focus is seen, measuring 0.9 x 0.3 x 0.6 cm versus 1.3 x 0.5 x 0.9 cm (02/10/2018). This likely represents the proximal pigtail of the indwelling right double-J stent. No hydronephrosis. No suspicious focal parenchymal lesions. The kidney is mildly atrophic and measures 8.3 cm in maximum dimension. LEFT KIDNEY: Diffusely atrophic. Lower pole partially shadowed out by overlying bowel gas. There is a 2.8 x 2.8 x 2.7 cm cyst in the mid left kidney. This demonstrates internal septations with punctate calcification, corresponding to the mildly complicated cystic mass seen in the lower pole of the left kidney on CT scan from 02/10/2018, unchanged dating back to at least 08/02/2015. No hydronephrosis. No renal calculi. The kidney measures 9.8 cm in maximum dimension. SPLEEN: Normal. The spleen measures 11.8 cm in maximum dimension. FREE FLUID: None. IMPRESSION: 1. Liver and biliary tree are normal. No evidence of biliary obstruction. 2. Cholelithiasis is again noted with borderline gallbladder wall thickening, perhaps related to chronic inflammation. No acute sonographic Warner sign or pericholecystic fluid. 3. Atrophic pancreas with partial obscuration of the pancreatic head and tail. 4. Bilateral benign cysts, including a complex septated cyst with calcification within the septation in the lower pole of the left kidney. 5. Proximal portion of the right double-J ureteral stent is imaged. No hydronephrosis. 6. Atrophic kidneys.
[2018-02-13 14:19] VITALS: BP 138/70
--- NOTE | 2018-02-13 19:40 | Patient Discharge Instructions ---
Discharge Instructions General Discharge Information You were seen/treated for: Elevated LFTs Urinary Tract Infection Special Instructions: Please follow up with your PCP within one week of discharge. Please follow up with your Urologist in 2 weeks of discharge. Please have your INR checked on 02/22/18 and 02/24/18 The Claudio is to be changed monthly by [facility] Please draw a Vancomycin trough level at 8.30 am on 02/22/18. If trough level is <15, please dose IV Vancomycin at 1g. Diet Continue normal diet: Yes Activity Full Activity/No Limits: Yes Activity Self Limited: Yes Acute Coronary Syndrome Inclusion Criteria At DC or during hospital stay patient has or had the following: ACS DIAGNOSIS No Discharge Core Measures Meds if any: Prescribed or Continued at Discharge Meds if any: NOT Prescribed or Continued at Discharge Congestive Heart Failure Inclusion Criteria At DC or during hospital stay patient has or had the following: CHF DIAGNOSIS No Discharge Core Measures Meds if any: Prescribed or Continued at Discharge Meds if any: NOT Prescribed or Continued at Discharge Cerebrovascular accident Inclusion Criteria At DC or during hospital stay patient has or had the following: CVA/TIA Diagnosis No Discharge Core Measures Meds if any: Prescribed or Continued at Discharge Meds if any: NOT Prescribed or Continued at Discharge Venous thromboembolism Inclusion Criteria VTE Diagnosis No VTE Type NONE VTE Confirmed by (Test) NONE Discharge Core Measures - Per Current guidelines, there needs to be overlap - treatment for the first 5 days of Warfarin therapy. - If discharged on Warfarin prior to 5 days of - overlap therapy, the patient will need to be - assessed for post discharge needs including - *Post discharge parental anticoagulation - *Warfarin and/or parental anticoagulation education - *Follow up date to check INR post discharge At least 5 days overlap therapy as Inpatient No Meds if any: Prescribed or Continued at Discharge Note: Overlap Therapy is Warfarin and Anticoagulant Meds if any: NOT Prescribed or Continued at Discharge
[2018-02-13 21:56] VITALS: BP 150/70
[2018-02-14 06:55] VITALS: BP 156/76
--- NOTE | 2018-02-14 07:11 | PN- Housestaff ---
Millicent DANIELS,[facility] 02/14/18 0710: Subjective Follow-up For: Elevated LFTs Weakness Subjective: Patient seen and examined. She is confused and disoriented. However, states she is comfortable and does not offer any complaints. Review of Systems Constitutional: Reports: no symptoms. Objective Last 24 Hrs of Vital Signs/I&O Vital Signs Date Time Temp Pulse Resp B/P B/P Pulse O2 O2 Flow FiO2 Mean Ox Delivery Rate 02/14 0655 97.9 92 18 156/76 94 Room Air 02/13 2156 98.5 95 18 150/70 93 Room Air 02/13 1419 98.3 80 18 138/70 93 Room Air 02/13 1000 89 155/78 02/13 1000 89 155/78 02/13 0800 96 Nasal 1.0L Cannula Intake & Output 02/14 0800 02/14 0000 02/13 1600 Intake Total 130 500 222 Output Total 400 450 500 Balance -270 50 -278 Intake, IV 10 20 Intake, Oral 120 480 222 Output, Urine 400 450 500 Physical Exam General Appearance: Alert, Cooperative, Mild Distress, oriented x1 , tremulous Skin: No Rashes, No Breakdown Skin Temp/Moisture Exam: Warm/Dry Sepsis Skin Exam (color): Normal for Ethnicity HEENT: Atraumatic Cardiovascular: Normal S1, Normal S2, MARCELO Lungs: Normal Air Movement Abdomen: Soft, No Tenderness Neurological: Normal Speech Extremities: No Edema Last 24 Hrs of Lab/Albert Results Last 24 Hrs of Labs/Mics: Laboratory Tests 02/14/18 0650: Sodium Pending, Potassium Pending, Chloride Pending, Carbon Dioxide Pending, Anion Gap Pending, BUN Pending, Creatinine Pending, BUN/Creatinine Ratio Pending , Total Bilirubin Pending, Direct Bilirubin Pending, AST Pending, ALT Pending, Alkaline Phosphatase Pending, Total Protein Pending, Albumin Pending, PT Pending , INR Pending Assessment/Plan Assessment: 77 yo F with PMH of multiple sclerosis with functional paraplegia, wheelchair bound, chronic indwelling Claudio catheter secondary to neurogenic bladder, recurrent UTIs, hyperlipidemia, PVD status post right leg stent placement, hypothyroidism, provoked DVT on Coumadin presented to ED with 1 day hx of generalized malaise. Assessment: 1. Cholelithiasis 2. Transaminitis 3. Weakness 4. Diffuse atherosclerotic vascular calcification 5. Acute Delirium Plan: * Patient has been having waxing and waning course of confusion past two days which is significantly worsened today. She likely is expereincing from delirium. This could have been precipitated with her hospitalization. * Per nurses report patient was awake last night. Would try frequent reorientation with getting her OOB to chair. * Repeat UA, urine culture and blood culture. Infection can precipitate delirium in the elderly. * CXR to r/o pnuemonia. * Start Augmentin 875mg BID. * LFTs are trending down expect for ALP which continues to rise. * Monitor daily LFTs. * Repeat U/S abdomen was negative for any intrabiliary dilatation * GI to be notified if patient develops signs of cholangitis; RUQ pain, fevers, hypotension. * Her INR is therapeutic today. Will dose Coumadin 5mg. * Diet: Regular with 2g Na * DVT Prophylaxis: On Coumadin * Code: DNR/DNI Problem List: 1. Cholelithiasis Pain Ratin Pain Location: none Pain Goal: Remain pain free Pain Plan: none Tomorrow's Labs & Rationales: CBC, BEP, INR, LFTs Heather Byrd MD 02/14/18 1118: Attending MD Review Statement Attending Statement Attending MD Statement: examined this patient, discuss w/resident/PA/FAMILY RESOURCE MANAGEMENT PROFESSOR, agreed w/resident/PA/FAMILY RESOURCE MANAGEMENT PROFESSOR, reviewed EMR data (avail), discussed with nursing, discussed with case mgmt, reviewed images, amended to note Attending Assessment/Plan: Patient seen and examined, confused today. She had some hallucinations as she was reaching out for things which were not there. Denies abd pain, no n/v, remains afebrile. Vital Signs Date Time Temp Pulse Resp B/P B/P Pulse O2 O2 Flow FiO2 Mean Ox Delivery Rate 02/14 0832 97 155/82 02/14 0832 97 155/82 02/14 0800 Room Air 02/14 0655 97.9 92 18 156/76 94 Room Air 02/13 2156 98.5 95 18 150/70 93 Room Air 02/13 1419 98.3 80 18 138/70 93 Room Air on exam; confused, nad. cv; s1,s2, rrr resp; clear abd; soft, nt, bs+ ext; no edema Laboratory Tests 02/14 02/14 02/14 1001 0950 0650 Chemistry Sodium (137 - 145 mmol/L) 140 Potassium (3.5 - 5.1 mmol/L) 4.1 Chloride (98 - 107 mmol/L) 104 Carbon Dioxide (22 - 30 mmol/L) 21 L Anion Gap (5 - 16) 14 BUN (7 - 17 mg/dL) 17 Creatinine (0.5 - 1.0 mg/dL) 0.8 Estimated GFR (>60 ml/min) > 60 BUN/Creatinine Ratio (7 - 25 %) 21.3 Total Bilirubin (0.2 - 1.3 mg/dL) 2.2 H Direct Bilirubin (< 0.4 mg/dL) 1.6 H AST (14 - 36 U/L) 114 H ALT (9 - 52 U/L) 227 H Alkaline Phosphatase (<127 U/L) 1165 H Total Protein (6.3 - 8.2 g/dL) 6.9 Albumin (3.5 - 5.0 g/dL) 3.3 L Coagulation PT (9.4 - 12.5 SEC) 25.0 H INR (0.90 - 1.19) 2.27 H Hematology CBC w Diff Pending WBC Pending RBC Pending Hgb Pending Hct Pending MCV Pending MCH Pending MCHC Pending RDW Pending Plt Count Pending MPV Pending Urines Urinalysis LIGHT H Urine Color (YEL,AMB,STR) YEL Urine Clarity (CLEAR) HAZY H Urine pH (5.0 - 8.0) 6.0 Ur Specific [place] (1.001 - 1.035) 1.025 Urine Protein (NEG,<30 MG/DL) 100 H Urine Ketones (NEG) 15 H Urine Nitrite (NEG) NEG Urine Bilirubin (NEG) POS@ICTO H Urine Urobilinogen (0.1 - 1.0 EU/dl) 0.2 Ur Leukocyte Esterase (NEG) SMALL H Ur Microscopic SEDIMENT EXAMINED Urine RBC (0 - 5 /HPF) 25-50 H Urine WBC (0 - 2 /HPF) 15-25 H Ur Epithelial Cells (NONE,FEW) MANY H Urine Bacteria (NEG/NONE) MOD H Hyaline Casts (0/LPF) 1-3 H Granular Casts (NONE /LPF) 1-3 H Urine Mucus (FEW,NONE) RARE Urine Hemoglobin (NEG) MOD H Urine Glucose (N MG/DL) NEG A/P: 77 y/o f with pmh sig for multiple sclerosis with functional paraplegia, wheelchair bound, chronic indwelling Claudio catheter secondary to neurogenic bladder, recurrent UTIs, hyperlipidemia, PVD status post right leg stent placement, hypothyroidism, provoked DVT on Coumadin admitted with generalized malaise and found to have transaminitis and evidence of gallstones on CT abdomen and pelvis. No evidence of choledocholithiasis or acute cholecystitis. Alkaline phosphatase keep on rising. I discussed with Dr. Joshi at length yesterday. He does think that patient does have some kind of cholestatic picture. But he does not think that urgent ERCP is indicated. He wants to observe and if patient otherwise clinically doing okay then get discharged to have endoscopic ultrasound done as an outpatient and then +/- ERCP pending results of endoscopic ultrasound. This morning patient was found to be confused. We started the infectious workup and her urinalysis does look dirtier than the previous one. We have stopped antibiotics yesterday but we will resume it again. We'll follow-up on the urine culture results as well as blood culture. We have also ordered chest x-ray. Alkaline phosphatase continued to rise. I will speak to Dr. Joshi again. We will avoid any kind of narcotics, benzos or any medications that would lead to confusion or delirium. We spoke with her who mentions that patient does get periods of confusion specially when she develops urinary tract infections. She does take amitriptyline for her depression as per her . She's been on amitriptyline for quite a while. Her INR is therapeutic today and we will dose Coumadin at 5 mg today with recheck INR in the morning.
[2018-02-14 11:05] LABS: ABSOLUTE BASOPHIL COUNT 0.1 /CUMM (0.0-0.2); ABSOLUTE EOSINOPHIL COUNT 0.2 /CUMM (0.0-0.7); ABSOLUTE LYMPH COUNT 2.7 /CUMM (1.2-3.4); ABSOLUTE MONOCYTE COUNT 0.7 /CUMM (0.10-0.60); RBC DISTRIBUTION WIDTH 17.2 % (11.5-14.5)
[2018-02-14 11:24] LABS: ABSOLUTE GRANULOCYTE CT 5.7 /CUMM (1.4-6.5); BASOPHIL % 0.8 % (0.0-2.0); EOSINOPHIL % 2.2 % (0-5); GRANULOCYTE % 60.2 % (42.2-75.2); HEMATOCRIT 37.4 % (37-47); MEAN CORPUSCULAR HGB 28.8 PG (27.0-31.0); MEAN CORPUSCULAR HGB CONC 34.1 G/DL (33.0-37.0); MEAN CORPUSCULAR VOLUME 84.3 FL (81.0-99.0); MEAN PLATELET VOLUME 9.2 FL (7.4-10.4); PLATELET COUNT 317 /CUMM (130-400); RED BLOOD CELL CT 4.43 /CUMM (4.20-5.40); WHITE BLOOD CELL COUNT 9.4 /CUMM (4.8-10.8)
[2018-02-14 14:07] VITALS: BP 134/70
--- NOTE | 2018-02-14 14:09 | PN- Gastroenterology ---
Assessment/Plan GI Assessment/Recommendations: Assessment: Ms. Salinas is a 77 year old female with MS admitted with lethargy and increased LFTs of uncertain etiology but I suspect it is a cholestatic reaction possilby to a UTI or a viral syndrome. While imaging does show gallstones it has been negative for any biliary dilatation and she has remained without evidence of cholangitis. While her alk phos has remained drastically elevated her bilirubin and other transaminases are improving albeit they are still abnormal. While further intervention may ultimately be necessary if her LFTs don't improve (ie. EUS, serolgical work up, and/or a liver biopsy) I don't feel this needs to be pursued as an inpatient and I also don't feel an ERCP is warranted at this time. Of note, it is also possible that she may have passed a gallstone so it would not be unreasonable to consider a CCY or an ERCP with sphincterotomy if she isn't a surgical candidate, but the patient and her daughter who was with her today didn't wan't to pursue any invasive procedures unless it was absolutely necessary and as I am not completely certain that she did pass a stone I would hold off this for now. Recommendations: 1. Diet as tolerated. 2 Follow daily LFTs. 3. Ok to continue anti-coagulation from a GI perspective 4. Abx as per primary care team, but if there is no obvious infection it would not be unreasonable to observe her off of antibiotics. 5. Notify GI for signs of cholangitis 6. Will give consideration for a liver biopsy and/or an EUS as an outpatient if her LFTs don't normalize. Dr. Lopez will resume her GI care in the am. Problem List: 1. Cholelithiases 2. Elevated alkaline phosphatase level 3. Elevated transaminase level Subjective Subjective: no complaints. changed to oral antibiotics yesterday. no nausea, vomiting or abdominal pain. Objective Vital Signs and I&Os Vital Signs Date Time Temp Pulse Resp B/P B/P Pulse O2 O2 Flow FiO2 Mean Ox Delivery Rate 02/14 1153 97 136/68 02/14 0832 97 155/82 02/14 0832 97 155/82 02/14 0800 Room Air 02/14 0655 97.9 92 18 156/76 94 Room Air 02/13 2156 98.5 95 18 150/70 93 Room Air 02/13 1419 98.3 80 18 138/70 93 Room Air Intake & Output 02/14 1600 02/14 0400 02/13 1600 02/13 0400 02/12 1600 02/12 0400 Intake Total 180 344 422 6782 700 840 Output Total 072 348 3024 900 2500 750 Balance -220 50 -928 125 -1800 90 Intake, IV 10 20 600 525 600 600 Intake, Oral 170 480 222 500 100 240 Number 1 0 Bowel Movements Output, Urine 872 003 8941 900 2500 750 Physical Exam General Appearance: well developed/nourished, no apparent distress, comfortable Head: atraumatic, normal appearance Neck: normal inspection, supple Respiratory: normal breath sounds, chest non-tender, no respiratory distress, quiet respiration Cardiovascular: regular rate/rhythm Abdomen: normal bowel sounds, soft, non-tender, no organomegaly Skin: intact, normal color Current Medications: Current Medications Sig/Laura Start time Last Medication Dose Route Stop Time Status Admin Amitriptyline HCl 25 MG QPM 02/10 2100 AC 02/13 PO 2017 Amlodipine Besylate 10 MG DAILY 02/12 09 AC 02/14 PO 0832 Amoxicillin/ 875 MG Q12 02/14 1010 AC 02/14 Clavulanate Potassium PO 1153 Baclofen 20 MG Q6 PRN 02/10 1915 DC 02/12 PO 0401 Cyanocobalamin 1,000 MCG DAILY 02/11 09 AC 02/14 PO 0832 Docusate Sodium 100 MG DAILY 02/11 09 AC 02/14 PO 0832 Ezetimibe 10 MG DAILY 02/11 0900 AC 02/14 PO 0832 Ferrous Sulfate 325 MG DAILY 02/11 09 AC 02/14 PO 0832 Lactulose 20 GM DAILY 02/14 0900 DC PO Lactulose 20 GM DAILY 02/14 0730 AC 02/14 PO 0831 Levothyroxine Sodium 0.1 MG DAILY AC 02/11 0700 AC 02/14 PO 0640 Lisinopril 10 MG DAILY 02/11 09 AC 02/14 PO 0832 Melatonin 5 MG AT BEDTIME 02/10 2100 AC 02/13 PO 2017 Metoprolol Tartrate 12.5 MG BID 02/14 1100 AC 02/14 PO 1153 Metoprolol Tartrate 12.5 MG BID 02/14 1054 CAN PO Nystatin 5 ML 4 TIMES/DAY 02/11 2116 AC 02/14 PO 0831 Polyethylene Glycol 17 GM DAILY 02/11 0900 AC 02/14 PO 0831 Senna 187 MG AT BEDTIME 02/11 2100 AC 02/13 PO 2017 Warfarin Sodium 5 MG COUMADIN 1700 ONE 02/14 1700 AC PO 02/14 1701 Warfarin Sodium 5 MG COUMADIN 1700 ONE 02/13 1700 DC 02/13 PO 02/13 1701 1741 Results Pertinent Lab Results: Laboratory Tests 02/14 02/14 1001 0950 Hematology CBC w Diff NO MAN DIFF REQ WBC (4.8 - 10.8 /CUMM) 9.4 RBC (4.20 - 5.40 /CUMM) 4.43 Hgb (12.0 - 16.0 G/DL) 12.7 Hct (37 - 47 %) 37.4 MCV (81.0 - 99.0 FL) 84.3 MCH (27.0 - 31.0 PG) 28.8 MCHC (33.0 - 37.0 G/DL) 34.1 RDW (11.5 - 14.5 %) 17.2 H Plt Count (130 - 400 /CUMM) 317 MPV (7.4 - 10.4 FL) 9.2 Gran % (42.2 - 75.2 %) 60.2 Lymphocytes % (20.5 - 51.1 %) 28.8 Monocytes % (1.7 - 9.3 %) 8.0 Eosinophils % (0 - 5 %) 2.2 Basophils % (0.0 - 2.0 %) 0.8 Absolute Granulocytes (1.4 - 6.5 /CUMM) 5.7 Absolute Lymphocytes (1.2 - 3.4 /CUMM) 2.7 Absolute Monocytes (0.10 - 0.60 /CUMM) 0.7 H Absolute Eosinophils (0.0 - 0.7 /CUMM) 0.2 Absolute Basophils (0.0 - 0.2 /CUMM) 0.1 Urines Urinalysis LIGHT H Urine Color (YEL,AMB,STR) YEL Urine Clarity (CLEAR) HAZY H Urine pH (5.0 - 8.0) 6.0 Ur Specific [place] (1.001 - 1.035) 1.025 Urine Protein (NEG,<30 MG/DL) 100 H Urine Ketones (NEG) 15 H Urine Nitrite (NEG) NEG Urine Bilirubin (NEG) POS@ICTO H Urine Urobilinogen (0.1 - 1.0 EU/dl) 0.2 Ur Leukocyte Esterase (NEG) SMALL H Ur Microscopic SEDIMENT EXAMINED Urine RBC (0 - 5 /HPF) 25-50 H Urine WBC (0 - 2 /HPF) 15-25 H Ur Epithelial Cells (NONE,FEW) MANY H Urine Bacteria (NEG/NONE) MOD H Hyaline Casts (0/LPF) 1-3 H Granular Casts (NONE /LPF) 1-3 H Urine Mucus (FEW,NONE) RARE Urine Hemoglobin (NEG) MOD H Urine Glucose (N MG/DL) NEG 02/14 02/13 02/13 0650 0750 0700 Chemistry Sodium (137 - 145 mmol/L) 140 142 Potassium (3.5 - 5.1 mmol/L) 4.1 3.4 L Chloride (98 - 107 mmol/L) 104 105 Carbon Dioxide (22 - 30 mmol/L) 21 L 23 Anion Gap (5 - 16) 14 14 BUN (7 - 17 mg/dL) 17 11 Creatinine (0.5 - 1.0 mg/dL) 0.8 0.7 Estimated GFR (>60 ml/min) > 60 > 60 BUN/Creatinine Ratio (7 - 25 %) 21.3 15.7 Calcium (8.4 - 10.2 mg/dL) 9.4 Total Bilirubin (0.2 - 1.3 mg/dL) 2.2 H 2.8 H Direct Bilirubin (< 0.4 mg/dL) 1.6 H 2.1 H GGT (12 - 43 U/L) 885 H AST (14 - 36 U/L) 114 H 136 H ALT (9 - 52 U/L) 227 H 253 H Alkaline Phosphatase (<127 U/L) 1165 H 1061 H Ammonia (9 - 30 umol/L) < 9 L Total Protein (6.3 - 8.2 g/dL) 6.9 6.2 L Albumin (3.5 - 5.0 g/dL) 3.3 L 3.0 L TSH (0.270 - 4.200 uIU/mL) 2.240 Thyroxine (T4) (4.5 - 10.9 ug/dL) 10.5 Coagulation PT (9.4 - 12.5 SEC) 25.0 H 29.1 H INR (0.90 - 1.19) 2.27 H 2.64 H 02/12 0715 Chemistry Sodium (137 - 145 mmol/L) 142 Potassium (3.5 - 5.1 mmol/L) 3.6 Chloride (98 - 107 mmol/L) 104 Carbon Dioxide (22 - 30 mmol/L) 26 Anion Gap (5 - 16) 12 BUN (7 - 17 mg/dL) 11 Creatinine (0.5 - 1.0 mg/dL) 0.6 Estimated GFR (>60 ml/min) > 60 BUN/Creatinine Ratio (7 - 25 %) 18.3 Total Bilirubin (0.2 - 1.3 mg/dL) 2.8 H Direct Bilirubin (< 0.4 mg/dL) 2.3 H AST (14 - 36 U/L) 135 H ALT (9 - 52 U/L) 294 H Alkaline Phosphatase (<127 U/L) 873 H Total Protein (6.3 - 8.2 g/dL) 6.4 Albumin (3.5 - 5.0 g/dL) 3.0 L Coagulation PT (9.4 - 12.5 SEC) 40.5 H INR (0.90 - 1.19) 3.67 H Hematology CBC w Diff NO MAN DIFF REQ WBC (4.8 - 10.8 /CUMM) 6.3 RBC (4.20 - 5.40 /CUMM) 4.31 Hgb (12.0 - 16.0 G/DL) 12.0 Hct (37 - 47 %) 36.3 L MCV (81.0 - 99.0 FL) 84.2 MCH (27.0 - 31.0 PG) 27.9 MCHC (33.0 - 37.0 G/DL) 33.1 RDW (11.5 - 14.5 %) 17.4 H Plt Count (130 - 400 /CUMM) 276 MPV (7.4 - 10.4 FL) 9.4 Gran % (42.2 - 75.2 %) 64.2 Lymphocytes % (20.5 - 51.1 %) 23.7 Monocytes % (1.7 - 9.3 %) 8.6 Eosinophils % (0 - 5 %) 2.9 Basophils % (0.0 - 2.0 %) 0.6 Absolute Granulocytes (1.4 - 6.5 /CUMM) 4.0 Absolute Lymphocytes (1.2 - 3.4 /CUMM) 1.5 Absolute Monocytes (0.10 - 0.60 /CUMM) 0.5 Absolute Eosinophils (0.0 - 0.7 /CUMM) 0.2 Absolute Basophils (0.0 - 0.2 /CUMM) 0
--- NOTE | 2018-02-14 18:01 | RADIOLOGY REPORT ---
EXAMINATION: XR PORTABLE CHEST CLINICAL INFORMATION: Altered mental status. COMPARISON: Chest 02/10/2018 TECHNIQUE: Portable frontal view of the chest was obtained. FINDINGS: The lungs are well-expanded and clear of acute process. The heart size and pulmonary vascularity is normal. No gross bony abnormality seen. IMPRESSION: Unremarkable chest exam.
[2018-02-14 21:11] VITALS: BP 124/70
[2018-02-15 06:57] VITALS: BP 122/72
--- NOTE | 2018-02-15 07:06 | PN- Housestaff ---
Millicent DANIELS,[facility] 02/15/18 0705: Subjective Follow-up For: Transaminitis AMS Complaints: pt unable to provide hx Subjective: Patient seen and examined. She is confused and hallucinating. Unable to offer any complaints. Review of Systems Constitutional: Reports: no symptoms. Objective Last 24 Hrs of Vital Signs/I&O Vital Signs Date Time Temp Pulse Resp B/P B/P Pulse O2 O2 Flow FiO2 Mean Ox Delivery Rate 02/15 0657 97.4 110 20 122/72 93 Room Air 02/14 2111 98.4 90 18 124/70 93 Room Air 02/14 2044 90 124/70 02/14 1600 92 Room Air 02/14 1526 Room Air 1.0L 02/14 1407 99.0 99 18 134/70 92 Room Air 02/14 1153 97 136/68 Intake & Output 02/15 1600 02/15 0800 02/15 0000 Intake Total 240 120 Output Total 150 130 Balance 90 -10 Intake, Oral 240 120 Output, Urine 150 130 Physical Exam General Appearance: Cooperative, Moderate Distress, oriented x2, awake Skin: No Rashes, No Breakdown Skin Temp/Moisture Exam: Warm/Dry Sepsis Skin Exam (color): Normal for Ethnicity HEENT: Atraumatic Cardiovascular: Normal S1, Normal S2, No Murmurs Lungs: Normal Air Movement, anterior chest Abdomen: Soft, No Tenderness Neurological: Normal Speech Extremities: No Edema Last 24 Hrs of Lab/Albert Results Last 24 Hrs of Labs/Mics: Laboratory Tests 02/15/18 0600: Anion Gap 19 H, Estimated GFR 54 L, BUN/Creatinine Ratio 30.0 H, Total Bilirubin 1.8 H, Direct Bilirubin 1.3 H, AST 129 H, ALT 242 H, Alkaline Phosphatase 1326 H, Total Protein 7.4, Albumin 3.6, PT 27.4 H, INR 2.49 H, CBC w Diff NO MAN DIFF REQ, RBC 4.65, MCV 84.3, MCH 28.0, MCHC 33.3, RDW 18.0 H , MPV 9.1, Gran % 64.8, Lymphocytes % 25.5, Monocytes % 6.4, Eosinophils % 2.6, Basophils % 0.7, Absolute Granulocytes 9.2 H, Absolute Lymphocytes 3.6 H, Absolute Monocytes 0.9 H, Absolute Eosinophils 0.4, Absolute Basophils 0.1, IgG Total Pending, IgG1 Pending, IgG2 Pending, IgG3 Pending, IgG4 Pending, Anti- Mitochondrial Ab Pending, Livr/Kid Microsome 1 Ab Pending 02/14/182051: Urine Color YEL, Urine Clarity CLEAR, Urine pH 6.0, Ur Specific [place] 1.025, Urine Protein 100 H, Urine Ketones 15 H, Urine Nitrite NEG, Urine Bilirubin NEG@ICTO, Urine Urobilinogen 1.0, Ur Leukocyte Esterase TRACE H, Ur Microscopic SEDIMENT EXAMINED, Urine RBC 25-50 H, Urine WBC 10-15 H, Urine Bacteria MOD H , Granular Casts 3-5 H, Urine Hemoglobin MOD H, Urine Glucose NEG Microbiology 02/14 1528 URINE ROUT: Urine Culture - RECD Assessment/Plan Assessment: 77 yo F with PMH of multiple sclerosis with functional paraplegia, wheelchair bound, chronic indwelling Claudio catheter secondary to neurogenic bladder, recurrent UTIs, hyperlipidemia, PVD status post right leg stent placement, hypothyroidism, provoked DVT on Coumadin presented to ED with 1 day hx of generalized malaise. Assessment: 1. Cholelithiasis 2. Transaminitis 3. Weakness 4. Diffuse atherosclerotic vascular calcification 5. Acute Delirium Plan: * Her confusion is worse today. She is hallucinating as well. * Unclear if she is expereincing MS exacerbation. * Will order MRI brain to r/o MS exacerbation * Neuro consult with Dr Brown for further evaluation. * CXR did not show any signs of pnemonia * Her most recent UA is equivocal for infection. She does have a white count today. * Discontinue Augmentin as it can cause elevation in ALP. * LFTs are trending down expect for ALP which continues to rise. * Monitor daily LFTs. * MRCP - pending * Repeat U/S abdomen was negative for any intrabiliary dilatation * GI consult again today. * She may need to be transferred. * Her INR is therapeutic today. Will dose Coumadin 5mg. * Diet: Regular with 2g Na * DVT Prophylaxis: On Coumadin * Code: DNR/DNI Problem List: 1. Cholelithiasis Pain Ratin Pain Location: none Pain Goal: Remain pain free Pain Plan: none Tomorrow's Labs & Rationales: CBC, BEP, LFTs Carson DANIELS,[facility] 06/22/18 1139: Attending MD Review Statement Attending Statement Attending MD Statement: examined this patient, discuss w/resident/PA/THEATRICAL DRESSER, agreed w/resident/PA/THEATRICAL DRESSER, discussed with family, reviewed EMR data (avail), discussed with nursing, discussed with case mgmt, reviewed images, amended to note Attending Assessment/Plan: Patient seen and examined, was not looking good this morning. She was tachycardic and she was having some tremors. She also has increasing BUN and also has leukocytosis today. She remains confused. Vital Signs Date Time Temp Pulse Resp B/P B/P Pulse O2 O2 Flow FiO2 Mean Ox Delivery Rate 02/15 1030 110 122/72 02/15 0930 110 122/72 02/15 0930 110 122/72 02/15 0657 97.4 110 20 122/72 93 Room Air 02/14 2111 98.4 90 18 124/70 93 Room Air 02/14 2044 90 124/70 02/14 1600 92 Room Air 02/14 1526 Room Air 1.0L 02/14 1407 99.0 99 18 134/70 92 Room Air 02/14 1153 97 136/68 on exam; awake, confused. cv; s1,s2 rrr, tachycardia. resp; clear abd; soft, nt, bs+ ext; no edema Laboratory Tests 02/15 02/14 0600 2052 Chemistry Sodium (137 - 145 mmol/L) 139 Potassium (3.5 - 5.1 mmol/L) 4.7 Chloride (98 - 107 mmol/L) 102 Carbon Dioxide (22 - 30 mmol/L) 19 L Anion Gap (5 - 16) 19 H BUN (7 - 17 mg/dL) 30 H Creatinine (0.5 - 1.0 mg/dL) 1.0 Estimated GFR (>60 ml/min) 54 L BUN/Creatinine Ratio (7 - 25 %) 30.0 H Total Bilirubin (0.2 - 1.3 mg/dL) 1.8 H Direct Bilirubin (< 0.4 mg/dL) 1.3 H AST (14 - 36 U/L) 129 H ALT (9 - 52 U/L) 242 H Alkaline Phosphatase (<127 U/L) 1326 H Total Protein (6.3 - 8.2 g/dL) 7.4 Albumin (3.5 - 5.0 g/dL) 3.6 Coagulation PT (9.4 - 12.5 SEC) 27.4 H INR (0.90 - 1.19) 2.49 H Hematology CBC w Diff NO MAN DIFF REQ WBC (4.8 - 10.8 /CUMM) 14.2 H RBC (4.20 - 5.40 /CUMM) 4.65 Hgb (12.0 - 16.0 G/DL) 13.0 Hct (37 - 47 %) 39.2 MCV (81.0 - 99.0 FL) 84.3 MCH (27.0 - 31.0 PG) 28.0 MCHC (33.0 - 37.0 G/DL) 33.3 RDW (11.5 - 14.5 %) 18.0 H Plt Count (130 - 400 /CUMM) 376 MPV (7.4 - 10.4 FL) 9.1 Gran % (42.2 - 75.2 %) 64.8 Lymphocytes % (20.5 - 51.1 %) 25.5 Monocytes % (1.7 - 9.3 %) 6.4 Eosinophils % (0 - 5 %) 2.6 Basophils % (0.0 - 2.0 %) 0.7 Absolute Granulocytes (1.4 - 6.5 /CUMM) 9.2 H Absolute Lymphocytes (1.2 - 3.4 /CUMM) 3.6 H Absolute Monocytes (0.10 - 0.60 /CUMM) 0.9 H Absolute Eosinophils (0.0 - 0.7 /CUMM) 0.4 Absolute Basophils (0.0 - 0.2 /CUMM) 0.1 Immunology IgG Total Pending IgG1 Pending IgG2 Pending IgG3 Pending IgG4 Pending Anti-Mitochondrial Ab Pending Livr/Kid Microsome 1 Ab Pending Urines Urine Color (YEL,AMB,STR) YEL Urine Clarity (CLEAR) CLEAR Urine pH (5.0 - 8.0) 6.0 Ur Specific [place] (1.001 - 1.035) 1.025 Urine Protein (NEG,<30 MG/DL) 100 H Urine Ketones (NEG) 15 H Urine Nitrite (NEG) NEG Urine Bilirubin (NEG) NEG@ICTO Urine Urobilinogen (0.1 - 1.0 EU/dl) 1.0 Ur Leukocyte Esterase (NEG) TRACE H Ur Microscopic SEDIMENT EXAMINED Urine RBC (0 - 5 /HPF) 25-50 H Urine WBC (0 - 2 /HPF) 10-15 H Urine Bacteria (NEG/NONE) MOD H Granular Casts (NONE /LPF) 3-5 H Urine Hemoglobin (NEG) MOD H Urine Glucose (N MG/DL) NEG A/P; 77 y/o f with pmh sig for multiple sclerosis with functional paraplegia, wheelchair bound, chronic indwelling Claudio catheter secondary to neurogenic bladder, recurrent UTIs, hyperlipidemia, PVD status post right leg stent placement, hypothyroidism, provoked DVT on Coumadin admitted with generalized malaise and found to have transaminitis/ high alk phos and evidence of cholelithiasis on CT abdomen and pelvis. No evidence of choledocholithiasis or acute cholecystitis. Alkaline phosphatase keep on rising. Today patient has some dehydration. She has increasing BUN and slight increase in creatinine. She also has leukocytosis. She was also tachycardic today. She remains confused. Start her on empiric Augmentin for possible UTI. Noted that Augmentin can also increase the alkaline phosphatase soft IV spoke with GI Dr. Lopez who will come and see the patient later. At this point we are obtaining a brain MRI to rule out any MS exacerbation for this confusion episodes and patient was having some tremors and hallucinations. We will resume her baclofen. We will also obtain neurology consult. We also spoke with GI about possibility of getting endoscopy ultrasound sooner rather than later instead of just carefully watching the alkaline phosphatase. This has continued to rise. Dr. Lopez will see the patient and then will make some recommendations. In the meantime patient will be hydrated with IV fluids. Will try to get brain MRI as well as abd MRCP if possible. Leukocytosis could be due to dehydration but if this continues to rise patient starts to develop fever then will consider ID consultation. Continue other current meds. DVT px; INR therapeutic.
[2018-02-15 08:12] LABS: ABSOLUTE BASOPHIL COUNT 0.1 /CUMM (0.0-0.2); MEAN CORPUSCULAR HGB CONC 33.3 G/DL (33.0-37.0)
[2018-02-15 08:39] LABS: PT 27.4 SEC (9.4-12.5)
[2018-02-15 08:57] LABS: ABSOLUTE EOSINOPHIL COUNT 0.4 /CUMM (0.0-0.7); ABSOLUTE GRANULOCYTE CT 9.2 /CUMM (1.4-6.5); ABSOLUTE LYMPH COUNT 3.6 /CUMM (1.2-3.4); ABSOLUTE MONOCYTE COUNT 0.9 /CUMM (0.10-0.60); BASOPHIL % 0.7 % (0.0-2.0); EOSINOPHIL % 2.6 % (0-5); GRANULOCYTE % 64.8 % (42.2-75.2); HEMATOCRIT 39.2 % (37-47); MEAN CORPUSCULAR VOLUME 84.3 FL (81.0-99.0); MEAN PLATELET VOLUME 9.1 FL (7.4-10.4); RED BLOOD CELL CT 4.65 /CUMM (4.20-5.40)
[2018-02-15 09:14] LABS: WHITE BLOOD CELL COUNT 14.2 /CUMM (4.8-10.8)
[2018-02-15 09:46] LABS: PLATELET COUNT 376 /CUMM (130-400)
--- NOTE | 2018-02-15 12:49 | MRI REPORT ---
EXAMINATION: MR BRAIN WITHOUT AND WITH CONTRAST CLINICAL INFORMATION: Increased weakness and AMS. Multiple sclerosis flare. COMPARISON: Brain MRI 01/27/2013. TECHNIQUE: Multiplanar, multisequence imaging of the brain was performed before and after the intravenous administration of 6 mL of Gadavist. Many of the acquired sequences are moderately motion degraded. FINDINGS: There is no acute infarct, lobar hemorrhage, mass, or extra-axial collection. There is redemonstration of moderate burden of demyelinating plaques within the supratentorial white matter in addition to plaques within the pritesh and right cerebellum. The distribution of plaques appears similar compared with 01/27/2013 although some of the plaques are now slightly larger in size/more confluent. No definite new plaques are seen. There are no enhancing or diffusion restricting plaques. There is mild progression of diffuse brain parenchymal volume loss compared with 2012. The ventricles are normal in size without evidence of hydrocephalus. There is unchanged focus of susceptibility signal in the ependymal margin of the right lateral ventricle. The flow voids of the major intracranial arteries appear intact. The bones and extracranial soft tissues are within normal limits. The orbital contents appear normal. IMPRESSION: - Within limits of the motion degraded scan no definite new or enhancing demyelinating plaques are identified. Some of the demyelinating plaques are slightly larger/more confluent compared with 2012. - Mild interval progression of mild diffuse brain parenchymal volume loss. - No acute infarct, hemorrhage, or mass.
--- NOTE | 2018-02-15 13:43 | PN- Gastroenterology ---
Assessment/Plan GI Assessment/Recommendations: ASSESSMENT: 1. Elevated Alkaline Phosphatase -- there are no signs of cholangitis. Patient has had neither biliary ductal dilatation on repeated ultrasounds nor fever nor shaking chills. Patient has been in the hospital for 5 days and if she had had cholangitis for that entire time which was untreated one would have expected to see associated clinical signs related to sepsis such as hypotension, progressive hyperbilirubinemia, fever, and a progressively higher White blood cell count. Further one would've expected to have seen biliary ductal dilatation. Patient came in with an alkaline phosphatase of 475 which is progressively increased over the course of her admission. However patient was started on Unasyn immediately upon admission. After unasyn was discontinued the patient was started on Augmentin. Both of these medications are known to have the potential to cause severe cholestatic liver disease. Below is a quote directly from the NIH website [employer]. "In the few cases of aminopenicillin related acute liver injury that have been described, most patients have recovered, although recovery has been slow in some cholestatic instances (2 to 6 months). Rare instances of acute liver failure and several cases of vanishing bile duct syndrome have been reported with aminopenicillin induced liver injury. Corticosteroids have often been used to treat the allergic manifestations of penicillin related immunoallergic hepatitis ; while corticosteroid therapy may improve fever and rash promptly, their efficacy in ameliorating the accompanying liver disease has not been shown. Instances of recurrence of liver injury with reexposure to the aminopenicillins and recurrence with exposure to cephalosporins have been reported. Patients with aminopenicillin induced hepatitis should avoid reexposure to other penicillins and should take cephalosporins with caution." 2. Multiple Sclerosis 3. Change in Mental Status 4. Chronic Indwelling Claudio Catheter, complicated by Recurrent UTI RECOMMENDATIONS: 1. I see no reason to transfer patient for EUS at this time especially given the lack of biliary ductal dilatation. 2. As I discussed with the house staff this morning Augmentin has been discontinued. Would not restart antibiotics unless clear evidence of infection. 3. Would continue to follow liver associated enzymes. However, as with many hypersensitivity reactions, liver enzymes may take quite some time to resolve and may even increase after offending agent has been removed. 4. Serologies have been ordered. We will await their results. We'll follow closely. Subjective Subjective: Patient is more alert than she had been. Is able to tell me that she is in [facility]. Had MRCP. The results are as follows: FINDINGS: Evaluation is limited by motion artifact. LIVER: The liver is normal in size and signal. No hepatic steatosis is seen. No focal cystic or solid mass is present. GALLBLADDER/BILIARY TREE: The gallbladder is well distended. There is a 1 cm diameter gallstone seen within the gallbladder lumen, corresponding to the ultrasound findings. No gallbladder wall thickening or pericholecystic fluid is noted. No intra-or extrahepatic ductal dilatation is seen. Common bile duct measures 0.5 cm. PANCREAS: The pancreas is diffusely atrophic with prominent fatty infiltration seen involving the pancreatic head and body. The pancreatic duct is normal, measuring 0.2 cm in diameter. There are tiny cystic structures seen in the pancreatic head, best visualized on the coronal T2-weighted sequences and the MRCP sequences, measuring up to 0.3 cm in size. These may be due to cystic side branch ectasia. No dilatation of the main pancreatic duct, pancreatic edema or surrounding stranding is seen. There is also a tiny 0.4 cm cystic structure is seen in the body of the pancreas. SPLEEN: Normal size and appearance. Splenic vein patent. ADRENAL GLANDS AND KIDNEYS: Adrenal glands normal. There is a moderate right-sided hydroureteronephrosis with dilatation of the right ureter seen, unchanged from recent CT scan. The proximal pigtail from a double-J right ureteral stent is in place. No left-sided hydronephrosis is seen. There are bilateral variably sized T2 bright renal cortical cysts, largest of which is in the lower pole of the left kidney, partially exophytic with thin internal septations and lobulations, measuring 3.4 x 2.9 cm in size. BOWEL LOOPS: Small and large bowel loops are decompressed and unremarkable. There is slight elevation of the right hemidiaphragm noted. LYMPHOVASCULAR STRUCTURES: Abdominal aorta normal in caliber. No periaortic collections. No abdominal adenopathy or free fluid collection. BONES: There is a S-shaped thoracolumbar scoliosis. Large vertebral hemangioma is seen at the L1 level and a small hemangioma posteriorly in the T10 vertebral body. IMPRESSION: 1. Single gallstone is seen within the gallbladder, similar to the ultrasound findings. Gallbladder is otherwise unremarkable. 2. No evidence of intra or extrahepatic ductal dilatation or biliary obstruction. 3. Atrophic pancreas with fatty infiltration of the pancreatic head and proximal body. Multiple tiny cysts are seen within the pancreatic head, possibly representing cystic side branch ectasia. Tiny cyst in the pancreatic body. Depending on clinical circumstances, further characterization with endoscopic ultrasound performed versus short interval follow-up MRI scan/MRCP in 6 months. 4. Moderate right-sided hydroureteronephrosis with right ureteral stent again seen, unchanged. 5. Bilateral renal cysts, including complicated septated cyst in the lower pole of the left kidney. 6. Incidental findings of vertebral hemangiomas at the T10 and L1 vertebral body levels. Objective Vital Signs and I&Os Vital Signs Date Time Temp Pulse Resp B/P B/P Pulse O2 O2 Flow FiO2 Mean Ox Delivery Rate 02/15 1030 110 122/72 02/15 0930 110 122/72 02/15 0930 110 122/72 02/15 0657 97.4 110 20 122/72 93 Room Air 02/14 2111 98.4 90 18 124/70 93 Room Air 02/14 2044 90 124/70 02/14 1600 92 Room Air 02/14 1526 Room Air 1.0L 02/14 1407 99.0 99 18 134/70 92 Room Air Intake & Output 02/15 1600 02/15 0400 02/14 1600 02/14 0400 02/13 1600 02/13 0400 Intake Total 240 120 540 602 334 4014 Output Total 150 130 191 518 5485 900 Balance 90 -10 -130 50 -928 125 Intake, IV 10 20 600 525 Intake, Oral 240 120 530 480 222 500 Number 1 Bowel Movements Output, Urine 150 130 308 179 6973 900 Physical Exam General Appearance: alert, awake Head: atraumatic Respiratory: lungs clear Cardiovascular: Normal S1 and S2 without rub, murmur or gallop Abdomen: normal bowel sounds, soft Current Medications: Current Medications Sig/Laura Start time Last Medication Dose Route Stop Time Status Admin Amitriptyline HCl 25 MG QPM 02/10 2100 AC 02/14 PO 2042 Amlodipine Besylate 10 MG DAILY 02/12 09 AC 02/15 PO 0930 Amoxicillin/ 875 MG Q12 02/14 1010 DC 02/15 Clavulanate Potassium PO 0930 Baclofen 10 MG TID 02/15 0958 AC PO Cyanocobalamin 1,000 MCG DAILY 02/11 09 AC 02/15 PO 0930 Dextrose/Sodium 1,000 ML Q13H 02/15 1015 CAN Chloride IV Dextrose/Sodium 1,000 ML Q13H 02/15 0830 AC 02/15 Chloride IV 0830 Diphenhydramine HCl 12.5 MG ONCE ONE 02/15 1030 DC 02/15 PO 02/15 1031 1059 Docusate Sodium 100 MG DAILY 02/11 09 AC 02/15 PO 0930 Ezetimibe 10 MG DAILY 02/11 09 AC 02/15 PO 0930 Ferrous Sulfate 325 MG DAILY 02/11 09 AC 02/15 PO 1100 Lactulose 20 GM DAILY 02/14 07 AC 02/15 PO 0930 Levothyroxine Sodium 0.1 MG DAILY AC 02/11 07 AC 02/15 PO 0424 Lisinopril 10 MG DAILY 02/11 09 DC 02/14 PO 0832 Melatonin 5 MG AT BEDTIME 02/10 2100 AC 02/14 PO 204 Metoprolol Tartrate 12.5 MG BID 02/14 1100 AC 02/15 PO 0930 Nystatin 5 ML 4 TIMES/DAY 02/11 2116 AC 02/15 PO 1058 Polyethylene Glycol 17 GM DAILY 02/11 900 AC 02/15 PO 1058 Senna 187 MG AT BEDTIME 02/11 2100 AC 02/14 PO 2042 Warfarin Sodium 5 MG COUMADIN 1700 ONE 02/15 1700 CAN PO 02/15 1701 Warfarin Sodium 5 MG COUMADIN 1700 ONE 02/14 1700 DC 02/14 PO 02/14 1701 1649 Results Pertinent Lab Results: Laboratory Tests 02/15 02/14 0600 205 Chemistry Sodium (137 - 145 mmol/L) 139 Potassium (3.5 - 5.1 mmol/L) 4.7 Chloride (98 - 107 mmol/L) 102 Carbon Dioxide (22 - 30 mmol/L) 19 L Anion Gap (5 - 16) 19 H BUN (7 - 17 mg/dL) 30 H Creatinine (0.5 - 1.0 mg/dL) 1.0 Estimated GFR (>60 ml/min) 54 L BUN/Creatinine Ratio (7 - 25 %) 30.0 H Total Bilirubin (0.2 - 1.3 mg/dL) 1.8 H Direct Bilirubin (< 0.4 mg/dL) 1.3 H AST (14 - 36 U/L) 129 H ALT (9 - 52 U/L) 242 H Alkaline Phosphatase (<127 U/L) 1326 H Total Protein (6.3 - 8.2 g/dL) 7.4 Albumin (3.5 - 5.0 g/dL) 3.6 Coagulation PT (9.4 - 12.5 SEC) 27.4 H INR (0.90 - 1.19) 2.49 H Hematology CBC w Diff NO MAN DIFF REQ WBC (4.8 - 10.8 /CUMM) 14.2 H RBC (4.20 - 5.40 /CUMM) 4.65 Hgb (12.0 - 16.0 G/DL) 13.0 Hct (37 - 47 %) 39.2 MCV (81.0 - 99.0 FL) 84.3 MCH (27.0 - 31.0 PG) 28.0 MCHC (33.0 - 37.0 G/DL) 33.3 RDW (11.5 - 14.5 %) 18.0 H Plt Count (130 - 400 /CUMM) 376 MPV (7.4 - 10.4 FL) 9.1 Gran % (42.2 - 75.2 %) 64.8 Lymphocytes % (20.5 - 51.1 %) 25.5 Monocytes % (1.7 - 9.3 %) 6.4 Eosinophils % (0 - 5 %) 2.6 Basophils % (0.0 - 2.0 %) 0.7 Absolute Granulocytes (1.4 - 6.5 /CUMM) 9.2 H Absolute Lymphocytes (1.2 - 3.4 /CUMM) 3.6 H Absolute Monocytes (0.10 - 0.60 /CUMM) 0.9 H Absolute Eosinophils (0.0 - 0.7 /CUMM) 0.4 Absolute Basophils (0.0 - 0.2 /CUMM) 0.1 Immunology IgG Total Pending IgG1 Pending IgG2 Pending IgG3 Pending IgG4 Pending Anti-Mitochondrial Ab Pending Livr/Kid Microsome 1 Ab Pending Urines Urine Color (YEL,AMB,STR) YEL Urine Clarity (CLEAR) CLEAR Urine pH (5.0 - 8.0) 6.0 Ur Specific [place] (1.001 - 1.035) 1.025 Urine Protein (NEG,<30 MG/DL) 100 H Urine Ketones (NEG) 15 H Urine Nitrite (NEG) NEG Urine Bilirubin (NEG) NEG@ICTO Urine Urobilinogen (0.1 - 1.0 EU/dl) 1.0 Ur Leukocyte Esterase (NEG) TRACE H Ur Microscopic SEDIMENT EXAMINED Urine RBC (0 - 5 /HPF) 25-50 H Urine WBC (0 - 2 /HPF) 10-15 H Urine Bacteria (NEG/NONE) MOD H Granular Casts (NONE /LPF) 3-5 H Urine Hemoglobin (NEG) MOD H Urine Glucose (N MG/DL) NEG 02/14 02/14 1001 0950 Hematology CBC w Diff NO MAN DIFF REQ WBC (4.8 - 10.8 /CUMM) 9.4 RBC (4.20 - 5.40 /CUMM) 4.43 Hgb (12.0 - 16.0 G/DL) 12.7 Hct (37 - 47 %) 37.4 MCV (81.0 - 99.0 FL) 84.3 MCH (27.0 - 31.0 PG) 28.8 MCHC (33.0 - 37.0 G/DL) 34.1 RDW (11.5 - 14.5 %) 17.2 H Plt Count (130 - 400 /CUMM) 317 MPV (7.4 - 10.4 FL) 9.2 Gran % (42.2 - 75.2 %) 60.2 Lymphocytes % (20.5 - 51.1 %) 28.8 Monocytes % (1.7 - 9.3 %) 8.0 Eosinophils % (0 - 5 %) 2.2 Basophils % (0.0 - 2.0 %) 0.8 Absolute Granulocytes (1.4 - 6.5 /CUMM) 5.7 Absolute Lymphocytes (1.2 - 3.4 /CUMM) 2.7 Absolute Monocytes (0.10 - 0.60 /CUMM) 0.7 H Absolute Eosinophils (0.0 - 0.7 /CUMM) 0.2 Absolute Basophils (0.0 - 0.2 /CUMM) 0.1 Urines Urinalysis LIGHT H Urine Color (YEL,AMB,STR) YEL Urine Clarity (CLEAR) HAZY H Urine pH (5.0 - 8.0) 6.0 Ur Specific [place] (1.001 - 1.035) 1.025 Urine Protein (NEG,<30 MG/DL) 100 H Urine Ketones (NEG) 15 H Urine Nitrite (NEG) NEG Urine Bilirubin (NEG) POS@ICTO H Urine Urobilinogen (0.1 - 1.0 EU/dl) 0.2 Ur Leukocyte Esterase (NEG) SMALL H Ur Microscopic SEDIMENT EXAMINED Urine RBC (0 - 5 /HPF) 25-50 H Urine WBC (0 - 2 /HPF) 15-25 H Ur Epithelial Cells (NONE,FEW) MANY H Urine Bacteria (NEG/NONE) MOD H Hyaline Casts (0/LPF) 1-3 H Granular Casts (NONE /LPF) 1-3 H Urine Mucus (FEW,NONE) RARE Urine Hemoglobin (NEG) MOD H Urine Glucose (N MG/DL) NEG 02/14 02/13 02/13 0650 0750 0700 Chemistry Sodium (137 - 145 mmol/L) 140 142 Potassium (3.5 - 5.1 mmol/L) 4.1 3.4 L Chloride (98 - 107 mmol/L) 104 105 Carbon Dioxide (22 - 30 mmol/L) 21 L 23 Anion Gap (5 - 16) 14 14 BUN (7 - 17 mg/dL) 17 11 Creatinine (0.5 - 1.0 mg/dL) 0.8 0.7 Estimated GFR (>60 ml/min) > 60 > 60 BUN/Creatinine Ratio (7 - 25 %) 21.3 15.7 Calcium (8.4 - 10.2 mg/dL) 9.4 Total Bilirubin (0.2 - 1.3 mg/dL) 2.2 H 2.8 H Direct Bilirubin (< 0.4 mg/dL) 1.6 H 2.1 H GGT (12 - 43 U/L) 885 H AST (14 - 36 U/L) 114 H 136 H ALT (9 - 52 U/L) 227 H 253 H Alkaline Phosphatase (<127 U/L) 1165 H 1061 H Ammonia (9 - 30 umol/L) < 9 L Total Protein (6.3 - 8.2 g/dL) 6.9 6.2 L Albumin (3.5 - 5.0 g/dL) 3.3 L 3.0 L TSH (0.270 - 4.200 uIU/mL) 2.240 Thyroxine (T4) (4.5 - 10.9 ug/dL) 10.5 Coagulation PT (9.4 - 12.5 SEC) 25.0 H 29.1 H INR (0.90 - 1.19) 2.27 H 2.64 H
[2018-02-15 14:13] VITALS: BP 100/60
--- NOTE | 2018-02-15 16:03 | Cons- Neurology ---
General Information and HPI Consulting Request Date of Consult: 02/15/18 Requested By: Heather Byrd MD History of Present Illness: 77 year old female with advanced multiple sclerosis Patient has no lower extremity strength and no longer is walking Diagnosis was made about 40 years ago She now was admitted with new onset of general malaise and weakness which was progressive There was no fever Patient was treated with antibiotics for urinary tract infection She seemed to improve Symptoms however then worsened which includes confusion and generalized myoclonic-like jerks Patient also has had some difficulty with speech There has been no fever and no history of nausea and vomiting She was found to have increasing liver function tests Daughter states that sometimes she has she has similar symptoms when she has urinary tract infection although at present apparently cultures have been negative Other than antibiotics there has been no other medication change Allergies/Medications Allergies: Coded Allergies: Sulfa (Sulfonamide Antibiotics) (INCOHERENT 11/21/16) oxycodone (SENSITIVITY TO IT 11/21/16) Home Med List: Amitriptyline HCl 25 MG TABLET 1 TAB PO QPM DEPRESSION (Reported) Amlodipine Besylate 10 MG TABLET 1 TAB PO DAILY Blood Pressure (Reported) Ascorbic Acid (Vitamin C) 1,000 MG TABLET 1 TAB PO DAILY SUPPLEMENT (Reported ) Baclofen 20 MG TABLET 1 TAB PO 4 TIMES/DAY SPASM (Reported) Calcium (Elemental-Fr Calcarb) (Calcium) 600 MG CALCIUM (1,500 MG) TABLET 2, 400 MG PO DAILY SUPPLEMENT (Reported) Cyanocobalamin (Vitamin B-12) 1,000 MCG TABLET 1 TAB PO DAILY SUPPLEMENT ( Reported) Ezetimibe (Zetia) 10 MG TABLET 1 TAB PO DAILY CHOLESTEROL (Reported) Ferrous Sulfate 325 MG (65 MG IRON) TABLET 1 TAB PO DAILY SUPPLEMENT ( Reported) Lactulose 10 GRAM/15 ML SOLUTION 30 ML PO DAILY GI (Reported) Levothyroxine Sodium 100 MCG TABLET 1 TAB PO DAILY AC THYROID (Reported) Lisinopril 10 MG TABLET 1 TAB PO DAILY BP (Reported) Metoprolol Tartrate 25 MG TABLET 0.5 TAB PO BID marshallindex . Multivitamin (Daily Value) 1 EACH TABLET 1 TAB PO DAILY SUPPLEMENT (Reported) Nitrofurantoin Monohyd/M-Cryst (Nitrofurantoin [place]-Mcr 100 MG) 100 MG CAPSULE 1 CAP PO BID ABX (Reported) Pravastatin Sodium (Pravachol) 80 MG TABLET 1 TAB PO DAILY CHOLESTEROL ( Reported) Warfarin Sodium (Coumadin) 5 MG TABLET 1 TAB PO MoTuWeThFr BLOOD THINNER ( Reported) Warfarin Sodium (Coumadin) 7.5 MG TABLET 1 TAB PO SuSa BLOOD THINNER ( Reported) Current Medications: Current Medications Sig/Laura Start time Last Medication Dose Route Stop Time Status Admin Amitriptyline HCl 25 MG QPM 02/10 2100 AC 02/14 PO 204 Amlodipine Besylate 10 MG DAILY 02/12 09 02/15 PO 0930 Amoxicillin/ 875 MG Q12 02/14 1010 DC 02/15 Clavulanate Potassium PO 0930 Baclofen 10 MG TID 02/15 0958 02/15 PO 1433 Cyanocobalamin 1,000 MCG DAILY 02/11 09 02/15 PO 0930 Dextrose/Sodium 1,000 ML Q13H 02/15 1015 CAN Chloride IV Dextrose/Sodium 1,000 ML Q13H 02/15 0830 02/15 Chloride IV 0830 Diphenhydramine HCl 12.5 MG ONCE ONE 02/15 1030 [place] 02/15 PO 02/15 1031 1059 Docusate Sodium 100 MG DAILY 02/11 09 02/15 PO 0930 Ezetimibe 10 MG DAILY 02/11 09 02/15 PO 0930 Ferrous Sulfate 325 MG DAILY 02/11 09 02/15 PO 1100 Lactulose 20 GM DAILY 02/14 07 02/15 PO 0930 Levothyroxine Sodium 0.1 MG DAILY AC 02/11 07 02/15 PO 0424 Lisinopril 10 MG DAILY 02/11 09 [place] 02/14 PO 0832 Melatonin 5 MG AT BEDTIME 02/10 2100 02/14 PO 204 Metoprolol Tartrate 12.5 MG BID 02/14 1100 02/15 PO 0930 Nystatin 5 ML 4 TIMES/DAY 02/10 2116 AC 02/15 PO 1434 Polyethylene Glycol 17 GM DAILY 02/11 09 02/15 PO 1058 Senna 187 MG AT BEDTIME 02/11 2100 02/14 PO 204 Warfarin Sodium 5 MG COUMADIN 1700 ONE 02/15 1700 CAN PO 02/15 1701 Warfarin Sodium 5 MG COUMADIN 1700 ONE 02/15 1700 AC PO 02/15 1701 Warfarin Sodium 5 MG COUMADIN 1700 ONE 02/14 1700 DC 02/14 PO 02/14 1701 1649 Review of Systems Review of Systems: No fever No head trauma No complaint of breathing difficulties or chest pains No diplopia or vertigo No nausea or vomiting No dysuria Chronic constipation Patient no longer walks Unable to move both lower extremities Can operate her electric wheelchair No recent falls Other systems reviewed and negative Past History Travel History Traveled to [place] past 21 day No Medical History Neurological: 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 EENT: NONE Cardiovascular: hypertension, hyperlipidemia, PVD (stent to R leg) Respiratory: NONE Gastrointestinal: NONE Hepatic: NONE Renal: INDWELLING MEANS Musculoskeletal: chronic back pain Psychiatric: NONE Endocrine: hypothyroidism Blood Disorders: NONE Cancer(s): NONE 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 Smoking Status: Never Smoked Exam & Diagnostic Data Vital Signs and I&O Vital Signs Date Time Temp Pulse Resp B/P B/P Pulse O2 O2 Flow FiO2 Mean Ox Delivery Rate 02/15 1413 98.3 96 18 100/60 94 Room Air 02/15 1030 110 122/72 02/15 0930 110 122/72 02/15 0930 110 122/72 02/15 0657 97.4 110 20 122/72 93 Room Air 02/14 2111 98.4 90 18 124/70 93 Room Air 02/14 2044 90 124/70 02/14 1600 92 Room Air Intake & Output 02/15 1600 02/15 0800 02/15 0000 Intake Total 240 120 Output Total 250 150 130 Balance -250 90 -10 Intake, Oral 240 120 Output, Urine 250 150 130 Patient 137 lb Weight Physical Exam: Awake Fluctuating confusion knows she is in hospital Staccato like speech Difficulty with following complex commands Fund of knowledge impaired Heart sounds normal No carotid bruits Distal pulses intact Extraocular movements full Pupils equal reactive Fundi not adequately visualized No facial weakness No facial sensory loss Palate tongue and shoulders intact Hearing grossly intact Reasonable strength both upper extremities No movement lower extremities Tone normal Reduced touch sensation in both lower extremities Deep tendon reflexes hypoactive Plantar response mute Coordinative functions upper extremities grossly intact Patient is not ambulatory Reasonable strength both upper extremities Generalized myoclonus upper extremities face and voice Last 48 Hours of Lab Results: Laboratory Tests 02/15 02/14 0600 2052 Chemistry Sodium (137 - 145 mmol/L) 139 Potassium (3.5 - 5.1 mmol/L) 4.7 Chloride (98 - 107 mmol/L) 102 Carbon Dioxide (22 - 30 mmol/L) 19 L Anion Gap (5 - 16) 19 H BUN (7 - 17 mg/dL) 30 H Creatinine (0.5 - 1.0 mg/dL) 1.0 Estimated GFR (>60 ml/min) 54 L BUN/Creatinine Ratio (7 - 25 %) 30.0 H Total Bilirubin (0.2 - 1.3 mg/dL) 1.8 H Direct Bilirubin (< 0.4 mg/dL) 1.3 H AST (14 - 36 U/L) 129 H ALT (9 - 52 U/L) 242 H Alkaline Phosphatase (<127 U/L) 1326 H Total Protein (6.3 - 8.2 g/dL) 7.4 Albumin (3.5 - 5.0 g/dL) 3.6 Coagulation PT (9.4 - 12.5 SEC) 27.4 H INR (0.90 - 1.19) 2.49 H Hematology CBC w Diff NO MAN DIFF REQ WBC (4.8 - 10.8 /CUMM) 14.2 H RBC (4.20 - 5.40 /CUMM) 4.65 Hgb (12.0 - 16.0 G/DL) 13.0 Hct (37 - 47 %) 39.2 MCV (81.0 - 99.0 FL) 84.3 MCH (27.0 - 31.0 PG) 28.0 MCHC (33.0 - 37.0 G/DL) 33.3 RDW (11.5 - 14.5 %) 18.0 H Plt Count (130 - 400 /CUMM) 376 MPV (7.4 - 10.4 FL) 9.1 Gran % (42.2 - 75.2 %) 64.8 Lymphocytes % (20.5 - 51.1 %) 25.5 Monocytes % (1.7 - 9.3 %) 6.4 Eosinophils % (0 - 5 %) 2.6 Basophils % (0.0 - 2.0 %) 0.7 Absolute Granulocytes (1.4 - 6.5 /CUMM) 9.2 H Absolute Lymphocytes (1.2 - 3.4 /CUMM) 3.6 H Absolute Monocytes (0.10 - 0.60 /CUMM) 0.9 H Absolute Eosinophils (0.0 - 0.7 /CUMM) 0.4 Absolute Basophils (0.0 - 0.2 /CUMM) 0.1 Immunology IgG Total Pending IgG1 Pending IgG2 Pending IgG3 Pending IgG4 Pending Anti-Mitochondrial Ab Pending Livr/Kid Microsome 1 Ab Pending Urines Urine Color (YEL,AMB,STR) YEL Urine Clarity (CLEAR) CLEAR Urine pH (5.0 - 8.0) 6.0 Ur Specific [place] (1.001 - 1.035) 1.025 Urine Protein (NEG,<30 MG/DL) 100 H Urine Ketones (NEG) 15 H Urine Nitrite (NEG) NEG Urine Bilirubin (NEG) NEG@ICTO Urine Urobilinogen (0.1 - 1.0 EU/dl) 1.0 Ur Leukocyte Esterase (NEG) TRACE H Ur Microscopic SEDIMENT EXAMINED Urine RBC (0 - 5 /HPF) 25-50 H Urine WBC (0 - 2 /HPF) 10-15 H Urine Bacteria (NEG/NONE) MOD H Granular Casts (NONE /LPF) 3-5 H Urine Hemoglobin (NEG) MOD H Urine Glucose (N MG/DL) NEG 02/14 02/14 1001 0950 Hematology CBC w Diff NO MAN DIFF REQ WBC (4.8 - 10.8 /CUMM) 9.4 RBC (4.20 - 5.40 /CUMM) 4.43 Hgb (12.0 - 16.0 G/DL) 12.7 Hct (37 - 47 %) 37.4 MCV (81.0 - 99.0 FL) 84.3 MCH (27.0 - 31.0 PG) 28.8 MCHC (33.0 - 37.0 G/DL) 34.1 RDW (11.5 - 14.5 %) 17.2 H Plt Count (130 - 400 /CUMM) 317 MPV (7.4 - 10.4 FL) 9.2 Gran % (42.2 - 75.2 %) 60.2 Lymphocytes % (20.5 - 51.1 %) 28.8 Monocytes % (1.7 - 9.3 %) 8.0 Eosinophils % (0 - 5 %) 2.2 Basophils % (0.0 - 2.0 %) 0.8 Absolute Granulocytes (1.4 - 6.5 /CUMM) 5.7 Absolute Lymphocytes (1.2 - 3.4 /CUMM) 2.7 Absolute Monocytes (0.10 - 0.60 /CUMM) 0.7 H Absolute Eosinophils (0.0 - 0.7 /CUMM) 0.2 Absolute Basophils (0.0 - 0.2 /CUMM) 0.1 Urines Urinalysis LIGHT H Urine Color (YEL,AMB,STR) YEL Urine Clarity (CLEAR) HAZY H Urine pH (5.0 - 8.0) 6.0 Ur Specific [place] (1.001 - 1.035) 1.025 Urine Protein (NEG,<30 MG/DL) 100 H Urine Ketones (NEG) 15 H Urine Nitrite (NEG) NEG Urine Bilirubin (NEG) POS@ICTO H Urine Urobilinogen (0.1 - 1.0 EU/dl) 0.2 Ur Leukocyte Esterase (NEG) SMALL H Ur Microscopic SEDIMENT EXAMINED Urine RBC (0 - 5 /HPF) 25-50 H Urine WBC (0 - 2 /HPF) 15-25 H Ur Epithelial Cells (NONE,FEW) MANY H Urine Bacteria (NEG/NONE) MOD H Hyaline Casts (0/LPF) 1-3 H Granular Casts (NONE /LPF) 1-3 H Urine Mucus (FEW,NONE) RARE Urine Hemoglobin (NEG) MOD H Urine Glucose (N MG/DL) NEG 02/14 0650 Chemistry Sodium (137 - 145 mmol/L) 140 Potassium (3.5 - 5.1 mmol/L) 4.1 Chloride (98 - 107 mmol/L) 104 Carbon Dioxide (22 - 30 mmol/L) 21 L Anion Gap (5 - 16) 14 BUN (7 - 17 mg/dL) 17 Creatinine (0.5 - 1.0 mg/dL) 0.8 Estimated GFR (>60 ml/min) > 60 BUN/Creatinine Ratio (7 - 25 %) 21.3 Calcium (8.4 - 10.2 mg/dL) 9.4 Total Bilirubin (0.2 - 1.3 mg/dL) 2.2 H Direct Bilirubin (< 0.4 mg/dL) 1.6 H AST (14 - 36 U/L) 114 H ALT (9 - 52 U/L) 227 H Alkaline Phosphatase (<127 U/L) 1165 H Total Protein (6.3 - 8.2 g/dL) 6.9 Albumin (3.5 - 5.0 g/dL) 3.3 L TSH (0.270 - 4.200 uIU/mL) 2.240 Thyroxine (T4) (4.5 - 10.9 ug/dL) 10.5 Coagulation PT (9.4 - 12.5 SEC) 25.0 H INR (0.90 - 1.19) 2.27 H Imaging/Other Studies: MRI brain IMPRESSION: - Within limits of the motion degraded scan no definite new or enhancing demyelinating plaques are identified. Some of the demyelinating plaques are slightly larger/more confluent compared with 2013. - Mild interval progression of mild diffuse brain parenchymal volume loss. - No acute infarct, hemorrhage, or mass. Assessment/Plan Assessment: Multiple sclerosis, chronic New-onset of encephalopathy accompanied by myoclonic clonus Recommendations: Panculture Antibiotic trial Electroencephalogram to assess for myoclonic seizure GI follow regarding elevated liver function tests Consult Acknowledgment - Thank you for your consult request.
--- NOTE | 2018-02-15 17:24 | Cons- Urology ---
General Information and HPI Consulting Request Date of Consult: 02/15/18 Requested By: Heather Byrd MD Reason for Consult: R ureteral stone and R hydronephrosis Source of Information: old records Exam Limitations: no limitations History of Present Illness: This patient is known to me. She has a neurogenic bladder due to MS managed with a means. I first met her in 11/2017 at which time she was admitted to the hospital with urosepsis due to an obstructing 7 mm R distal ureteral stone. At that time she underwent emergency R ureteral stent placement and she improved. Plans were being made for R ureteroscopy and laser litho of the stone. However she was admitted after presenting to the ER with lethargy. She was found to have elevated LFT's. Imaging has shown cholelithiasis without evidence of cholecystitis, cholangitis or biliary obstruction. A CT of the abd and pelvis on 02/10/18 showed her R ureteral stent to be in appropriate position but with residual R hydronephrosis. The R distal ureteral stone did appear to still be present and there is a ? of a 2nd stone in the R ureter overlying the SI joint. An abdominal ultrasound on 02/12 showed no evidence of hydronephrosis U/A's have shown 10-15 wbc and moderate bacteria. Initial urine culture showed mixed organisms but a f/u urine culture on 02/14/18 is growing > 100k enterococcus with sensitivities pending. Today she is more tremulous than normal with some tachycardia and a leukocytosis to 14.2. She was on Unasyn and augmentin during this hospitalization and GI believes this could be a contributing factor to her elevated LFT's Allergies/Medications Allergies: Coded Allergies: Sulfa (Sulfonamide Antibiotics) (INCOHERENT 11/21/16) oxycodone (SENSITIVITY TO IT 11/21/16) Home Med List: Amitriptyline HCl 25 MG TABLET 1 TAB PO QPM DEPRESSION (Reported) Amlodipine Besylate 10 MG TABLET 1 TAB PO DAILY Blood Pressure (Reported) Ascorbic Acid (Vitamin C) 1,000 MG TABLET 1 TAB PO DAILY SUPPLEMENT (Reported ) Baclofen 20 MG TABLET 1 TAB PO 4 TIMES/DAY SPASM (Reported) Calcium (Elemental-Fr Calcarb) (Calcium) 600 MG CALCIUM (1,500 MG) TABLET 2, 400 MG PO DAILY SUPPLEMENT (Reported) Cyanocobalamin (Vitamin B-12) 1,000 MCG TABLET 1 TAB PO DAILY SUPPLEMENT ( Reported) Ezetimibe (Zetia) 10 MG TABLET 1 TAB PO DAILY CHOLESTEROL (Reported) Ferrous Sulfate 325 MG (65 MG IRON) TABLET 1 TAB PO DAILY SUPPLEMENT ( Reported) Lactulose 10 GRAM/15 ML SOLUTION 30 ML PO DAILY GI (Reported) Levothyroxine Sodium 100 MCG TABLET 1 TAB PO DAILY AC THYROID (Reported) Lisinopril 10 MG TABLET 1 TAB PO DAILY BP (Reported) Metoprolol Tartrate 25 MG TABLET 0.5 TAB PO BID [employer] . Multivitamin (Daily Value) 1 EACH TABLET 1 TAB PO DAILY SUPPLEMENT (Reported) Nitrofurantoin Monohyd/M-Cryst (Nitrofurantoin Bacon-Mcr 100 MG) 100 MG CAPSULE 1 CAP PO BID ABX (Reported) Pravastatin Sodium (Pravachol) 80 MG TABLET 1 TAB PO DAILY CHOLESTEROL ( Reported) Warfarin Sodium (Coumadin) 5 MG TABLET 1 TAB PO MoTuWeThFr BLOOD THINNER ( Reported) Warfarin Sodium (Coumadin) 7.5 MG TABLET 1 TAB PO SuSa BLOOD THINNER ( Reported) Current Medications: Current Medications Sig/Laura Start time Last Medication Dose Route Stop Time Status Admin Amitriptyline HCl 25 MG QPM 02/10 2100 AC 02/14 PO 2043 Amlodipine Besylate 10 MG DAILY 02/12 09 AC 02/15 PO 0930 Amoxicillin/ 875 MG Q12 02/14 1010 DC 02/15 Clavulanate Potassium PO 0930 Baclofen 10 MG TID 02/15 0958 AC 02/15 PO 1433 Cyanocobalamin 1,000 MCG DAILY 02/11 0900 AC 02/15 PO 0930 Dextrose/Sodium 1,000 ML Q13H 02/15 1015 CAN Chloride IV Dextrose/Sodium 1,000 ML Q13H 02/15 0830 AC 02/15 Chloride IV 0830 Diphenhydramine HCl 12.5 MG ONCE ONE 02/15 1030 DC 02/15 PO 02/15 1031 1059 Docusate Sodium 100 MG DAILY 02/11 0900 AC 02/15 PO 0930 Ezetimibe 10 MG DAILY 02/11 0900 AC 02/15 PO 0930 Ferrous Sulfate 325 MG DAILY 02/11 0900 AC 02/15 PO 1100 Lactulose 20 GM DAILY 02/14 0730 AC 02/15 PO 0930 Levothyroxine Sodium 0.1 MG DAILY AC 02/11 0700 AC 02/15 PO 0424 Lisinopril 10 MG DAILY 02/11 0900 DC 02/14 PO 0832 Melatonin 5 MG AT BEDTIME 02/10 2100 AC 02/14 PO 204 Metoprolol Tartrate 12.5 MG BID 02/14 1100 AC 02/15 PO 0930 Nystatin 5 ML 4 TIMES/DAY 02/106 AC 02/15 PO 1434 Polyethylene Glycol 17 GM DAILY 02/11 09 AC 02/15 PO 1058 Senna 187 MG AT BEDTIME 02/11 2100 AC 02/14 PO 2042 Warfarin Sodium 5 MG COUMADIN 1700 ONE 02/15 1700 CAN PO 02/15 1701 Warfarin Sodium 5 MG COUMADIN 1700 ONE 02/15 1700 CAN PO 02/15 170 Past History Medical History Neurological: 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 EENT: NONE Cardiovascular: hypertension, hyperlipidemia, PVD (stent to R leg) Respiratory: NONE Gastrointestinal: NONE Hepatic: NONE Renal: INDWELLING MEANS Musculoskeletal: chronic back pain Psychiatric: NONE Endocrine: hypothyroidism Blood Disorders: NONE Cancer(s): NONE 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 unknown Exam & Diagnostic Data Vital Signs and I&O Vital Signs Date Time Temp Pulse Resp B/P B/P Pulse O2 O2 Flow FiO2 Mean Ox Delivery Rate 02/15 1413 98.3 96 18 100/60 94 Room Air 02/15 1030 110 122/72 02/15 0930 110 122/72 02/15 0930 110 122/72 02/15 0657 97.4 110 20 122/72 93 Room Air 02/14 2111 98.4 90 18 124/70 93 Room Air 02/15 2044 90 124/70 Intake & Output 02/15 1600 02/15 0800 02/15 0000 02/14 1600 02/14 0800 02/14 0000 Intake Total 830 240 120 410 130 500 Output Total 250 150 130 270 400 450 Balance 580 90 -10 140 -270 50 Intake, IV 350 10 20 Intake, Oral 480 240 120 410 120 480 Number 0 Bowel Movements Output, Urine 250 150 130 270 400 450 Patient 137 lb Weight Pt tremulous but no acute distress Back: No CVA tenderness Abd: soft and non tender Genitalia: means in place draining clear, non cloudy, urine Laboratory Tests 02/15 02/14 0600 2052 Chemistry Sodium (137 - 145 mmol/L) 139 Potassium (3.5 - 5.1 mmol/L) 4.7 Chloride (98 - 107 mmol/L) 102 Carbon Dioxide (22 - 30 mmol/L) 19 L Anion Gap (5 - 16) 19 H BUN (7 - 17 mg/dL) 30 H Creatinine (0.5 - 1.0 mg/dL) 1.0 Estimated GFR (>60 ml/min) 54 L BUN/Creatinine Ratio (7 - 25 %) 30.0 H Total Bilirubin (0.2 - 1.3 mg/dL) 1.8 H Direct Bilirubin (< 0.4 mg/dL) 1.3 H AST (14 - 36 U/L) 129 H ALT (9 - 52 U/L) 242 H Alkaline Phosphatase (<127 U/L) 1326 H Total Protein (6.3 - 8.2 g/dL) 7.4 Albumin (3.5 - 5.0 g/dL) 3.6 Coagulation PT (9.4 - 12.5 SEC) 27.4 H INR (0.90 - 1.19) 2.49 H Hematology CBC w Diff NO MAN DIFF REQ WBC (4.8 - 10.8 /CUMM) 14.2 H RBC (4.20 - 5.40 /CUMM) 4.65 Hgb (12.0 - 16.0 G/DL) 13.0 Hct (37 - 47 %) 39.2 MCV (81.0 - 99.0 FL) 84.3 MCH (27.0 - 31.0 PG) 28.0 MCHC (33.0 - 37.0 G/DL) 33.3 RDW (11.5 - 14.5 %) 18.0 H Plt Count (130 - 400 /CUMM) 376 MPV (7.4 - 10.4 FL) 9.1 Gran % (42.2 - 75.2 %) 64.8 Lymphocytes % (20.5 - 51.1 %) 25.5 Monocytes % (1.7 - 9.3 %) 6.4 Eosinophils % (0 - 5 %) 2.6 Basophils % (0.0 - 2.0 %) 0.7 Absolute Granulocytes (1.4 - 6.5 /CUMM) 9.2 H Absolute Lymphocytes (1.2 - 3.4 /CUMM) 3.6 H Absolute Monocytes (0.10 - 0.60 /CUMM) 0.9 H Absolute Eosinophils (0.0 - 0.7 /CUMM) 0.4 Absolute Basophils (0.0 - 0.2 /CUMM) 0.1 Immunology IgG Total Pending IgG1 Pending IgG2 Pending IgG3 Pending IgG4 Pending Anti-Mitochondrial Ab Pending Livr/Kid Microsome 1 Ab Pending Urines Urine Color (YEL,AMB,STR) YEL Urine Clarity (CLEAR) CLEAR Urine pH (5.0 - 8.0) 6.0 Ur Specific Pinson (1.001 - 1.035) 1.025 Urine Protein (NEG,<30 MG/DL) 100 H Urine Ketones (NEG) 15 H Urine Nitrite (NEG) NEG Urine Bilirubin (NEG) NEG@ICTO Urine Urobilinogen (0.1 - 1.0 EU/dl) 1.0 Ur Leukocyte Esterase (NEG) TRACE H Ur Microscopic SEDIMENT EXAMINED Urine RBC (0 - 5 /HPF) 25-50 H Urine WBC (0 - 2 /HPF) 10-15 H Urine Bacteria (NEG/NONE) MOD H Granular Casts (NONE /LPF) 3-5 H Urine Hemoglobin (NEG) MOD H Urine Glucose (N MG/DL) NEG Assessment/Plan Assessment/Plan Imp: 1. S/P R ureteral stent placement in 11/2017 due to urosepsis from a 7 mm obstructing R distal ureteral stone. The stone and stent remain in place 2. Enterococcal UTI 3. Neurogenic bladder due to MS 4. Elevated LFT's 5. Increased tremulousness, tachycardia and leukocytosis Plan: 1. Optimal urologic management would be R ureteroscopy, laser litho of R ureteral stone(s) and R ureteral stent exchange with subsequent removal a few days later. 2. With recent urine culture positive for enterococcus she would need to be on an appropriate antibiotic for at least 48 hours before. 3. I will tentatively try to place patient on add on schedule for late in day Sunday for procedure assuming patient is stable and other treating physicians agree 4. Hold coumadin 5. Start abx tomorrow morning based on culture sensitivities. If not available start empiric abx. If PCN derivatives have to be avoided then may need IV vanco 6. Keep npo after MN Sunday night and will likely need IV fluids because case will be late in day 7. Discussed with house staff and I will discuss with patient's Consult Acknowledgment - Thank you for your consult request.
[2018-02-15 21:13] VITALS: BP 112/64
--- NOTE | 2018-02-16 03:30 | PN- Housestaff ---
See Addendum Subjective Follow-up For: Elevated LFTs AMS UTI Complaints: pt unable to provide hx Subjective: Patient seen and examined. She is awake, alert and oriented this morning. She states that she does not remember the events of last night. She denies being in any pain or any complaints. Review of Systems Constitutional: Reports: no symptoms. Objective Last 24 Hrs of Vital Signs/I&O Vital Signs Date Time Temp Pulse Resp B/P B/P Pulse O2 O2 Flow FiO2 Mean Ox Delivery Rate 02/16 0030 100.9 88 18 93 Nasal 1.0L Cannula 02/16 0000 93 Nasal 1.0L Cannula 02/15 2245 101.2 88 18 93 Nasal 1.0L Cannula 02/15 2220 101.2 02/15 2124 102.4 02/15 2123 102 112/64 02/15 2113 112/64 02/15 2105 102.4 102 90 Room Air 02/15 1413 98.3 96 18 100/60 94 Room Air 02/15 1030 110 122/72 02/15 0930 110 122/72 02/15 0930 110 122/72 02/15 0657 97.4 110 20 122/72 93 Room Air Intake & Output 02/16 0800 02/16 0000 02/15 1600 Intake Total 830 Output Total 250 250 Balance -250 580 Intake, IV 350 Intake, Oral 480 Number 0 Bowel Movements Output, Urine 250 250 Patient 137 lb Weight Physical Exam General Appearance: Alert, Oriented X3, Cooperative, Mild Distress Skin: No Rashes, No Breakdown Skin Temp/Moisture Exam: Warm/Dry Sepsis Skin Exam (color): Normal for Ethnicity HEENT: Atraumatic Cardiovascular: Normal S1, Normal S2, MARCELO Lungs: Normal Air Movement Abdomen: Soft, No Tenderness Neurological: Normal Speech Extremities: No Edema Last 24 Hrs of Lab/Albert Results Last 24 Hrs of Labs/Mics: Laboratory Tests 02/16/18 0720: Sodium Pending, Potassium Pending, Chloride Pending, Carbon Dioxide Pending, Anion Gap Pending, BUN Pending, Creatinine Pending, BUN/Creatinine Ratio Pending , Total Bilirubin Pending, Direct Bilirubin Pending, AST Pending, ALT Pending, Alkaline Phosphatase Pending, Total Protein Pending, Albumin Pending, PT Pending , INR Pending, CBC w Diff Pending, WBC Pending, RBC Pending, Hgb Pending, Hct Pending, MCV Pending, MCH Pending, MCHC Pending, RDW Pending, Plt Count Pending, MPV Pending Microbiology 02/15 2157 BLOOD: Blood Culture - RECD 02/16 2140 BLOOD: Blood Culture - RECD Assessment/Plan Assessment: 77 yo F with PMH of multiple sclerosis with functional paraplegia, wheelchair bound, chronic indwelling Claudio catheter secondary to neurogenic bladder, recurrent UTIs, hyperlipidemia, PVD status post right leg stent placement, hypothyroidism, provoked DVT on Coumadin presented to ED with 1 day hx of generalized malaise. Assessment: 1. Cholelithiasis 2. Transaminitis 3. Weakness 4. Diffuse atherosclerotic vascular calcification 5. Acute Delirium 6. UTI Plan: * Patient spiked fever overnight and was given one dose IV Vancomycin 1g. * Would continue her on 1g Vancomycin daily. She will need antibiotic coverage for 48 hours prior her procedure. * Await urine culture C&S. * She is scheduled for a ureteroscopy on Sunday. * Brain MRI was not suggestive of MS exacerbation * Neurology input appreciated. * Electroencephalogram to assess for myoclonic seizure. * MRCP did not reveal any biliary dilatation. * LFTs have been trending down. Labs from today are pending. * Avoid Penicillins. * Diet: Regular with 2g Na. NPO Sunday night. * DVT Prophylaxis: ALPS only. Coumadin on hold for ureteroscopy on Sunday. * Code: DNR/DNI Problem List: 1. Cholelithiasis Pain Ratin Pain Location: none Pain Goal: Remain pain free Pain Plan: none Tomorrow's Labs & Rationales: CBC, BEP, LFTs
[2018-02-16 06:50] VITALS: BP 118/66
[2018-02-16 08:27] LABS: PT 33.6 SEC (9.4-12.5)
[2018-02-16 08:33] LABS: ABSOLUTE BASOPHIL COUNT 0.1 /CUMM (0.0-0.2); ABSOLUTE EOSINOPHIL COUNT 0.4 /CUMM (0.0-0.7); ABSOLUTE GRANULOCYTE CT 3.3 /CUMM (1.4-6.5); ABSOLUTE LYMPH COUNT 3.6 /CUMM (1.2-3.4); ABSOLUTE MONOCYTE COUNT 0.8 /CUMM (0.10-0.60); BASOPHIL % 0.9 % (0.0-2.0); EOSINOPHIL % 5.1 % (0-5); GRANULOCYTE % 40.1 % (42.2-75.2); MEAN CORPUSCULAR HGB 28.3 PG (27.0-31.0); MEAN CORPUSCULAR HGB CONC 33.4 G/DL (33.0-37.0); MEAN CORPUSCULAR VOLUME 84.6 FL (81.0-99.0); MEAN PLATELET VOLUME 8.9 FL (7.4-10.4); PLATELET COUNT 321 /CUMM (130-400); RBC DISTRIBUTION WIDTH 17.9 % (11.5-14.5); RED BLOOD CELL CT 3.95 /CUMM (4.20-5.40)
[2018-02-16 09:39] LABS: HEMATOCRIT 33.4 % (37-47)
[2018-02-16 10:37] LABS: WHITE BLOOD CELL COUNT 8.3 /CUMM (4.8-10.8)
[2018-02-16 15:11] VITALS: BP 120/60
[2018-02-16 21:20] VITALS: BP 138/70
[2018-02-17 07:08] VITALS: BP 124/64
[2018-02-17 09:34] LABS: ABSOLUTE BASOPHIL COUNT 0.1 /CUMM (0.0-0.2); ABSOLUTE EOSINOPHIL COUNT 0.3 /CUMM (0.0-0.7); ABSOLUTE GRANULOCYTE CT 2.7 /CUMM (1.4-6.5); ABSOLUTE LYMPH COUNT 2.5 /CUMM (1.2-3.4); ABSOLUTE MONOCYTE COUNT 0.3 /CUMM (0.10-0.60); BASOPHIL % 0.9 % (0.0-2.0); EOSINOPHIL % 5.4 % (0-5); GRANULOCYTE % 45.4 % (42.2-75.2); HEMATOCRIT 34.9 % (37-47); MEAN CORPUSCULAR HGB 27.8 PG (27.0-31.0); MEAN CORPUSCULAR HGB CONC 33.1 G/DL (33.0-37.0); PLATELET COUNT 330 /CUMM (130-400); RBC DISTRIBUTION WIDTH 17.6 % (11.5-14.5); RED BLOOD CELL CT 4.16 /CUMM (4.20-5.40); WHITE BLOOD CELL COUNT 5.8 /CUMM (4.8-10.8)
[2018-02-17 09:41] LABS: PT 23.6 SEC (9.4-12.5)
--- NOTE | 2018-02-17 10:09 | PN- Housestaff ---
See Addendum Subjective Follow-up For: Elevated LFTs AMS - improved UTI Subjective: Patient AxO x 3 this morning. Denies any abdominal pain, fever chills or pain/ burning with urination. Review of Systems Constitutional: Reports: no symptoms. EENTM: Reports: no symptoms. Cardiovascular: Reports: no symptoms. Respiratory: Reports: no symptoms. Gastrointestinal: Reports: no symptoms. Genitourinary: Reports: no symptoms. Musculoskeletal: Reports: no symptoms. Skin: Reports: no symptoms. Neurological/Psychological: Reports: no symptoms. Hematologic/Endocrine: Reports: no symptoms. Immunologic/Allergic: Reports: no symptoms. Objective Last 24 Hrs of Vital Signs/I&O Vital Signs Date Time Temp Pulse Resp B/P B/P Pulse O2 O2 Flow FiO2 Mean Ox Delivery Rate 02/17 0842 68 124/64 02/17 0842 68 124/64 02/17 0800 97 Nasal 1.0L Cannula 02/17 0708 97.6 68 18 124/64 97 02/16 2330 98 Nasal 1.0L Cannula 02/16 2120 97.8 68 18 138/70 98 02/16 2057 70 134/72 02/16 1600 92 Nasal 1.0L Cannula 02/16 1511 98.1 85 20 120/60 92 Room Air Intake & Output 02/17 1600 02/17 0800 02/17 0000 Intake Total 840 300 Output Total 500 550 Balance 340 -250 Intake, IV 600 300 Intake, Oral 240 Number 0 Bowel Movements Output, Urine 500 550 Physical Exam General Appearance: Alert, Oriented X3, Cooperative, No Acute Distress Skin: No Rashes, No Breakdown Cardiovascular: Regular Rate, Normal S1, Normal S2 Lungs: Clear to Auscultation, Normal Air Movement Abdomen: Normal Bowel Sounds, Soft, No Tenderness Extremities: No Clubbing, No Cyanosis, No Edema Current Medications: Current Medications Sig/Laura Start time Last Medication Dose Route Stop Time Status Admin Amitriptyline HCl 25 MG QPM 02/10 2100 AC 02/15 PO 212 Amlodipine Besylate 10 MG DAILY 02/12 09 AC 02/17 PO 0842 Baclofen 10 MG TID 02/15 0958 AC 02/17 PO 0842 Cyanocobalamin 1,000 MCG DAILY 02/11 09 AC 02/17 PO 0842 Dextrose/Sodium 1,000 ML Q13H 02/15 0830 AC 02/17 Chloride IV 0840 Docusate Sodium 100 MG DAILY 02/11 900 AC 02/17 PO 0842 Ezetimibe 10 MG DAILY 02/11 900 AC 02/17 PO 0842 Ferrous Sulfate 325 MG DAILY 02/11 900 AC 02/17 PO 0842 Lactulose 20 GM DAILY 02/14 07 AC 02/17 PO 0842 Levothyroxine Sodium 0.1 MG DAILY AC 02/11 700 AC 02/17 PO 0512 Melatonin 5 MG AT BEDTIME 02/10 2100 AC 02/15 PO 2123 Metoprolol Tartrate 12.5 MG BID 02/14 1100 AC 02/17 PO 0842 Nystatin 5 ML 4 TIMES/DAY 02/11 2116 AC 02/17 PO 0842 Pantoprazole Sodium 40 MG 02/15 AC 02/16 IV 2055 Polyethylene Glycol 17 GM DAILY 02/11 900 AC 02/17 PO 0841 Senna 187 MG AT BEDTIME 02/11 2100 AC 02/15 PO 2122 Sodium Phosphate 1 UNIT ONCE ONE 02/17 900 DC 02/17 MA 02/17 0901 0921 Vancomycin HCl 1,000 MG 02/16 AC 02/16 Sodium Chloride 250 ML IV 2115 Last 24 Hrs of Lab/Albert Results Last 24 Hrs of Labs/Mics: Laboratory Tests 02/17/18 08: Anion Gap 9, Estimated GFR > 60, BUN/Creatinine Ratio 28.3 H, Total Bilirubin 1.0, Direct Bilirubin 0.6 H, AST 64 H, ALT 159 H, Alkaline Phosphatase 714 H , Total Protein 5.8 L, Albumin 2.8 L, PT 23.6 H, INR 2.15 H, CBC w Diff NO MAN DIFF REQ, RBC 4.16 L, MCV 84.0, MCH 27.8, MCHC 33.1, RDW 17.6 H, MPV 9.0, Gran % 45.4, Lymphocytes % 42.6, Monocytes % 5.7, Eosinophils % 5.4 H, Basophils % 0.9, Absolute Granulocytes 2.7, Absolute Lymphocytes 2.5, Absolute Monocytes 0.3, Absolute Eosinophils 0.3, Absolute Basophils 0.1 Assessment/Plan Assessment: 77 yo F with PMH of multiple sclerosis with functional paraplegia, wheelchair bound, chronic indwelling Claudio catheter secondary to neurogenic bladder, recurrent UTIs, hyperlipidemia, PVD status post right leg stent placement, hypothyroidism, provoked DVT on Coumadin presented to ED with 1 day hx of generalized malaise. Problem List; 1. Cholelithiasis 2. Transaminitis 3. Weakness 4. Diffuse atherosclerotic vascular calcification 5. Acute Delirium 6. UTI Plan: * Continue Vancomycin for UTI. Sensitive for ampicillin but Avoid Penicillins penicillin products per GI. * She is scheduled for a ureteroscopy tomorrow. * Brain MRI was not suggestive of MS exacerbation * Neurology input appreciated. * Electroencephalogram to assess for myoclonic seizure - pending * MRCP did not reveal any biliary dilatation. * LFTs have been trending down. * Diet: Regular with 2g Na. NPO tonight. * DVT Prophylaxis: ALPS only. Coumadin on hold for ureteroscopy on Sunday. * Code: DNR/DNI Problem List: 1. Cholelithiases 2. UTI (urinary tract infection) Pain Ratin Pain Location: None Pain Goal: Remain pain free Pain Plan: Pain pathway Tomorrow's Labs & Rationales: None
[2018-02-17 14:48] VITALS: BP 118/78
--- NOTE | 2018-02-17 16:07 | PN- Neurology ---
Subjective Subjective: CONFUSION Review of Systems: NO FEVER OR CHILLS Objective Vital Signs and I&Os Vital Signs Date Time Temp Pulse Resp B/P B/P Pulse O2 O2 Flow FiO2 Mean Ox Delivery Rate 02/17 1448 98.2 68 20 118/78 96 Room Air 02/17 0842 68 124/64 02/17 0842 68 124/64 02/17 0800 97 Nasal 1.0L Cannula 02/17 0708 97.6 68 18 124/64 97 02/16 2330 98 Nasal 1.0L Cannula 02/16 2120 97.8 68 18 138/70 98 02/16 2057 70 134/72 Intake & Output 02/17 1600 02/17 0800 02/17 0000 02/16 1600 02/16 0800 02/16 0000 Intake Total 1110 182 271 1163 740 440 Output Total 600 175 731 5196 350 350 Balance 510 340 -250 100 390 90 Intake, IV 610 600 300 600 640 340 Intake, Oral 500 240 600 100 100 Number 1 0 Bowel Movements Output, Urine 600 088 681 9254 350 350 ALERT CURRENTLY ORIENTED MOVING UPPER EXTREMITIES WELL EOM FULL NO MYOCLONUS Current Medications: Current Medications Sig/Laura Start time Last Medication Dose Route Stop Time Status Admin Amitriptyline HCl 25 MG QPM 02/10 2100 AC 02/15 PO 2122 Amlodipine Besylate 10 MG DAILY 02/12 900 AC 02/17 PO 0842 Baclofen 10 MG TID 02/15 0958 AC 02/17 PO 1301 Cyanocobalamin 1,000 MCG DAILY 02/11 900 AC 02/17 PO 0842 Dextrose/Sodium 1,000 ML Q13H 02/15 08 AC 02/17 Chloride IV 0840 Docusate Sodium 100 MG DAILY 02/11 09 AC 02/17 PO 0842 Ezetimibe 10 MG DAILY 02/11 900 AC 02/17 PO 0842 Ferrous Sulfate 325 MG DAILY 02/11 900 AC 02/17 PO 0842 Lactulose 20 GM DAILY 02/14 730 AC 02/17 PO 0842 Levothyroxine Sodium 0.1 MG DAILY AC 02/11 07 AC 02/17 PO 0512 Melatonin 5 MG AT BEDTIME 02/10 2100 AC 02/15 PO 3 Metoprolol Tartrate 12.5 MG BID 02/14 1100 AC 02/17 PO 0842 Nystatin 5 ML 4 TIMES/DAY 02/11 2116 AC 02/17 PO 1301 Pantoprazole Sodium 40 MG 02/15 AC 02/16 IV 2054 Polyethylene Glycol 17 GM DAILY 02/11 09 AC 02/17 PO 0841 Senna 187 MG AT BEDTIME 02/11 2100 AC 02/15 PO 2122 Sodium Phosphate 1 UNIT ONCE ONE 02/17 09 DC 02/17 AL 02/17 09 0921 Vancomycin HCl 1,000 MG 02/16 AC 02/16 Sodium Chloride 250 ML IV 2115 Results Last 24 Hours of Lab Results: Laboratory Tests 02/17 08 Chemistry Sodium (137 - 145 mmol/L) 138 Potassium (3.5 - 5.1 mmol/L) 3.6 Chloride (98 - 107 mmol/L) 106 Carbon Dioxide (22 - 30 mmol/L) 23 Anion Gap (5 - 16) 9 BUN (7 - 17 mg/dL) 17 Creatinine (0.5 - 1.0 mg/dL) 0.6 Estimated GFR (>60 ml/min) > 60 BUN/Creatinine Ratio (7 - 25 %) 28.3 H Total Bilirubin (0.2 - 1.3 mg/dL) 1.0 Direct Bilirubin (< 0.4 mg/dL) 0.6 H AST (14 - 36 U/L) 64 H ALT (9 - 52 U/L) 159 H Alkaline Phosphatase (<127 U/L) 714 H Total Protein (6.3 - 8.2 g/dL) 5.8 L Albumin (3.5 - 5.0 g/dL) 2.8 L Coagulation PT (9.4 - 12.5 SEC) 23.6 H INR (0.90 - 1.19) 2.15 H Hematology CBC w Diff NO MAN DIFF REQ WBC (4.8 - 10.8 /CUMM) 5.8 RBC (4.20 - 5.40 /CUMM) 4.16 L Hgb (12.0 - 16.0 G/DL) 11.6 L Hct (37 - 47 %) 34.9 L MCV (81.0 - 99.0 FL) 84.0 MCH (27.0 - 31.0 PG) 27.8 MCHC (33.0 - 37.0 G/DL) 33.1 RDW (11.5 - 14.5 %) 17.6 H Plt Count (130 - 400 /CUMM) 330 MPV (7.4 - 10.4 FL) 9.0 Gran % (42.2 - 75.2 %) 45.4 Lymphocytes % (20.5 - 51.1 %) 42.6 Monocytes % (1.7 - 9.3 %) 5.7 Eosinophils % (0 - 5 %) 5.4 H Basophils % (0.0 - 2.0 %) 0.9 Absolute Granulocytes (1.4 - 6.5 /CUMM) 2.7 Absolute Lymphocytes (1.2 - 3.4 /CUMM) 2.5 Absolute Monocytes (0.10 - 0.60 /CUMM) 0.3 Absolute Eosinophils (0.0 - 0.7 /CUMM) 0.3 Absolute Basophils (0.0 - 0.2 /CUMM) 0.1 Assessment/Plan Assessment: CONFUSIONAL SPELL WITH MYOCLONUS, RESOLVED KWAKU TOXIC/METABOLIC Plan: CONTINUE TO MONITOR CALL IF FURTHER NEUROLOGIC NEED
--- NOTE | 2018-02-17 16:38 | PN- Gastroenterology ---
Assessment/Plan GI Assessment/Recommendations: ASSESSMENT: 1. Elevated Alkaline Phosphatase -- likely adverse effect of ampicillin. Now trending downwards dramatically that ampicillin (in the form of unasyn and augment) has been stopped. 2. Multiple sclerosis -- stable 3. UTI (Enterococcus) -- on Vancomycin RECOMMENDATIONS: Would avoid ampicillin in the future. GI will sign off for now. [place] do not hesitate to contact us as needed. Subjective Subjective: Patient is more alert. No nausea, vomiting or abdominal pain. Objective Vital Signs and I&Os Vital Signs Date Time Temp Pulse Resp B/P B/P Pulse O2 O2 Flow FiO2 Mean Ox Delivery Rate 02/17 1600 96 Nasal 1.0L Cannula 02/17 1448 98.2 68 20 118/78 96 Room Air 02/17 0842 68 124/64 02/17 0842 68 124/64 02/17 0800 97 Nasal 1.0L Cannula 02/17 0708 97.6 68 18 124/64 97 02/16 2330 98 Nasal 1.0L Cannula 02/16 2120 97.8 68 18 138/70 98 02/16 2057 70 134/72 Intake & Output 02/17 1600 02/17 0400 02/16 1600 02/16 0400 02/15 1600 02/15 0400 Intake Total 6194 743 9995 440 1070 120 Output Total 5753 033 4919 350 400 130 Balance 850 -250 490 90 670 -10 Intake, IV 1925 296 0965 340 350 Intake, Oral 740 700 100 720 120 Number 1 0 0 Bowel Movements Output, Urine 6695 975 2764 350 400 130 Patient 137 lb Weight Physical Exam General Appearance: no apparent distress, alert, awake Head: atraumatic Respiratory: lungs clear Cardiovascular: regular rate/rhythm Abdomen: normal bowel sounds, soft, non-tender, no organomegaly Neurologic/Psychiatric: awake, alert Skin: normal color, warm/dry Results Pertinent Lab Results: Laboratory Tests 02/17 02/16 0805 0720 Chemistry Sodium (137 - 145 mmol/L) 138 135 L Potassium (3.5 - 5.1 mmol/L) 3.6 4.0 Chloride (98 - 107 mmol/L) 106 103 Carbon Dioxide (22 - 30 mmol/L) 23 23 Anion Gap (5 - 16) 9 9 BUN (7 - 17 mg/dL) 17 31 H Creatinine (0.5 - 1.0 mg/dL) 0.6 0.8 Estimated GFR (>60 ml/min) > 60 > 60 BUN/Creatinine Ratio (7 - 25 %) 28.3 H 38.8 H Total Bilirubin (0.2 - 1.3 mg/dL) 1.0 1.2 Direct Bilirubin (< 0.4 mg/dL) 0.6 H 0.7 H AST (14 - 36 U/L) 64 H 100 H ALT (9 - 52 U/L) 159 H 203 H Alkaline Phosphatase (<127 U/L) 714 H 935 H Total Protein (6.3 - 8.2 g/dL) 5.8 L 6.0 L Albumin (3.5 - 5.0 g/dL) 2.8 L 2.9 L Coagulation PT (9.4 - 12.5 SEC) 23.6 H 33.6 H INR (0.90 - 1.19) 2.15 H 3.05 H Hematology CBC w Diff NO MAN DIFF REQ NO MAN DIFF REQ WBC (4.8 - 10.8 /CUMM) 5.8 8.3 RBC (4.20 - 5.40 /CUMM) 4.16 L 3.95 L Hgb (12.0 - 16.0 G/DL) 11.6 L 11.2 L Hct (37 - 47 %) 34.9 L 33.4 L MCV (81.0 - 99.0 FL) 84.0 84.6 MCH (27.0 - 31.0 PG) 27.8 28.3 MCHC (33.0 - 37.0 G/DL) 33.1 33.4 RDW (11.5 - 14.5 %) 17.6 H 17.9 H Plt Count (130 - 400 /CUMM) 330 321 MPV (7.4 - 10.4 FL) 9.0 8.9 Gran % (42.2 - 75.2 %) 45.4 40.1 L Lymphocytes % (20.5 - 51.1 %) 42.6 43.9 Monocytes % (1.7 - 9.3 %) 5.7 10.0 H Eosinophils % (0 - 5 %) 5.4 H 5.1 H Basophils % (0.0 - 2.0 %) 0.9 0.9 Absolute Granulocytes (1.4 - 6.5 /CUMM) 2.7 3.3 Absolute Lymphocytes (1.2 - 3.4 /CUMM) 2.5 3.6 H Absolute Monocytes (0.10 - 0.60 /CUMM) 0.3 0.8 H Absolute Eosinophils (0.0 - 0.7 /CUMM) 0.3 0.4 Absolute Basophils (0.0 - 0.2 /CUMM) 0.1 0.1 02/15 02/14 0600 2052 Chemistry Sodium (137 - 145 mmol/L) 139 Potassium (3.5 - 5.1 mmol/L) 4.7 Chloride (98 - 107 mmol/L) 102 Carbon Dioxide (22 - 30 mmol/L) 19 L Anion Gap (5 - 16) 19 H BUN (7 - 17 mg/dL) 30 H Creatinine (0.5 - 1.0 mg/dL) 1.0 Estimated GFR (>60 ml/min) 54 L BUN/Creatinine Ratio (7 - 25 %) 30.0 H Total Bilirubin (0.2 - 1.3 mg/dL) 1.8 H Direct Bilirubin (< 0.4 mg/dL) 1.3 H AST (14 - 36 U/L) 129 H ALT (9 - 52 U/L) 242 H Alkaline Phosphatase (<127 U/L) 1326 H Total Protein (6.3 - 8.2 g/dL) 7.4 Albumin (3.5 - 5.0 g/dL) 3.6 Coagulation PT (9.4 - 12.5 SEC) 27.4 H INR (0.90 - 1.19) 2.49 H Hematology CBC w Diff NO MAN DIFF REQ WBC (4.8 - 10.8 /CUMM) 14.2 H RBC (4.20 - 5.40 /CUMM) 4.65 Hgb (12.0 - 16.0 G/DL) 13.0 Hct (37 - 47 %) 39.2 MCV (81.0 - 99.0 FL) 84.3 MCH (27.0 - 31.0 PG) 28.0 MCHC (33.0 - 37.0 G/DL) 33.3 RDW (11.5 - 14.5 %) 18.0 H Plt Count (130 - 400 /CUMM) 376 MPV (7.4 - 10.4 FL) 9.1 Gran % (42.2 - 75.2 %) 64.8 Lymphocytes % (20.5 - 51.1 %) 25.5 Monocytes % (1.7 - 9.3 %) 6.4 Eosinophils % (0 - 5 %) 2.6 Basophils % (0.0 - 2.0 %) 0.7 Absolute Granulocytes (1.4 - 6.5 /CUMM) 9.2 H Absolute Lymphocytes (1.2 - 3.4 /CUMM) 3.6 H Absolute Monocytes (0.10 - 0.60 /CUMM) 0.9 H Absolute Eosinophils (0.0 - 0.7 /CUMM) 0.4 Absolute Basophils (0.0 - 0.2 /CUMM) 0.1 Immunology IgG Total Pending IgG1 Pending IgG2 Pending IgG3 Pending IgG4 Pending Anti-Mitochondrial Ab Pending Livr/Kid Microsome 1 Ab Pending Urines Urine Color (YEL,AMB,STR) YEL Urine Clarity (CLEAR) CLEAR Urine pH (5.0 - 8.0) 6.0 Ur Specific [place] (1.001 - 1.035) 1.025 Urine Protein (NEG,<30 MG/DL) 100 H Urine Ketones (NEG) 15 H Urine Nitrite (NEG) NEG Urine Bilirubin (NEG) NEG@ICTO Urine Urobilinogen (0.1 - 1.0 EU/dl) 1.0 Ur Leukocyte Esterase (NEG) TRACE H Ur Microscopic SEDIMENT EXAMINED Urine RBC (0 - 5 /HPF) 25-50 H Urine WBC (0 - 2 /HPF) 10-15 H Urine Bacteria (NEG/NONE) MOD H Granular Casts (NONE /LPF) 3-5 H Urine Hemoglobin (NEG) MOD H Urine Glucose (N MG/DL) NEG
[2018-02-17 21:31] VITALS: BP 132/60
[2018-02-18 06:35] VITALS: BP 126/50
--- NOTE | 2018-02-18 07:09 | PN- Housestaff ---
Millicent DANIELS,[facility] 02/18/18 0709: Subjective Follow-up For: Elevated LFTs UTI Subjective: Patient seen and examined. Reports feeling okay. Has no complaints. Review of Systems Constitutional: Reports: no symptoms. Objective Last 24 Hrs of Vital Signs/I&O Vital Signs Date Time Temp Pulse Resp B/P B/P Pulse O2 O2 Flow FiO2 Mean Ox Delivery Rate 02/18 0635 97.5 64 20 126/50 97 02/18 0000 97 Nasal 1.0L Cannula 02/17 2204 63 132/60 02/17 2131 97.9 63 132/60 97 Nasal 1.0L Cannula 02/17 1600 96 Nasal 1.0L Cannula 02/17 1448 98.2 68 20 118/78 96 Room Air 02/17 0842 68 124/64 02/17 0842 68 124/64 02/17 0800 97 Nasal 1.0L Cannula Intake & Output 02/18 0800 02/18 0000 02/17 1600 Intake Total 312 909 8235 Output Total 1000 600 Balance 930 -535 510 Intake, IV 870 225 610 Intake, Oral 60 240 500 Number 0 0 1 Bowel Movements Output, Urine 1000 600 Physical Exam General Appearance: Alert, Oriented X3, Cooperative, Mild Distress Skin: No Rashes, No Breakdown Skin Temp/Moisture Exam: Warm/Dry Sepsis Skin Exam (color): Normal for Ethnicity HEENT: Atraumatic Cardiovascular: Normal S1, Normal S2, MARCELO Lungs: Normal Air Movement Abdomen: Soft, No Tenderness Neurological: Normal Speech Extremities: No Edema Last 24 Hrs of Lab/Albert Results Last 24 Hrs of Labs/Mics: Laboratory Tests 02/18/18 0721: PT Pending, INR Pending Assessment/Plan Assessment: 77 yo F with PMH of multiple sclerosis with functional paraplegia, wheelchair bound, chronic indwelling Claudio catheter secondary to neurogenic bladder, recurrent UTIs, hyperlipidemia, PVD status post right leg stent placement, hypothyroidism, provoked DVT on Coumadin presented to ED with 1 day hx of generalized malaise. Assessment: 1. Cholelithiasis 2. Transaminitis 3. Weakness 4. Diffuse atherosclerotic vascular calcification 5. Acute Delirium 6. UTI Plan: * Afebril overnight. * Currently in OR for her procedure. * urine culture is growing enterococcous (pansensitive). however, pencillins need to be avoided. * Continue Vancomycin in the meantime. Will check with ID regarding duration. * Brain MRI was not suggestive of MS exacerbation * Neurology input appreciated. * Electroencephalogram to assess for myoclonus - pending * MRCP did not reveal any biliary dilatation. * LFTs have been trending down. Likely from Unasyn. No need for further monitoring. * Diet: Regular with 2g Na. NPO * DVT Prophylaxis: ALPS only. Coumadin to be resumed. * Code: DNR/DNI Problem List: 1. Cholelithiasis Pain Ratin Pain Location: none Pain Goal: Remain pain free Pain Plan: none Tomorrow's Labs & Rationales: CBC, INR, BEP Carson DANIELS,Heather 02/18/18 1245: Attending MD Review Statement Attending Statement Attending MD Statement: examined this patient, discuss w/resident/PA/FLAKING ROLL OPERATOR, agreed w/resident/PA/FLAKING ROLL OPERATOR, discussed with family, reviewed EMR data (avail), discussed with nursing, discussed with case mgmt, reviewed images, amended to note Attending Assessment/Plan: Patient seen and examined, came back from urologic procedure. Doing overall better. Alk phos improving. Vital Signs Date Time Temp Pulse Resp B/P B/P Pulse O2 O2 Flow FiO2 Mean Ox Delivery Rate 02/18 1200 97.4 62 18 122/56 95 Room Air Room Air 02/18 0755 64 126/50 02/18 0755 64 126/50 02/18 0635 97.5 64 20 126/50 97 02/18 0000 97 Nasal 1.0L Cannula 02/17 2204 63 132/60 02/17 2131 97.9 63 132/60 97 Nasal 1.0L Cannula 02/17 1600 96 Nasal 1.0L Cannula 02/17 1448 98.2 68 20 118/78 96 Room Air on exam; aox3, nad. cv; s1,s2 rrr resp; clear abd; soft, nt, bs+ ext; no edema Laboratory Tests 02/18 02/18 0835 0721 Chemistry Sodium (137 - 145 mmol/L) 138 Potassium (3.5 - 5.1 mmol/L) 3.5 Chloride (98 - 107 mmol/L) 105 Carbon Dioxide (22 - 30 mmol/L) 25 Anion Gap (5 - 16) 7 BUN (7 - 17 mg/dL) 13 Creatinine (0.5 - 1.0 mg/dL) 0.6 Estimated GFR (>60 ml/min) > 60 BUN/Creatinine Ratio (7 - 25 %) 21.7 Total Bilirubin (0.2 - 1.3 mg/dL) 0.8 Direct Bilirubin (< 0.4 mg/dL) 0.5 H AST (14 - 36 U/L) 44 H ALT (9 - 52 U/L) 125 H Alkaline Phosphatase (<127 U/L) 565 H Total Protein (6.3 - 8.2 g/dL) 5.6 L Albumin (3.5 - 5.0 g/dL) 2.6 L Coagulation PT (9.4 - 12.5 SEC) 14.1 H INR (0.90 - 1.19) 1.29 H A/P; 77 y/o f with pmh sig for multiple sclerosis with functional paraplegia, wheelchair bound, chronic indwelling Claudio catheter secondary to neurogenic bladder, recurrent UTIs, hyperlipidemia, PVD status post right leg stent placement, hypothyroidism, provoked DVT on Coumadin admitted with generalized malaise and found to have transaminitis/ high alk phos and evidence of cholelithiasis on CT abdomen and pelvis. No evidence of choledocholithiasis or acute cholecystitis. Multiple things happened in the hospital course. Patient had developed acute confusion, hallucinations likely secondary to metabolic encephalopathy from enterococcal UTI. She is currently getting vancomycin. She also had developed cholestatic picture with high alkaline phosphatase likely secondary to Unasyn/ Augmentin. Augmentin and Unasyn have been stopped and since then her alkaline phosphatase has trended down. Patient is now status post Cystoscopy, R ureteroscopy, laser litho of R ureteral stones and exchange of R double J ureteral stent for Right ureteral calculi and right hydronephrosis. She is now afebrile with white count normal. We'll figure out about antibiotic for discharge. Continue all current medications and please resume her Coumadin. Check INR in the morning. She will likely need to go to rehabilitation upon discharge. Discuss with her daughter at bedside.
--- NOTE | 2018-02-18 07:43 | PN- Urology ---
Subjective Subjective: Looks and feels better Objective Vital Signs and I&Os Vital Signs Date Time Temp Pulse Resp B/P B/P Pulse O2 O2 Flow FiO2 Mean Ox Delivery Rate 02/18 0635 97.5 64 20 126/50 97 02/18 0000 97 Nasal 1.0L Cannula 02/17 2204 63 132/60 02/17 2131 97.9 63 132/60 97 Nasal 1.0L Cannula 02/17 1600 96 Nasal 1.0L Cannula 02/17 1448 98.2 68 20 118/78 96 Room Air 02/17 0842 68 124/64 02/17 0842 68 124/64 02/17 0800 97 Nasal 1.0L Cannula Intake & Output 02/18 0800 02/18 0000 02/17 1600 02/17 0800 02/17 0000 02/16 1600 Intake Total 234 881 4411 843 657 5585 Output Total 850 1000 600 011 525 8726 Balance 80 -535 510 340 -250 100 Intake, IV 870 225 610 600 300 600 Intake, Oral 60 240 500 240 600 Number 0 0 1 0 Bowel Movements Output, Urine 850 1000 600 724 626 1018 Laboratory Tests 02/18 02/17 0721 0805 Chemistry Sodium (137 - 145 mmol/L) 138 Potassium (3.5 - 5.1 mmol/L) 3.6 Chloride (98 - 107 mmol/L) 106 Carbon Dioxide (22 - 30 mmol/L) 23 Anion Gap (5 - 16) 9 BUN (7 - 17 mg/dL) 17 Creatinine (0.5 - 1.0 mg/dL) 0.6 Estimated GFR (>60 ml/min) > 60 BUN/Creatinine Ratio (7 - 25 %) 28.3 H Total Bilirubin (0.2 - 1.3 mg/dL) 1.0 Direct Bilirubin (< 0.4 mg/dL) 0.6 H AST (14 - 36 U/L) 64 H ALT (9 - 52 U/L) 159 H Alkaline Phosphatase (<127 U/L) 714 H Total Protein (6.3 - 8.2 g/dL) 5.8 L Albumin (3.5 - 5.0 g/dL) 2.8 L Coagulation PT (9.4 - 12.5 SEC) Pending 23.6 H INR (0.90 - 1.19) Pending 2.15 H Hematology CBC w Diff NO MAN DIFF REQ WBC (4.8 - 10.8 /CUMM) 5.8 RBC (4.20 - 5.40 /CUMM) 4.16 L Hgb (12.0 - 16.0 G/DL) 11.6 L Hct (37 - 47 %) 34.9 L MCV (81.0 - 99.0 FL) 84.0 MCH (27.0 - 31.0 PG) 27.8 MCHC (33.0 - 37.0 G/DL) 33.1 RDW (11.5 - 14.5 %) 17.6 H Plt Count (130 - 400 /CUMM) 330 MPV (7.4 - 10.4 FL) 9.0 Gran % (42.2 - 75.2 %) 45.4 Lymphocytes % (20.5 - 51.1 %) 42.6 Monocytes % (1.7 - 9.3 %) 5.7 Eosinophils % (0 - 5 %) 5.4 H Basophils % (0.0 - 2.0 %) 0.9 Absolute Granulocytes (1.4 - 6.5 /CUMM) 2.7 Absolute Lymphocytes (1.2 - 3.4 /CUMM) 2.5 Absolute Monocytes (0.10 - 0.60 /CUMM) 0.3 Absolute Eosinophils (0.0 - 0.7 /CUMM) 0.3 Absolute Basophils (0.0 - 0.2 /CUMM) 0.1 Assessment/Plan Assessment/Plan Imp: 1. R distal ureteral stones with indwelling stent Plan: 1. Will add on OR schedule today for cysto, R ureteroscopy, laser litho and stent exchange. Discussed with patient, and daughter. Risks, benefits, alternatives and complications discussed 2. Please keep npo today and hold coumadin 3. Should have IV fluids since case will be late in the day 4. Continue vanco
[2018-02-18 08:15] LABS: PT 14.1 SEC (9.4-12.5)
--- NOTE | 2018-02-18 10:58 | Operative Report ---
Operative/Inv Procedure Report Surgery Date: 02/18/18 Name of Procedure: Cystoscopy, R ureteroscopy, laser litho of R ureteral stones and exchange of R double J ureteral stent Pre-Operative Diagnosis: Right ureteral calculi Post-Operative Diagnosis: Same Estimated Blood Loss: yayo Surgeon/Dehairing Machine Tender: Candido Zepeda MD Anesthesia: laryngeal mask airway Drains: 22 cm 6 Mal[place] right double-J ureteral stent with long suture attached, 18 [place] Claudio Specimens: Stone fragments and urine culture Complications: None Condition: Fair Operative Indication: Right ureteral calculi for which the patient had a right stent placed about 2 months ago due to urosepsis Operative/Procedure Note Note: The patient was taken to the cystoscopy room and identified. She was placed in the supine position on the cystoscopy table. A timeout was executed appropriately with the patient awake. Gen. anesthesia was induced via LMA. She was then placed in the dorsal lithotomy position and prepped and draped in usual fashion for cystoscopy. Surgical pause was executed appropriately. Fluoroscopy images taken with a marker on the right side of the abdomen to confirm the correct side of the surgery as well as a correct orientation of the fluoroscopy image. 22 Malian cystoscope sheath was placed into the bladder and urine was collected for culture. Guidewire was placed through the cystoscope and into the right ureter up to the level of the kidney. This was done adjacent to the indwelling stent. The cystoscope was removed leaving the stent in place and the wire in place. The cystoscope was then placed back into the bladder adjacent to the wire. The old stent was grasped with a forceps and removed. The rigid ureteroscope was advanced into the right ureter. 2 stones were seen. Each was fragmented with the holmium laser fiber. A spiral stone basket was used to remove all sizable stone fragments. These were sent for stone analysis. At this point some contrast was injected into the right renal collecting system through the ureteroscope. The ureteroscope was then removed. The cystoscope was back loaded onto the safety wire. Under visual fluoroscopic control a 22 cm 6 Malian right Malian right double-J ureteral stent was placed. A long suture was left attached the distal end of the stent. Fluoroscopy confirmed the proximal end of the stent coiled in the renal pelvis and the distal end coiled in the bladder.the patient tolerated the procedure well and as completion was taken to recovery room in stable condition. Findings: 2 stones in right distal ureter Discharge Disposition: PACU
[2018-02-18 12:00] VITALS: BP 122/56
--- NOTE | 2018-02-18 12:50 | PN- Urology ---
Surgical Brief Attending Note Brief Attending Note: Patient underwent R ureteroscopy, laser lithotripsy of 2 R distal ureteral stones with basket extraction of the stone fragments, and exchange of the R double J ureteral stent. The stent should remain in place for 3-4 days and can then be removed by pulling the suture hanging out of the urethra. This can be done in my office or by her visiting nurse who can call me for instructions
--- NOTE | 2018-02-18 15:13 | RADIOLOGY REPORT ---
EXAMINATION: XR ABDOMEN CLINICAL INDICATION: Stent removal, ureteroscopy, retrograde evaluation and stent insertion performed in operating room. COMPARISON: CT imaging of abdomen from 02/10/2018. TECHNIQUE: Fluoroscopic imaging of the abdomen was utilized by Dr. Zepeda for urologic procedures. FLUOROSCOPY TIME: 16.3 seconds. DOSE: 328.51 mrad. NUMBER OF SAVED IMAGES: 13 FINDINGS: Fluoroscopic images were acquired at the time of right ureteral stent removal, ureteroscopy and stent reinsertion. Please refer to the operative report. The retrograde ureterogram shows persistent, moderate right hydronephrosis. IMPRESSION: Fluoroscopic imaging assistance was provided to the operating room.
[2018-02-18 15:17] VITALS: BP 98/60
--- NOTE | 2018-02-18 17:50 | ELECTROENCEPHALOGRAM REPORT ---
Electroencephalogram Report Electroencephalogram Results Date of service: 02/18/18 Attending MD: Heather Byrd MD Bearing Maker: Jayne Leiva EEG Number: [id number] Test Utilizes: 10-20 system, 21 lead 18 channel digital recording Pertinent Hx/Physical/Neuro Findings/Clin Diagnosis: seizure suspect Inpatient Medications: Current Medications Sig/Laura Start time Last Medication Dose Route Stop Time Status Admin Amitriptyline HCl 25 MG QPM 02/10 2100 AC 02/17 PO 220 Amlodipine Besylate 10 MG DAILY 02/12 900 AC 02/18 PO 0755 Baclofen 10 MG TID 02/15 0958 AC 02/18 PO 1349 Cyanocobalamin 1,000 MCG DAILY 02/11 09 DC 02/18 PO 0755 Dexamethasone 4 MG .STK-MED ONE 02/18 926 DC IM 02/18 09 Dextrose/Sodium 1,000 ML Q24H 02/18 1100 DC 02/18 Chloride IV 1157 Dextrose/Sodium 1,000 ML Q13H 02/15 08 DC 02/17 Chloride IV 2203 Docusate Sodium 100 MG DAILY 02/11 09 DC 02/18 PO 0755 Ezetimibe 10 MG DAILY 02/11 09 AC 02/18 PO 0755 Fentanyl Citrate 100 MCG .STK-MED ONE 02/18 926 DC IM 02/18 09 Ferrous Sulfate 325 MG DAILY 02/11 900 AC 02/18 PO 0755 Hydromorphone HCl 2 MG .STK-MED ONE 02/18 925 DC IM 02/18 09 Lactulose 20 GM DAILY 02/14 07 AC 02/18 PO 0755 Levothyroxine Sodium 0.1 MG DAILY AC 02/11 07 AC 02/18 PO 0529 Melatonin 5 MG AT BEDTIME 02/10 2100 AC 02/17 PO 220 Metoprolol Tartrate 12.5 MG BID 02/14 1100 AC 02/18 PO 0755 Midazolam HCl 2 MG .STK-MED ONE 02/18 926 DC IM 02/18 09 Nystatin 5 ML 4 TIMES/DAY 02/18 1300 AC 02/18 PO 1703 Nystatin 5 ML 4 TIMES/DAY 02/11 2116 DC 02/18 PO 0756 Ondansetron HCl 4 MG .STK-MED ONE 02/18 926 DC IM 02/18 09 Pantoprazole Sodium 40 MG 02/15 AC 02/17 IV 2204 Patient Medication 1 ED ONE ONE 02/18 0915 RI Teaching ED 02/18 0916 Polyethylene Glycol 17 GM DAILY 02/11 0900 AC 02/17 PO 0841 Senna 187 MG AT BEDTIME 02/11 2100 DC 02/17 PO 220 Vancomycin HCl 1,000 MG 02/16 AC 02/17 Sodium Chloride 250 ML IV 220 Warfarin Sodium 5 MG COUMADIN 1700 ONE 02/18 1700 DC 02/18 PO 02/18 1701 1727 Interpretation: EEG in wake state background is 9-10 cps activity Low voltage 22-24 cps activity frontally Photic stim: no abnormalities No focal or epileptifporm activity Impression: Normal EEG in wake state
[2018-02-18 22:28] VITALS: BP 100/64
[2018-02-19 06:35] VITALS: BP 104/52
--- NOTE | 2018-02-19 07:14 | PN- Urology ---
Subjective Subjective: Patient sleeping Objective Vital Signs and I&Os Vital Signs Date Time Temp Pulse Resp B/P B/P Pulse O2 O2 Flow FiO2 Mean Ox Delivery Rate 02/19 0635 98.4 70 16 104/52 92 Room Air 02/18 2228 97.8 60 18 100/64 94 Room Air 02/18 2102 97.8 60 18 100/60 02/18 1600 95 Room Air Room Air 02/18 1517 96.0 56 18 98/60 93 02/18 1200 97.4 62 18 122/56 95 Room Air Room Air 02/18 0755 64 126/50 02/18 0755 64 126/50 Intake & Output 02/19 0800 02/19 0000 02/18 1600 02/18 0800 02/18 0000 02/17 1600 Intake Total 1330 1310 626 977 2767 Output Total 350 600 115 996 7457 600 Balance -817 626 5525 80 -535 510 Intake, IV 250 460 870 225 610 Intake, Oral 1080 850 60 240 500 Number 1 3 0 0 1 Bowel Movements Output, Urine 350 600 330 [address] Draining clear urine Laboratory Tests 02/18 02/18 0835 0721 Chemistry Sodium (137 - 145 mmol/L) 138 Potassium (3.5 - 5.1 mmol/L) 3.5 Chloride (98 - 107 mmol/L) 105 Carbon Dioxide (22 - 30 mmol/L) 25 Anion Gap (5 - 16) 7 BUN (7 - 17 mg/dL) 13 Creatinine (0.5 - 1.0 mg/dL) 0.6 Estimated GFR (>60 ml/min) > 60 BUN/Creatinine Ratio (7 - 25 %) 21.7 Total Bilirubin (0.2 - 1.3 mg/dL) 0.8 Direct Bilirubin (< 0.4 mg/dL) 0.5 H AST (14 - 36 U/L) 44 H ALT (9 - 52 U/L) 125 H Alkaline Phosphatase (<127 U/L) 565 H Total Protein (6.3 - 8.2 g/dL) 5.6 L Albumin (3.5 - 5.0 g/dL) 2.6 L Coagulation PT (9.4 - 12.5 SEC) 14.1 H INR (0.90 - 1.19) 1.29 H Microbiology Date/Time Procedure - Status Source Growth 02/18 1008 Urine Culture - RECD URINE ROUT Assessment/Plan Assessment/Plan Imp: 1. Neurogenic bladder managed with means 2. s/p R ureteroscopy and laser litho of R distal ureteral stones and R ureteral stent exchange 3. UTI on vanco Plan: 1. R ureteral stent can be removed toward the end of this week. If patient is home at that time her [facility] can contact me with instructions and hopefully she will be able to take it out at home rather than patient coming to office. 2. Would continue abx for 48 hours more
--- NOTE | 2018-02-19 07:15 | PN- Housestaff ---
Millicent DANIELS,[facility] 02/19/18 0714: Subjective Follow-up For: Elevated LFTs Right ureteral stone s/p stent Subjective: Patient seen and examined. Reports feeling better. Is foggy on the events of the days where she was confused. Offers no complaints otherwise. Review of Systems Constitutional: Reports: no symptoms. Objective Last 24 Hrs of Vital Signs/I&O Vital Signs Date Time Temp Pulse Resp B/P B/P Pulse O2 O2 Flow FiO2 Mean Ox Delivery Rate 02/19 0939 80 118/68 02/19 0635 98.4 70 16 104/52 92 Room Air 02/18 2228 97.8 60 18 100/64 94 Room Air 02/18 2102 97.8 60 18 100/60 02/18 1600 95 Room Air Room Air 02/18 1517 96.0 56 18 98/60 93 Intake & Output 02/19 1600 02/19 0800 02/19 0000 Intake Total 1330 Output Total 350 600 Balance -350 730 Intake, IV 250 Intake, Oral 1080 Number 1 Bowel Movements Output, Urine 350 600 Physical Exam General Appearance: Alert, Oriented X3, Cooperative, Mild Distress Skin: No Rashes, No Breakdown Skin Temp/Moisture Exam: Warm/Dry Sepsis Skin Exam (color): Normal for Ethnicity HEENT: Atraumatic Cardiovascular: Normal S1, Normal S2, MARCELO Lungs: Normal Air Movement Abdomen: Soft, No Tenderness Neurological: Normal Speech Extremities: No Edema Last 24 Hrs of Lab/Albert Results Last 24 Hrs of Labs/Mics: Laboratory Tests 02/19/18 0715: Anion Gap 5, Estimated GFR > 60, BUN/Creatinine Ratio 18.6, PT 13.2 H, INR 1.21 H, CBC w Diff NO MAN DIFF REQ, RBC 3.54 L, MCV 85.1, MCH 28.2, MCHC 33.2, RDW 17.7 H, MPV 9.4, Gran % 44.6, Lymphocytes % 42.9, Monocytes % 7.1, Eosinophils % 4.6, Basophils % 0.8, Absolute Granulocytes 2.7, Absolute Lymphocytes 2.6, Absolute Monocytes 0.4, Absolute Eosinophils 0.3, Absolute Basophils 0 Assessment/Plan Assessment: 77 yo F with PMH of multiple sclerosis with functional paraplegia, wheelchair bound, chronic indwelling Claudio catheter secondary to neurogenic bladder, recurrent UTIs, hyperlipidemia, PVD status post right leg stent placement, hypothyroidism, provoked DVT on Coumadin presented to ED with 1 day hx of generalized malaise. Assessment: 1. Cholelithiasis 2. Transaminitis - resolved 3. Weakness 4. Diffuse atherosclerotic vascular calcification 5. Acute Delirium - resolved 6. UTI Plan: * She had a ureteroscopy yesterday with s/p R ureteroscopy and laser litho of R distal ureteral stones and R ureteral stent exchange. The stent is to be removed towards the end of the week. * urine culture is growing enterococcous (pansensitive). however, pencillins need to be avoided. * Continue Vancomycin for another 48 hours. . * Brain MRI was not suggestive of MS exacerbation * Neurology input appreciated. * Electroencephalogram was normal. * MRCP did not reveal any biliary dilatation. * LFTs were trending down. No need for further monitoring. * Diet: Regular with 2g Na. NPO * DVT Prophylaxis: Coumadin. * Code: DNR/DNI Problem List: 1. Cholelithiasis Pain Ratin Pain Location: none Pain Goal: Remain pain free Pain Plan: none Tomorrow's Labs & Rationales: INR Carson DANIELS,[facility] 02/19/18 1312: Attending MD Review Statement Attending Statement Attending MD Statement: examined this patient, discuss w/resident/PA/BRASS CLEANER, agreed w/resident/PA/BRASS CLEANER, reviewed EMR data (avail), discussed with nursing, discussed with case mgmt, reviewed images, amended to note Attending Assessment/Plan: Patient seen and examined, much more awake and oriented. Afebrile, WBC normal, Myoclonic jerks are resolved. Vital Signs Date Time Temp Pulse Resp B/P B/P Pulse O2 O2 Flow FiO2 Mean Ox Delivery Rate 02/19 0939 80 118/68 02/19 0635 98.4 70 16 104/52 92 Room Air 02/18 2228 97.8 60 18 100/64 94 Room Air 02/18 2102 97.8 60 18 100/60 02/18 1600 95 Room Air Room Air 02/18 1517 96.0 56 18 98/60 93 on exam; aox3, nad. cv; s1,s2 rrr resp; clear abd; soft, nt, bs+ ext; no edema. Laboratory Tests 02/19 0715 Chemistry Sodium (137 - 145 mmol/L) 139 Potassium (3.5 - 5.1 mmol/L) 3.9 Chloride (98 - 107 mmol/L) 109 H Carbon Dioxide (22 - 30 mmol/L) 25 Anion Gap (5 - 16) 5 BUN (7 - 17 mg/dL) 13 Creatinine (0.5 - 1.0 mg/dL) 0.7 Estimated GFR (>60 ml/min) > 60 BUN/Creatinine Ratio (7 - 25 %) 18.6 Coagulation PT (9.4 - 12.5 SEC) 13.2 H INR (0.90 - 1.19) 1.21 H Hematology CBC w Diff NO MAN DIFF REQ WBC (4.8 - 10.8 /CUMM) 6.1 RBC (4.20 - 5.40 /CUMM) 3.54 L Hgb (12.0 - 16.0 G/DL) 10.0 L Hct (37 - 47 %) 30.1 L MCV (81.0 - 99.0 FL) 85.1 MCH (27.0 - 31.0 PG) 28.2 MCHC (33.0 - 37.0 G/DL) 33.2 RDW (11.5 - 14.5 %) 17.7 H Plt Count (130 - 400 /CUMM) 331 MPV (7.4 - 10.4 FL) 9.4 Gran % (42.2 - 75.2 %) 44.6 Lymphocytes % (20.5 - 51.1 %) 42.9 Monocytes % (1.7 - 9.3 %) 7.1 Eosinophils % (0 - 5 %) 4.6 Basophils % (0.0 - 2.0 %) 0.8 Absolute Granulocytes (1.4 - 6.5 /CUMM) 2.7 Absolute Lymphocytes (1.2 - 3.4 /CUMM) 2.6 Absolute Monocytes (0.10 - 0.60 /CUMM) 0.4 Absolute Eosinophils (0.0 - 0.7 /CUMM) 0.3 Absolute Basophils (0.0 - 0.2 /CUMM) 0 A/P; 77 y/o f with pmh sig for multiple sclerosis with functional paraplegia, wheelchair bound, chronic indwelling Claudio catheter secondary to neurogenic bladder, recurrent UTIs, hyperlipidemia, PVD status post right leg stent placement, hypothyroidism, provoked DVT on Coumadin admitted with generalized malaise and found to have transaminitis/ high alk phos and evidence of cholelithiasis on CT abdomen and pelvis. No evidence of choledocholithiasis or acute cholecystitis. Multiple things happened in the hospital course. Patient had developed acute confusion, hallucinations likely secondary to metabolic encephalopathy from enterococcal UTI. She is currently getting vancomycin. She also had developed cholestatic picture with high alkaline phosphatase likely secondary to Unasyn/ Augmentin. Augmentin and Unasyn have been stopped and since then her alkaline phosphatase has trended down. Patient is now status post Cystoscopy, R ureteroscopy, laser litho of R ureteral stones and exchange of R double J ureteral stent for Right ureteral calculi and right hydronephrosis. On treatment with vanco for entercoccus UTI. Overall improved. Continue current Mx. Please dose coumadin at 6 mg today. needs Rehab. Possible DC tomorrow.
[2018-02-19 08:07] LABS: ABSOLUTE BASOPHIL COUNT 0 /CUMM (0.0-0.2); ABSOLUTE EOSINOPHIL COUNT 0.3 /CUMM (0.0-0.7); ABSOLUTE GRANULOCYTE CT 2.7 /CUMM (1.4-6.5); ABSOLUTE LYMPH COUNT 2.6 /CUMM (1.2-3.4); ABSOLUTE MONOCYTE COUNT 0.4 /CUMM (0.10-0.60); BASOPHIL % 0.8 % (0.0-2.0); EOSINOPHIL % 4.6 % (0-5); GRANULOCYTE % 44.6 % (42.2-75.2); HEMATOCRIT 30.1 % (37-47); MEAN CORPUSCULAR HGB 28.2 PG (27.0-31.0); MEAN CORPUSCULAR HGB CONC 33.2 G/DL (33.0-37.0); MEAN CORPUSCULAR VOLUME 85.1 FL (81.0-99.0); MEAN PLATELET VOLUME 9.4 FL (7.4-10.4); PLATELET COUNT 331 /CUMM (130-400); RBC DISTRIBUTION WIDTH 17.7 % (11.5-14.5); RED BLOOD CELL CT 3.54 /CUMM (4.20-5.40); WHITE BLOOD CELL COUNT 6.1 /CUMM (4.8-10.8)
[2018-02-19 09:08] LABS: PT 13.2 SEC (9.4-12.5)
[2018-02-19 14:16] VITALS: BP 116/60
[2018-02-19 21:52] VITALS: BP 110/50
--- NOTE | 2018-02-20 07:06 | PN- Housestaff ---
Millicent DANIELS,[facility] 02/20/18 0706: Subjective Follow-up For: UTI Transaminitis Subjective: Patient seen and examined. Reports feeling okay. Has no complaints. Looks forward to being discharged. Review of Systems Constitutional: Reports: no symptoms. Objective Last 24 Hrs of Vital Signs/I&O Vital Signs Date Time Temp Pulse Resp B/P B/P Pulse O2 O2 Flow FiO2 Mean Ox Delivery Rate 02/20 07 98.2 62 18 116/64 93 02/19 2152 98.0 56 16 110/50 93 Room Air 02/19 2123 56 110/50 02/19 1450 Room Air 1.0L 02/19 1416 97.9 58 20 116/60 97 Room Air 02/19 0939 80 118/68 Intake & Output 02/20 1600 02/20 0800 02/20 0000 Intake Total 320 320 Output Total 375 750 Balance -55 -430 Intake, IV 250 270 Intake, Oral 70 50 Output, Urine 375 750 Physical Exam General Appearance: Alert, Oriented X3, Cooperative, Mild Distress Skin: No Rashes, No Breakdown Skin Temp/Moisture Exam: Warm/Dry Sepsis Skin Exam (color): Normal for Ethnicity HEENT: Atraumatic Cardiovascular: Normal S1, Normal S2, MARCELO Lungs: Clear to Auscultation, Normal Air Movement Abdomen: Soft, No Tenderness Neurological: Normal Speech Extremities: No Edema Last 24 Hrs of Lab/Albert Results Last 24 Hrs of Labs/Mics: Laboratory Tests 02/20/18 0648: PT 13.2 H, INR 1.21 H Assessment/Plan Assessment: 77 yo F with PMH of multiple sclerosis with functional paraplegia, wheelchair bound, chronic indwelling Claudio catheter secondary to neurogenic bladder, recurrent UTIs, hyperlipidemia, PVD status post right leg stent placement, hypothyroidism, provoked DVT on Coumadin presented to ED with 1 day hx of generalized malaise. Assessment: 1. Cholelithiasis 2. Transaminitis - resolved 3. Weakness 4. Diffuse atherosclerotic vascular calcification 5. Acute Delirium - resolved 6. UTI Plan: * She had a ureteroscopy with s/p R ureteroscopy and laser litho of R distal ureteral stones and R ureteral stent exchange. The stent is to be removed towards the end of the week. Patient is recommended to follow up with Urology on Sunday. * urine culture is growing enterococcous (pansensitive). however, pencillins need to be avoided. * Continue Vancomycin for a total of 10 day course to be completed as outpatient. * Brain MRI was not suggestive of MS exacerbation * Neurology input appreciated. * Electroencephalogram was normal. * MRCP did not reveal any biliary dilatation. * LFTs were trending down. No need for further monitoring. * Diet: Regular with 2g Na. * DVT Prophylaxis: Coumadin. * Code: DNR/DNI Problem List: 1. Cholelithiasis Pain Ratin Pain Location: none Pain Goal: Remain pain free Pain Plan: none Tomorrow's Labs & Rationales: none Heather Byrd MD 02/20/18 1303: Attending MD Review Statement Attending Statement Attending MD Statement: examined this patient, discuss w/resident/PA/BOATBUILDER SUPERVISOR, agreed w/resident/PA/BOATBUILDER SUPERVISOR, reviewed EMR data (avail), discussed with nursing, discussed with case mgmt, reviewed images, amended to note Attending Assessment/Plan: Patient seen and examined, overall doing much better. Denies any complaints. She remains afebrile. Her myoclonic jerks have resolved. Her alkaline phosphatase continued to improve. Patient has a bed available today at rehabilitation and she is otherwise medically stable for discharge to rehabilitation today.
[2018-02-20] MEDS ORDERED: VANCOMYCIN HCL1 G1 IV (07:14)
[2018-02-20 07:26] VITALS: BP 116/64
[2018-02-20 08:27] LABS: PT 13.2 SEC (9.4-12.5)
[2018-02-20 14:39] VITALS: BP 118/58
[2018-02-20 20:39] VITALS: BP 150/52
[2018-02-21 06:09] VITALS: BP 146/60
--- NOTE | 2018-02-21 07:16 | PN- Housestaff ---
See Addendum Subjective Follow-up For: Weakness Urethral stone Transaminitis Subjective: Patient seen and examined. Reports feeling well. Had her stent removed earlier. Denies being in any pain. Offers no complaints. Looks forward to being discharged. Review of Systems Constitutional: Reports: no symptoms. Objective Last 24 Hrs of Vital Signs/I&O Vital Signs Date Time Temp Pulse Resp B/P B/P Pulse O2 O2 Flow FiO2 Mean Ox Delivery Rate 02/21 0609 98.0 69 20 146/60 93 02/20 2043 62 150/52 02/20 2039 97.4 62 18 150/52 96 Room Air 02/20 1439 97.9 57 16 118/58 95 Room Air 02/20 0929 78 118/68 02/20 0726 98.2 62 18 116/64 93 Intake & Output 02/21 0800 02/21 0000 02/20 1600 Intake Total 120 730 910 Output Total 650 350 550 Balance -530 380 360 Intake, IV 250 10 Intake, Oral 120 480 900 Number 0 0 Bowel Movements Output, Urine 650 350 550 Physical Exam General Appearance: Alert, Oriented X3, Cooperative, Mild Distress Skin: No Rashes, No Breakdown Skin Temp/Moisture Exam: Warm/Dry Sepsis Skin Exam (color): Normal for Ethnicity HEENT: Atraumatic Cardiovascular: Normal S1, Normal S2, MARCELO Lungs: Normal Air Movement Abdomen: Soft, No Tenderness Neurological: Normal Speech Extremities: No Edema Assessment/Plan Assessment: 77 yo F with PMH of multiple sclerosis with functional paraplegia, wheelchair bound, chronic indwelling Claudio catheter secondary to neurogenic bladder, recurrent UTIs, hyperlipidemia, PVD status post right leg stent placement, hypothyroidism, provoked DVT on Coumadin presented to ED with 1 day hx of generalized malaise. Assessment: 1. Cholelithiasis 2. Transaminitis - resolved 3. Weakness 4. Diffuse atherosclerotic vascular calcification 5. Acute Delirium - resolved 6. UTI Plan: * She had a ureteroscopy with s/p R ureteroscopy and laser litho of R distal ureteral stones and R ureteral stent exchange on Sunday. * The stent was removed today * urine culture is growing enterococcous (pansensitive). however, pencillins need to be avoided. * Continue Vancomycin for a total of 10 day course to be completed as outpatient. * Vanc level was elevated today so will not administer today. Vanc trough to be done tomorrow and dosed if level <15. * Brain MRI was not suggestive of MS exacerbation * Neurology input appreciated. * Electroencephalogram was normal. * MRCP did not reveal any biliary dilatation. * Diet: Regular with 2g Na. * DVT Prophylaxis: Coumadin. * Code: DNR/DNI Problem List: 1. Ureteric stone Pain Ratin Pain Location: none Pain Goal: Remain pain free Pain Plan: none Tomorrow's Labs & Rationales: none
--- NOTE | 2018-02-21 07:26 | PN- Urology ---
Subjective Subjective: Patient feels well Objective Vital Signs and I&Os Vital Signs Date Time Temp Pulse Resp B/P B/P Pulse O2 O2 Flow FiO2 Mean Ox Delivery Rate 02/21 0609 98.0 69 20 146/60 93 02/20 2043 62 150/52 02/20 2039 97.4 62 18 150/52 96 Room Air 02/20 1439 97.9 57 16 118/58 95 Room Air 02/20 0929 78 118/68 02/20 0726 98.2 62 18 116/64 93 Intake & Output 02/21 0800 02/21 0000 02/20 1600 02/20 0802/20 0000 02/19 1600 Intake Total 120 730 910 320 320 810 Output Total 650 350 550 375 750 550 Balance -530 380 360 -55 -430 260 Intake, IV 250 10 250 270 10 Intake, Oral 120 480 900 70 50 800 Number 0 0 0 Bowel Movements Output, Urine 650 350 550 375 750 550 Abd: soft and non tender Genitalia: means in place. Draining clear urine Assessment/Plan Assessment/Plan Imp: 1. Neurogenic bladder managed with means 2. s/p R ureteroscopy and laser litho of 2 R distal ureteral stones Plan: 1. R ureteral stent removed at bedside today 2. VNA to change means monthly at home 3. f/u in our office prn
[2018-02-21] MEDS ORDERED: VANCOMYCIN HCL1 G1 IV ×3 (08:47→12:17)
[2018-02-21 10:24] LABS: PT 14.1 SEC (9.4-12.5)
[2018-02-21 12:56] VITALS: BP 118/78
== END 2018-02-21 13:25 | DRG 653 ==
LOC: ERH 09:56 → 2NB 15:40 → ERHI 15:40 → ENTRNSPT 17:52 → ENRESERV 17:54 → 2NB 18:10 → CMPTRNSPT 18:13 → 2NB 02-11 11:06 → ENTRNSPT 02-18 11:26 → EDTRNSPT 02-18 11:35 → EDTRNSPTSTS 02-18 11:35 → CMPTRNSPT 02-18 11:58 → ENPENDDIS 02-21 11:49 → 2NB 02-21 13:25
PROVIDERS: Internal Medicine; Physician Assistant Medical; Preventive Medicine Public Health & General Preventive Medicine; Student in an Organized Health Care Education/Training Program
PROC: 0TC68ZZ Extirpation of Matter from Right Ureter, Via Natural or Artificial Opening Endoscopic (ICD-10-PCS; principal; 2018-02-18)
PROC: 0T7B8DZ Dilation of Bladder with Intraluminal Device, Via Natural or Artificial Opening Endoscopic (ICD-10-PCS; principal; 2018-02-18)
DX: N13.2 Hydronephrosis with renal and ureteral calculous obstruction (principal); G92 Toxic encephalopathy; T83.511A Infection and inflammatory reaction due to indwelling urethral catheter, initial encounter; R44.3 Hallucinations, unspecified; G82.20 Paraplegia, unspecified; F05 Delirium due to known physiological condition; Z99.3 Dependence on wheelchair; K80.20 Calculus of gallbladder without cholecystitis without obstruction; N39.0 Urinary tract infection, site not specified; G35 Multiple sclerosis; N31.9 Neuromuscular dysfunction of bladder, unspecified; E80.6 Other disorders of bilirubin metabolism; E86.0 Dehydration; G25.3 Myoclonus; E78.5 Hyperlipidemia, unspecified; E03.9 Hypothyroidism, unspecified; Z88.5 Allergy status to narcotic agent; Z88.2 Allergy status to sulfonamides; Z79.01 Long term (current) use of anticoagulants; Z90.710 Acquired absence of both cervix and uterus; M54.5 Low back pain; R74.0 Nonspecific elevation of levels of transaminase and lactic acid dehydrogenase [LDH]; R79.1 Abnormal coagulation profile; B95.2 Enterococcus as the cause of diseases classified elsewhere; Z66 Do not resuscitate; I25.10 Atherosclerotic heart disease of native coronary artery without angina pectoris; Z88.0 Allergy status to penicillin; Z95.9 Presence of cardiac and vascular implant and graft, unspecified
CPT/HCPCS: 2NBP; 2NBSP; 70552; 74181; 83520; 86376; 36415; 36592; 70553; 71045; 74018; 74177; 81001; 82355; 82436; 82784; 87040; 87086; 87147; 93005; 93010; 96361; 96365; 99291; A9579; C2617; G0480; J1100; J1650; J2405; J3370; J7040; J7042